=== PATIENT | female | born 1960 | race Caucasian/White ===

== ENCOUNTER 2016-12-22 15:45 | Outpatient (CLI) | payer MEDICARE, MEDICAID | END 2016-12-22 15:46 | disposition critical access hospital (66) | LOC: EMS 15:45 | PROVIDERS: ATTEND Surgery | DX: M25.561 Pain in right knee (principal); W01.198A Fall on same level from slipping, tripping and stumbling with subsequent striking against other object, initial encounter; Y92.038 Other place in apartment as the place of occurrence of the external cause | CPT/HCPCS: A0425; A0429 ==

== ENCOUNTER 2016-12-22 16:04 | Observation (INO) | payer MEDICARE, MEDICAID ==
--- NOTE | 2016-12-22 16:58 | ED Physician Documentation ---
History of Present Illness - Stated complaint Stated Complaint: GLF - Chief complaint Chief Complaint: Ext Problem - History obtained from History obtained from: Patient, EMS - History of Present Illness Timing: Today, How many hours ago (2) Pain level max: 8 Pain level now: 3 Improved by: rest Worsened by: movement - Additonal information Additional information: Patient is a 56-year-old female who presents to the emergency department after speaking with him on the phone today and then waking up on the floor. States she has never passed out before. She did have a headache earlier today, but this is now improved. Does have a history of seizures, but normally focal seizures. No tongue biting. No incontinence. No chest pain, no dizziness or lightheadedness. No nausea or vomiting. Patient states that she had a right total knee replacement in October of this year with Dr. Knight at [facility] in [place], states increasing right knee and left knee pain since the fall as well as low back pain. Review of Systems Ten Systems: 10 systems reviewed and negative Constitutional: denies: Fever, Chills Eyes: denies: Photophobia Ears: denies: Ear pain Nose: denies: Rhinorrhea / runny nose, Congestion Throat: denies: Sore throat Cardiac: denies: Chest pain / pressure Respiratory: denies: Cough GI: denies: Abdominal Pain, Nausea, Vomiting, Diarrhea : denies: Dysuria, Frequency, Hesitancy Skin: denies: Rash Musculoskeletal: reports: Back pain (low back pain) Neurologic: denies: Focal weakness, Numbness, Confused, Altered mental status PD PAST MEDICAL HISTORY - Past Medical History Past Medical History: Yes Cardiovascular: None Respiratory: Asthma Neuro: Headache/migraine, Seizure disorder, Other Endocrine/Autoimmune: Type 2 diabetes GI: Other : None HEENT: Other Psych: None Musculoskeletal: Osteoarthritis, Chronic back pain Derm: None - Past Surgical History Past Surgical History: Yes General: Cholecystectomy, Colonoscopy Ortho: Knee replacement, Shoulder arthroplasty, Spine surgery - Present Medications Home Medications: Ambulatory Orders Medication Instructions Recorded Confirmed Fluticasone [Flonase] 1 sprays CECILIA DAILY 02/13/13 12/22/16 Gabapentin [Neurontin] 1,200 mg PO TID 02/13/13 12/22/16 Topiramate [Topiragen] 200 mg PO BID 02/13/13 12/22/16 Acetaminophen [Tylenol] 650 mg PO Q6H PRN 01/07/14 12/22/16 Albuterol Sulfate [Proair Hfa] 8.5 gm IH Q4H PRN 01/07/14 12/22/16 Cholecalciferol (Vitamin D3) 5,000 unit PO DAILY 01/07/14 12/22/16 [Vitamin D] Polyvinyl Alcohol/Povidone/Pf 1 each OP BID 01/07/14 12/22/16 [Refresh Classic Eye Drops] Cyclobenzaprine [Flexeril] 10 mg PO TID PRN #20 tablet 07/11/14 12/22/16 Ibuprofen [Motrin] 800 mg PO Q8H PRN #30 tablet 07/11/14 12/22/16 - Allergies Allergies/Adverse Reactions: Allergies Allergy/AdvReac Type Severity Reaction Status Date / Time aspirin AdvReac Intermediate Itching Verified 10/15/15 13:43 Penicillins AdvReac Intermediate Itching Verified 10/15/15 13:43 Sulfa (Sulfonamide AdvReac Intermediate Itching Verified 10/15/15 13:43 Antibiotics) prednisone AdvReac Dizziness Verified 10/15/15 13:43 - Social History Does the pt smoke?: No Smoking Status: Never smoker Does the pt drink ETOH?: No Does the pt have substance abuse?: No - Immunizations Immunizations are current?: No - POLST Patient has POLST: No PD ED PE NORMAL - Vitals Vital signs reviewed: Yes - General General: Alert and oriented X 3, No acute distress, Well developed/nourished - HEENT HEENT: Atraumatic, PERRL, Ears normal, Moist mucous membranes, Pharynx benign - Neck Neck: Supple, no meningeal sign, No bony TTP - Cardiac Cardiac: RRR, Strong equal pulses - Respiratory Respiratory: No respiratory distress, Clear bilaterally - Abdomen Abdomen: Soft, Non tender, Non distended - Back Back: Other (mild low lumbar TTP, no step off or deformity) - Derm Derm: Warm and dry - Extremities Extremities: No deformity, Other (R knee - swollen, warm. minimal redness. FROM with some pain. NVI. L knee mild pain with ROM, otherwise normal.) - Neuro Neuro: Alert and oriented X 3 - Psych Psych: Normal mood, Normal affect Results - Vitals Vitals: Vital Signs - 24 hr 12/22/16 12/22/16 15:57 18:32 Temperature 36.2 C L Heart Rate 64 62 Respiratory 18 17 Rate Blood Pressure 147/97 H 128/80 O2 Saturation 99 99 Oxygen O2 Source Room air - EKG (time done) 1746 Rate: Rate (enter#) (64) Rhythm: NSR [place]: Normal Intervals: Normal [place] QRS: Normal Ischemia: Non specific changes - Labs Labs: Laboratory Tests 12/22/16 12/22/16 12/22/16 16:58 16:58 16:58 WBC 10.5 RBC 4.25 Hgb 12.5 Hct 38.0 MCV 89.2 MCH 29.5 MCHC 33.0 RDW 14.0 Plt Count 290 MPV 7.3 L Neut # 7.4 H Lymph # 2.3 [place] # 0.6 Eos # 0.2 Baso # 0.1 Absolute Nucleated RBC 0.01 Nucleated RBC % 0.0 ESR 28 Sodium 138 Potassium 3.4 L Chloride 105 Carbon Dioxide 22 Anion Gap 11.0 BUN 17 Creatinine 1.1 H Estimated GFR (MDRD) 52 L Glucose 119 H Glycated Hemoglobin Estim Average Glucose Calcium 9.2 Total Bilirubin 0.2 AST 17 ALT 15 Alkaline Phosphatase 84 Troponin I C-Reactive Protein 2.0 H Total Protein 7.4 Albumin 3.8 Globulin 3.6 Albumin/Globulin Ratio 1.1 Lipase 22 12/22/16 12/22/16 16:58 18:52 WBC RBC Hgb Hct MCV MCH MCHC RDW Plt Count MPV Neut # Lymph # [place] # Eos # Baso # Absolute Nucleated RBC Nucleated RBC % ESR Sodium Potassium Chloride Carbon Dioxide Anion Gap BUN Creatinine Estimated GFR (MDRD) Glucose Glycated Hemoglobin 5.9 Estim Average Glucose 123 H Calcium Total Bilirubin AST ALT Alkaline Phosphatase Troponin I < 0.04 C-Reactive Protein Total Protein Albumin Globulin Albumin/Globulin Ratio Lipase - Rads (name of study) R knee xray Radiology: Prelim report reviewed, EMP read contemporaneously, See rad report (s /p TKR. no acute findings. ) L knee xray Radiology: Prelim report reviewed, EMP read contemporaneously, See rad report ( Negative left knee ) L spine xray Radiology: Prelim report reviewed, EMP read contemporaneously, See rad report ( Mild/moderate degenerative disk disease of the lower lumbar spine. No fracture or subluxation) head CT Radiology: Prelim report reviewed, EMP read contemporaneously, See rad report ( No acute intracranial abnormality. Stable left ventriculomegaly) cxr Radiology: Prelim report reviewed, EMP read contemporaneously, See rad report ( No acute disease) PD MEDICAL DECISION MAKING - ED course Complexity details: reviewed results, re-evaluated patient, considered differential, d/w patient, d/w human resources consultant ED course: Patient is a 56-year-old female who presents to the emergency department with a syncopal event today at home. No prodrome. She also has a seizure history, but mainly focal seizures, states rarely has grand mal seizures and did not feel like she had one today. No acute findings on EKG or radiographic testing. Her right knee is warm and swollen she did have an infection in this leg after a knee replacement in October, I discussed the case with Dr. Cabrera, orthopedics floorperson and he will evaluate the patient in the morning. Also discussed with hospitalist, Dr. London who accepts. This document was made in part using voice recognition software. While efforts are made to proofread this document, sound alike and grammatical errors may occur. Departure - Departure Disposition: ED Place in Observation Clinical Impression: Syncope Qualifiers: Syncope type: unspecified Qualified Code(s): R55 - Syncope and collapse Knee pain, right Qualifiers: Chronicity: acute Qualified Code(s): M25.561 - Pain in right knee Condition: Good Discharge Date/Time: 12/22/16 21:05
[2016-12-22 17:05] LABS: BASOPHILS # (AUTO) 0.1 10^3/uL (0.0-0.1); BASOPHILS % (AUTO) 0.5 %; EOSINOPHILS # (AUTO) 0.2 10^3/uL (0.0-0.7); HGB - HEMOGLOBIN 12.5 g/dL (12.0-16.0); LYMPHOCYTES # (AUTO) 2.3 10^3/uL (1.5-3.5); LYMPHOCYTES % (AUTO) 21.8 %; MEAN CORPUSCULAR HEMOGLOBIN 29.5 pg (27.0-31.0); MEAN CORPUSCULAR VOLUME 89.2 fL (81.0-99.0); MEAN PLATELET VOLUME 7.3 fL (7.9-10.8); MONOCYTES # (AUTO) 0.6 10^3/uL (0.0-1.0); MONOCYTES % (AUTO) 5.4 %; NEUTROPHILS # (AUTO) 7.4 10^3/uL (1.5-6.6); NEUTROPHILS % (AUTO) 70.3 %; RED BLOOD COUNT 4.25 10^6/uL (4.20-5.40); UNCORRECTED WHITE BLOOD COUNT 10.5 x10^3/uL; WHITE BLOOD COUNT 10.5 x10^3/uL (4.8-10.8)
[2016-12-22 17:28] LABS: ALBUMIN/GLOBULIN RATIO 1.1 (1.0-2.2); BILIRUBIN,TOTAL 0.2 mg/dL (0.2-1.0); CALCIUM 9.2 mg/dL (8.5-10.3); CREATININE 1.1 mg/dL (0.4-1.0); POTASSIUM 3.4 mmol/L (3.5-5.0); TOTAL PROTEIN 7.4 g/dL (6.7-8.2)
--- NOTE | 2016-12-22 17:46 | CT Preliminary Report ---
Exam: CT HEAD W/O IMPRESSION: 1. No acute intracranial abnormality. 2. Stable left ventriculomegaly. [facility] SITE ID: [id number]
--- NOTE | 2016-12-22 17:49 | CT Report ---
EXAM: CT HEAD EXAM DATE: 12/22/2016 05:24 PM. CLINICAL HISTORY: Headache, syncope. COMPARISON: 12/18/2009 CT head. TECHNIQUE: Multiaxial CT images were obtained from the foramen magnum to the vertex. Reformats: Coron al. IV contrast: None. In accordance with CT protocol optimization, one or more of the following dose reduction techniques w ere utilized for this exam: automated exposure control, adjustment of mA and/or KV based on patient s ize, or use of iterative reconstructive technique. FINDINGS: Parenchyma: No intraparenchymal hemorrhage. No evidence of mass, midline shift, or CT findings of inf arction. Ruiz-white differentiation is distinct. Extraaxial Spaces: Normal for age. No subdural or epidural collections identified. Ventricles: There is dilatation of the left lateral ventricle noting marked enlargement of the occipi antonio horn, stable compared to the previous exam. The right, third and fourth ventricles remain normal. Sinuses and Orbits: Imaged paranasal sinuses, orbits, and mastoids show no significant abnormality. Bones: No evidence of fracture or calvarial defect. Other: None. IMPRESSION: 1. No acute intracranial abnormality. 2. Stable left ventriculomegaly. [facility] Referring Provider Line: [phone] SITE ID: [id number]
--- NOTE | 2016-12-22 18:14 | XRAY Preliminary Report ---
Exam: XR KNEE 2 VIEW RT IMPRESSION: Total knee arthroplasty. No fracture. [facility] SITE ID: [id number]
--- NOTE | 2016-12-22 18:17 | XRAY Report ---
EXAM: RIGHT KNEE RADIOGRAPHY EXAM DATE: 12/22/2016 05:49 PM. CLINICAL HISTORY: Fall, R knee pain. COMPARISON: None. TECHNIQUE: 2 views. FINDINGS: Bones: Normal. No fractures or bone lesions. Joints: Alignment appears satisfactory. Limited assessment for joint effusion. Soft Tissues: Normal. No soft tissue swelling. IMPRESSION: Total knee arthroplasty. No fracture. [facility] Referring Provider Line: [phone] SITE ID: [id number]
--- NOTE | 2016-12-22 18:17 | XRAY Preliminary Report ---
Exam: XR KNEE 4 VIEW LT IMPRESSION: Negative left knee [facility] SITE ID: [id number]
--- NOTE | 2016-12-22 18:20 | XRAY Report ---
EXAM: LEFT KNEE RADIOGRAPHY EXAM DATE: 12/22/2016 05:49 PM. CLINICAL HISTORY: Fall, L knee pain. COMPARISON: 11/22/2008. TECHNIQUE: 4 views. FINDINGS: Bones: Normal. No fractures or bone lesions. Joints: Normal. No effusion. No subluxations. Soft Tissues: Normal. No soft tissue swelling. IMPRESSION: Negative left knee [facility] Referring Provider Line: [phone] SITE ID: [id number]
--- NOTE | 2016-12-22 18:21 | XRAY Preliminary Report ---
Exam: XR LUMBAR SPINE 2 VIEW IMPRESSION: Mild/moderate degenerative disk disease of the lower lumbar spine. No fracture or subluxa tion. [facility] SITE ID: [id number]
--- NOTE | 2016-12-22 18:23 | XRAY Report ---
EXAM: LUMBOSACRAL SPINE RADIOGRAPHY EXAM DATE: 12/22/2016 05:49 PM. CLINICAL HISTORY: Low back pain. COMPARISONS: None. TECHNIQUE: 3 views. FINDINGS: Alignment: No significant subluxation. Bones: Five [id number] lumbar vertebral bodies are present. No fracture visualized. Disks: There is moderate disk height loss at L4-L5 and L5-S1. Facets: Facet joints appear in satisfactory alignment. There is facet sclerosis and hypertrophy at L4 -L5 and L5-S1. Sacroiliac Joints: Unremarkable. Soft Tissues: Normal. The visualized bowel gas pattern is normal. IMPRESSION: Mild/moderate degenerative disk disease of the lower lumbar spine. No fracture or subluxa tion. [facility] Referring Provider Line: [phone] SITE ID: [id number]
[2016-12-22] MEDS ORDERED: TOPIRAMATE 100 MG TABLET PO STA (18:48)
[2016-12-22] MEDS ORDERED: HYDROcod/ACETAM 5/325 MG TABLET PO STA (18:49)
[2016-12-22] MEDS: GABAPENTIN 400 MG CAPSULE PO STA (18:59)
[2016-12-22] MEDS ORDERED: POTASSIUM CHLORIDE 20 MEQ TABLET PO STA (19:59)
[2016-12-22] MEDS ORDERED: ONDANSETRON 4 MG/2 ML VIAL IVP PRN (20:00)
[2016-12-22] MEDS ORDERED: SODIUM CHLORIDE FLUSH 0.9% 10 ML SYRINGE IVP PRN (20:00)
[2016-12-22] MEDS ORDERED: ALBUTEROL SULFATE IH PRN (20:02)
[2016-12-22] MEDS ORDERED: CYCLOBENZAPRINE 10 MG TABLET PO PRN (20:02)
[2016-12-22] MEDS ORDERED: ACETAMINOPHEN 325 MG TABLET PO PRN (20:02)
--- NOTE | 2016-12-22 20:10 | XRAY Preliminary Report ---
Exam: XR CHEST 1 VIEW IMPRESSION: Normal single view chest. [facility] SITE ID: [id number]
--- NOTE | 2016-12-22 20:11 | XRAY Report ---
EXAM: CHEST RADIOGRAPHY EXAM DATE: 12/22/2016 07:48 PM. CLINICAL HISTORY: Syncope. COMPARISON: 02/13/2013. TECHNIQUE: 1 view. FINDINGS: Lungs/Pleura: No focal opacities evident. No pleural effusion. No pneumothorax. Mediastinum: Within exam limitations, the cardiomediastinal contour is normal. Other: None. IMPRESSION: Normal single view chest. [facility] Referring Provider Line: [phone] SITE ID: [id number]
[2016-12-22] MEDS ORDERED: ERGOCALCIFEROL 50,000 UNIT CAPSULE PO SCH (20:15)
[2016-12-22] MEDS ORDERED: ALBUTEROL 6.7 GM INHALER INH PRN (21:06)
[2016-12-22] MEDS: SODIUM CHLORIDE FLUSH 0.9% 10 ML SYRINGE IVP SCH ×2 (21:59→23:37)
[2016-12-22] MEDS: GABAPENTIN 400 MG CAPSULE PO SCH ×2 (21:59)
[2016-12-22] MEDS ORDERED: CHOLECALCIFEROL 5,000 UNIT CAPSULE PO SCH (22:04)
[2016-12-22 22:22] LABS: HEMOGLOBIN A1C 0.54 g/dL
[2016-12-22] MEDS: HEPARIN 5,000 UNIT/ML VIAL SUBQ SCH (22:35)
[2016-12-22] MEDS ORDERED: levETIRAcetam INJ 500 MG in SODIUM CHLORIDE 0.9% 100ML 100 ML IV SCH (23:00)
--- NOTE | 2016-12-23 01:52 | Ultrasound Preliminary Report ---
Exam: US CAROTID DOPPLER COMPLETE IMPRESSION: 1. Bilateral carotid plaquing, right greater than left. No significant stenosis identified. 2. Antegrade flow in both vertebral arteries. Validated velocity measurements with angiographic measurements and velocity criteria are extrapolated from diameter data as defined by the Society of Radiologists in Ultrasound Consensus Conference Radi ology 2003; 229;340-346. [facility] SITE ID: [id number]
--- NOTE | 2016-12-23 02:03 | HISTORY & PHYSICAL EXAMINATION ---
DATE OF ADMISSION: 12/22/2016 CHIEF COMPLAINT: Syncope. HISTORY OF PRESENT ILLNESS: The patient is a 56-year-old white female with past medical history of type 2 diabetes diet controlled, with history of developmental delay and seizure disorder, taking Topamax and with peripheral neuropathy on multiple medications. Notably, the patient recently underwent right knee replacement in October 2016. Other than that, there was no change in her chronic medical problems. The patient reported that usually she has focal seizures. She described that her left arm shakes and sometimes the shakes go into her left leg. The shaking lasts for 2-4 minutes and self resolves. The patient does see a neurologist and reported no recent medication change. The patient was a good historian and mentioned a few issues regarding her knee replacement. In particular, she noticed that her right knee was swollen and got painful, therefore she wanted to have outpatient followup but have not yet got a chance. In addition, she was using Lovenox injections following the knee surgery and she developed complications with wounds on both of her thighs for that she had been receiving outpatient wound care. Regarding the circumstances leading to presentation to the ER, the patient was on the phone with [employer] on the afternoon of 12/22/2016 at which time she remembers going forward and falling. Other than that she cannot recall further detail, the ambulance was called by the [employer] attendant who was on the phone with the patient. On further interview, the patient denied chest pain, shortness of breath, or fever. She mentioned that she was lightheaded earlier during the day, did not complain of nausea, vomiting, diarrhea, abdominal pain, denied similar episodes in the past. She believes that she blacked out and lost time. When I asked her about her seizures she told me that she has seizure activity sometimes a couple of times a week, other times couple of times a month , she had grand mal seizures in the past, but only a few times. She did not feel her syncope was related to seizure. However, she also told me that in the ER she had focal seizures twice which means that her left arm and leg were shaking. Notably, the ER physician did not report any seizure activity or any unusual issue during the ER stay. PRIMARY CARE PHYSICIAN: Dr. Ryland Carlton. PAST MEDICAL HISTORY: 1. Type 2 diabetes, most recently not even using a diet, reports significant weight loss after which she no longer required medications. For a while she controlled diabetes with a diet and most recently her blood glucose was controlled even without keeping diabetic diet. 2. History of seizure with structural brain abnormality. 3. Possible developmental delay, ventriculomegaly described on CT scan. The patient reporting that she had "fluid in her brain" /might have hydrocephalus. 4. Peripheral neuropathy. 5. Chronic low back pain, taking occasional Vicodin 6. Osteoarthritis status post total right knee replacement. OUTPATIENT MEDICATIONS: 1. Vitamin D. 2. Topamax eyedrops. 3. Ibuprofen. 4. Gabapentin. 5. Flonase. 6. Flexeril. 7. ProAir inhaler. 8. Tylenol. ALLERGIES: ASPIRIN, PENICILLIN, SULFA, PREDNISONE. SOCIAL HISTORY: The patient uses a walker and occasionally a cane to ambulate following her knee surgery. She had been undergoing physical therapy and reports that she is back to her normal baseline physical activity. She has a caregiver for 7 hours a day. She is a nonsmoker, nondrinker, uses no drugs. FAMILY HISTORY: Positive for coronary artery disease, diabetes, and cancer in the mother. Diabetes and dementia in the father. REVIEW OF SYSTEMS: Please see pertinent positive listed above at history of present illness; I completed 12-point review and the patient denied all other additional complaints. PHYSICAL EXAMINATION: VITAL SIGNS: Blood pressure 120/80, heart rate in the 60s, respiration rate 18, oxygen saturation 100% on room air, temperature 36.3 Celsius. GENERAL: The patient is a well-developed female who was not in distress. She was slow with her responses but answered all my questions appropriately. NEUROLOGIC: The patient had intact mentation and cognition. Appropriate affect. She was neurologically nonfocal. PSYCH: Cooperative, pleasant to talk to. SKIN: On the right thigh, there was a small wound covered with dressing and on the left thigh there was a healing wound without signs of inflammation. MUSCULOSKELETAL: Right knee had a well-healing surgical scar; however, it appeared to be swollen with effusion. There was no erythema and no warmth, no other site of joint swelling or muscle tenderness. HEART: S1, S2, regular rate and rhythm. RESPIRATORY: Lungs clear to auscultation bilaterally without wheezes, or crackles. LYMPH: No lymphedema. ABDOMEN: Obese, benign. Bowel sounds present, nontender. MOUTH: Oral cavity, no ulcers, no tongue biting. Diagnostic workup: Reviewed per ER record, notably the patient had multiple x- rays including knee x-rays and x-ray of the spine. At this point, preliminary reports are available. No abnormality was noted. In particular on the right knee signs of arthroplasty were noted but no fracture. Radiologist mentioned limited assessment for joint effusion. CT of the brain showed no acute abnormality. Chest x-ray was unremarkable. X- ray of the spine showed no abnormality. Laboratory workup was grossly unremarkable except for mildly low potassium at 3.4 and slightly increased creatinine 1.1. CRP was 2. Troponin was negative. EKG was unremarkable, showing sinus rhythm with a rate of 64, nonspecific abnormalities. ASSESSMENT AND PLAN: The patient is a 56-year-old female with history of seizure disorder, usually taking Topamax also with history of developmental delay and neuropathy taking multiple psychoactive medications including Flexeril and recently taking some Vicodin for osteoarthritis and knee pain following surgery. She presented with a brief syncopal episode. So far the ER workup was unrevealing. ACTIVE ISSUE/DIAGNOSES: 1. Syncopal episode. a. Could be related to seizure. With history of seizure this would be most likely. b. The patient never had cardiac workup, will be monitored on telemetry to rule out cardiac arrhythmia. We will have an echocardiogram and carotid ultrasound according to syncope workup. c. CT head of the brain was negative. d. The vital signs were normal, however orthostatic change/dehydration causing is possible. e. Psychoactive medications could contribute to altered mental status and short syncope. 2. Type 2 diabetes, not on medication, not on diet. Blood glucose was 150 on admission. 3. Right thigh wounds, will require ongoing wound care. 4. Right knee appears with effusion on physical exam. For this problem the ER physician, Dr. Oliver spoke with the covering orthopedic surgeon, Dr. Cabrera, who accepted this patient for consultation and will see her in the morning. 5. Mild electrolyte abnormality/hypokalemia, potassium was already replaced. 6. The patient appeared slightly dehydrated. Creatinine was increased and GFR was decreased. Syncope could also be a result of orthostatic change in the setting of dehydration. PLAN AND ORDERS: 1. The patient is getting admitted under observation. 2. Telemetry monitoring, syncope workup including ultrasound of the carotids and echocardiogram. I added TSH to the workup and in addition, I added prolactin if it is significantly elevated, then seizure will be more likely. 3. Continue with seizure precautions and continue Topamax. I sent Topamax level. 3. The patient has an outpatient neurologist after syncope workup and short hospital stay, she should likely be sent back to outpatient neurology followup to adjust her antiseizure medications. 4. Regarding chronic medical problems, will continue outpatient medications. 5. Regarding diabetes the patient requested to be on a regular diet. We will monitor blood glucose on sliding scale. 6. Will assess orthostatic vital signs. 6. Deep venous thrombosis prophylaxis with Venodyne boots and decreased dose of subcutaneous heparin. 7. Wound care for small thigh wounds. 8. Orthopedic evaluation for knee effusion. For this, the patient might need to have a knee tap. I added blood cultures and MRSA screen to the workup considering recent knee surgery and possible infectious issue, although the patient was afebrile and white blood cell count was not elevated, therefore infectious problem is less likely. 9. FULL CODE. Time spent with the care of this patient was 1 hour. ADDENDUM: Shortly after admission the patient had a short episode of focal seizure with left arm shakes. She became lethargic but remained responsive without loss of consciousness. On telemetry was noted with ictal bradycardia/ HR down to 40s. Given the observed focal seizure and ictal bradycardia syncope could be explained by the combination of seizure and consequent rashad- arrhythmia. Keppra was started. Topamax continued. For further recommendation neurology could be contacted during the daytime. JOB #: [id number] EXT JOB #:[id number] [facility]
--- NOTE | 2016-12-23 02:04 | Ultrasound Report ---
EXAM: CAROTID DOPPLER ULTRASOUND EXAM DATE: 12/23/2016 01:38 AM. CLINICAL HISTORY: Syncope. COMPARISON: None. TECHNIQUE: Real-time sonographic vascular imaging was performed by the cancer center director through the [employer] arterial system with a linear transducer utilizing color-flow, Doppler flow and spectral analysis. Multiple operations representative static images were saved for review. FINDINGS: There is plaquing in the carotid bulbs and proximal internal carotid arteries bilaterally, right grea ter than left. No significant stenosis is seen. Antegrade flow is seen in both vertebral arteries. Right: RCCA Prox: PSV 88.7 cm/sec. RCCA Dist: PSV 71.4 cm/sec, EDV 17.3 cm/sec. RECA: PSV 87.6 cm/sec. R Bulb: PSV 48.1 cm/sec, EDV 18.9 cm/sec, ICA/CCA ratio 0.7. OSCAR Prox: PSV 85.5 cm/sec, EDV 8.7 cm/sec, ICA/CCA ratio 1.2. OSCAR Mid: PSV 99.0 cm/sec, EDV 27 cm/sec, ICA/CCA ratio 1.4. OSCAR Dist: PSV 83.3 cm/sec, EDV 25.4 cm/sec, ICA/CCA ratio 1.2. RVA: PSV 37.3 cm/sec. RVA flow direction: Antegrade. Left: LCCA Prox: PSV 102 cm/sec. LCCA Dist: PSV 66.5 cm/sec, EDV 13 cm/sec. LECA: PSV 54.6 cm/sec. L Bulb: PSV 33 cm/sec, EDV 6.5 cm/sec, ICA/CCA ratio 0.5. LICA Prox: PSV 58.4 cm/sec, EDV 15.7 cm/sec, ICA/CCA ratio 0.9. LICA Mid: PSV 89.2 cm/sec, EDV 30.3 cm/sec, ICA/CCA ratio 1.3. LICA Dist: PSV 73.1 cm/sec, EDV 26.5 cm/sec, ICA/CCA ratio 1.1. LVA: PSV 51.4 cm/sec. LVA flow direction: Antegrade. Other: Bilateral cervical lymph nodes measuring up to about 1.4 cm on the long axis. IMPRESSION: 1. Bilateral carotid plaquing, right greater than left. No significant stenosis identified. 2. Antegrade flow in both vertebral arteries. Validated velocity measurements with angiographic measurements and velocity criteria are extrapolated from diameter data as defined by the Society of Radiologists in Ultrasound Consensus Conference Radi ology 2003; 229;340-346. [facility] Referring Provider Line: [phone] SITE ID: [id number]
[2016-12-23] MEDS: IBUPROFEN 800 MG TABLET PO PRN ×2 (03:12→12:25)
[2016-12-23] MEDS: GABAPENTIN 400 MG CAPSULE PO SCH ×2 (05:47→14:25)
[2016-12-23] MEDS ORDERED: ALBUTEROL NEB 2.5 MG/3 ML INH PRN (07:12)
[2016-12-23] MEDS: INSULIN ASPART 300 UNIT/3 ML PEN SUBQ SCH ×2 (07:43→11:47)
[2016-12-23] MEDS ORDERED: POLYETHYLENE GLYCOL 3350 17 GM PACKET PO SCH (09:00)
[2016-12-23] MEDS ORDERED: TOPIRAMATE 100 MG TABLET PO SCH ×2 (09:00)
[2016-12-23] MEDS ORDERED: FLUTICASONE NASAL SPRAY NAS SCH (09:00)
[2016-12-23] MEDS ORDERED: CARBOXYMETHYLCELLULOSE OPHTH DROPS EACHEYE SCH (09:00)
[2016-12-23] MEDS: HEPARIN 5,000 UNIT/ML VIAL SUBQ SCH (09:23)
[2016-12-23] MEDS ORDERED: levETIRAcetam INJ 500 MG in SODIUM CHLORIDE 0.9% 100ML 100 ML IV SCH (11:00)
--- NOTE | 2016-12-23 11:03 | CONSULTATION NOTE ---
DATE OF CONSULTATION: 12/23/2016 00:00:00 REQUESTING PROVIDER: Dr. Jose Oliver. REASON FOR CONSULTATION: Right knee swelling. HISTORY OF PRESENT ILLNESS: The patient is a 56-year-old diabetic female who has undergone a right to antonio knee arthroplasty performed by Dr. Erin Knight in [place] in October. The patient's course w as uneventful except for a complication of wound breakdown at sites of Lovenox injection on her upper thigh, the most prominent one being on her proximal right thigh and still an open wound at this time . The patient has had a syncopal event yesterday and was admitted to the hospital on observation. She was noted in the emergency room to have a swollen right knee and there was concern about whether thi s might be an incipient infection of her right knee and so I was asked to evaluate and make a determi nation on whether aspiration was warranted. The patient's prior medical history, vital signs and labo ratory tests were all documented. Of note is that she does not have any seromarkers of acute infectio n and is not febrile. PHYSICAL EXAMINATION MUSCULOSKELETAL/SKIN: The patient's examination shows her lying in bed, not in distress, having an O p-Site dressed wound on her proximal right thigh anteromedial remote from the total knee healing surg ical site, which appears to be healing fine with no evidence of wound breakdown and no surrounding wa rmth or erythema at this time. The patient is most comfortable with her knee in 30 degrees of flexion . Her knee stability is good to varus, valgus, and Rafaela exam, and she has intact extension of her knee and can do a very good straight leg raising test. She does not have distal edema and neurovascul ar exam is normal. X-ray review fails to show a periprosthetic fracture. The components appear in stable position. IMPRESSION: The patient has a history of fall with a minor injury to her right knee that seems to be resolving and does not appear to be due to infection of her total knee arthroplasty and therefore asp iration is not warranted. The patient will be placed in a small knee immobilizer and is recommended t o inform Dr. Knight of her syncopal episode and her overnight stay in the hospital and suggest that sh e have more advanced followup instead of waiting until January to see Dr. Knight. JOB #: [id number] EXT JOB #:[id number]
--- NOTE | 2016-12-23 13:12 | DISCHARGE SUMMARY ---
"Discharge Summary Admit Date: 12/22/16 Discharge Date: 12/23/16 Discharging Provider: PAZ Stinson Primary Care Provider: Ryland Carlton Code Status: Attempt Resuscitation Condition at Discharge: Good Discharge Disposition: 01 Home, Self Care - DIAGNOSES Admission Diagnoses: Syncope Seizure Bradycardia Hypokalemia Knee effusion Discharge Diagnoses with Status of Each Condition: Syncope- Suspected due to low fluid volume or pre-seizure activity. Plan: Cardiac work-up was normal and consisted of carotid dopplers, echocardiogram, orthostatic blood pressures and telemetry monitoring, which was sinus rhythm in the 60's. Seizure- A mini event was witnessed by admitting MD, so Keppra PO was added to current medication list. Plan: Follow up with neurology regarding new medications and events leading up to this admission. Bradycardia- Patient was monitored overnight for evidence of worsening bradycardia, but remained in the 60's throughout her stay. This may be a consequence of her mild LV hypertrophy that was noted on echocardiogram. Plan: No further recommendations to medications. Hypokalemia- Patient denies N/V/D leading up to the admission, likely from poor PO intake. Plan: Replace and follow up with PCP for further monitoring. Knee effusion- Patient remembers falling on her post-surgical right knee. Ortho surgery consulted and signed off as there is no intervention or aspiration indicated. Plan: Monitor. Wear a brace that was recommended by ortho to keep swelling down and for comfort. - HPI History of Present Illness: Patient is a 56-year-old female who presents to the emergency department after speaking with him on the phone today and then waking up on the floor. States she has never passed out before. She did have a headache earlier today, but this is now improved. Does have a history of seizures, but normally focal seizures. No tongue biting. No incontinence. No chest pain, no dizziness or lightheadedness. No nausea or vomiting. Patient states that she had a right total knee replacement in October of this year with Dr. Knight at [facility] in [place], states increasing right knee and left knee pain since the fall as well as low back pain. - CONSULTS | PROCEDURES Consultations: Ortho surgery - HOSPITAL COURSE Hospital Course: Patient was started on Keppra and watched overnight on telemetry. The usual cardiac work-up was completed and normal. Ortho surgery consulted for a possible right knee aspiration, which was deemed unnecessary. A brace was given for home use. Patient is to follow up with neuro as planned for further recommendations for Keppra medications and whether she could continue it. - ALLERGIES Allergies/Adverse Reactions: Allergies Allergy/AdvReac Type Severity Reaction Status Date / Time aspirin AdvReac Intermediate Itching Verified 10/15/15 13:43 Penicillins AdvReac Intermediate Itching Verified 10/15/15 13:43 Sulfa (Sulfonamide AdvReac Intermediate Itching Verified 10/15/15 13:43 Antibiotics) prednisone AdvReac Dizziness Verified 10/15/15 13:43 nonsting skin prep Allergy Hives Uncoded 12/23/16 14:11 - MEDICATIONS Home Medications: Ambulatory Orders Medication Instructions Recorded Confirmed Fluticasone [Flonase] 2 sprays CECILIA DAILY 02/13/13 12/23/16 Gabapentin [Neurontin] 1,200 mg PO BID 02/13/13 12/23/16 Topiramate [Topiragen] 200 mg PO BID 02/13/13 12/23/16 Albuterol Sulfate [Proair Hfa 2 puffs INH Q4H PRN 01/07/14 12/23/16 Inhaler] Cholecalciferol (Vitamin D3) 5,000 unit PO DAILY 01/07/14 12/22/16 [Vitamin D3] Albuterol 2.5 mg INH RTQ4H PRN neb 12/23/16 Cyclobenzaprine [Flexeril] 10 mg PO TID PRN tablet 12/23/16 Gabapentin 800 mg PO DAILY@1200 12/23/16 12/23/16 Hydrocodone/Acetaminophen 0.5 tab PO Q4H PRN 12/23/16 12/23/16 [Hydrocodon-Acetaminophn 10-325] Ibuprofen [Motrin] 800 mg PO Q8H PRN tablet 12/23/16 Insulin Aspart [NovoLOG] 1 - 5 unit SUBQ 12/23/16 0800,1200,1700,2100 pen Polyethylene Glycol 3350 [Miralax] 17 gm PO DAILY packet 12/23/16 levETIRAcetam [Keppra] 250 mg PO BID #60 tablet 12/23/16 tiZANidine [Zanaflex] 2 mg PO TID PRN 12/23/16 12/23/16 Home Medications Other | Comments: Fluticasone [Flonase] 2 sprays CECILIA DAILY 02/13/13 Gabapentin [Neurontin] 1,200 mg PO BID 02/13/13 Topiramate [Topiragen] 200 mg PO BID 02/13/13 Albuterol Sulfate [Proair Hfa Inhaler] 2 puffs INH Q4H PRN 01/07/14 Cholecalciferol (Vitamin D3) [Vitamin D3] 5,000 unit PO DAILY 01/07/14 Gabapentin 800 mg PO DAILY@1200 12/23/16 Hydrocodone/Acetaminophen [Hydrocodon-Acetaminophn 10-325] 0.5 tab PO Q4H PRN tiZANidine [Zanaflex] 2 mg PO TID PRN 12/23/16 - PHYSICAL EXAM AT DISCHARGE General Appearance: positive: No acute distress, Alert Eyes Bilateral: positive: Normal inspection, PERRL ENT: positive: ENT inspection nml, Pharynx nml, No signs of dehydration Neck: positive: Nml inspection, Thyroid nml, No JVD, Trachea midline Respiratory: positive: Chest non-tender, No respiratory distress, Breath sounds nml Cardiovascular: positive: Regular rate & rhythm, No gallop, Systolic murmur Peripheral Pulses: positive: 2+ Abdomen: positive: Non-tender, No organomegaly, Nml bowel sounds, No distention Rectal: positive: Non-tender Back: positive: Nml inspection Skin: positive: Color nml, No rash, Warm, Dry Extremities: positive: Non-tender, Full ROM, Pedal edema, Joint swelling Neurologic/Psychiatric: positive: Oriented x3, Motor nml, Sensation nml, Sensory loss, Slurred/abnml speech, Depressed mood/affect Reflexes: Bicep (R): 3+, Bicep (L): 3+ - LABS Result Diagrams: 12/22/16 16:58 12/22/16 16:58 - DIAGNOSTIC IMAGING Diagnostic Imaging Results: Final report reviewed Diagnostic Imaging Results Comments: Carotid US 12/23/16:IMPRESSION: 1. Bilateral carotid plaquing, right greater than left. No significant stenosis identified. 2. Antegrade flow in both vertebral arteries. Lumbar spine x-ray 12/22/16:IMPRESSION: Mild/moderate degenerative disk disease of the lower lumbar spine. No fracture or subluxation. There is facet sclerosis and hypertrophy at L4-L5 and L5-S1. There is moderate disk height loss at L4-L5 and L5-S1. Head CT w/o contrast 12/22/16: IMPRESSION: 1. No acute intracranial abnormality. 2. Stable left ventriculomegaly. Right Knee x-ray 12/22/16: IMPRESSION: Total knee arthroplasty. No fracture. Chest x-ray 12/22/16: Lungs/Pleura: No focal opacities evident. No pleural effusion. No pneumothorax. Mediastinum: Within exam limitations, the cardiomediastinal contour is normal. Echocardiogram: Mild LV hypertrophy, EF 60-65%, mild aortic regurgitation. - FOLLOW UP Follow Up: See neurology as scheduled, Gigi Vergara MD. Take all medications, including Keppra. - TIME SPENT Time Spent in Discharge (Minutes): 30"
[2016-12-23] MEDS: SODIUM CHLORIDE FLUSH 0.9% 10 ML SYRINGE IVP SCH (14:25)
--- NOTE | 2016-12-23 15:44 | Discharge Plan ---
Discharge Plan Disposition: 01 Home, Self Care Condition: Good Prescriptions: levETIRAcetam [Keppra] 250 mg PO BID #60 tablet Diet: Regular Activity Restrictions: Wt Bearing as Tolerated Shower Restrictions: No Driving Restrictions: No Weight Bearing: Full Weight Instruction Topics: Levetiracetam tablets Additional Instructions or Follow Up instructions: See neurology as scheduled, Gigi Vergara MD. Take all medications, including Keppra. No Smoking: If you smoke, Please STOP! Call for help. Follow-up with: Ryland Carlton DO [Primary Care Provider] -
[2016-12-23] MEDS ORDERED: levETIRAcetam 250 MG TABLET PO SCH (16:00)
[2016-12-23 16:06] VITALS: BP 129/73
[2016-12-23] MEDS ORDERED: HYDROcod/ACETAM 10 MG/325 MG TABLET PO PRN (16:35)
[2016-12-23] MEDS ORDERED: TIZANIDINE 2 MG PO PRN (16:36)
[2016-12-24] MEDS ORDERED: GABAPENTIN 400 MG CAPSULE PO SCH (12:00)
== END 2016-12-23 16:35 | disposition home or self-care (01) ==
LOC: EDUNIT# → ED 16:04 → OBS 20:00
PROVIDERS: ADMIT Internal Medicine; ATTEND Nurse Practitioner
DX: R55 Syncope and collapse (principal); G40.109 Localization-related (focal) (partial) symptomatic epilepsy and epileptic syndromes with simple partial seizures, not intractable, without status epilepticus; R00.1 Bradycardia, unspecified; E87.6 Hypokalemia; M25.461 Effusion, right knee; S89.91XA Unspecified injury of right lower leg, initial encounter; W18.30XA Fall on same level, unspecified, initial encounter; M51.36 Other intervertebral disc degeneration, lumbar region; G89.29 Other chronic pain; Z96.651 Presence of right artificial knee joint; E11.42 Type 2 diabetes mellitus with diabetic polyneuropathy; Z79.899 Other long term (current) drug therapy; J45.909 Unspecified asthma, uncomplicated; G43.909 Migraine, unspecified, not intractable, without status migrainosus; M25.562 Pain in left knee; I51.7 Cardiomegaly; L76.82 Other postprocedural complications of skin and subcutaneous tissue; Y84.8 Other medical procedures as the cause of abnormal reaction of the patient, or of later complication, without mention of misadventure at the time of the procedure
CPT/HCPCS: 36415; 70450; 71010; 72100; 73560; 73564; 80053; 83036; 83690; 83735; 84146; 84443; 84484; 85025; 85651; 86140; 87040; 93005; 93306; 93880; 96365; 96366; 96372; 99284; 99285; A9270; G0378; 87640

== ENCOUNTER 2017-05-12 11:29 | Outpatient (CLI) | payer MEDICARE, MEDICAID | END 2017-05-12 11:30 | disposition critical access hospital (66) | LOC: EMS 11:29 | PROVIDERS: ATTEND Surgery | DX: R56.9 Unspecified convulsions (principal) | CPT/HCPCS: A0425; A0429 ==

== ENCOUNTER 2017-05-12 11:51 | Emergency (ER) | payer MEDICARE, MEDICAID ==
--- NOTE | 2017-05-12 12:19 | ED Physician Documentation ---
PD HPI SEIZURE - Stated complaint Stated Complaint: SZ - Chief complaint Chief Complaint: Neuro - History obtained from History obtained from: Patient, Family (daughter) - History of Present Illness Timing - onset: Today Witnessed: Witnessed Number of seizures: Multiple, Lasted - seconds Description of seizure activity: Focal (appeared as facial twitching and some arm movement, with just lasting few seconds then under a minute recovery time.) Associated symptoms: No: Nausea / vomiting History of seizures: Known seizure disorder Contributing factors: No: Off meds, Out of meds, Changed meds, Low blood sugar, Fever Similar symptoms before: Diagnosis (has seizure disorder since head injury years ago. Daughter and patient say that she has seizures about every 2-4 weeks. Has been doing well on current seizure meds and no recent changes nor missed doses.) Recently seen: Not recently seen Review of Systems Constitutional: denies: Fever, Chills Nose: denies: Rhinorrhea / runny nose, Congestion Throat: denies: Sore throat Respiratory: denies: Cough GI: denies: Abdominal Pain, Nausea, Vomiting, Diarrhea : denies: Dysuria, Frequency Skin: denies: Rash, Lesions Neurologic: denies: Focal weakness, Numbness, Altered mental status, Headache PD PAST MEDICAL HISTORY - Past Medical History Cardiovascular: None Respiratory: Asthma Neuro: Headache/migraine, Seizure disorder, Other Endocrine/Autoimmune: Type 2 diabetes GI: Other : None HEENT: Other Psych: None Musculoskeletal: Osteoarthritis, Chronic back pain Derm: None - Past Surgical History Past Surgical History: Yes General: Cholecystectomy, Colonoscopy Ortho: Knee replacement, Shoulder arthroplasty, Spine surgery HEENT: Cataracts - Present Medications Home Medications: Ambulatory Orders Medication Instructions Recorded Confirmed Fluticasone [Flonase] 2 sprays CECILIA DAILY 02/13/13 12/23/16 Gabapentin [Neurontin] 1,200 mg PO BID 02/13/13 12/23/16 Topiramate [Topiragen] 200 mg PO BID 02/13/13 12/23/16 Albuterol Sulfate [Proair Hfa 2 puffs INH Q4H PRN 01/07/14 12/23/16 Inhaler] Cholecalciferol (Vitamin D3) 5,000 unit PO DAILY 01/07/14 12/22/16 [Vitamin D3] Albuterol 2.5 mg INH RTQ4H PRN neb 12/23/16 Cyclobenzaprine [Flexeril] 10 mg PO TID PRN tablet 12/23/16 Gabapentin 800 mg PO DAILY@1200 12/23/16 12/23/16 Hydrocodone/Acetaminophen 0.5 tab PO Q4H PRN 12/23/16 12/23/16 [Hydrocodone-Acetamin 10-325 mg] Ibuprofen [Motrin] 800 mg PO Q8H PRN tablet 12/23/16 Insulin Aspart [NovoLOG] 1 - 5 unit SUBQ 12/23/16 0800,1200,1700,2100 pen Polyethylene Glycol 3350 [Miralax] 17 gm PO DAILY packet 12/23/16 levETIRAcetam [Keppra] 250 mg PO BID #60 tablet 12/23/16 tiZANidine [Zanaflex] 2 mg PO TID PRN 12/23/16 12/23/16 Cephalexin [Keflex] 500 mg PO TID #15 capsule 05/12/17 Lorazepam [Ativan] 1 mg PO BID #6 tablet 05/12/17 - Allergies Allergies/Adverse Reactions: Allergies Allergy/AdvReac Type Severity Reaction Status Date / Time aspirin AdvReac Intermediate Itching Verified 10/15/15 13:43 Penicillins AdvReac Intermediate Itching Verified 10/15/15 13:43 Sulfa (Sulfonamide AdvReac Intermediate Itching Verified 10/15/15 13:43 Antibiotics) prednisone AdvReac Dizziness Verified 10/15/15 13:43 nonsting skin prep Allergy Hives Uncoded 12/23/16 14:11 - Social History Does the pt smoke?: No Smoking Status: Never smoker Does the pt drink ETOH?: No Does the pt have substance abuse?: No - Family History Family history: reports: Non contributory - Immunizations Immunizations are current?: No - POLST Patient has POLST: No PD ED PE NORMAL - Vitals Vital signs reviewed: Yes - General General: Alert and oriented X 3, No acute distress, Well developed/nourished - HEENT HEENT: Ears normal, Moist mucous membranes, Pharynx benign, Other (no oral lesions) - Neck Neck: Supple, no meningeal sign, No adenopathy - Cardiac Cardiac: RRR, No murmur - Respiratory Respiratory: Clear bilaterally - Abdomen Abdomen: Soft, Non tender - Back Back: No CVA TTP - Derm Derm: Normal color, Warm and dry, No rash - Extremities Extremities: No tenderness to palpate, Normal ROM s pain - Neuro Neuro: Alert and oriented X 3, No motor deficit, No sensory deficit, Normal speech Eye Opening: Spontaneous Motor: Obeys Commands Verbal: Oriented GCS Score: 15 - Psych Psych: Normal mood, Normal affect Results - Vitals Vitals: Oxygen O2 Source Room air - Labs Labs: Microbiology 05/12/17 12:45 Urine Culture - Final Urine,Clean Catch No growth Laboratory Tests 05/12/17 05/12/17 05/12/17 12:44 12:44 12:44 WBC 8.2 RBC 4.51 Hgb 13.6 Hct 40.5 MCV 89.7 MCH 30.1 MCHC 33.6 RDW 14.9 Plt Count 265 MPV 6.9 L Neut # 5.0 Lymph # 2.4 [place] # 0.6 Eos # 0.2 Baso # 0.1 Absolute Nucleated RBC 0.00 Nucleated RBC % 0.0 Sodium 139 Potassium 4.1 Chloride 110 Carbon Dioxide 24 Anion Gap 5.0 L BUN 20 Creatinine 0.9 Estimated GFR (MDRD) 65 L Glucose 94 Lactic Acid 0.6 Calcium 8.7 Magnesium 2.0 Total Bilirubin 0.3 AST 13 ALT 15 Alkaline Phosphatase 72 Total Creatine Kinase 67 Total Protein 7.0 Albumin 3.9 Globulin 3.1 Albumin/Globulin Ratio 1.3 Lipase 15 L Urine Color Urine Clarity Urine pH Ur Specific [place] Urine Protein Urine Glucose (UA) Urine Ketones Urine Occult Blood Urine Nitrite Urine Bilirubin Urine Urobilinogen Ur Leukocyte Esterase Urine RBC Urine WBC Ur Epithelial Cells Ur Squamous Epith Cells Urine Bacteria Ur Microscopic Review Urine Culture Comments Urine Opiates Screen Ur Oxycodone Screen Urine Methadone Screen Ur Propoxyphene Screen Ur Barbiturates Screen Ur Tricyclics Screen Ur Phencyclidine Scrn Ur Amphetamine Screen U Methamphetamines Scrn U Benzodiazepines Scrn Urine Cocaine Screen U Cannabinoids Screen Ethyl Alcohol < 5.0 05/12/17 05/12/17 12:45 12:45 WBC RBC Hgb Hct MCV MCH MCHC RDW Plt Count MPV Neut # Lymph # [place] # Eos # Baso # Absolute Nucleated RBC Nucleated RBC % Sodium Potassium Chloride Carbon Dioxide Anion Gap BUN Creatinine Estimated GFR (MDRD) Glucose Lactic Acid Calcium Magnesium Total Bilirubin AST ALT Alkaline Phosphatase Total Creatine Kinase Total Protein Albumin Globulin Albumin/Globulin Ratio Lipase Urine Color DARK YELLOW Urine Clarity HAZY Urine pH 6.0 Ur Specific [place] 1.020 Urine Protein TRACE Urine Glucose (UA) NEGATIVE Urine Ketones NEGATIVE Urine Occult Blood SMALL H Urine Nitrite NEGATIVE Urine Bilirubin NEGATIVE Urine Urobilinogen 0.2 (NORMAL) Ur Leukocyte Esterase SMALL H Urine RBC 0-5 Urine WBC 6-10 H Ur Epithelial Cells FEW Transitional Ur Squamous Epith Cells FEW Squamous Urine Bacteria Rare Ur Microscopic Review INDICATED Urine Culture Comments INDICATED Urine Opiates Screen NEGATIVE Ur Oxycodone Screen NEGATIVE Urine Methadone Screen NEGATIVE Ur Propoxyphene Screen NEGATIVE Ur Barbiturates Screen NEGATIVE Ur Tricyclics Screen NEGATIVE Ur Phencyclidine Scrn NEGATIVE Ur Amphetamine Screen NEGATIVE U Methamphetamines Scrn NEGATIVE U Benzodiazepines Scrn NEGATIVE Urine Cocaine Screen NEGATIVE U Cannabinoids Screen NEGATIVE Ethyl Alcohol PD MEDICAL DECISION MAKING - ED course Complexity details: reviewed results (known seizure disorder with more often ones today. No obvious illness, injury nor obvious trigger for it. Will check labs and UA. No obvious need for imaging. ), considered differential (sounds c/ w brief seizures and she had an episode here in ED that was possible brief seizure with 1-2 minute recover time. It was some facial twitching and did not respond to tactile nor verbal stimulus. ), d/w patient Departure - Departure Disposition: 01 Home, Self Care Clinical Impression: Seizure disorder, Seizures UTI (urinary tract infection) Qualifiers: Urinary tract infection type: acute cystitis Hematuria presence: without hematuria Qualified Code(s): N30.00 - Acute cystitis without hematuria Condition: Stable Record reviewed to determine appropriate education?: Yes Instructions: ED UTI Cystitis Female Prescriptions: Cephalexin [Keflex] 500 mg PO TID #15 capsule Lorazepam [Ativan] 1 mg PO BID #6 tablet Comments: Continue usual medications. What is triggering the increased seizure activity. Add Lorazepam as another antiseizure medication twice daily for the next 3 days while we are treating the bladder infection with Keflex 3 times a day for 5 days. See if that will control them better while were clear in the infection. Repeat check or return if worsening problems. Follow-up with your primary care. Discharge Date/Time: 05/12/17 15:31
[2017-05-12] MEDS ORDERED: SODIUM CHLORIDE 0.9% 1,000 ML IV ONE ×2 (12:23→13:53)
[2017-05-12] MEDS ORDERED: LORazepam 2 MG/ML VIAL IVP STA (12:23)
[2017-05-12] MEDS ORDERED: GABAPENTIN 100 MG CAPSULE PO STA (12:24)
[2017-05-12 12:51] LABS: BASOPHILS # (AUTO) 0.1 10^3/uL (0.0-0.1); BASOPHILS % (AUTO) 0.8 %; EOSINOPHILS # (AUTO) 0.2 10^3/uL (0.0-0.7); EOSINOPHILS % (AUTO) 2.2 %; HGB - HEMOGLOBIN 13.6 g/dL (12.0-16.0); LYMPHOCYTES # (AUTO) 2.4 10^3/uL (1.5-3.5); LYMPHOCYTES % (AUTO) 28.6 %; MEAN CORPUSCULAR HEMOGLOBIN 30.1 pg (27.0-31.0); MEAN CORPUSCULAR HGB CONC 33.6 g/dL (32.0-36.0); MEAN CORPUSCULAR VOLUME 89.7 fL (81.0-99.0); MEAN PLATELET VOLUME 6.9 fL (7.9-10.8); MONOCYTES # (AUTO) 0.6 10^3/uL (0.0-1.0); MONOCYTES % (AUTO) 7.3 %; NEUTROPHILS % (AUTO) 61.1 %; PLT - PLATELET COUNT 265 10^3/uL (130-450); RED BLOOD COUNT 4.51 10^6/uL (4.20-5.40); RED CELL DISTRIBUTION WIDTH 14.9 % (12.0-15.0); WHITE BLOOD COUNT 8.2 x10^3/uL (4.8-10.8)
[2017-05-12 13:04] LABS: ALBUMIN 3.9 g/dL (3.2-5.5); ALBUMIN/GLOBULIN RATIO 1.3 (1.0-2.2); ALKALINE PHOSPHATASE 72 IU/L (42-121); ALT ALANINE AMINOTRANSFERASE 15 IU/L (10-60); AST ASPARTATE AMINOTRANSFERASE 13 IU/L (10-42); BILIRUBIN,TOTAL 0.3 mg/dL (0.2-1.0); BUN - BLOOD UREA NITROGEN 20 mg/dL (6-20); CALCIUM 8.7 mg/dL (8.5-10.3); CARBON DIOXIDE - CO2 24 mmol/L (21-32); CHLORIDE 110 mmol/L (101-111); CK- CREATINE KINASE 67 IU/L (22-269); CREATININE 0.9 mg/dL (0.4-1.0); GFR - MDRD 65 (>89); GLUCOSE 94 mg/dL (70-100); LIPASE 15 U/L (22-51); SODIUM 139 mmol/L (135-145)
[2017-05-12] MEDS ORDERED: KETOROLAC 60 MG/2 ML VIAL IVP STA (13:53)
[2017-05-12 14:07] LABS: BILIRUBIN,URINE NEGATIVE (NEGATIVE); CLARITY,URINE HAZY (CLEAR); GLUCOSE, URINE (UA) NEGATIVE (NEGATIVE); KETONES,URINE (UA) NEGATIVE (NEGATIVE); LEUKOCYTE ESTERASE, URINE SMALL (NEGATIVE); NITRITE,URINE NEGATIVE (NEGATIVE); OCCULT BLOOD,URINE SMALL (NEGATIVE); PROTEIN,URINE TRACE mg/dL (NEGATIVE); UROBILINOGEN,URINE 0.2 (NORMAL) E.U./dL (NORMAL)
[2017-05-12 14:18] LABS: EPITHELIAL CELLS,UR FEW Transitional /HPF (<= Few); RBC,URINE 0-5 /HPF (0-5); SQUAMOUS EPITHELIAL CELL,UR FEW Squamous (<= Few)
[2017-05-12 14:19] LABS: BACTERIA,URINE Rare /HPF (None Seen)
[2017-05-12 14:23] VITALS: BP 143/88
[2017-05-12] MEDS ORDERED: cephALEXin 250 MG CAPSULE PO STA (14:49)
[2017-05-12 14:51] LABS: AMPHETAMINE SCREEN,URINE NEGATIVE (NEGATIVE); BENZODIAZEPINES SCREEN, URINE NEGATIVE (NEGATIVE); COCAINE SCREEN URINE NEGATIVE (NEGATIVE); METHADONE SCREEN, URINE NEGATIVE (NEGATIVE); METHAMPHETAMINES SCREEN, URINE NEGATIVE (NEGATIVE); MUDS CUTOFF CONCENTRATIONS CUTOFF CONC BELOW:; OPIATE SCREEN, URINE NEGATIVE (NEGATIVE); OXYCODONE SCREEN, URINE NEGATIVE (NEGATIVE); PROPOXYPHENE SCREEN, URINE NEGATIVE (NEGATIVE); TRICYCLIC ANTIDEPRESSANT,URINE NEGATIVE (NEGATIVE)
== END 2017-05-12 15:31 | disposition home or self-care (01) ==
LOC: EDUNIT# → ED 11:51
DX: G40.909 Epilepsy, unspecified, not intractable, without status epilepticus (principal); Z79.899 Other long term (current) drug therapy; E11.9 Type 2 diabetes mellitus without complications; Z79.4 Long term (current) use of insulin; J45.909 Unspecified asthma, uncomplicated; M19.90 Unspecified osteoarthritis, unspecified site; N30.00 Acute cystitis without hematuria
CPT/HCPCS: 36415; 80053; 80306; 81001; 82550; 83605; 83690; 83735; 85025; 87086; 96361; 96374; 96375; 99284; A9270; G0480; J2060; 80320; 81003

== ENCOUNTER 2017-05-13 10:03 | Outpatient (CLI) | payer MEDICARE, MEDICAID | END 2017-05-13 10:04 | disposition critical access hospital (66) | LOC: EMS 10:03 | PROVIDERS: ATTEND Surgery | DX: R56.9 Unspecified convulsions (principal) | CPT/HCPCS: A0425; A0429 ==

== ENCOUNTER 2017-05-13 10:22 | Emergency (ER) | payer MEDICARE, MEDICAID ==
[2017-05-13] MEDS ORDERED: GABAPENTIN 100 MG CAPSULE PO STA (12:22)
--- NOTE | 2017-05-13 12:22 | CT Preliminary Report ---
Exam: CT HEAD W/O IMPRESSION: 1. No acute intracranial abnormality or significant change. 2. Similar chronic marked enlargement of the left lateral ventricle with overlying cerebral volume lo ss. [facility] SITE ID: [id number]
--- NOTE | 2017-05-13 12:22 | CT Report ---
EXAM: CT HEAD EXAM DATE: 05/13/2017 11:52 AM. CLINICAL HISTORY: Recurrent seizure, hitting head. New right sided numbness. COMPARISON: Head CT 12/22/2016. TECHNIQUE: Multiaxial CT images were obtained from the foramen magnum to the vertex. Reformats: Coron al. IV contrast: None. In accordance with CT protocol optimization, one or more of the following dose reduction techniques w ere utilized for this exam: automated exposure control, adjustment of mA and/or KV based on patient s ize, or use of iterative reconstructive technique. FINDINGS: Parenchyma: No intraparenchymal hemorrhage. No focal mass effect, or CT findings of acute infarction. Stable chronic mild rightward displacement of the septum pellucidum. Similar thinning of left pariet al/occipital cortical mantle about the dilated left lateral ventricle. Ruiz-white differentiation rem ains distinct. Extraaxial Spaces: Normal for age. No subdural or epidural collections identified. Ventricles: Similar marked enlargement of left lateral ventricle especially body and occipital horn. Sinuses and Orbits: Imaged paranasal sinuses, orbits, and mastoids show no significant abnormality. Bones: No evidence of fracture or calvarial defect. Hyperostosis frontalis interna. IMPRESSION: 1. No acute intracranial abnormality or significant change. 2. Similar chronic marked enlargement of the left lateral ventricle with overlying cerebral volume lo ss. [facility] Referring Provider Line: [phone] SITE ID: [id number]
[2017-05-13 12:24] VITALS: BP 142/79
[2017-05-13] MEDS ORDERED: HYDROcod/ACETAM 5/325 MG TABLET PO STA (12:39)
[2017-05-13 12:41] LABS: BASOPHILS # (AUTO) 0.1 10^3/uL (0.0-0.1); BASOPHILS % (AUTO) 0.8 %; EOSINOPHILS # (AUTO) 0.2 10^3/uL (0.0-0.7); EOSINOPHILS % (AUTO) 3.3 %; HGB - HEMOGLOBIN 13.4 g/dL (12.0-16.0); LYMPHOCYTES # (AUTO) 2.3 10^3/uL (1.5-3.5); LYMPHOCYTES % (AUTO) 33.8 %; MEAN CORPUSCULAR HEMOGLOBIN 30.4 pg (27.0-31.0); MEAN CORPUSCULAR HGB CONC 33.2 g/dL (32.0-36.0); MEAN CORPUSCULAR VOLUME 91.5 fL (81.0-99.0); MEAN PLATELET VOLUME 7.5 fL (7.9-10.8); MONOCYTES # (AUTO) 0.5 10^3/uL (0.0-1.0); MONOCYTES % (AUTO) 6.6 %; NEUTROPHILS # (AUTO) 3.8 10^3/uL (1.5-6.6); NEUTROPHILS % (AUTO) 55.5 %; PLT - PLATELET COUNT 226 10^3/uL (130-450); RED CELL DISTRIBUTION WIDTH 14.5 % (12.0-15.0); WHITE BLOOD COUNT 6.9 x10^3/uL (4.8-10.8)
[2017-05-13 12:53] LABS: ALBUMIN 3.6 g/dL (3.2-5.5); ALBUMIN/GLOBULIN RATIO 1.2 (1.0-2.2); BILIRUBIN,TOTAL 0.2 mg/dL (0.2-1.0); CALCIUM 8.7 mg/dL (8.5-10.3); CREATININE 0.8 mg/dL (0.4-1.0); TOTAL PROTEIN 6.5 g/dL (6.7-8.2)
--- NOTE | 2017-05-13 13:11 | ED Physician Documentation ---
PD HPI SEIZURE - Stated complaint Stated Complaint: SZ - Chief complaint Chief Complaint: Neuro - History obtained from History obtained from: Patient, EMS - History of Present Illness Witnessed: Unwitnessed Number of seizures: Multiple (Reports having 3 seizures today.) Injury during seizure: Fell (Fell out of bed.) History of seizures: Known seizure disorder Recently seen: Emergency Dept (yesterday) - Additional information Additional information: The patient is a 56-year-old female with history of hydrocephalus and seizure disorder who presents after recurrent seizures this morning. She states "I'm having so many." She fell out of bed today during one of her seizures, and complains of a frontal headache at this time. She is treated with gabapentin and topiramate 500 mg twice daily for her seizures, and has had no recent change in her antiseizure medication. She was seen in the emergency department here yesterday after seizure, and was prescribed lorazepam to use on an as- needed basis. She was also diagnosed with urinary tract infection yesterday for which she was started on cephalexin. In addition to headache, the patient complains of "foggy" vision in her right eye. This has been an ongoing issue, but she states it is hazier than usual. She denies nausea, vomiting, shortness of breath, or dysuria. Review of Systems Constitutional: denies: Fever Eyes: reports: Other (Hazy vision in right eye.) Ears: denies: Tinnitus/ringing Nose: denies: Congestion Throat: denies: Sore throat Cardiac: denies: Chest pain / pressure Respiratory: denies: Dyspnea, Cough GI: denies: Abdominal Pain, Nausea, Vomiting : denies: Dysuria Skin: denies: Rash Musculoskeletal: reports: Back pain (chronically). denies: Extremity pain Neurologic: reports: Numbness (Reports decreased sensation in her right face and right upper and lower extremities), Seizure, Headache (frontal) PD PAST MEDICAL HISTORY - Past Medical History Cardiovascular: None Respiratory: Asthma Neuro: Headache/migraine, Seizure disorder, Other Endocrine/Autoimmune: Type 2 diabetes GI: Other : None HEENT: Other Psych: None Musculoskeletal: Osteoarthritis, Chronic back pain Derm: None - Past Surgical History Past Surgical History: Yes General: Cholecystectomy, Colonoscopy Ortho: Knee replacement, Shoulder arthroplasty, Spine surgery HEENT: Cataracts - Present Medications Home Medications: Ambulatory Orders Medication Instructions Recorded Confirmed Fluticasone [Flonase] 2 sprays CECILIA DAILY 02/13/13 12/23/16 Gabapentin [Neurontin] 1,200 mg PO BID 02/13/13 12/23/16 Topiramate [Topiragen] 200 mg PO BID 02/13/13 12/23/16 Albuterol Sulfate [Proair Hfa 2 puffs INH Q4H PRN 01/07/14 12/23/16 Inhaler] Cholecalciferol (Vitamin D3) 5,000 unit PO DAILY 01/07/14 12/22/16 [Vitamin D3] Albuterol 2.5 mg INH RTQ4H PRN neb 12/23/16 Cyclobenzaprine [Flexeril] 10 mg PO TID PRN tablet 12/23/16 Gabapentin 800 mg PO DAILY@1200 12/23/16 12/23/16 Hydrocodone/Acetaminophen 0.5 tab PO Q4H PRN 12/23/16 12/23/16 [Hydrocodone-Acetamin 10-325 mg] Ibuprofen [Motrin] 800 mg PO Q8H PRN tablet 12/23/16 Insulin Aspart [NovoLOG] 1 - 5 unit SUBQ 12/23/16 0800,1200,1700,2100 pen Polyethylene Glycol 3350 [Miralax] 17 gm PO DAILY packet 12/23/16 levETIRAcetam [Keppra] 250 mg PO BID #60 tablet 12/23/16 tiZANidine [Zanaflex] 2 mg PO TID PRN 12/23/16 12/23/16 Cephalexin [Keflex] 500 mg PO TID #15 capsule 05/12/17 Lorazepam [Ativan] 1 mg PO BID #6 tablet 05/12/17 - Allergies Allergies/Adverse Reactions: Allergies Allergy/AdvReac Type Severity Reaction Status Date / Time aspirin AdvReac Intermediate Itching Verified 10/15/15 13:43 Penicillins AdvReac Intermediate Itching Verified 10/15/15 13:43 Sulfa (Sulfonamide AdvReac Intermediate Itching Verified 10/15/15 13:43 Antibiotics) prednisone AdvReac Dizziness Verified 10/15/15 13:43 nonsting skin prep Allergy Hives Uncoded 12/23/16 14:11 - Social History Does the pt smoke?: No Smoking Status: Never smoker Does the pt drink ETOH?: No Does the pt have substance abuse?: No - Immunizations Immunizations are current?: No - POLST Patient has POLST: No PD ED PE NORMAL - Vitals Vital signs reviewed: Yes (Mild systolic hypertension initially.) - General General: Alert and oriented X 3, Well developed/nourished - HEENT HEENT: Atraumatic, PERRL, EOMI, Ears normal, Pharynx benign - Neck Neck: Supple, no meningeal sign, No adenopathy, No JVD - Cardiac Cardiac: RRR, No murmur - Respiratory Respiratory: No respiratory distress, Clear bilaterally - Abdomen Abdomen: Soft, Non tender - Back Back: No CVA TTP, No spinal TTP - Derm Derm: No rash - Extremities Extremities: No edema, No calf tenderness / cord - Neuro Neuro: Alert and oriented X 3, No motor deficit, Normal speech, Other ( Decreased light touch sensation on the right side of the face and the right upper and lower extremities. There is no focal motor deficit detected.) Eye Opening: Spontaneous Motor: Obeys Commands Verbal: Oriented GCS Score: 15 Results - Vitals Vitals: Oxygen O2 Source Room air - Labs Labs: Laboratory Tests 05/13/17 05/13/17 12:37 12:37 WBC 6.9 RBC 4.40 Hgb 13.4 Hct 40.2 MCV 91.5 MCH 30.4 MCHC 33.2 RDW 14.5 Plt Count 226 MPV 7.5 L Neut # 3.8 Lymph # 2.3 Dade # 0.5 Eos # 0.2 Baso # 0.1 Absolute Nucleated RBC 0.01 Nucleated RBC % 0.1 Sodium 141 Potassium 4.0 Chloride 113 H Carbon Dioxide 21 Anion Gap 7.0 BUN 17 Creatinine 0.8 Estimated GFR (MDRD) 75 L Glucose 102 H Calcium 8.7 Total Bilirubin 0.2 AST 13 ALT 14 Alkaline Phosphatase 67 Total Protein 6.5 L Albumin 3.6 Globulin 2.9 Albumin/Globulin Ratio 1.2 Lipase 10 L - Rads (name of study) Head CT w/o Radiology: Prelim report reviewed, EMP read contemporaneously, See rad report (1 ) No acute intracranial abnormality or significant change. 2) Similar chronic marked enlargement of the left lateral ventricle with overlying cerebral volume loss.) PD MEDICAL DECISION MAKING - ED course Complexity details: reviewed old records, reviewed results, re-evaluated patient , considered differential, d/w patient ED course: The patient's presentation is significant for recurrent seizure in a patient with known seizure disorder. Because of her history of falling out of bed and presenting with headache, a head CT was performed. It reveals no acute change from previous CT scans, revealing enlargement of the left lateral ventricle. Treatment in the emergency department included administration of gabapentin 800 mg orally and Vicodin 1 tablet orally. This improved the patient's headache. She had no recurrent seizures while in the emergency department. I discussed with her the results of the CT scan, continued treatment with her previously prescribed medication, outpatient follow-up, as well as potentially worrisome signs or symptoms that should prompt reevaluation in the emergency department. Departure - Departure Disposition: 01 Home, Self Care Clinical Impression: Seizure disorder Headache Qualifiers: Headache chronicity pattern: episodic headache Intractability: not intractable Condition: Stable Instructions: ED Seizure Recurrent Follow-Up: Ryland Carlton DO [Primary Care Provider] - Comments: Continue your antiseizure medication as currently prescribed. You can use lorazepam as prescribed yesterday if needed for recurrent seizures. Follow up with your primary physician or with your neurologist within 1-2 weeks. Call to schedule appointment. Return to the emergency department if you develop increasing headache, persistent vomiting, increasing frequency of seizures, or otherwise worsening symptoms. Discharge Date/Time: 05/13/17 14:15
== END 2017-05-13 14:15 | disposition home or self-care (01) ==
LOC: EDUNIT# → ED 10:22
DX: G40.909 Epilepsy, unspecified, not intractable, without status epilepticus (principal); R51 Headache; G91.9 Hydrocephalus, unspecified; Z96.659 Presence of unspecified artificial knee joint
CPT/HCPCS: 36415; 70450; 80053; 83690; 85025; 99284; A9270

== ENCOUNTER 2017-11-21 11:37 | Outpatient (CLI) | payer MEDICARE, MEDICAID ==
--- NOTE | 2017-11-21 15:36 | XRAY Report ---
Reason: STRAIN OF MUSCLE TENDON OF THE ROTATOR CUFF Procedure Date: 11/21/2017 Accession Number: [id number] / [id number] Procedure: XR - Shoulder 3 View LT CPT Code: FULL RESULT: EXAM: LEFT SHOULDER RADIOGRAPHY EXAM DATE: 11/21/2017 11:47 AM. CLINICAL HISTORY: Strain of muscle tendon of the rotator cuff. COMPARISON: SHOULDER 3 VIEW RT 12/15/2012 10:55 AM. TECHNIQUE: 3 views. FINDINGS: Bones: No fracture or bone lesion. Joints: The glenohumeral joint is normal. There is soft tissue calcification projecting near the acromion process, possibly posttraumatic finding and smoothly corticated, thus not acute. Soft tissues: The visualized hemithorax is unremarkable. No soft tissue swelling. IMPRESSION: No acute fracture or dislocation. Posttraumatic chronic findings in the region of the acromioclavicular joint. RADIA
== END 2017-11-21 11:38 | disposition home or self-care (01) ==
LOC: DI 11:37
PROVIDERS: ATTEND Family Medicine
DX: S46.012A Strain of muscle(s) and tendon(s) of the rotator cuff of left shoulder, initial encounter (principal)

== ENCOUNTER 2018-01-09 10:30 | Outpatient (CLI) | payer MEDICARE, MEDICAID ==
--- NOTE | 2018-01-09 11:14 | XRAY Report ---
Reason: TENDER 5TH MET W/STUBBING INJURY Procedure Date: 01/09/2018 Accession Number: [id number] / [id number] Procedure: XR - Foot 3 View LT CPT Code: FULL RESULT: EXAM: LEFT FOOT RADIOGRAPHY EXAM DATE: 01/09/2018 10:44 AM. CLINICAL HISTORY: TENDER 5TH MET W/STUBBING INJURY. COMPARISON: 10/23/2010. TECHNIQUE: 3 views. FINDINGS: Bones: Oblique nondisplaced fractures present involving the proximal third of the left fifth proximal phalanx. Small plantar calcaneal spur. Degenerative spurring. Joints: Degenerative changes of the left first MTP joint. No dislocation. Soft Tissues: Soft tissue swelling. No radiopaque foreign bodies. IMPRESSION: 1. Left fifth proximal phalanx fracture. RADIA
== END 2018-01-09 10:31 | disposition home or self-care (01) ==
LOC: DI 10:30
PROVIDERS: ATTEND Family Medicine
DX: S92.512A Displaced fracture of proximal phalanx of left lesser toe(s), initial encounter for closed fracture (principal)

== ENCOUNTER 2018-04-19 10:28 | Outpatient (CLI) | payer MEDICARE, MEDICAID ==
--- NOTE | 2018-04-19 12:27 | XRAY Report ---
Reason: PAIN LEFT LEG AND FOOT Procedure Date: 04/19/2018 Accession Number: [id number] / [id number] Procedure: XR - Foot 3 View LT CPT Code: FULL RESULT: EXAM: LEFT FOOT RADIOGRAPHY EXAM DATE: 04/19/2018 11:00 AM. CLINICAL HISTORY: Pain left leg and foot. COMPARISON: FOOT 3 VIEW LT 01/09/2018 10:35 AM. TECHNIQUE: 3 views. FINDINGS: Bones: The bones are qualitatively osteopenic; this limits evaluation for underlying fractures or masses. No fracture or bone lesion is identified Joints: Normal. No subluxations. Soft Tissues: Normal. No soft tissue swelling. IMPRESSION: Low bone density. RADIA
--- NOTE | 2018-04-19 12:27 | XRAY Report ---
Reason: PAIN LEFT LEG AND FOOT Procedure Date: 04/19/2018 Accession Number: [id number] / [id number] Procedure: XR - Tib/Fib LT CPT Code: FULL RESULT: EXAM: LEFT TIBIA/FIBULA RADIOGRAPHY EXAM DATE: 04/19/2018 11:00 AM. CLINICAL HISTORY: PAIN LEFT LEG AND FOOT. COMPARISON: None. TECHNIQUE: 2 views. FINDINGS: Bones: Normal. No fracture or bone lesion. Joints: The visualized knee and ankle joints are normal. No effusions. Soft Tissues: Normal. No soft tissue swelling. IMPRESSION: Normal tibia/fibula radiography. RADIA
== END 2018-04-19 10:29 | disposition home or self-care (01) ==
LOC: DI 10:28
PROVIDERS: ATTEND Specialist
DX: M85.872 Other specified disorders of bone density and structure, left ankle and foot (principal); M79.605 Pain in left leg

== ENCOUNTER 2018-05-30 09:46 | Outpatient (CLI) | payer MEDICARE, MEDICAID ==
--- NOTE | 2018-05-30 13:16 | DEXA Report ---
Reason: OTHER SPECIFIED MENOPAUSAL AND PERIMENOPAUSAL DISO Procedure Date: 05/30/2018 Accession Number: [id number] / [id number] Procedure: DEX - Dexa Spine and/or Hip CPT Code: FULL RESULT: EXAM: Dexa Spine and/or Hip DATE: 05/30/2018 10:30 AM CLINICAL HISTORY: OTHER SPECIFIED MENOPAUSAL AND PERIMENOPAUSAL DISORDER TECHNIQUE: Dual energy x-ray absorptiometry (DXA) was performed on a [employer] System. Regions measured are the AP Spine, femoral neck, and if needed forearm. COMPARISON: None. In accordance with the International Society for Clinical Densitometry (ISCD) guidelines, data from previous exams may be reanalyzed using current recommendations and techniques. This is done to allow a more accurate basis for comparison with the current study. FINDINGS: The data for the lumbar spine is as follows: BMD (g/cm/cm) T-SCORE Z-SCORE REGION L1 1.071 -0.5 -0.8 L2 1.116 -0.7 -1.0 L3 1.201 0.0 -0.3 L4 1.209 0.1 -0.3 TOTAL 1.156 -0.2 -0.5 NOTE: All evaluable vertebrae are used for classification The data for the hip is as follows: BMD (g/cm/cm) T-SCORE Z-SCORE REGION Neck 0.803 -1.7 -1.4 TOTAL 0.837 -1.4 -1.5 NOTE: The femoral neck or total proximal femur, whichever is lowest, is used for classification. IMPRESSION: THE WHO CLASSIFICATION BASED ON THE INTERNATIONAL REFERENCE STANDARD IS OSTEOPENIA. THE FRACTURE RISK IS INCREASED. RECOMMENDATION: Patients with diagnosis of osteoporosis or osteopenia should have regular bone mineral density assessment. For those eligible for Medicare, routine testing is allowed once every 2 years. Testing frequency can be increased for patients who have rapidly progressing disease or for those who are receiving medical therapy to restore bone mass. COMMENT: World Health Organization (WHO) definitions for osteoporosis and osteopenia: NORMAL BMD: T-score at -1.0 or higher, fracture risk is low OSTEOPENIA BMD: T-score between -1.0 and -2.5, fracture risk is increased. OSTEOPOROSIS BMD: T-score at -2.5 or lower, fracture risk is high. National Osteoporosis Foundation recommends: 1. Obtain adequate dietary calcium (at least 1200 mg per day) and vitamin D (400-800 international units per day). 2. Participate, as appropriate, in regular weightbearing and muscle-strengthening exercise. 3. Avoid tobacco use and reduce alcohol and caffeine intake. 4. For more detailed information see the website at www.NOF.org.
== END 2018-05-30 09:47 | disposition home or self-care (01) ==
LOC: DI 09:46
PROVIDERS: ATTEND Internal Medicine
DX: Z13.820 Encounter for screening for osteoporosis (principal); M85.88 Other specified disorders of bone density and structure, other site; N95.8 Other specified menopausal and perimenopausal disorders
CPT/HCPCS: 77080

== ENCOUNTER 2019-08-19 19:31 | Outpatient (CLI) | payer MEDICARE, MEDICAID | END 2019-08-19 19:32 | disposition EMS.NT | LOC: EMS 19:31 | PROVIDERS: ATTEND Surgery | DX: R56.9 Unspecified convulsions (principal) ==

== ENCOUNTER 2019-11-16 09:21 | Outpatient (CLI) | payer MEDICARE, MEDICAID ==
--- NOTE | 2019-11-19 10:27 | Mammography Report ---
BILATERAL DIGITAL SCREENING MAMMOGRAM 3D/2D: 11/16/2019 CLINICAL: Routine screening. Comparison is made to exams dated: 04/14/2017 mammogram - [facility], 02/03/2012 mammogram, 011 mammogram, and 09/10/2009 mammogram - [facility]. The tissue of both breasts is predominantly fatty. No significant masses, calcifications, or other findings are seen in either breast. There has been no significant interval change. IMPRESSION: NEGATIVE There is no mammographic evidence of malignancy. A 1 year screening mammogram is recommended. This exam was interpreted at Station ID: [id number]. NOTE: For mammograms, a report in lay terms will be sent to the patient. Approximately 15% of breast malignancies will not be visualized mammographically. In the management of a palpable breast mass, a negative mammogram must not discourage biopsy of a clinically suspicious lesion. Electronically Signed By: Maxine jay/[email or web address]:11/16/2019 14:18:59 ACR BI-RADS Category 1: Negative 3341F PARENCHYMAL PATTERN: (F) - The breast(s) demonstrate(s) diffuse fatty replacement. BI-RADS CATEGORY: (1) - 1 RECOMMENDATION: (ANNUAL) - Recommend routine annual screening mammography. [id number] 1 year screening LATERALITY: (B)
== END 2019-11-16 09:22 | disposition home or self-care (01) ==
LOC: DI.N 09:21
DX: Z12.31 Encounter for screening mammogram for malignant neoplasm of breast (principal)
CPT/HCPCS: 77063; 77067

== ENCOUNTER 2020-03-07 09:04 | Outpatient (CLI) | payer MEDICARE, MEDICAID ==
--- NOTE | 2020-03-07 13:36 | XRAY Report ---
PROCEDURE: Foot 3 View RT INDICATIONS: RT FOOT CONTUSION TECHNIQUE: 3 views of the foot were acquired. COMPARISON: none FINDINGS: Bones: No fractures or dislocations. No suspicious bony lesions. Soft tissues: No tibiotalar joint effusion. Achilles tendon appears normal. IMPRESSION: No visualized acute fracture or dislocation. However, occult injury cannot be excluded. Recommend nichole rt interval imaging follow-up in 7-10 days as clinically indicated for additional evaluation. Reviewed by: Jasmin Zhao MD on 03/07/2020 1:35 PM [facility] Approved by: Jasmin Zhao MD on 03/07/2020 1:35 PM [facility] Station ID: [id number]
== END 2020-03-07 09:05 | disposition home or self-care (01) ==
LOC: DI.N 09:04
PROVIDERS: ATTEND Family Medicine
DX: S90.31XA Contusion of right foot, initial encounter (principal)

== ENCOUNTER 2020-03-28 11:24 | Outpatient (CLI) | payer MEDICARE, MEDICAID ==
[2020-03-28] MEDS ORDERED: IOVERSOL 320 100 ML VIAL IVP ONE ×2 (11:38→15:19)
[2020-03-28] MEDS ORDERED: IOPAMIDOL-300 50 ML VIAL ONE (11:38)
[2020-03-28] MEDS ORDERED: IOPAMIDOL-300 50 ML VIAL PO ONE (15:19)
--- NOTE | 2020-03-28 17:21 | CT Report ---
PROCEDURE: Abdomen/Pelvis W INDICATIONS: LOWER ABD PAIN CONTRAST: IV CONTRAST: Optiray 320 ml: 100 PO CONTRAST: Isovue 300 ml50 TECHNIQUE: After the administration of oral and intravenous contrast, 5 mm thick sections acquired from the diap hragms to the symphysis. 5 mm thick coronal and sagittal reformats were acquired. For radiation dos e reduction, the following was used: automated exposure control, adjustment of mA and/or kV accordin g to patient size. COMPARISON: None. FINDINGS: Image quality: Excellent. ABDOMEN: Lung bases: Lung bases are clear. Heart size is normal. Solid organs: Liver and spleen are normal in size and enhancement. Gallbladder is surgically absent . Biliary system is non dilated. Pancreas enhances normally. No adrenal nodules. Kidneys demonstr ate normal size and enhancement, without hydronephrosis. An incidental benign angiomyolipoma of the r ight kidney measuring 1.3 cm is noted. There is a spherical lesion of the left kidney measuring 3.1 c m with a Hounsfield measurement of 66, possibly representing a hyperdense cyst or solid renal mass. Peritoneum and bowel: Bowel loops demonstrate normal wall thickness and caliber. No free fluid or a ir. Nodes and vessels: No retroperitoneal or mesenteric adenopathy by size criteria. Aorta and inferior vena cava are normal in size. Miscellaneous: No ventral hernias. PELVIS: Genitourinary: Bladder wall thickness is normal. Miscellaneous: No inguinal hernias or adenopathy. Bones: No suspicious bony lesions. No vertebral body compression fractures. IMPRESSION: 1. Question 3.1 cm hyperdense left renal cyst versus solid left renal mass. 2. 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 3. No evidence of acute abdominal process. Comment: Suggest further evaluation of the 3.1 cm left renal lesion with ultrasound to exclude a subt le solid renal mass. If ultrasound fails to document a cyst, would recommend multiphase MRI versus mu ltiphasic CT. Reviewed by: Ish Flores MD on 03/28/2020 5:19 PM PST Approved by: Ish Flores MD on 03/28/2020 5:19 PM PST Station ID: [id number]
== END 2020-03-28 11:25 | disposition home or self-care (01) ==
LOC: DI 11:24
PROVIDERS: ATTEND Family Medicine
DX: R10.32 Left lower quadrant pain (principal); D17.71 Benign lipomatous neoplasm of kidney
CPT/HCPCS: 74177; Q9967

== ENCOUNTER 2020-04-02 18:42 | Outpatient (CLI) | payer MEDICARE, MEDICAID ==
--- NOTE | 2020-04-03 09:53 | Ultrasound Report ---
PROCEDURE: Retroperitoneal Limited INDICATIONS: ANGIOMYOLIPOMA, LEFT KIDNEY TECHNIQUE: Real-time scanning was performed of the retroperitoneal organs, with image documentation. COMPARISON: CT abdomen and pelvis 03/28/2020 FINDINGS: Redemonstration of the left renal mass of interest, appearing hyperechoic with no increased through t ransmission. No flow is demonstrated within the mass on the Doppler interrogation. IMPRESSION: Left renal mass remains indeterminate but does appear to represent a solid lesion. Neoplasm is not ex cluded. A renal protocol MRI or CT is recommended for more complete evaluation. Reviewed by: Lawson De Santiago MD on 04/03/2020 9:51 AM PST Approved by: Lawson De Santiago MD on 04/03/2020 9:51 AM PST Station ID: [id number]
== END 2020-04-02 18:43 | disposition home or self-care (01) ==
LOC: DI 18:42
PROVIDERS: ATTEND Family Medicine
DX: D17.71 Benign lipomatous neoplasm of kidney (principal)

== ENCOUNTER 2020-04-18 12:10 | Emergency (ER) | payer MEDICARE, MEDICAID ==
[2020-04-18 12:53] LABS: BASOPHILS % (AUTO) 0.4 %; EOSINOPHILS # (AUTO) 0.2 10^3/uL (0.0-0.7); EOSINOPHILS % (AUTO) 2.9 %; HCT - HEMATOCRIT 42.4 % (37.0-47.0); LYMPHOCYTES % (AUTO) 25.3 %; MEAN CORPUSCULAR HEMOGLOBIN 31.9 pg (27.0-31.0); MEAN CORPUSCULAR VOLUME 96.6 fL (81.0-99.0); MEAN PLATELET VOLUME 8.9 fL (7.9-10.8); MONOCYTES # (AUTO) 0.4 10^3/uL (0.0-1.0); MONOCYTES % (AUTO) 5.6 %; NEUTROPHILS # (AUTO) 5.1 10^3/uL (1.5-6.6); NEUTROPHILS % (AUTO) 65.7 %; PLT - PLATELET COUNT 267 10^3/uL (130-450); RED BLOOD COUNT 4.39 10^6/uL (4.20-5.40); RED CELL DISTRIBUTION WIDTH 13.2 % (12.0-15.0); WHITE BLOOD COUNT 7.8 x10^3/uL (4.8-10.8)
[2020-04-18 13:04] LABS: ALBUMIN 4.1 g/dL (3.2-5.5); ALBUMIN/GLOBULIN RATIO 1.3 (1.0-2.2); BILIRUBIN,TOTAL 0.7 mg/dL (0.2-1.0); POTASSIUM 4.3 mmol/L (3.5-5.0); TOTAL PROTEIN 7.3 g/dL (6.7-8.2)
--- NOTE | 2020-04-18 13:10 | ED Physician Documentation ---
PD HPI CHEST PAIN - Stated complaint Stated Complaint: SOA - Chief complaint Chief Complaint: Abd Pain - History obtained from History obtained from: Patient - Additional information Additional information: 59-year-old woman with seizure disorder and a known left renal mass planning for biopsy next week presents with increased left flanks left/left lower chest pain. Its been much worse over the last 24 hours and worse with deep breathing. It is associated with a mild nonproductive cough. No hemoptysis. No history of DVT or PE. She has some chest pressure with all of this. No fevers. No pedal edema or calf pain. Review of Systems Ten Systems: 10 systems reviewed and negative Constitutional: denies: Fever, Chills Throat: denies: Sore throat Cardiac: reports: Chest pain / pressure. denies: Palpitations, Pedal edema, Calf pain Respiratory: denies: Hemoptysis, Wheezing PD PAST MEDICAL HISTORY - Past Medical History Cardiovascular: None Respiratory: Asthma Endocrine/Autoimmune: Type 2 diabetes GI: Other : None HEENT: Other Psych: None Musculoskeletal: Osteoarthritis, Chronic back pain Derm: None - Past Surgical History Past Surgical History: Yes General: Cholecystectomy, Colonoscopy Ortho: Knee replacement, Shoulder arthroplasty, Spine surgery HEENT: Cataracts - Present Medications Home Medications: Ambulatory Orders Medication Instructions Recorded Confirmed Fluticasone [Flonase] 2 sprays CECILIA DAILY 02/13/13 12/23/16 Gabapentin [Neurontin] 1,200 mg PO BID 02/13/13 12/23/16 Topiramate [Topiragen] 200 mg PO BID 02/13/13 12/23/16 Albuterol Sulfate [Proair Hfa 2 puffs INH Q4H PRN 01/07/14 12/23/16 Inhaler] Cholecalciferol (Vitamin D3) 5,000 unit PO DAILY 01/07/14 12/22/16 [Vitamin D3] Albuterol 2.5 mg INH RTQ4H PRN neb 12/23/16 Cyclobenzaprine [Flexeril] 10 mg PO TID PRN tablet 12/23/16 Gabapentin 800 mg PO DAILY@1200 12/23/16 12/23/16 Hydrocodone/Acetaminophen 0.5 tab PO Q4H PRN 12/23/16 12/23/16 [Hydrocodone-Acetamin 10-325 mg] Ibuprofen [Motrin] 800 mg PO Q8H PRN tablet 12/23/16 Insulin Aspart [NovoLOG] 1 - 5 unit SUBQ 12/23/16 0800,1200,1700,2100 pen levETIRAcetam [Keppra] 250 mg PO BID #60 tablet 12/23/16 polyethylene glycoL 3350 [Miralax] 17 gm PO DAILY packet 12/23/16 tiZANidine [Zanaflex] 2 mg PO TID PRN 12/23/16 12/23/16 Lorazepam [Ativan] 1 mg PO BID #6 tablet 05/12/17 cephALEXin [Keflex] 500 mg PO TID #15 capsule 05/12/17 HYDROcod/ACETAM 5/325 [[place] 5/325] 1 - 2 tab PO Q6H PRN #15 tablet 04/18/20 - Allergies Allergies/Adverse Reactions: Allergies Allergy/AdvReac Type Severity Reaction Status Date / Time aspirin AdvReac Intermediate Itching Verified 10/15/15 13:43 Penicillins AdvReac Intermediate Itching Verified 10/15/15 13:43 Sulfa (Sulfonamide AdvReac Intermediate Itching Verified 10/15/15 13:43 Antibiotics) prednisone AdvReac Dizziness Verified 10/15/15 13:43 nonsting skin prep Allergy Hives Uncoded 12/23/16 14:11 - Social History Does the pt smoke?: No Smoking Status: Never smoker Does the pt drink ETOH?: No Does the pt have substance abuse?: No - Immunizations Immunizations are current?: No - POLST Patient has POLST: No PD ED PE NORMAL - Vitals Vital signs reviewed: Yes - General General: Alert and oriented X 3, No acute distress - HEENT HEENT: PERRL, EOMI - Neck Neck: Supple, no meningeal sign, No bony TTP - Cardiac Cardiac: RRR, No murmur - Respiratory Respiratory: No respiratory distress, Clear bilaterally - Abdomen Abdomen: Soft, Non tender - Back Back: No CVA TTP, No spinal TTP - Derm Derm: Normal color, Warm and dry - Extremities Extremities: No edema, No calf tenderness / cord - Neuro Neuro: Alert and oriented X 3, Normal speech Results - Vitals Vitals: Vital Signs - 24 hr 04/18/20 04/18/20 12:23 14:26 Temperature 36.4 C L Heart Rate 73 59 L Respiratory 16 17 Rate Blood Pressure 128/78 132/65 H O2 Saturation 98 97 Oxygen O2 Source Room air - EKG (time done) 1312 Rate: Rate (enter#) (64) Rhythm: NSR [place]: Normal Intervals: Normal NM QRS: Normal Ischemia: Non specific changes (Flat T waves throughout). No: ST elevation c/w ischemia, ST depression Computer interpretation: Agree with computer - Labs Labs: Laboratory Tests 04/18/20 04/18/20 04/18/20 12:27 12:47 13:09 WBC 7.8 RBC 4.39 Hgb 14.0 Hct 42.4 MCV 96.6 MCH 31.9 H MCHC 33.0 RDW 13.2 Plt Count 267 MPV 8.9 Neut # (Auto) 5.1 Lymph # (Auto) 2.0 Irion # (Auto) 0.4 Eos # (Auto) 0.2 Baso # (Auto) 0.0 Absolute Nucleated RBC 0.00 Nucleated RBC % 0.0 Sodium 139 Potassium 4.3 Chloride 110 Carbon Dioxide 21 Anion Gap 8.0 BUN 19 Creatinine 1.0 Estimated GFR (MDRD) 57 L Glucose 136 H Calcium 9.0 Total Bilirubin 0.7 AST 17 ALT 19 Alkaline Phosphatase 69 Troponin I High Sens < 2.3 L Total Protein 7.3 Albumin 4.1 Globulin 3.2 Albumin/Globulin Ratio 1.3 Lipase 24 Urine Color Urine Clarity Urine pH Ur Specific [place] Urine Protein Urine Glucose (UA) Urine Ketones Urine Occult Blood Urine Nitrite Urine Bilirubin Urine Urobilinogen Ur Leukocyte Esterase Urine RBC Urine WBC Ur Epithelial Cells Ur Squamous Epith Cells Urine Bacteria Urine Casts Urine Mucus Ur Microscopic Review Urine Culture Comments 04/18/20 13:36 WBC RBC Hgb Hct MCV MCH MCHC RDW Plt Count MPV Neut # (Auto) Lymph # (Auto) [place]ion # (Auto) Eos # (Auto) Baso # (Auto) Absolute Nucleated RBC Nucleated RBC % Sodium Potassium Chloride Carbon Dioxide Anion Gap BUN Creatinine Estimated GFR (MDRD) Glucose Calcium Total Bilirubin AST ALT Alkaline Phosphatase Troponin I High Sens Total Protein Albumin Globulin Albumin/Globulin Ratio Lipase Urine Color YELLOW Urine Clarity CLEAR Urine pH 5.5 Ur Specific [place] >=1.030 H Urine Protein 30 H Urine Glucose (UA) NEGATIVE Urine Ketones NEGATIVE Urine Occult Blood MODERATE H Urine Nitrite NEGATIVE Urine Bilirubin NEGATIVE Urine Urobilinogen 0.2 (NORMAL) Ur Leukocyte Esterase TRACE H Urine RBC 6-10 H Urine WBC 4-5 Ur Epithelial Cells FEW Transitional Ur Squamous Epith Cells RARE Squamous Urine Bacteria Few Urine Casts 0-2 Hyaline Casts Urine Mucus Marked Strands Ur Microscopic Review INDICATED Urine Culture Comments INDICATED PD MEDICAL DECISION MAKING - ED course ED course: This is a 59-year-old woman with known left renal mass concerning for neoplasm who presents with left flank/left chest pain. Differential diagnosis included PE, bleeding into her tumor, pneumonia noting that she does have a cough, or simple muscular pain. She was thoroughly worked up with CT of the abdomen pelvis and chest PE protocol without demonstration of any of the above concerning diagnoses. Departure - Departure Disposition: Home, Self Care Clinical Impression: Flank pain, acute, Renal mass, left Dyspnea Qualifiers: Dyspnea type: shortness of breath Qualified Code(s): R06.02 - Shortness of breath; R06.00 - Dyspnea, unspecified; R06.01 - Orthopnea Condition: Good Record reviewed to determine appropriate education?: Yes Instructions: ED Dyspnea Shortness of Breath, ED Strain Abdominal Muscle Prescriptions: HYDROcod/ACETAM 5/325 [[place] 5/325] 1 - 2 tab PO Q6H PRN #15 tablet PRN Reason: Pain Comments: Follow-up with urologist as scheduled for work-up of the renal mass. Return for new or worsening symptoms.
[2020-04-18] MEDS ORDERED: IOVERSOL 320 100 ML VIAL IVP ONE ×3 (13:34→14:06)
[2020-04-18 13:44] LABS: BILIRUBIN,URINE NEGATIVE (NEGATIVE); GLUCOSE, URINE (UA) NEGATIVE (NEGATIVE); KETONES,URINE (UA) NEGATIVE (NEGATIVE); LEUKOCYTE ESTERASE, URINE TRACE (NEGATIVE); NITRITE,URINE NEGATIVE (NEGATIVE); OCCULT BLOOD,URINE MODERATE (NEGATIVE); PH,URINE 5.5 PH (5.0-7.5); PROTEIN,URINE 30 mg/dL (NEGATIVE); UROBILINOGEN,URINE 0.2 (NORMAL) E.U./dL (NORMAL)
[2020-04-18 13:45] LABS: CLARITY,URINE CLEAR (CLEAR)
[2020-04-18] MEDS ORDERED: HYDROcod/ACETAM 5/325 MG TABLET PO STA (13:56)
[2020-04-18 13:58] LABS: EPITHELIAL CELLS,UR FEW Transitional /HPF (<= Few); SQUAMOUS EPITHELIAL CELL,UR RARE Squamous (<= Few)
[2020-04-18 13:59] LABS: BACTERIA,URINE Few /HPF (None Seen); CASTS, URINE 0-2 Hyaline Casts /LPF; MUCUS,URINE Marked Strands
--- NOTE | 2020-04-18 14:27 | CT Report ---
PROCEDURE: ANGIO CHEST W/WO INDICATIONS: dyspnea, pe protocol CONTRAST: IV CONTRAST: Optiray 320 ml: 100 PO CONTRAST: *NO PO CONTRAST TECHNIQUE: After the administration of intravenous contrast, 2 mm thick sections acquired from the pulmonary api andreina to the posterior costophrenic angles. 3-dimensional maximum intensity projection (MIP) coronal a nd sagittal reformats were then acquired through the thorax. For radiation dose reduction, the follow ing was used: automated exposure control, adjustment of mA and/or kV according to patient size. COMPARISON: None. FINDINGS: Image quality: Excellent. Pulmonary arteries: Pulmonary arteries are normal in size, and demonstrate no intraluminal filling d efects to suggest central pulmonary embolism. Lungs and pleura: Scattered subsegmental scarring/atelectasis. No acute consolidation. Diffuse armida bronchial cuffing suggestive of nonspecific bronchitis and/or reactive airways disease. No pleural e ffusions or pneumothorax. Mediastinum: Heart size is normal, without pericardial effusion. No mediastinal or hilar adenopathy . Thoracic aorta is normal in caliber and enhancement. Esophagus is normal in caliber, without hiat al hernia. Bones and chest wall: No suspicious bony lesions. Ribs and thoracic spine appear intact throughout. The thyroid is normal. No axillary or supraclavicular adenopathy. Redemonstrated nonspecific left renal lesion, and status post cholecystectomy IMPRESSION: No evidence of pulmonary embolism. No aortic dissection. Scattered subsegmental scarring/atelectasis. No acute consolidation. Reviewed by: Stephan Lemos MD on 04/18/2020 2:26 PM PST Approved by: Stephan Lemos MD on 04/18/2020 2:26 PM PST Station ID: [id number]
--- NOTE | 2020-04-18 14:45 | CT Report ---
PROCEDURE: Abdomen/Pelvis W INDICATIONS: Iv only. renal mass CONTRAST: IV CONTRAST: Optiray 320 ml: 100 PO CONTRAST: *NO PO CONTRAST TECHNIQUE: After the administration of IV contrast, 5 mm thick sections acquired from the diaphragms to the symp hysis. 5 mm thick coronal and sagittal reformats were acquired. For radiation dose reduction, the f ollowing was used: automated exposure control, adjustment of mA and/or kV according to patient size. COMPARISON: Ultrasound dated 04/02/2020. Abdomen pelvis CT dated 03/28/2020. FINDINGS: Image quality: Excellent. ABDOMEN: Lung bases: Lung bases are clear. Heart size is normal. Solid organs: Liver and spleen are normal in size and enhancement. Gallbladder surgically absent. Biliary system is non dilated. Pancreas enhances normally. No adrenal nodules. A round left renal l esion is seen with attenuation measuring 61 Hounsfield units. No change in size and this measures 3.0 cm diameter. Findings are still indeterminate and cannot exclude solid renal neoplasm. 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 Peritoneum and bowel: Bowel loops demonstrate normal wall thickness and caliber. No free fluid or a ir. Moderate stool. Appendix appears normal. Nodes and vessels: No retroperitoneal or mesenteric adenopathy by size criteria. Aorta and inferior vena cava are normal in size. Miscellaneous: No ventral hernias. PELVIS: Genitourinary: Bladder wall thickness is normal. Miscellaneous: No inguinal hernias or adenopathy. Bones: No suspicious bony lesions. No vertebral body compression fractures. IMPRESSION: Redemonstrated 3 cm left renal mass, which is still nonspecific and cannot exclude renal neoplasm the refore recommend dedicated renal protocol CT or MRI. No interval change since 03/28/2020. Normal appendix Additional chronic and incidental findings as above. Reviewed by: Stephan Lemos MD on 04/18/2020 2:43 PM PST Approved by: Stephan Lemos MD on 04/18/2020 2:43 PM PST Station ID: [id number]
[2020-04-18 15:11] VITALS: BP 140/80
== END 2020-04-18 15:10 | disposition home or self-care (01) ==
LOC: ED 12:10
DX: R10.9 Unspecified abdominal pain (principal); N28.89 Other specified disorders of kidney and ureter; R07.9 Chest pain, unspecified; R05 Cough; R06.02 Shortness of breath; R06.01 Orthopnea; G40.909 Epilepsy, unspecified, not intractable, without status epilepticus; E11.9 Type 2 diabetes mellitus without complications; Z79.4 Long term (current) use of insulin
CPT/HCPCS: 36415; 71275; 74177; 80053; 81001; 83690; 84484; 85025; 87086; 93005; 99284; A9270; Q9967; 81003

== ENCOUNTER 2020-06-12 11:08 | Emergency (ER) | payer MEDICARE, MEDICAID ==
--- OUTSIDE RECORDS SUMMARY | 2020-06-12 11:12 | EXTERNAL MEDICAL SUMMARY RPT | Continuity of Care Document ---
:1960 Demographics Phone Unavailable Preferred Language Guatemalan Marital Status Unknown Judaism Affiliation Unknown Race Unknown Ethnic Group Unknown Author Organization [place] Address [address] [phone] Phone Care Team Providers Name Role Phone Lemme Unavailable Unavailable Problems date description facility [id number] Left upper quadrant pain [facility] 20200410 Other specified disorders of kidney and ureter [facility] Medications date description facility 20200404 Oxycodone Hydrochloride 5 MG Oral Table [facility] 20200404 cefpodoxime 200 MG Oral Tablet [facility] Procedures date description facility 20200404 General Physician [facility] Vital Signs date measurement value source 20200404 BMI 34.7 kg/m2 20200404 BP_diastolic 83 mm[Hg] 29038652 BP_systolic 142 mm[Hg] 20200404 heart_rate 56 /min 20200404 height_metric 175.26 cm 20200404 height_standard 69 in [id number] respiration_rate 20 /min 20200404 temperature_metric 36.89 C 92438230 temperature_standard 98.4 F [id number] weight_metric 48.35 kg 18585106 weight_standard 106.59 lb Social History date description facility [id number]
--- OUTSIDE RECORDS SUMMARY | 2020-06-12 11:52 | EXTERNAL MEDICAL SUMMARY RPT | Continuity of Care Document ---
:1960 Demographics Phone Unavailable Preferred Language Emirati Marital Status Unknown Latter-Day Affiliation Unknown Race Unknown Ethnic Group Unknown Author Organization [place] Address [address] [place] [address] Phone Care Team Providers Name Role Phone ManishRyland amos Unavailable Unavailable Problems date description facility 20200404 Left upper quadrant pain [facility] [id number] Other specified disorders of kidney and ureter [facility] Medications date description facility 20200404 Oxycodone Hydrochloride 5 MG Oral Table t [facility] 20200404 cefpodoxime 200 MG Oral Tablet [facility] Procedures date description facility 20200404 General Physician [facility] Vital Signs date measurement value source 20200404 BMI 34.7 kg/m2 20200404 BP_diastolic 83 mm[Hg] 48387145 BP_systolic 142 mm[Hg] 33695023 heart_rate 56 /min 20200404 height_metric 175.26 cm 20200404 height_standard 69 in 01401758 respiration_rate 20 /min 76451975 temperature_metric 36.89 C 82651427 temperature_standard 98.4 F 66479635 weight_metric 48.35 kg 05291649 weight_standard 106.59 lb Social History date description facility [id number]
--- NOTE | 2020-06-12 12:17 | XRAY Report ---
PROCEDURE: Wrist 4 View LT INDICATIONS: Trauma TECHNIQUE: 4 views of the wrist were acquired. COMPARISON: None FINDINGS: Bones: Comminuted, mildly displaced, intra-articular fracture of the distal radius. Mildly displaced ulnar styloid process fracture. Scaphoid view: Scaphoid is intact. Soft tissues: No suspicious soft tissue calcifications. IMPRESSION: Comminuted, intra-articular distal radius fracture. Reviewed by: Corazon Marr MD, PhD on 06/12/2020 12:15 PM PDT Approved by: Corazon Marr MD, PhD on 06/12/2020 12:15 PM PDT Station ID: [id number]
--- NOTE | 2020-06-12 12:19 | XRAY Report ---
PROCEDURE: Foot 3 View RT INDICATIONS: Trauma TECHNIQUE: 3 views of the foot were acquired. COMPARISON: 03/07/2020 FINDINGS: Bones: No fractures or dislocations. No suspicious bony lesions. Calcaneal bone spur. Soft tissues: No tibiotalar joint effusion. Achilles tendon appears normal. IMPRESSION: No fracture. No acute osseous lesion. If there are persistent symptoms or continued clinical concern for pathology, then advanced imaging (CT, MR, bone scan) should be considered for further evaluation . Reviewed by: Corazon Marr MD, PhD on 06/12/2020 12:18 PM PDT Approved by: Corazon Marr MD, PhD on 06/12/2020 12:18 PM PDT Station ID: [id number]
--- NOTE | 2020-06-12 12:22 | ED Physician Documentation ---
PD HPI Fall - Stated complaint Stated Complaint: LT WRIST PX - Chief complaint Chief Complaint: Trauma Ext - History obtained from History obtained from: Patient - History of Present Illness Mechanism of injury: Tripped, Lost balance Fall distance: Standing position Where injury occurred: Other (parking lot) Timing - onset: Today (just [employer]) Injury(ies) location: Left Uppper Extremity (wrist), Right Lower Extremity (lateral ankle). No: Head, Neck Quality of pain: Pain Associated symptoms: No: LOC, AMS Worsens with: Movement (mainly wrist; was able to stand/take steps on ankle though hurt.), Palpation Similar symptoms before: Has not had sx before Recently seen: Not recently seen Review of Systems Constitutional: denies: Fever, Chills Nose: denies: Rhinorrhea / runny nose, Congestion Throat: denies: Sore throat Cardiac: denies: Chest pain / pressure Respiratory: denies: Cough GI: denies: Abdominal Pain Neurologic: denies: Focal weakness, Numbness, Altered mental status, Headache, Head injury, LOC PD PAST MEDICAL HISTORY - Past Medical History Past Medical History: Yes Cardiovascular: None Respiratory: Asthma Endocrine/Autoimmune: Type 2 diabetes GI: Other : None HEENT: Other Psych: None Musculoskeletal: Osteoarthritis, Chronic back pain Derm: None - Past Surgical History Past Surgical History: Yes General: Cholecystectomy, Colonoscopy Ortho: Knee replacement, Shoulder arthroplasty, Spine surgery HEENT: Cataracts - Present Medications Home Medications: Ambulatory Orders Medication Instructions Recorded Confirmed Fluticasone [Flonase] 2 sprays CECILIA DAILY 02/13/13 12/23/16 Gabapentin [Neurontin] 1,200 mg PO BID 02/13/13 12/23/16 Topiramate [Topiragen] 200 mg PO BID 02/13/13 12/23/16 Albuterol Sulfate [Proair Hfa 2 puffs INH Q4H PRN 01/07/14 12/23/16 Inhaler] Cholecalciferol (Vitamin D3) 5,000 unit PO DAILY 01/07/14 12/22/16 [Vitamin D3] Albuterol 2.5 mg INH RTQ4H PRN neb 12/23/16 Cyclobenzaprine [Flexeril] 10 mg PO TID PRN tablet 12/23/16 Gabapentin 800 mg PO DAILY@1200 12/23/16 12/23/16 Hydrocodone/Acetaminophen 0.5 tab PO Q4H PRN 12/23/16 12/23/16 [Hydrocodone-Acetamin 10-325 mg] Ibuprofen [Motrin] 800 mg PO Q8H PRN tablet 12/23/16 Insulin Aspart [NovoLOG] 1 - 5 unit SUBQ 12/23/16 0800,1200,1700,2100 pen levETIRAcetam [Keppra] 250 mg PO BID #60 tablet 12/23/16 polyethylene glycoL 3350 [Miralax] 17 gm PO DAILY packet 12/23/16 tiZANidine [Zanaflex] 2 mg PO TID PRN 12/23/16 12/23/16 Lorazepam [Ativan] 1 mg PO BID #6 tablet 05/12/17 cephALEXin [Keflex] 500 mg PO TID #15 capsule 05/12/17 HYDROcod/ACETAM 5/325 [[place] 5/325] 1 - 2 tab PO Q6H PRN #15 tablet 04/18/20 HYDROcod/ACETAM 5/325 [[place] 5/325] 1 ea PO Q6H PRN #20 tablet 06/12/20 Naproxen Sodium 275 mg PO BID #15 tablet 06/12/20 - Allergies Allergies/Adverse Reactions: Allergies Allergy/AdvReac Type Severity Reaction Status Date / Time aspirin AdvReac Intermediate Itching Verified 06/12/20 11:23 Penicillins AdvReac Intermediate Itching Verified 06/12/20 11:23 Sulfa (Sulfonamide AdvReac Intermediate Itching Verified 06/12/20 11:23 Antibiotics) prednisone AdvReac Dizziness Verified 06/12/20 11:23 nonsting skin prep Allergy Hives Uncoded 06/12/20 11:23 - Social History Does the pt smoke?: No Smoking Status: Never smoker Does the pt drink ETOH?: No Does the pt have substance abuse?: No - Immunizations Immunizations are current?: No - POLST Patient has POLST: No PD ED PE NORMAL - Vitals Vital signs reviewed: Yes - General General: Alert and oriented X 3, Well developed/nourished, Other (appears in pain due to wrist and holding it guardedly to her chest area, supporting it with other hand. ) - HEENT HEENT: Atraumatic - Neck Neck: Supple, no meningeal sign, No bony TTP, No adenopathy - Cardiac Cardiac: RRR, No murmur - Respiratory Respiratory: Clear bilaterally, Other (no chestwall tenderness. ) - Abdomen Abdomen: Soft, Non tender - Back Back: No spinal TTP - Derm Derm: Normal color, Warm and dry - Extremities Extremities: Other (right ankle with some tenderness laterally in ATFL area. No noted laixty. Mild swelling. Left wrist with swelling and tenderness dorsal aspect. Normal color and cap refill, sensation,wiggle in fingers. ) - Neuro Neuro: Alert and oriented X 3, No motor deficit, Normal speech Results - Vitals Vitals: Vital Signs - 24 hr 06/12/20 06/12/20 11:20 14:00 Temperature 36.7 C Heart Rate 69 68 Respiratory 16 16 Rate Blood Pressure 133/76 H 143/79 H O2 Saturation 100 Oxygen O2 Source Room air - Rads (name of study) right ankle Radiology: Prelim report reviewed (no fractures), See rad report left wrist Radiology: Prelim report reviewed (colles fracture with about 10 degrees dorsal angulation, mild impaction.), See rad report Procedures - Splint (location) left wrist Splint applied by: Tech Type of splint: Fiberglass, Sugar tong Other: Patient tolerated well, No complications, Neurovascular intact, Sling provided PD MEDICAL DECISION MAKING - ED course Complexity details: considered differential (ankle seems sprain and xray okay. Wrist with colles fracture with about 10 degrees angulation and minimal shortening. ), d/w patient Departure - Departure Disposition: 01 Home, Self Care Clinical Impression: Fall from slip, trip, or stumble Qualifiers: Encounter type: initial encounter Qualified Code(s): W01.0XXA - Fall on same level from slipping, tripping and stumbling without subsequent striking against object, initial encounter Ankle sprain Qualifiers: Encounter type: initial encounter Involved ligament of ankle: anterior talofibular ligament Laterality: right Qualified Code(s): S93.491A - Sprain of other ligament of right ankle, initial encounter Colles' fracture Qualifiers: Encounter type: initial encounter Fracture type: closed Laterality: left Qualified Code(s): S52.532A - Colles' fracture of left radius, initial encounter for closed fracture Condition: Stable Record reviewed to determine appropriate education?: Yes Instructions: ED Sprain Ankle W X Ray, ED Fx Colles Wrist No Redu Requ Follow-Up: [facility] [Provider Group] Prescriptions: Naproxen Sodium 275 mg PO BID #15 tablet HYDROcod/ACETAM 5/325 [[place] 5/325] 1 ea PO Q6H PRN #20 tablet PRN Reason: Pain Comments: Keep the splint on and in place and clean and dry. Use the sling for limited motion of the left arm. Use the ankle brace when up and around over the next couple of weeks. Follow-up with your orthopedist at [facility] in about a week, call today for a follow-up appointment for a Colles' fracture of the left wrist. It is in reasonably good position at this point. There is a possibility it may need surgical repair though not certainly so. I would leave it to the judgment of the orthopedist on follow-up. Anti-inflammatories such as naproxen twice daily with food. To that add Tylenol 4 times a day or hydrocodone if needed for worse pain. Elevate and ice to the wrist periodically today and tomorrow for swelling. Discharge Date/Time: 06/12/20 14:00
[2020-06-12] MEDS ORDERED: KETOROLAC 30 MG/ML VIAL IM STA (12:55)
[2020-06-12] MEDS ORDERED: MORPHINE 10 MG/ML VIAL IM STA (12:55)
[2020-06-12 14:11] VITALS: BP 143/79
== END 2020-06-12 14:00 | disposition home or self-care (01) ==
LOC: ED 11:08
DX: S52.532A Colles' fracture of left radius, initial encounter for closed fracture (principal); S93.491A Sprain of other ligament of right ankle, initial encounter; W01.0XXA Fall on same level from slipping, tripping and stumbling without subsequent striking against object, initial encounter; Y93.01 Activity, walking, marching and hiking; Y92.481 Parking lot as the place of occurrence of the external cause; E11.9 Type 2 diabetes mellitus without complications; Z79.4 Long term (current) use of insulin
CPT/HCPCS: 29125; 99284

== ENCOUNTER 2022-04-02 09:25 | Outpatient (CLI) | payer MEDICARE, MEDICAID ==
--- NOTE | 2022-04-02 10:12 | XRAY Report ---
PROCEDURE: Chest 2 View X-Ray INDICATIONS: CHEST PAIN TECHNIQUE: 2 views of the chest were acquired. COMPARISON: Chest CT 04/18/2020. FINDINGS: Surgical changes and devices: Lower cervical anterior fusion plate noted, previously present. Lungs and pleura: No pleural effusions or pneumothorax. Lungs are clear. Mediastinum: Mediastinal contours are normal. Heart size is normal. Bones and chest wall: No suspicious bony abnormalities. Soft tissues appear unremarkable. IMPRESSION: Normal for age, source of current chest pain symptoms is not seen. Reviewed by: George Garcia MD on 04/02/2022 10:10 AM [facility] Approved by: George Garcia MD on 04/02/2022 10:10 AM [facility] Station ID: [id number]
== END 2022-04-02 09:26 | disposition home or self-care (01) ==
LOC: DI 09:25
PROVIDERS: ATTEND Physician Assistant
DX: R07.89 Other chest pain (principal)

== ENCOUNTER 2022-05-02 15:12 | Emergency (ER) | payer MEDICARE, MEDICAID ==
--- OUTSIDE RECORDS SUMMARY | 2022-05-02 16:00 | EXTERNAL MEDICAL SUMMARY RPT | Continuity of Care Document ---
:1960 Author Organization [facility] Address [address] [place] [address] Phone Care Team Providers Name Role Phone Ryland Carlton Unavailable Unavailable Allergies and Intolerances date description facility type (no date) [facility] (unknown) (no date) Sulfa (Sulfonamide Antibiotics) [facility] (unknown) (no date) adhesive tape [facility] (unknown) (no date) aspirin [facility] (unknown) (no date) nitrofurantoin [facility] (unknown) Encounters No information. Functional Status No information. Immunizations No information. Medications No information. Problems date description facility 2022-03-29 11:[address] [facility] 2022-03-29 11:[address] [facility] 2022-04-14 00:00 Bleeding internal hemorrhoids [facility] Procedures date description facility 2022-03-29 00:00 XR forearm left, 2 views [facility] 2022-04-14 00:00 CT abdomen pelvis [facility] con [facility] Results/Labs test date author facility value unit interpret ation Result panel 1 (unknown) (no date[facility]) Result panel 2 (unknown) (no date) (unknown[facility]) Result panel 3 (unknown) (no date) (unknown[facility]) Result panel 4 (unknown) (no date) (unknown[facility]) Result panel 5 (unknown) (no date) (unknown[facility]) Result panel 6 (unknown) (no date) (unknown[facility]) Result panel 7 (unknown) (no date) (unknown[facility]) Result panel 8 (unknown) (no date) (unknown[facility]) Result panel 9 (unknown) (no date) (unknown[facility]) Result panel 10 (unknown) (no date) (unknown[facility]) Result panel 11 (unknown) (no date) (unknown[facility]) Result panel 12 (unknown) (no date) (unknown[facility]) Result panel 13 (unknown) (no date) (unknown[facility]) Result panel 14 (unknown) (no date) (unknown[facility]) Result panel 15 (unknown) (no date) (unknown[facility]) Result panel 16 (unknown) (no date) (unknown[facility]) Result panel 17 (unknown) (no date) (unknown[facility]) Result panel 18 (unknown) (no date) (unknown[facility]) Result panel 19 (unknown) (no date) (unknown[facility]) Result panel 20 (unknown) (no date) (unknown[facility]) Result panel 21 (unknown) (no date) (unknown[facility]) Result panel 22 (unknown) (no date) (unknown[facility]) Result panel 23 (unknown) (no date) (unknown[facility]) Result panel 24 (unknown) (no date) (unknown[facility]) Result panel 25 (unknown) (no date) (unknown[facility]) Result panel 26 (unknown) (no date) (unknown[facility]) Result panel 27 (unknown) (no date) (unknown[facility]) Result panel 28 (unknown) (no date) (unknown[facility]) Result panel 29 (unknown) (no date) (unknown[facility]) Result panel 30 (unknown) (no date) (unknown[facility]) Result panel 31 (unknown) (no date) (unknown[facility]) Result panel 32 (unknown) (no date) (unknown[facility]) Result panel 33 (unknown) (no date) (unknown[facility]) Result panel 34 (unknown) (no date) (unknown[facility]) Result panel 35 (unknown) (no date) (unknown[facility]) Result panel 36 (unknown) (no date) (unknown[facility]) Result panel 37 (unknown) (no date) (unknown[facility]) Result panel 38 (unknown) (no date) (unknown[facility]) Result panel 39 (unknown) (no date) (unknown[facility]) Result panel 40 (unknown) (no date) (unknown[facility]) Result panel 41 (unknown) (no date) (unknown[facility]) Result panel 42 (unknown) (no date) (unknown[facility]) Result panel 43 (unknown) (no date) (unknown[facility]) Result panel 44 (unknown) (no date) (unknown[facility]) Result panel 45 (unknown) (no date) (unknown[facility]) Result panel 46 (unknown) (no date) (unknown[facility]) Result panel 47 (unknown) (no date) (unknown[facility]) Result panel 48 (unknown) (no date) (unknown[facility]) Result panel 49 (unknown) (no date) (unknown[facility]) Result panel 50 (unknown) (no date) (unknown[facility]) Result panel 51 (unknown) (no date) (unknown[facility]) Result panel 52 (unknown) (no date) (unknown[facility]) Result panel 53 (unknown) (no date) (unknown[facility]) Result panel 54 (unknown) (no date) (unknown[facility]) Result panel 55 (unknown) (no date) (unknown[facility]) Result panel 56 (unknown) (no date) (unknown[facility]) Result panel 57 (unknown) (no date) (unknown[facility]) Result panel 58 (unknown) (no date) (unknown[facility]) Result panel 59 (unknown) (no date) (unknown[facility]) Result panel 60 (unknown) (no date) (unknown[facility]) Result panel 61 (unknown) (no date) (unknown[facility]) Result panel 62 (unknown) (no date) (unknown[facility]) Result panel 63 (unknown) (no date) (unknown[facility]) Result panel 64 (unknown) (no date) (unknown[facility]) Result panel 65 (unknown) (no date) (unknown) [facility]) Result panel 66 (unknown) (no date) (unknown) [facility]) Result panel 67 (unknown) (no date) (unknown) [facility]) Result panel 68 (unknown) (no date) (unknown[facility]) Result panel 69 (unknown) (no date) (unknown[facility]) Result panel 70 (unknown) (no date) (unknown) [facility]) Result panel 71 (unknown) (no date) (unknown) [facility]) Result panel 72 (unknown) (no date) (unknown) [facility]) Result panel 73 (unknown) (no date) (unknown) [facility]) Result panel 74 (unknown) (no date) (unknown) [facility]) Result panel 75 (unknown) (no date) (unknown[facility]) Result panel 76 (unknown) (no date) (unknown) [facility]) Result panel 77 (unknown) (no date) (unknown[facility]) Result panel 78 (unknown) (no date) (unknown) [facility]) Result panel 79 (unknown) (no date) (unknown) [facility]) Result panel 80 (unknown) (no date) (unknown) [facility]) Result panel 81 (unknown) (no date) (unknown[facility]) Result panel 82 (unknown) (no (unknown) (unknown) (no value) (units (unk nown) date) unknown) (unknown) (no (unknown) (unknown) 03/29/22 (units (unkno wn) date) unknown) (unknown) (no (unknown) (unknown) [address] [place] [address] (units (unknown) date) unknown) (unknown) (no (unknown) (unknown) Accession (units (unkn own) date) Number: unknown) [id number] (unknown) (no (unknown) (unknown) Age/Sex: 61 / F (units (unknown) date) Date of Service: unknown) (unknown) (no (unknown) (unknown) [place], [place] (units ( unknown) date) [id number] unknown) (unknown) (no (unknown) (unknown) Approved by: (units (u nknown) date) melanie Stroud M.D. on 03/29/2022 at 20:10 (unknown) (no (unknown) (unknown) Bones: No (units (unkn own) date) fractures or unknown) dislocations. No suspicious bony lesions. Distal (unknown) (no (unknown) (unknown) COMPARISON: (units (un known) date) None. unknown) (unknown) (no (unknown) (unknown) : 1960 (units (unknown) date) Acct:[id number] unknown) (unknown) (no (unknown) (unknown) Dictated by: (units (u nknown) date) joanna StroudSong Garces on 03/29/2022 at 20:09 (unknown) (no (unknown) (unknown) FINDINGS: (units (unkn own) date) unknown) (unknown) (no (unknown) (unknown) IMPRESSION: (units (un known) date) Distal radial unknown) fixation. (unknown) (no (unknown) (unknown) INDICATIONS: (units (u nknown) date) PAIN unknown) (unknown) (no (unknown) (unknown) [facility] (units (unknown) date) unknown) (unknown) (no (unknown) (unknown) Loc: RAD (units (unkno wn) date) unknown) (unknown) (no (unknown) (unknown) [id number] (units (unk nown) date) unknown) (unknown) (no (unknown) (unknown) Ordering (units (unkno wn) date) Provider: unknown) Deisy Peng (unknown) (no (unknown) (unknown) PROCEDURE: XR (units ( unknown) date) FOREARM LT 2V unknown) (unknown) (no (unknown) (unknown) Patient: (units (unkno wn) date) Logan Desir unknown) MR#: (unknown) (no (unknown) (unknown) Procedure: XR (units ( unknown) date) forearm LT 2V unknown) (unknown) (no (unknown) (unknown) Signed (units (unkno wn) date) unknown) (unknown) (no (unknown) (unknown) Soft tissues: No (units (unknown) date) suspicious soft unknown) tissue calcifications or masses. (unknown) (no (unknown) (unknown) TECHNIQUE: 2 (units (u nknown) date) views of the unknown) forearm were acquired. (unknown) (no (unknown) (unknown) XRay Report (units (un known) date) unknown) (unknown) (no (unknown) (unknown) fixation. (units (unkn own) date) Hardware is unknown) intact without evidence of hardware fracture or (unknown) (no (unknown) (unknown) lucency to (units (unk nown) date) suggest unknown) loosening. (unknown) (no (unknown) (unknown) periprosthetic (units (unknown) date) unknown) (unknown) (no (unknown) (unknown) radial (units (unkno wn) date) unknown) Result panel 83 (unknown) (no (unknown) (unknown) (no value) (units (unk nown) date) unknown) (unknown) (no (unknown) (unknown) %-0.3 % eye drops (units (unknown) date) in a dropperette unknown) (unknown) (no (unknown) (unknown) (DOK) (units (unkno wn) date) unknown) (unknown) (no (unknown) (unknown) (Neurontin) (units (un known) date) unknown) (unknown) (no (unknown) (unknown) (Systane (PF)) (units (unknown) date) unknown) (unknown) (no (unknown) (unknown) [id number] (units (unkn own) date) unknown) (unknown) (no (unknown) (unknown) 04/14/22 12:06 (units (unknown) date) unknown) (unknown) (no (unknown) (unknown) 04/14/22 (units (unkno wn) date) unknown) (unknown) (no (unknown) (unknown) 10/04/19 (units (unkno wn) date) unknown) (unknown) (no (unknown) (unknown) 1 - 2 tab PO Q3HP (units (unknown) date) PRN (Reason: Pain unknown) (Scale Score 1-3)) (unknown) (no (unknown) (unknown) 1 applic topical (units (unknown) date) BID PRN (Reason: unknown) knee pain, ankle pain) Qty: 100 0RF (unknown) (no (unknown) (unknown) 1 tab PO BID PRN (units (unknown) date) (Reason: pain) unknown) Qty: 14 0RF (unknown) (no (unknown) (unknown) 1 tab PO Q4-6H (units (unknown) date) PRN (Reason: pain) unknown) Qty: 14 0RF (unknown) (no (unknown) (unknown) 1 tab PO QDAY (units ( unknown) date) Qty: 0 unknown) (unknown) (no (unknown) (unknown) 10 mg PO QDAYP (units (unknown) date) PRN (Reason: unknown) Allergy Symptoms) Qty: 0 (unknown) (no (unknown) (unknown) 11:41 (units (unkno wn) date) unknown) (unknown) (no (unknown) (unknown) 12 point review (units (unknown) date) of systems is unknown) negative except for those stated above (unknown) (no (unknown) (unknown) 2 drp OPHTH QDAY (units (unknown) date) Qty: 0 unknown) (unknown) (no (unknown) (unknown) 2 puff INH PRN (units (unknown) date) PRN (Reason: unknown) Dyspnea) Qty: 0 (unknown) (no (unknown) (unknown) 2 spray (units (unkno wn) date) INTRANASAL DAILY unknown) PRN (Reason: Allergic Symptoms) (unknown) (no (unknown) (unknown) 2 tabs in am, 3 (units (unknown) date) tams at noon, 2 unknown) tabs evening (unknown) (no (unknown) (unknown) 20 mg PO DAILY (units (unknown) date) Qty: 30 0RF unknown) (unknown) (no (unknown) (unknown) 200 mg PO BID (units ( unknown) date) unknown) (unknown) (no (unknown) (unknown) 3,200 mg PO QDAY (units (unknown) date) Qty: 0 unknown) (unknown) (no (unknown) (unknown) 400 mg PO PRN PRN (units (unknown) date) (Reason: Pain unknown) (Scale Score 1-3)) Qty: 0 (unknown) (no (unknown) (unknown) 5 mg PO Q8H PRN (units (unknown) date) (Reason: pain) unknown) Qty: 7 0RF (unknown) (no (unknown) (unknown) 5,000 unit PO (units ( unknown) date) QDAY Qty: 0 unknown) (unknown) (no (unknown) (unknown) 500 mg PO PRN PRN (units (unknown) date) (Reason: unknown) Constipation) Qty: 0 (unknown) (no (unknown) (unknown) 600 mg PO BID (units ( unknown) date) Qty: 0 unknown) (unknown) (no (unknown) (unknown) ALLERGY (units (unkno wn) date) unknown) (unknown) (no (unknown) (unknown) [id number] (units (unknown) date) DASE Allergy unknown) Unknown PT NOT Uncoded 04/14/22 11:41 (unknown) (no (unknown) (unknown) ANTIBIOTICS)] (units ( unknown) date) unknown) (unknown) (no (unknown) (unknown) AWARE OF (units (unkno wn) date) unknown) (unknown) (no (unknown) (unknown) Age/Sex: 61 / F (units (unknown) date) unknown) (unknown) (no (unknown) (unknown) Allergies (units (unkn own) date) unknown) (unknown) (no (unknown) (unknown) Allergy/AdvReac (units (unknown) date) Type Severity unknown) Reaction Status Date / Time (unknown) (no (unknown) (unknown) Antibiotics) PER (units (unknown) date) PT unknown) (unknown) (no (unknown) (unknown) Asthma (units (unkno wn) date) unknown) (unknown) (no (unknown) (unknown) BACK: Nontender (units (unknown) date) without deformity unknown) or crepitance. No flank tenderness. (unknown) (no (unknown) (unknown) Bedside Urine (units ( unknown) date) Bilirubin - unknown) Negative (unknown) (no (unknown) (unknown) Bedside Urine (units ( unknown) date) Glucose Negative unknown) (unknown) (no (unknown) (unknown) Bedside Urine (units ( unknown) date) Ketone - Negative unknown) (unknown) (no (unknown) (unknown) Bedside Urine (units ( unknown) date) Leukocytes - unknown) Negative (unknown) (no (unknown) (unknown) Bedside Urine (units ( unknown) date) Nitrite - Negative unknown) (unknown) (no (unknown) (unknown) Bedside Urine (units ( unknown) date) Occult Blood unknown) (unknown) (no (unknown) (unknown) Bedside Urine (units ( unknown) date) Protein ++ 100 unknown) (unknown) (no (unknown) (unknown) Bedside Urine (units ( unknown) date) Urobilinogen - unknown) Negative (unknown) (no (unknown) (unknown) Bedside Urine pH (units (unknown) date) 6.0 unknown) (unknown) (no (unknown) (unknown) Blood Pressure (units (unknown) date) 128/87 04/14/22 unknown) 11:41 (unknown) (no (unknown) (unknown) Blood Pressure (units (unknown) date) 128 unknown) (unknown) (no (unknown) (unknown) CARDIOVASCULAR: (units (unknown) date) Denies chest pain, unknown) palpitations, orthopnea, edema, (unknown) (no (unknown) (unknown) CARDIOVASCULAR: (units (unknown) date) Regular rate and unknown) rhythm without murmurs, gallops, or rubs. (unknown) (no (unknown) (unknown) Chief complaint: (units (unknown) date) GI Bleed unknown) (unknown) (no (unknown) (unknown) Colon cancer (units (u nknown) date) unknown) (unknown) (no (unknown) (unknown) Complete Blood (units (unknown) date) Count AUTO DIFF unknown) Stat (unknown) (no (unknown) (unknown) Comprehensive (units ( unknown) date) Metabolic Panel unknown) Stat (unknown) (no (unknown) (unknown) Course (units (unkno wn) date) unknown) (unknown) (no (unknown) (unknown) : 1960 (units (unknown) date) Acct:[id number] unknown) (unknown) (no (unknown) (unknown) DOES NOT (units (unkno wn) date) unknown) (unknown) (no (unknown) (unknown) Date of Service: (units (unknown) date) 04/14/22 unknown) (unknown) (no (unknown) (unknown) Departure (units (unkn own) date) unknown) (unknown) (no (unknown) (unknown) Diabetes mellitus (units (unknown) date) unknown) (unknown) (no (unknown) (unknown) Diabetes (units (unkno wn) date) unknown) (unknown) (no (unknown) (unknown) Discharge Plan (units (unknown) date) unknown) (unknown) (no (unknown) (unknown) Discontinued (units (u nknown) date) Medications unknown) (unknown) (no (unknown) (unknown) ED Orders (units (unkn own) date) unknown) (unknown) (no (unknown) (unknown) EKG-12 Lead Stat (units (unknown) date) unknown) (unknown) (no (unknown) (unknown) ENT: Nose without (units (unknown) date) bleeding, purulent unknown) drainage. Throat without erythema, (unknown) (no (unknown) (unknown) ER Physician: (units ( unknown) date) Joel Francois P.A-C unknown) (unknown) (no (unknown) (unknown) EXTREMITIES: No (units (unknown) date) edema or joint unknown) tenderness. (unknown) (no (unknown) (unknown) EYES: Pupils (units (u nknown) date) equal round and unknown) reactive. Extraocular motions intact. No scleral (unknown) (no (unknown) (unknown) Emergency Report (units (unknown) date) unknown) (unknown) (no (unknown) (unknown) Esterase (units (unkno wn) date) unknown) (unknown) (no (unknown) (unknown) Exam Narrative: (units (unknown) date) unknown) (unknown) (no (unknown) (unknown) Exam (units (unkno wn) date) unknown) (unknown) (no (unknown) (unknown) Family History (units (unknown) date) (Reviewed 08/14/21 unknown) @ 15:29 by PAZ Bolton) (unknown) (no (unknown) (unknown) Father Diabetes (units (unknown) date) mellitus unknown) (unknown) (no (unknown) (unknown) Edison Jones (units (unk nown) date) MD Prabhu unknown) [Primary Care Provider] (unknown) (no (unknown) (unknown) GASTROINTESTINAL: (units (unknown) date) Reports bright red unknown) blood in stool, Denies nausea, vomiting, (unknown) (no (unknown) (unknown) GASTROINTESTINAL: (units (unknown) date) Suprapubic unknown) abdominal tenderness to palpation (unknown) (no (unknown) (unknown) GENERAL: Denies (units (unknown) date) chills, fatigue, unknown) malaise, fever, sweats. (unknown) (no (unknown) (unknown) GENERAL: (units (unkno wn) date) Well-developed unknown) patient, in mild distress. (unknown) (no (unknown) (unknown) : Denies (units (unk nown) date) dysuria, unknown) frequency, incontinence, hematuria, urinary retention. (unknown) (no (unknown) (unknown) Gallstones (units (unk nown) date) unknown) (unknown) (no (unknown) (unknown) General (units (unkno wn) date) unknown) (unknown) (no (unknown) (unknown) HEAD: Atraumatic. (units (unknown) date) Normocephalic. unknown) (unknown) (no (unknown) (unknown) HEENT: Denies (units ( unknown) date) sinus pain, ear unknown) pain, sore throat, difficulty swallowing, (unknown) (no (unknown) (unknown) HPI - GI Bleed (units (unknown) date) unknown) (unknown) (no (unknown) (unknown) HPI Narrative: (units (unknown) date) unknown) (unknown) (no (unknown) (unknown) Heart disease (units ( unknown) date) unknown) (unknown) (no (unknown) (unknown) History of (units (unk nown) date) Present Illness unknown) (unknown) (no (unknown) (unknown) History of back (units (unknown) date) surgery unknown) (unknown) (no (unknown) (unknown) History of total (units (unknown) date) knee arthroplasty unknown) (unknown) (no (unknown) (unknown) Home Medications (units (unknown) date) unknown) (unknown) (no (unknown) (unknown) Hx of (units (unkno wn) date) cholecystectomy unknown) (unknown) (no (unknown) (unknown) Hx of knee (units (unk nown) date) surgery unknown) (unknown) (no (unknown) (unknown) Hx of neck (units (unk nown) date) surgery unknown) (unknown) (no (unknown) (unknown) Hx of shoulder (units (unknown) date) surgery unknown) (unknown) (no (unknown) (unknown) Initial Vital (units ( unknown) date) Signs unknown) (unknown) (no (unknown) (unknown) Initial Vital (units ( unknown) date) Signs: unknown) (unknown) (no (unknown) (unknown) [facility] (units (unknown) date) [address] unknown) [place] [address] (unknown) (no (unknown) (unknown) Kidney malignancy (units (unknown) date) unknown) (unknown) (no (unknown) (unknown) Lab Data (units (unkno wn) date) unknown) (unknown) (no (unknown) (unknown) Labs: (units (unkno wn) date) unknown) (unknown) (no (unknown) (unknown) MDM - GI Bleed (units (unknown) date) unknown) (unknown) (no (unknown) (unknown) MUSCULOSKELETAL: (units (unknown) date) denies weakness, unknown) joint pain, or bony pain (unknown) (no (unknown) (unknown) Medical History (units (unknown) date) (Updated 08/29/21 unknown) @ 00:01 by ) (unknown) (no (unknown) (unknown) Medication (units (unk nown) date) Instructions unknown) Recorded Confirmed (unknown) (no (unknown) (unknown) Medication (units (unk nown) date) Instructions unknown) Recorded (unknown) (no (unknown) (unknown) Mode of arrival: (units (unknown) date) Ambulatory unknown) (unknown) (no (unknown) (unknown) Mother (units (unkno wn) date) Hypertension unknown) (unknown) (no (unknown) (unknown) NECK: Trachea (units ( unknown) date) midline. Non unknown) tender (unknown) (no (unknown) (unknown) NEURO: AOx3. (units (u nknown) date) unknown) (unknown) (no (unknown) (unknown) NEUROLOGIC: (units (un known) date) Denies weakness, unknown) headache, numbness, change in speech, confusion, (unknown) (no (unknown) (unknown) Narrative (units (unkn own) date) unknown) (unknown) (no (unknown) (unknown) Narrative: (units (unk nown) date) unknown) (unknown) (no (unknown) (unknown) No Action (units (unkn own) date) unknown) (unknown) (no (unknown) (unknown) Obesity (units (unkno wn) date) unknown) (unknown) (no (unknown) (unknown) Ondansetron HCl (units (unknown) date) (Ondansetron 4 Mg unknown) Odt) 4 mg SL NOW PRN (unknown) (no (unknown) (unknown) Ondansetron HCl (units (unknown) date) (Ondansetron 4 unknown) Mg/2 Ml Inj) 4 mg IV NOW PRN (unknown) (no (unknown) (unknown) Ordered: (units (unkno wn) date) unknown) (unknown) (no (unknown) (unknown) Orders (units (unkno wn) date) unknown) (unknown) (no (unknown) (unknown) Oxygen Delivery (units (unknown) date) Method Room Air unknown) 04/14/22 11:41 (unknown) (no (unknown) (unknown) Oxygen Delivery (units (unknown) date) Method Room Air unknown) (unknown) (no (unknown) (unknown) PER PT (units (unkno wn) date) unknown) (unknown) (no (unknown) (unknown) PRN Reason: (units (un known) date) Nausea And unknown) Vomiting (unknown) (no (unknown) (unknown) PSYCHIATRIC: No (units (unknown) date) concerning unknown) psychosocial issues. (unknown) (no (unknown) (unknown) Pantoprazole (units (u nknown) date) Sodium unknown) (Pantoprazole 40 Mg Vial) 80 mg IV NOW ONE (unknown) (no (unknown) (unknown) Partial (units (unkno wn) date) Thromboplastin unknown) Time Stat (unknown) (no (unknown) (unknown) Patient History (units (unknown) date) unknown) (unknown) (no (unknown) (unknown) Patient's (units (unkn own) date) daughter describes unknown) the blood as bright red in color. No significant (unknown) (no (unknown) (unknown) Patient: (units (unkno wn) date) Logan Deisr L unknown) MR#: M (unknown) (no (unknown) (unknown) Penicillins (units (un known) date) [PENICILLINS] unknown) Allergy Unknown ITCHING-PT Verified 04/14/22 11:41 (unknown) (no (unknown) (unknown) Prescriptions: (units (unknown) date) unknown) (unknown) (no (unknown) (unknown) Previous Rx's (units ( unknown) date) unknown) (unknown) (no (unknown) (unknown) Prothrombin Time (units (unknown) date) INR Stat unknown) (unknown) (no (unknown) (unknown) Pulse Oximetry 99 (units (unknown) date) 04/14/22 11:41 unknown) (unknown) (no (unknown) (unknown) Pulse Oximetry 99 (units (unknown) date) unknown) (unknown) (no (unknown) (unknown) Pulse Rate 80 (units ( unknown) date) 04/14/22 11:41 unknown) (unknown) (no (unknown) (unknown) Pulse Rate 80 (units ( unknown) date) unknown) (unknown) (no (unknown) (unknown) Qty: 1 0RF (units (unk nown) date) unknown) (unknown) (no (unknown) (unknown) REACTION (units (unkno wn) date) unknown) (unknown) (no (unknown) (unknown) RED' (units (unkno wn) date) unknown) (unknown) (no (unknown) (unknown) REMEMBER (units (unkno wn) date) unknown) (unknown) (no (unknown) (unknown) RESPIRATORY: Clear (units (unknown) date) to auscultation. unknown) Breath sounds equal bilaterally. No wheezes, (unknown) (no (unknown) (unknown) RESPIRATORY: (units (u nknown) date) Denies dyspnea, unknown) cough, wheezing, hemoptysis, sputum. (unknown) (no (unknown) (unknown) Referrals: (units (unk nown) date) unknown) (unknown) (no (unknown) (unknown) Related Data (units (u nknown) date) unknown) (unknown) (no (unknown) (unknown) Relief) (units (unkno wn) date) unknown) (unknown) (no (unknown) (unknown) Respiratory Rate (units (unknown) date) 16 04/14/22 11:41 unknown) (unknown) (no (unknown) (unknown) Respiratory Rate (units (unknown) date) 16 unknown) (unknown) (no (unknown) (unknown) Review of Systems (units (unknown) date) unknown) (unknown) (no (unknown) (unknown) Rx Instructions: (units (unknown) date) unknown) (unknown) (no (unknown) (unknown) SEVERITY (units (unkno wn) date) unknown) (unknown) (no (unknown) (unknown) SKIN: Denies (units (u nknown) date) rash, skin unknown) lesions, or other (unknown) (no (unknown) (unknown) SKIN: No rash or (units (unknown) date) erythema of unknown) visible areas (unknown) (no (unknown) (unknown) Score 1-3) ##0 (units (unknown) date) unknown) (unknown) (no (unknown) (unknown) Score 1-3) (units (unk nown) date) unknown) (unknown) (no (unknown) (unknown) Seizure-like (units (u nknown) date) activity unknown) (unknown) (no (unknown) (unknown) Signed By: (units (unk nown) date) unknown) (unknown) (no (unknown) (unknown) Smoking Status: (units (unknown) date) Never smoker unknown) (unknown) (no (unknown) (unknown) Social History (units (unknown) date) (Reviewed 08/14/21 unknown) @ 15:29 by PAZ Bolton) (unknown) (no (unknown) (unknown) Source: patient (units (unknown) date) unknown) (unknown) (no (unknown) (unknown) Grant,Suspension (units (unknown) date) unknown) (unknown) (no (unknown) (unknown) Stated complaint: (units (unknown) date) bleeding in stool unknown) (unknown) (no (unknown) (unknown) Stop: 04/14/22 (units (unknown) date) 12:07 unknown) (unknown) (no (unknown) (unknown) Stroke (units (unkno wn) date) unknown) (unknown) (no (unknown) (unknown) Substance Use (units ( unknown) date) Type: does not use unknown) (unknown) (no (unknown) (unknown) Sulfa (units (unkno wn) date) (Sulfonamide unknown) Allergy Unknown UNKNOWN Verified 04/14/22 11:41 (unknown) (no (unknown) (unknown) Surgical History (units (unknown) date) (Reviewed 08/14/21 unknown) @ 15:29 by PAZ Bolton) (unknown) (no (unknown) (unknown) Symptoms ##0 (units (u nknown) date) unknown) (unknown) (no (unknown) (unknown) Systane (PF) 1 (units (unknown) date) EACH dropperette unknown) (unknown) (no (unknown) (unknown) THIS (units (unkno wn) date) unknown) (unknown) (no (unknown) (unknown) Temperature 97.4 (units (unknown) date) F L 04/14/22 11:41 unknown) (unknown) (no (unknown) (unknown) Temperature 97.4 (units (unknown) date) F L unknown) (unknown) (no (unknown) (unknown) This is a (units (unkn own) date) 61-year-old female unknown) presents to the emergency department due to (unknown) (no (unknown) (unknown) Time Seen by (units (u nknown) date) Provider: 04/14/22 unknown) 12:07 (unknown) (no (unknown) (unknown) Type and Screen (units (unknown) date) Stat unknown) (unknown) (no (unknown) (unknown) Urine Dip (units (unkn own) date) unknown) (unknown) (no (unknown) (unknown) Urine Specific (units (unknown) date) [place] 1.030 unknown) (unknown) (no (unknown) (unknown) Vital Signs - 8 (units (unknown) date) hr unknown) (unknown) (no (unknown) (unknown) Vital Signs (units (un known) date) unknown) (unknown) (no (unknown) (unknown) Vital signs: (units (u nknown) date) unknown) (unknown) (no (unknown) (unknown) Walker: Front (units ( unknown) date) Wheel ##1 10/30/16 unknown) (unknown) (no (unknown) (unknown) Walker: Front (units ( unknown) date) Wheel unknown) (unknown) (no (unknown) (unknown) [CRANBERRY] 1 tab (units (unknown) date) PO QDAY ##0 unknown) 09/27/16 10/04/19 (unknown) (no (unknown) (unknown) [CRANBERRY] (units (un known) date) unknown) (unknown) (no (unknown) (unknown) [NITROFURANTOIN] (units (unknown) date) REACTION unknown) (unknown) (no (unknown) (unknown) [RED RICE YEAST] (units (unknown) date) 600 mg PO BID ##0 unknown) 03/12/10 10/04/19 (unknown) (no (unknown) (unknown) [RED RICE YEAST] (units (unknown) date) unknown) (unknown) (no (unknown) (unknown) [SULFA (units (unkno wn) date) (SULFONAMIDE unknown) (unknown) (no (unknown) (unknown) abdominal pain, (units (unknown) date) diarrhea, unknown) constipation. (unknown) (no (unknown) (unknown) acetaminophen 300 (units (unknown) date) mg-codeine 30 mg 1 unknown) tab PO Q4-6H PRN pain #14 tabs 09/21/17 (unknown) (no (unknown) (unknown) acetaminophen-cod (units (unknown) date) eine unknown) [Tylenol-Codeine #3] 300-30 mg tablet (unknown) (no (unknown) (unknown) adhesive tape (units ( unknown) date) [ADHESIVE TAPE] unknown) Allergy Severe 'I GOT Verified 04/14/22 11:41 (unknown) (no (unknown) (unknown) aerosol inhaler (units (unknown) date) (Proventil HFA) unknown) (unknown) (no (unknown) (unknown) albuterol sulfate (units (unknown) date) 90 mcg/actuation 2 unknown) puff INH PRN PRN Dyspnea ##0 03/12/10 (unknown) (no (unknown) (unknown) albuterol sulfate (units (unknown) date) [Proventil HFA] 90 unknown) MCG/PUFF HFA aerosol inhaler (unknown) (no (unknown) (unknown) alcohol intake (units (unknown) date) frequency: 0-2 unknown) drinks per day (unknown) (no (unknown) (unknown) alcohol intake: (units (unknown) date) never unknown) (unknown) (no (unknown) (unknown) aspirin [ASPIRIN] (units (unknown) date) Allergy Unknown unknown) UNKNOWN Verified 04/14/22 11:41 (unknown) (no (unknown) (unknown) blister (units (unkno wn) date) unknown) (unknown) (no (unknown) (unknown) cholecalciferol (units (unknown) date) (vitamin D3) 250 unknown) 5,000 unit PO QDAY ##0 03/12/10 10/04/19 (unknown) (no (unknown) (unknown) cholecalciferol (units (unknown) date) (vitamin D3) 250 unknown) mcg (10,000 unit) Tablet (unknown) (no (unknown) (unknown) diclofenac sodium (units (unknown) date) 3 % gel unknown) (unknown) (no (unknown) (unknown) diclofenac sodium (units (unknown) date) 3 % topical gel 1 unknown) applic topical BID PRN knee 08/14/21 (unknown) (no (unknown) (unknown) dizziness. (units (unk nown) date) unknown) (unknown) (no (unknown) (unknown) docusate sodium (units (unknown) date) 250 mg capsule 500 unknown) mg PO PRN PRN Constipation ##0 03/12/10 (unknown) (no (unknown) (unknown) docusate sodium (units (unknown) date) [DOK] 250 MG unknown) capsule (unknown) (no (unknown) (unknown) dysuria, urinary (units (unknown) date) frequency, or unknown) urgency. (unknown) (no (unknown) (unknown) fluticasone (units (un known) date) propionate 50 2 unknown) spray intranasal DAILY PRN 09/17/19 10/04/19 (unknown) (no (unknown) (unknown) fluticasone (units (un known) date) propionate unknown) [Flonase Allergy Relief] 50 mcg/actuation (unknown) (no (unknown) (unknown) gabapentin 400 mg (units (unknown) date) capsule 3,200 mg unknown) PO QDAY ##0 09/27/16 10/04/19 (unknown) (no (unknown) (unknown) gabapentin (units (unk nown) date) [Neurontin] 400 MG unknown) capsule (unknown) (no (unknown) (unknown) her abdomen or (units (unknown) date) rectum but she unknown) states that she ?always does not feel pain down (unknown) (no (unknown) (unknown) history of NSAID (units (unknown) date) use. Also reports unknown) a foul-smelling urine but denies any (unknown) (no (unknown) (unknown) household (units (unkn own) date) members: caregiver unknown) and none (unknown) (no (unknown) (unknown) hydrocodone 5 (units ( unknown) date) mg-acetaminophen unknown) 325 1 tab PO BID PRN pain #14 tabs 08/14/21 (unknown) (no (unknown) (unknown) hydrocodone-aceta (units (unknown) date) minophen 5-325 mg unknown) tablet (unknown) (no (unknown) (unknown) ibuprofen 200 MG (units (unknown) date) capsule unknown) (unknown) (no (unknown) (unknown) ibuprofen 200 mg (units (unknown) date) capsule 400 mg PO unknown) PRN PRN Pain (Scale 09/27/16 10/04/19 (unknown) (no (unknown) (unknown) icterus. No (units (un known) date) injection or unknown) drainage. (unknown) (no (unknown) (unknown) loratadine 10 MG (units (unknown) date) tablet unknown) (unknown) (no (unknown) (unknown) loratadine 10 mg (units (unknown) date) tablet 10 mg PO unknown) QDAYP PRN Allergy 09/27/16 10/04/19 (unknown) (no (unknown) (unknown) marital status: (units (unknown) date) unknown unknown) (unknown) (no (unknown) (unknown) mcg (10,000 unit) (units (unknown) date) tablet unknown) (unknown) (no (unknown) (unknown) mcg/actuation (units ( unknown) date) nasal Allergic unknown) Symptoms (unknown) (no (unknown) (unknown) mg tablet (units (unkn own) date) unknown) (unknown) (no (unknown) (unknown) nitrofurantoin (units (unknown) date) Allergy Unknown unknown) UNKNOWN Verified 04/14/22 11:41 (unknown) (no (unknown) (unknown) omeprazole 20 mg (units (unknown) date) capsule,delayed 20 unknown) mg PO DAILY #30 caps 10/04/19 (unknown) (no (unknown) (unknown) omeprazole 20 mg (units (unknown) date) capsule,delayed unknown) release(DR/EC) (unknown) (no (unknown) (unknown) or from her (units (un known) date) urine. Patient unknown) states that she is not experienced any pain around (unknown) (no (unknown) (unknown) oxycodone 5 MG (units (unknown) date) tablet unknown) (unknown) (no (unknown) (unknown) oxycodone 5 mg (units (unknown) date) tablet 1 - 2 tab unknown) PO Q3HP PRN Pain (Scale 09/17/19 10/04/19 (unknown) (no (unknown) (unknown) oxycodone 5 mg (units (unknown) date) tablet 5 mg PO Q8H unknown) PRN pain #7 tabs 02/19/21 (unknown) (no (unknown) (unknown) oxycodone 5 mg (units (unknown) date) tablet unknown) (unknown) (no (unknown) (unknown) pain, acute (units (un known) date) shortness of unknown) breath, or any other concerning signs or symptoms. (unknown) (no (unknown) (unknown) pain, ankle pain (units (unknown) date) #100 grams unknown) (unknown) (no (unknown) (unknown) peg 400-propylene (units (unknown) date) glycol (PF) 0.4 2 unknown) drp OPHTH QDAY ##0 09/27/16 10/04/19 (unknown) (no (unknown) (unknown) rales, or (units (unkn own) date) rhonchi. unknown) (unknown) (no (unknown) (unknown) release (units (unkno wn) date) unknown) (unknown) (no (unknown) (unknown) reported blood in (units (unknown) date) her stool onset unknown) this morning while taking a shower. She (unknown) (no (unknown) (unknown) seizures, (units (unkn own) date) incoordination. unknown) (unknown) (no (unknown) (unknown) spray,suspension (units (unknown) date) (Flonase Allergy unknown) (unknown) (no (unknown) (unknown) states that she (units (unknown) date) is unsure if the unknown) blood was in her stool coming from her rectum (unknown) (no (unknown) (unknown) substance use (units ( unknown) date) type: does not use unknown) (unknown) (no (unknown) (unknown) tablet (units (unkno wn) date) (Tylenol-Codeine unknown) #3) (unknown) (no (unknown) (unknown) there?. Patient (units (unknown) date) denies any unknown) significant abdominal pain, nausea, vomiting, chest (unknown) (no (unknown) (unknown) tonsillar (units (unkn own) date) hypertrophy or unknown) exudate. Airway patent. (unknown) (no (unknown) (unknown) topiramate 50 mg (units (unknown) date) tablet (Topamax) unknown) 200 mg PO BID 09/17/19 10/04/19 (unknown) (no (unknown) (unknown) topiramate (units (unk nown) date) [Topamax] 50 MG unknown) tablet Result panel 84 (unknown) (no date) (unknown) (unknown) 0.7 % (unkn own) (unknown) (no date) (unknown) (unknown) 1.6 % (unkn own) (unknown) (no date) (unknown) (unknown) 100 /ul (unkn own) (unknown) (no date) (unknown) (unknown) 100 /ul (unkn own) (unknown) (no date) (unknown) (unknown) 13.7 % (unkn own) (unknown) (no date) (unknown) (unknown) 13.7 g/dl (unkn own) (unknown) (no date) (unknown) (unknown) 1900 /ul (unkn own) (unknown) (no date) (unknown) (unknown) 22.7 % (unkn own) (unknown) (no date) (unknown) (unknown) 278 x10 3/ul (unkn own) (unknown) (no date) (unknown) (unknown) 31.8 pg (unkn own) (unknown) (no date) (unknown) (unknown) 33.9 % (unkn own) (unknown) (no date) (unknown) (unknown) 4.30 x10 6/ul (unkn own) (unknown) (no date) (unknown) (unknown) 40.4 % (unkn own) (unknown) (no date) (unknown) (unknown) 500 /ul (unkn own) (unknown) (no date) (unknown) (unknown) 5800 /ul (unkn own) (unknown) (no date) (unknown) (unknown) 6.3 % (unkn own) (unknown) (no date) (unknown) (unknown) 68.7 % (unkn own) (unknown) (no date) (unknown) (unknown) 8.4 x10 3/ul (unkn own) (unknown) (no date) (unknown) (unknown) 93.9 fl (unkn own) Result panel 85 (unknown) (no date) (unknown) (unknown) 1.1 (units unknown) (unknown) (unknown) (no date) (unknown) (unknown) 12.1 seconds (unkn own) (unknown) (no date) (unknown) (unknown) 33 seconds (unkn own) (unknown) (no date) (unknown) (unknown) 33 seconds (unkn own) Result panel 86 (unknown) (no date) (unknown) (unknown) > 60 ml/min (unkn own) (unknown) (no date) (unknown) (unknown) > 60 ml/min (unkn own) (unknown) (no date) (unknown) (unknown) 0.4 mg/dl (unkn own) (unknown) (no date) (unknown) (unknown) 1.02 mg/dl (unkn own) (unknown) (no date) (unknown) (unknown) 1.2 (units unknown) (unknown) (unknown) (no date) (unknown) (unknown) 109 mmol/l (unkn own) (unknown) (no date) (unknown) (unknown) 12.7 (units unknown) (unknown) (unknown) (no date) (unknown) (unknown) 120 mg/dl (unkn own) (unknown) (no date) (unknown) (unknown) 120 mg/dl (unkn own) (unknown) (no date) (unknown) (unknown) 13 mg/dl (unkn own) (unknown) (no date) (unknown) (unknown) 142 mmol/l (unkn own) (unknown) (no date) (unknown) (unknown) 20 iu/l (unkn own) (unknown) (no date) (unknown) (unknown) 21 mmol/l (unkn own) (unknown) (no date) (unknown) (unknown) 24 iu/l (unkn own) (unknown) (no date) (unknown) (unknown) 3.4 g/dl (unkn own) (unknown) (no date) (unknown) (unknown) 3.9 mmol/l (unkn own) (unknown) (no date) (unknown) (unknown) 4.1 g/dl (unkn own) (unknown) (no date) (unknown) (unknown) 7.5 g/dl (unkn own) (unknown) (no date) (unknown) (unknown) 8.7 mg/dl (unkn own) (unknown) (no date) (unknown) (unknown) 95 u/l (unkn own) Result panel 87 (unknown) (no (unknown) (unknown) (no value) (units (unk nown) date) unknown) (unknown) (no (unknown) (unknown) 04/14/22 (units (unkno wn) date) unknown) (unknown) (no (unknown) (unknown) [address] [place] [address] (units (unknown) date) unknown) (unknown) (no (unknown) (unknown) ABDOMEN: (units (unkno wn) date) unknown) (unknown) (no (unknown) (unknown) Abdominal Nodes: (units (unknown) date) No retroperitoneal unknown) or mesenteric adenopathy by size criteria. (unknown) (no (unknown) (unknown) Accession Number: (units (unknown) date) [id number] unknown) (unknown) (no (unknown) (unknown) Adrenal Glands: (units (unknown) date) Unremarkable. unknown) (unknown) (no (unknown) (unknown) After the (units (unkn own) date) administration of unknown) oral and IV contrast, axial sections were acquired (unknown) (no (unknown) (unknown) Age/Sex: 61 / F (units (unknown) date) Date of Service: unknown) (unknown) (no (unknown) (unknown) [place], [place] (units ( unknown) date) [id number] unknown) (unknown) (no (unknown) (unknown) Approved by: (units (u nknown) date) Jasmin Zhao M.D. unknown) on 04/14/2022 at 14:35 (unknown) (no (unknown) (unknown) Biliary ducts: (units (unknown) date) Unremarkable. unknown) (unknown) (no (unknown) (unknown) Bladder: (units (unkno wn) date) Unremarkable. unknown) (unknown) (no (unknown) (unknown) Bones: (units (unkno wn) date) Unremarkable. unknown) (unknown) (no (unknown) (unknown) COMPARISON: (units (un known) date) [facility], unknown) CT, CT ABDOMEN WO/W JOÃO, 09/11/2021, 13:13. [place] (unknown) (no (unknown) (unknown) CT Scan Report (units (unknown) date) unknown) (unknown) (no (unknown) (unknown) : 1960 (units (unknown) date) Acct:[id number] unknown) (unknown) (no (unknown) (unknown) Dictated by: (units (u nknown) date) Jasmin Zhao M.D. unknown) on 04/14/2022 at 14:22 (unknown) (no (unknown) (unknown) FINDINGS: (units (unkn own) date) unknown) (unknown) (no (unknown) (unknown) Gallbladder: (units (u nknown) date) Removed. unknown) (unknown) (no (unknown) (unknown) Heart: No (units (unkn own) date) significant unknown) findings. (unknown) (no (unknown) (unknown) Hepatomegaly with (units (unknown) date) steatosis. unknown) (unknown) (no (unknown) (unknown) Hospital, CT, CT (units (unknown) date) ABDOMEN PELVIS W unknown) CON, 04/04/2020, 11:35. (unknown) (no (unknown) (unknown) IMPRESSION: (units (un known) date) unknown) (unknown) (no (unknown) (unknown) INDICATIONS: (units (u nknown) date) Hematochezia and unknown) suprapubic TTP (unknown) (no (unknown) (unknown) Image quality: (units (unknown) date) Excellent. unknown) (unknown) (no (unknown) (unknown) [facility] (units (unknown) date) unknown) (unknown) (no (unknown) (unknown) Kidneys and (units (un known) date) Ureters: unknown) Postsurgical changes are present within the left kidney (unknown) (no (unknown) (unknown) Liver: Liver is (units (unknown) date) enlarged measuring unknown) 20.4 cm with steatosis.. (unknown) (no (unknown) (unknown) Loc: ED (units (unkno wn) date) unknown) (unknown) (no (unknown) (unknown) Lung bases: (units (un known) date) Unremarkable. unknown) (unknown) (no (unknown) (unknown) [id number] (units (unk nown) date) unknown) (unknown) (no (unknown) (unknown) Miscellaneous: No (units (unknown) date) inguinal hernias unknown) are seen. (unknown) (no (unknown) (unknown) No acute (units (unkno wn) date) intra-abdominal or unknown) pelvic process. (unknown) (no (unknown) (unknown) Ordering (units (unkno wn) date) Provider: unknown) Joel Francois P.A-C (unknown) (no (unknown) (unknown) PELVIS: (units (unkno wn) date) unknown) (unknown) (no (unknown) (unknown) PROCEDURE: CT (units ( unknown) date) ABDOMEN PELVIS W unknown) CON (unknown) (no (unknown) (unknown) Pancreas: (units (unkn own) date) Unremarkable. 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 No unknown) evidence of recurrent disease. (unknown) (no (unknown) (unknown) Patient: (units (unkno wn) date) Logan Desir L unknown) MR#: (unknown) (no (unknown) (unknown) Pelvic Nodes: No (units (unknown) date) enlarged lymph unknown) nodes. (unknown) (no (unknown) (unknown) Pelvic Organs: (units (unknown) date) Unremarkable. unknown) (unknown) (no (unknown) (unknown) Peritoneum: No (units (unknown) date) abnormal unknown) intraperitoneal fluid. No free air. 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 (unknown) (no (unknown) (unknown) Signed (units (unkno wn) date) unknown) (unknown) (no (unknown) (unknown) Spleen: (units (unkno wn) date) Unremarkable. unknown) (unknown) (no (unknown) (unknown) Stomach and (units (un known) date) Bowel: Stomach, unknown) small bowel loops, and colon are unremarkable. (unknown) (no (unknown) (unknown) TECHNIQUE: (units (unk nown) date) unknown) (unknown) (no (unknown) (unknown) Ventral Wall: No (units (unknown) date) hernia. unknown) (unknown) (no (unknown) (unknown) Vessels: Aorta (units (unknown) date) and inferior vena unknown) cava are normal in size. (unknown) (no (unknown) (unknown) adjustment (units (unk nown) date) unknown) (unknown) (no (unknown) (unknown) bilaterally (units (un known) date) ranging from 1-3 unknown) mm. No interval change. (unknown) (no (unknown) (unknown) from the (units (unkno wn) date) unknown) (unknown) (no (unknown) (unknown) lung bases to the (units (unknown) date) pubic symphysis. unknown) Coronal and sagittal reformats were (unknown) (no (unknown) (unknown) noted (units (unkno wn) date) unknown) (unknown) (no (unknown) (unknown) of mA and/or kV (units (unknown) date) according to unknown) patient size. (unknown) (no (unknown) (unknown) performed. For (units (unknown) date) unknown) (unknown) (no (unknown) (unknown) radiation dose (units (unknown) date) reduction, the unknown) following was used: automated exposure control, (unknown) (no (unknown) (unknown) removal of (units (unk nown) date) previous anterior unknown) mass. 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 Nonobstructing stones are (unknown) (no (unknown) (unknown) with (units (unkno wn) date) unknown) Result panel 88 (unknown) (no date) (unknown) (unknown) 1 (units (unkn own) unknown) (unknown) (no date) (unknown) (unknown) 1-5/HPF (units (unkn own) unknown) (unknown) (no date) (unknown) (unknown) 1-5/LPF (units (unkn own) unknown) (unknown) (no date) (unknown) (unknown) 10-30/HPF (units (unk nown) unknown) (unknown) (no date) (unknown) (unknown) 10-30/HPF (units (unk nown) unknown) (unknown) (no date) (unknown) (unknown) 5-10 /HPF (units (unk nown) unknown) (unknown) (no date) (unknown) (unknown) Cult Not (units (unkn own) Indicated unknown) (unknown) (no date) (unknown) (unknown) Few (2-10) (units (un known) unknown) Result panel 89 (unknown) (no date) (unknown) (unknown) A Positive (units (un known) unknown) (unknown) (no date) (unknown) (unknown) A Positive (units (un known) unknown) (unknown) (no date) (unknown) (unknown) NEGATIVE (units (unkn own) unknown) Result panel 90 (unknown) (no (unknown) (unknown) (no value) (units (unk nown) date) unknown) (unknown) (no (unknown) (unknown) %-0.3 % eye drops (units (unknown) date) in a dropperette unknown) (unknown) (no (unknown) (unknown) (DOK) (units (unkno wn) date) unknown) (unknown) (no (unknown) (unknown) (Neurontin) (units (un known) date) unknown) (unknown) (no (unknown) (unknown) (Systane (PF)) (units (unknown) date) unknown) (unknown) (no (unknown) (unknown) * Clinical (units (unk nown) date) Decision unknown) Rules/Scores evaluated: None (unknown) (no (unknown) (unknown) * Independent (units ( unknown) date) discussions with: unknown) None (unknown) (no (unknown) (unknown) * My imgaing (units (u nknown) date) interpretation: CT unknown) results as above. No acute processes found. (unknown) (no (unknown) (unknown) * My lab (units (unkno wn) date) interpretation: unknown) CBC unremarkable. No evidence of anemia. CMP (unknown) (no (unknown) (unknown) * Prior records (units (unknown) date) reviewed: Patient unknown) has not been here for similar complaints in (unknown) (no (unknown) (unknown) * differential (units (unknown) date) diagnosis includes unknown) but not limited to diverticulosis, internal (unknown) (no (unknown) (unknown) [id number] (units (unkn own) date) unknown) (unknown) (no (unknown) (unknown) 04/14/22 04/14/22 (units (unknown) date) 04/14/22 unknown) Range/Units (unknown) (no (unknown) (unknown) 04/14/22 04/14/22 (units (unknown) date) Range/Units unknown) (unknown) (no (unknown) (unknown) 04/14/22 12:10 (units (unknown) date) unknown) (unknown) (no (unknown) (unknown) 04/14/22 12:25 (units (unknown) date) unknown) (unknown) (no (unknown) (unknown) 04/14/22 13:04 (units (unknown) date) unknown) (unknown) (no (unknown) (unknown) 04/14/22 13:10 (units (unknown) date) unknown) (unknown) (no (unknown) (unknown) 04/14/22 (units (unkno wn) date) unknown) (unknown) (no (unknown) (unknown) 10/04/19 (units (unkno wn) date) unknown) (unknown) (no (unknown) (unknown) 1 - 2 tab PO Q3HP (units (unknown) date) PRN (Reason: Pain unknown) (Scale Score 1-3)) (unknown) (no (unknown) (unknown) 1 applic topical (units (unknown) date) BID PRN (Reason: unknown) knee pain, ankle pain) Qty: 100 0RF (unknown) (no (unknown) (unknown) 1 tab PO BID PRN (units (unknown) date) (Reason: pain) unknown) Qty: 14 0RF (unknown) (no (unknown) (unknown) 1 tab PO Q4-6H (units (unknown) date) PRN (Reason: pain) unknown) Qty: 14 0RF (unknown) (no (unknown) (unknown) 1 tab PO QDAY (units ( unknown) date) Qty: 0 unknown) (unknown) (no (unknown) (unknown) 10 mg PO QDAYP (units (unknown) date) PRN (Reason: unknown) Allergy Symptoms) Qty: 0 (unknown) (no (unknown) (unknown) 11:41 04/14/22 (units (unknown) date) unknown) (unknown) (no (unknown) (unknown) 12 point review (units (unknown) date) of systems is unknown) negative except for those stated above (unknown) (no (unknown) (unknown) [facility] ([facility] ([facility]) date) unknown) (unknown) (no (unknown) (unknown) 12:01 04/14/22 (units (unknown) date) unknown) (unknown) (no (unknown) (unknown) 12:10 12:25 12:25 (units (unknown) date) unknown) (unknown) (no (unknown) (unknown) 12:25 12:25 (units (un known) date) unknown) (unknown) (no (unknown) (unknown) 12:30 (units (unkno wn) date) unknown) (unknown) (no (unknown) (unknown) 12:31 04/14/22 (units (unknown) date) unknown) (unknown) (no (unknown) (unknown) 13:00 04/14/22 (units (unknown) date) unknown) (unknown) (no (unknown) (unknown) 13:00 (units (unkno wn) date) unknown) (unknown) (no (unknown) (unknown) 13:30 (units (unkno wn) date) unknown) (unknown) (no (unknown) (unknown) 2 drp OPHTH QDAY (units (unknown) date) Qty: 0 unknown) (unknown) (no (unknown) (unknown) 2 puff INH PRN (units (unknown) date) PRN (Reason: unknown) Dyspnea) Qty: 0 (unknown) (no (unknown) (unknown) 2 spray (units (unkno wn) date) INTRANASAL DAILY unknown) PRN (Reason: Allergic Symptoms) (unknown) (no (unknown) (unknown) 2 tabs in am, 3 (units (unknown) date) tams at noon, 2 unknown) tabs evening (unknown) (no (unknown) (unknown) 20 mg PO DAILY (units (unknown) date) Qty: 30 0RF unknown) (unknown) (no (unknown) (unknown) 200 mg PO BID (units ( unknown) date) unknown) (unknown) (no (unknown) (unknown) 3,200 mg PO QDAY (units (unknown) date) Qty: 0 unknown) (unknown) (no (unknown) (unknown) 400 mg PO PRN PRN (units (unknown) date) (Reason: Pain unknown) (Scale Score 1-3)) Qty: 0 (unknown) (no (unknown) (unknown) 5 mg PO Q8H PRN (units (unknown) date) (Reason: pain) unknown) Qty: 7 0RF (unknown) (no (unknown) (unknown) 5,000 unit PO (units ( unknown) date) QDAY Qty: 0 unknown) (unknown) (no (unknown) (unknown) 500 mg PO PRN PRN (units (unknown) date) (Reason: unknown) Constipation) Qty: 0 (unknown) (no (unknown) (unknown) 600 mg PO BID (units ( unknown) date) Qty: 0 unknown) (unknown) (no (unknown) (unknown) ? (units (unkno wn) date) unknown) (unknown) (no (unknown) (unknown) ABDOMEN: (units (unkno wn) date) unknown) (unknown) (no (unknown) (unknown) ALLERGY (units (unkno wn) date) unknown) (unknown) (no (unknown) (unknown) [id number] (units (unknown) date) DASE Allergy unknown) Unknown PT NOT Uncoded 04/14/22 11:41 (unknown) (no (unknown) (unknown) ALT (<35) IU/L (units (unknown) date) unknown) (unknown) (no (unknown) (unknown) ALT 24 (<35) IU/L (units (unknown) date) unknown) (unknown) (no (unknown) (unknown) ANTIBIOTICS)] (units ( unknown) date) unknown) (unknown) (no (unknown) (unknown) APTT (26-36) (units (u nknown) date) SECONDS unknown) (unknown) (no (unknown) (unknown) APTT 33 (26-36) (units (unknown) date) SECONDS unknown) (unknown) (no (unknown) (unknown) AST (14-36) IU/L (units (unknown) date) unknown) (unknown) (no (unknown) (unknown) AST 20 (14-36) (units (unknown) date) IU/L unknown) (unknown) (no (unknown) (unknown) AWARE OF (units (unkno wn) date) unknown) (unknown) (no (unknown) (unknown) Abdominal Nodes:? (units (unknown) date) No retroperitoneal unknown) or mesenteric adenopathy by size criteria.? (unknown) (no (unknown) (unknown) Accession Number: (units (unknown) date) [id number] ?? unknown) (unknown) (no (unknown) (unknown) Acct:[id number] (units (unknown) date) unknown) (unknown) (no (unknown) (unknown) Activity (units (unkno wn) date) Restrictions/Addit unknown) ional Instructions: (unknown) (no (unknown) (unknown) Adrenal Glands:? (units (unknown) date) Unremarkable.? ? unknown) (unknown) (no (unknown) (unknown) After the (units (unkn own) date) administration of unknown) oral and IV contrast, axial sections were acquired (unknown) (no (unknown) (unknown) Age/Sex: 61 / F (units (unknown) date) unknown) (unknown) (no (unknown) (unknown) Albumin (3.5-5.0) (units (unknown) date) g/dL unknown) (unknown) (no (unknown) (unknown) Albumin 4.1 (units (un known) date) (3.5-5.0) g/dL unknown) (unknown) (no (unknown) (unknown) Albumin/Globulin (units (unknown) date) Ratio (1.0-2.8) unknown) (unknown) (no (unknown) (unknown) Albumin/Globulin (units (unknown) date) Ratio 1.2 unknown) (1.0-2.8) (unknown) (no (unknown) (unknown) Alkaline (units (unkno wn) date) Phosphatase unknown) (38-126) U/L (unknown) (no (unknown) (unknown) Alkaline (units (unkno wn) date) Phosphatase 95 unknown) (38-126) U/L (unknown) (no (unknown) (unknown) Allergies (units (unkn own) date) unknown) (unknown) (no (unknown) (unknown) Allergy/AdvReac (units (unknown) date) Type Severity unknown) Reaction Status Date / Time (unknown) (no (unknown) (unknown) [place], [place] (units ( unknown) date) [id number] unknown) (unknown) (no (unknown) (unknown) Antibiotics) PER (units (unknown) date) PT unknown) (unknown) (no (unknown) (unknown) Antibody Screen (units (unknown) date) Negative unknown) (unknown) (no (unknown) (unknown) Antibody Screen (units (unknown) date) unknown) (unknown) (no (unknown) (unknown) Approved by: (units (u nknown) date) Jasmin Zhao M.D. unknown) on 04/14/2022 at 14:35 ? (unknown) (no (unknown) (unknown) Asthma (units (unkno wn) date) unknown) (unknown) (no (unknown) (unknown) BACK: Nontender (units (unknown) date) without deformity unknown) or crepitance. No flank tenderness. (unknown) (no (unknown) (unknown) BUN (7-17) mg/dL (units (unknown) date) unknown) (unknown) (no (unknown) (unknown) BUN 13 (7-17) (units ( unknown) date) mg/dL unknown) (unknown) (no (unknown) (unknown) BUN/Creatinine (units (unknown) date) Ratio (6-22) unknown) (unknown) (no (unknown) (unknown) BUN/Creatinine (units (unknown) date) Ratio 12.7 (6-22) unknown) (unknown) (no (unknown) (unknown) Baso # (Auto) (units ( unknown) date) (0-100) /uL unknown) (unknown) (no (unknown) (unknown) Baso # (Auto) 100 (units (unknown) date) (0-100) /uL unknown) (unknown) (no (unknown) (unknown) Baso % (Auto) (units ( unknown) date) (0-2) % unknown) (unknown) (no (unknown) (unknown) Baso % (Auto) 0.7 (units (unknown) date) (0-2) % unknown) (unknown) (no (unknown) (unknown) Bedside Urine (units ( unknown) date) Bilirubin - unknown) Negative (unknown) (no (unknown) (unknown) Bedside Urine (units ( unknown) date) Glucose Negative unknown) (unknown) (no (unknown) (unknown) Bedside Urine (units ( unknown) date) Ketone - Negative unknown) (unknown) (no (unknown) (unknown) Bedside Urine (units ( unknown) date) Leukocytes - unknown) Negative (unknown) (no (unknown) (unknown) Bedside Urine (units ( unknown) date) Nitrite - Negative unknown) (unknown) (no (unknown) (unknown) Bedside Urine (units ( unknown) date) Occult Blood unknown) (unknown) (no (unknown) (unknown) Bedside Urine (units ( unknown) date) Protein ++ 100 unknown) (unknown) (no (unknown) (unknown) Bedside Urine (units ( unknown) date) Urobilinogen - unknown) Negative (unknown) (no (unknown) (unknown) Bedside Urine pH (units (unknown) date) 6.0 unknown) (unknown) (no (unknown) (unknown) Biliary ducts:? (units (unknown) date) Unremarkable.? ? unknown) (unknown) (no (unknown) (unknown) Bladder:? (units (unkn own) date) Unremarkable.? ? unknown) (unknown) (no (unknown) (unknown) Bleeding internal (units (unknown) date) hemorrhoids unknown) (unknown) (no (unknown) (unknown) Blood Pressure (units (unknown) date) 128/87 04/14/22 unknown) 11:41 (unknown) (no (unknown) (unknown) Blood Pressure (units (unknown) date) 128/87 unknown) (unknown) (no (unknown) (unknown) Blood Pressure (units (unknown) date) 175/107 H 157/84 H unknown) (unknown) (no (unknown) (unknown) Blood Pressure (units (unknown) date) unknown) (unknown) (no (unknown) (unknown) Blood Type A (units (u nknown) date) Positive unknown) (unknown) (no (unknown) (unknown) Blood Type (units (unk nown) date) unknown) (unknown) (no (unknown) (unknown) Bones:? (units (unkno wn) date) Unremarkable.? ? unknown) (unknown) (no (unknown) (unknown) CARDIOVASCULAR: (units (unknown) date) Denies chest pain, unknown) palpitations, orthopnea, edema, (unknown) (no (unknown) (unknown) CARDIOVASCULAR: (units (unknown) date) Regular rate and unknown) rhythm without murmurs, gallops, or rubs. (unknown) (no (unknown) (unknown) COMPARISON:? (units (un known) date) [facility], unknown) CT, CT ABDOMEN WO/W CON, 09/11/2021, 13:13.? [place] (unknown) (no (unknown) (unknown) CT Scan Report (units (unknown) date) unknown) (unknown) (no (unknown) (unknown) CT abdomen pelvis (units (unknown) date) w con Stat unknown) (unknown) (no (unknown) (unknown) CT scan - (units (unkn own) date) abdomen/pelvis: unknown) (unknown) (no (unknown) (unknown) Calcium (units (unkno wn) date) (8.4-10.2) mg/dL unknown) (unknown) (no (unknown) (unknown) Calcium 8.7 (units (un known) date) (8.4-10.2) mg/dL unknown) (unknown) (no (unknown) (unknown) Carbon Dioxide (units (unknown) date) (22-32) mmol/L unknown) (unknown) (no (unknown) (unknown) Carbon Dioxide 21 (units (unknown) date) L (22-32) mmol/L unknown) (unknown) (no (unknown) (unknown) Chief complaint: (units (unknown) date) GI Bleed unknown) (unknown) (no (unknown) (unknown) Chloride (98-107) (units (unknown) date) mmol/L unknown) (unknown) (no (unknown) (unknown) Chloride 109 H (units (unknown) date) (98-107) mmol/L unknown) (unknown) (no (unknown) (unknown) Clinical (units (unkno wn) date) Impression: unknown) (unknown) (no (unknown) (unknown) Colon cancer (units (u nknown) date) unknown) (unknown) (no (unknown) (unknown) Complete Blood (units (unknown) date) Count AUTO DIFF unknown) Stat (unknown) (no (unknown) (unknown) Comprehensive (units ( unknown) date) Metabolic Panel unknown) Stat (unknown) (no (unknown) (unknown) Course (units (unkno wn) date) unknown) (unknown) (no (unknown) (unknown) Creatinine (units (unk nown) date) (0.52-1.04) mg/dL unknown) (unknown) (no (unknown) (unknown) Creatinine 1.02 (units (unknown) date) (0.52-1.04) mg/dL unknown) (unknown) (no (unknown) (unknown) : 1960 (units (unknown) date) Acct:[id number] unknown) (unknown) (no (unknown) (unknown) : 1960 (units (unknown) date) unknown) (unknown) (no (unknown) (unknown) DOES NOT (units (unkno wn) date) unknown) (unknown) (no (unknown) (unknown) Date of Service: (units (unknown) date) 04/14/22 unknown) (unknown) (no (unknown) (unknown) Departure (units (unkn own) date) unknown) (unknown) (no (unknown) (unknown) Diabetes mellitus (units (unknown) date) unknown) (unknown) (no (unknown) (unknown) Diabetes (units (unkno wn) date) unknown) (unknown) (no (unknown) (unknown) Dictated by: (units (u nknown) date) Jasmin Zhao M.D. unknown) on 04/14/2022 at 14:22 ? ? (unknown) (no (unknown) (unknown) Discharge Plan (units (unknown) date) unknown) (unknown) (no (unknown) (unknown) Discontinued (units (u nknown) date) Medications unknown) (unknown) (no (unknown) (unknown) Disposition: (units (u nknown) date) Discharged to home unknown) (unknown) (no (unknown) (unknown) Documented By: (units (unknown) date) RLS unknown) (unknown) (no (unknown) (unknown) ED Course: This (units (unknown) date) is a 61-year-old unknown) female presents to the emergency department (unknown) (no (unknown) (unknown) ED Orders (units (unkn own) date) unknown) (unknown) (no (unknown) (unknown) EKG-12 Lead Stat (units (unknown) date) unknown) (unknown) (no (unknown) (unknown) ENT: Nose without (units (unknown) date) bleeding, purulent unknown) drainage. Throat without erythema, (unknown) (no (unknown) (unknown) ER Physician: (units ( unknown) date) Joel Francois P.A-C unknown) (unknown) (no (unknown) (unknown) EXTREMITIES: No (units (unknown) date) edema or joint unknown) tenderness. (unknown) (no (unknown) (unknown) EYES: Pupils (units (u nknown) date) equal round and unknown) reactive. Extraocular motions intact. No scleral (unknown) (no (unknown) (unknown) Emergency Report (units (unknown) date) unknown) (unknown) (no (unknown) (unknown) Eos # (Auto) (units (u nknown) date) (0-450) /uL unknown) (unknown) (no (unknown) (unknown) Eos # (Auto) 100 (units (unknown) date) (0-450) /uL unknown) (unknown) (no (unknown) (unknown) Eos % (Auto) (units (u nknown) date) (2-4) % unknown) (unknown) (no (unknown) (unknown) Eos % (Auto) 1.6 (units (unknown) date) L (2-4) % unknown) (unknown) (no (unknown) (unknown) Esterase (units (unkno wn) date) unknown) (unknown) (no (unknown) (unknown) Estimated GFR > (units (unknown) date) 60 (>60) mL/min unknown) (unknown) (no (unknown) (unknown) Estimated GFR (units ( unknown) date) (>60) mL/min unknown) (unknown) (no (unknown) (unknown) Exam Narrative: (units (unknown) date) unknown) (unknown) (no (unknown) (unknown) Exam (units (unkno wn) date) unknown) (unknown) (no (unknown) (unknown) FINDINGS:? (units (unk nown) date) unknown) (unknown) (no (unknown) (unknown) Family History (units (unknown) date) (Reviewed 08/14/21 unknown) @ 15:29 by PAZ Bolton) (unknown) (no (unknown) (unknown) Father Diabetes (units (unknown) date) mellitus unknown) (unknown) (no (unknown) (unknown) Edison Jones (units (unk nown) date) MD Prabhu unknown) [Primary Care Provider] (unknown) (no (unknown) (unknown) GASTROINTESTINAL: (units (unknown) date) Reports bright red unknown) blood in stool, Denies nausea, vomiting, (unknown) (no (unknown) (unknown) GASTROINTESTINAL: (units (unknown) date) Suprapubic unknown) abdominal tenderness to palpation. Bright red (unknown) (no (unknown) (unknown) GENERAL: Denies (units (unknown) date) chills, fatigue, unknown) malaise, fever, sweats. (unknown) (no (unknown) (unknown) GENERAL: (units (unkno wn) date) Well-developed unknown) patient, in mild distress. (unknown) (no (unknown) (unknown) : Denies (units (unk nown) date) dysuria, unknown) frequency, incontinence, hematuria, urinary retention. (unknown) (no (unknown) (unknown) Gallbladder:? (units ( unknown) date) Removed. unknown) (unknown) (no (unknown) (unknown) Gallstones (units (unk nown) date) unknown) (unknown) (no (unknown) (unknown) General (units (unkno wn) date) unknown) (unknown) (no (unknown) (unknown) Globulin (units (unkno wn) date) (1.7-4.1) g/dL unknown) (unknown) (no (unknown) (unknown) Globulin 3.4 (units (u nknown) date) (1.7-4.1) g/dL unknown) (unknown) (no (unknown) (unknown) Glucose (70-100) (units (unknown) date) mg/dL unknown) (unknown) (no (unknown) (unknown) Glucose 120 H (units ( unknown) date) (70-100) mg/dL unknown) (unknown) (no (unknown) (unknown) HEAD: Atraumatic. (units (unknown) date) Normocephalic. unknown) (unknown) (no (unknown) (unknown) HEENT: Denies (units ( unknown) date) sinus pain, ear unknown) pain, sore throat, difficulty swallowing, (unknown) (no (unknown) (unknown) HPI - GI Bleed (units (unknown) date) unknown) (unknown) (no (unknown) (unknown) HPI Narrative: (units (unknown) date) unknown) (unknown) (no (unknown) (unknown) Hct (36-46) % (units ( unknown) date) unknown) (unknown) (no (unknown) (unknown) Hct 40.4 (36-46) (units (unknown) date) % unknown) (unknown) (no (unknown) (unknown) Heart disease (units ( unknown) date) unknown) (unknown) (no (unknown) (unknown) Heart:? No (units (unk nown) date) significant unknown) findings. (unknown) (no (unknown) (unknown) Hepatomegaly with (units (unknown) date) steatosis. unknown) (unknown) (no (unknown) (unknown) Hgb (12.0-16.0) (units (unknown) date) g/dL unknown) (unknown) (no (unknown) (unknown) Hgb 13.7 (units (unkno wn) date) (12.0-16.0) g/dL unknown) (unknown) (no (unknown) (unknown) History of (units (unk nown) date) Present Illness unknown) (unknown) (no (unknown) (unknown) History of back (units (unknown) date) surgery unknown) (unknown) (no (unknown) (unknown) History of total (units (unknown) date) knee arthroplasty unknown) (unknown) (no (unknown) (unknown) Home Medications (units (unknown) date) unknown) (unknown) (no (unknown) (unknown) Hospital, CT, CT (units (unknown) date) ABDOMEN PELVIS W unknown) CON, 04/04/2020, 11:35. (unknown) (no (unknown) (unknown) Hx of (units (unkno wn) date) cholecystectomy unknown) (unknown) (no (unknown) (unknown) Hx of knee (units (unk nown) date) surgery unknown) (unknown) (no (unknown) (unknown) Hx of neck (units (unk nown) date) surgery unknown) (unknown) (no (unknown) (unknown) Hx of shoulder (units (unknown) date) surgery unknown) (unknown) (no (unknown) (unknown) Hyaline Casts (units ( unknown) date) (None) unknown) (unknown) (no (unknown) (unknown) Hyaline Casts (units ( unknown) date) 1-5/lpf (None) unknown) (unknown) (no (unknown) (unknown) I hope you feel (units (unknown) date) better soon. unknown) (unknown) (no (unknown) (unknown) IMPRESSION:? (units (u nknown) date) unknown) (unknown) (no (unknown) (unknown) INDICATIONS:? (units ( unknown) date) Hematochezia and unknown) suprapubic TTP (unknown) (no (unknown) (unknown) INR (0.9-1.3) (units ( unknown) date) unknown) (unknown) (no (unknown) (unknown) INR 1.1 (0.9-1.3) (units (unknown) date) unknown) (unknown) (no (unknown) (unknown) Image quality:? (units (unknown) date) Excellent.? unknown) (unknown) (no (unknown) (unknown) Imaging Data (units (u nknown) date) unknown) (unknown) (no (unknown) (unknown) Initial Vital (units ( unknown) date) Signs unknown) (unknown) (no (unknown) (unknown) Initial Vital (units ( unknown) date) Signs: unknown) (unknown) (no (unknown) (unknown) Instructions: DI (units (unknown) date) for Hemorrhoids unknown) (unknown) (no (unknown) (unknown) [facility] (units (unknown) date) [address] unknown) [place] [address] (unknown) (no (unknown) (unknown) [facility] (units (unknown) date) unknown) (unknown) (no (unknown) (unknown) Kidney malignancy (units (unknown) date) unknown) (unknown) (no (unknown) (unknown) Kidneys and (units (un known) date) Ureters:? unknown) Postsurgical changes are present within the left kidney (unknown) (no (unknown) (unknown) Lab Data (units (unkno wn) date) unknown) (unknown) (no (unknown) (unknown) Lab Results (units (un known) date) unknown) (unknown) (no (unknown) (unknown) Labs: (units (unkno wn) date) unknown) (unknown) (no (unknown) (unknown) Last Admin: (units (un known) date) 04/14/22 12:51 unknown) Dose: Not Given (unknown) (no (unknown) (unknown) Liver:? Liver is (units (unknown) date) enlarged measuring unknown) 20.4 cm with steatosis..? ? (unknown) (no (unknown) (unknown) Loc: ED (units (unkno wn) date) unknown) (unknown) (no (unknown) (unknown) Lung bases:? (units (u nknown) date) Unremarkable.? ? unknown) (unknown) (no (unknown) (unknown) Lymph # (Auto) (units (unknown) date) (3422-3101) /uL unknown) (unknown) (no (unknown) (unknown) Lymph # (Auto) (units (unknown) date) 1900 (5529-8340) unknown) /uL (unknown) (no (unknown) (unknown) Lymph % (Auto) (units (unknown) date) (25-40) % unknown) (unknown) (no (unknown) (unknown) Lymph % (Auto) (units (unknown) date) 22.7 L (25-40) % unknown) (unknown) (no (unknown) (unknown) MCH (26-34) PG (units (unknown) date) unknown) (unknown) (no (unknown) (unknown) MCH 31.8 (26-34) (units (unknown) date) PG unknown) (unknown) (no (unknown) (unknown) MCHC (30-36) % (units (unknown) date) unknown) (unknown) (no (unknown) (unknown) MCHC 33.9 (30-36) (units (unknown) date) % unknown) (unknown) (no (unknown) (unknown) MCV (80-100) fL (units (unknown) date) unknown) (unknown) (no (unknown) (unknown) MCV 93.9 (80-100) (units (unknown) date) fL unknown) (unknown) (no (unknown) (unknown) MDM - GI Bleed (units (unknown) date) unknown) (unknown) (no (unknown) (unknown) MDM Narrative (units ( unknown) date) unknown) (unknown) (no (unknown) (unknown) MDM (units (unkno wn) date) unknown) (unknown) (no (unknown) (unknown) MR#: [id number] (units (unknown) date) unknown) (unknown) (no (unknown) (unknown) MUSCULOSKELETAL: (units (unknown) date) denies weakness, unknown) joint pain, or bony pain (unknown) (no (unknown) (unknown) Medical History (units (unknown) date) (Updated 04/14/22 unknown) @ 15:12 by Joel Francois PA-C) (unknown) (no (unknown) (unknown) Medical decision (units (unknown) date) making narrative: unknown) (unknown) (no (unknown) (unknown) Medication (units (unk nown) date) Instructions unknown) Recorded Confirmed (unknown) (no (unknown) (unknown) Medication (units (unk nown) date) Instructions unknown) Recorded (unknown) (no (unknown) (unknown) Miscellaneous: No (units (unknown) date) inguinal hernias unknown) are seen. ? ? (unknown) (no (unknown) (unknown) Mode of arrival: (units (unknown) date) Ambulatory unknown) (unknown) (no (unknown) (unknown) [place] # (Auto) (units ( unknown) date) (0-900) /uL unknown) (unknown) (no (unknown) (unknown) [place] # (Auto) 500 (units (unknown) date) (0-900) /uL unknown) (unknown) (no (unknown) (unknown) [place] % (Auto) (units ( unknown) date) (3-14) % unknown) (unknown) (no (unknown) (unknown) [place] % (Auto) 6.3 (units (unknown) date) (3-14) % unknown) (unknown) (no (unknown) (unknown) Mother (units (unkno wn) date) Hypertension unknown) (unknown) (no (unknown) (unknown) NECK: Trachea (units ( unknown) date) midline. Non unknown) tender (unknown) (no (unknown) (unknown) NEURO: AOx3. (units (u nknown) date) unknown) (unknown) (no (unknown) (unknown) NEUROLOGIC: (units (un known) date) Denies weakness, unknown) headache, numbness, change in speech, confusion, (unknown) (no (unknown) (unknown) Narrative (units (unkn own) date) unknown) (unknown) (no (unknown) (unknown) Narrative: (units (unk nown) date) unknown) (unknown) (no (unknown) (unknown) Neut # (Auto) (units ( unknown) date) (2658-3731) /uL unknown) (unknown) (no (unknown) (unknown) Neut # (Auto) (units ( unknown) date) 5800 (7071-9240) unknown) /uL (unknown) (no (unknown) (unknown) Neut % (Auto) (units ( unknown) date) (50-75) % unknown) (unknown) (no (unknown) (unknown) Neut % (Auto) (units ( unknown) date) 68.7 (50-75) % unknown) (unknown) (no (unknown) (unknown) No Action (units (unkn own) date) unknown) (unknown) (no (unknown) (unknown) No acute (units (unkno wn) date) intra-abdominal or unknown) pelvic process. (unknown) (no (unknown) (unknown) No evidence of (units (unknown) date) diverticulosis. unknown) Recommend she follow up with primary care (unknown) (no (unknown) (unknown) Obesity (units (unkno wn) date) unknown) (unknown) (no (unknown) (unknown) Ondansetron HCl (units (unknown) date) (Ondansetron 4 Mg unknown) Odt) 4 mg SL NOW PRN (unknown) (no (unknown) (unknown) Ondansetron HCl (units (unknown) date) (Ondansetron 4 unknown) Mg/2 Ml Inj) 4 mg IV NOW PRN (unknown) (no (unknown) (unknown) Ordered: (units (unkno wn) date) unknown) (unknown) (no (unknown) (unknown) Ordering (units (unkno wn) date) Provider: unknown) Joel Francois P.A-C (unknown) (no (unknown) (unknown) Orders (units (unkno wn) date) unknown) (unknown) (no (unknown) (unknown) Oxygen Delivery (units (unknown) date) Method Room Air unknown) 04/14/22 11:41 (unknown) (no (unknown) (unknown) Oxygen Delivery (units (unknown) date) Method Room Air unknown) (unknown) (no (unknown) (unknown) Oxygen Delivery (units (unknown) date) Method unknown) (unknown) (no (unknown) (unknown) PELVIS: (units (unkno wn) date) unknown) (unknown) (no (unknown) (unknown) PER PT (units (unkno wn) date) unknown) (unknown) (no (unknown) (unknown) PRN Reason: (units (un known) date) Nausea And unknown) Vomiting (unknown) (no (unknown) (unknown) PROCEDURE:? CT (units (unknown) date) ABDOMEN PELVIS W unknown) CON (unknown) (no (unknown) (unknown) PSYCHIATRIC: No (units (unknown) date) concerning unknown) psychosocial issues. (unknown) (no (unknown) (unknown) PT (10.1-12.7) (units (unknown) date) SECONDS unknown) (unknown) (no (unknown) (unknown) PT 12.1 (units (unkno wn) date) (10.1-12.7) unknown) SECONDS (unknown) (no (unknown) (unknown) Pancreas:? (units (unk nown) date) Unremarkable.? ? 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 No unknown) evidence of recurrent disease. (unknown) (no (unknown) (unknown) Patient (units (unkno wn) date) Disposition: Home unknown) (unknown) (no (unknown) (unknown) Patient History (units (unknown) date) unknown) (unknown) (no (unknown) (unknown) Patient's (units (unkn own) date) daughter describes unknown) the blood as bright red in color. No significant (unknown) (no (unknown) (unknown) Patient: (units (unkno wn) date) LiyaanaLogan unknown) MR#: M (unknown) (no (unknown) (unknown) Patient: (units (unkno wn) date) LiyaanaLogan unknown) (unknown) (no (unknown) (unknown) Pelvic Nodes: No (units (unknown) date) enlarged lymph unknown) nodes.? (unknown) (no (unknown) (unknown) Pelvic Organs:? (units (unknown) date) Unremarkable.? ? unknown) (unknown) (no (unknown) (unknown) Penicillins (units (un known) date) [PENICILLINS] unknown) Allergy Unknown ITCHING-PT Verified 04/14/22 11:41 (unknown) (no (unknown) (unknown) Peritoneum:? No (units (unknown) date) abnormal unknown) intraperitoneal fluid.? No free air.? (unknown) (no (unknown) (unknown) Plt Count (units (unkn own) date) (150-400) X103/uL unknown) (unknown) (no (unknown) (unknown) Plt Count 278 (units ( unknown) date) (150-400) X103/uL unknown) (unknown) (no (unknown) (unknown) Point of Care (units ( unknown) date) Testing unknown) (unknown) (no (unknown) (unknown) Potassium (units (unkn own) date) (3.4-5.1) mmol/L unknown) (unknown) (no (unknown) (unknown) Potassium 3.9 (units ( unknown) date) (3.4-5.1) mmol/L unknown) (unknown) (no (unknown) (unknown) Prescriptions: (units (unknown) date) unknown) (unknown) (no (unknown) (unknown) Previous Rx's (units ( unknown) date) unknown) (unknown) (no (unknown) (unknown) Procedure: CT (units ( unknown) date) abdomen pelvis w unknown) con (unknown) (no (unknown) (unknown) Prothrombin Time (units (unknown) date) INR Stat unknown) (unknown) (no (unknown) (unknown) Pulse Oximetry 97 (units (unknown) date) 96 unknown) (unknown) (no (unknown) (unknown) Pulse Oximetry 99 (units (unknown) date) 04/14/22 11:41 unknown) (unknown) (no (unknown) (unknown) Pulse Oximetry 99 (units (unknown) date) 99 99 unknown) (unknown) (no (unknown) (unknown) Pulse Oximetry 99 (units (unknown) date) unknown) (unknown) (no (unknown) (unknown) Pulse Rate 65 65 (units (unknown) date) unknown) (unknown) (no (unknown) (unknown) Pulse Rate 70 (units ( unknown) date) unknown) (unknown) (no (unknown) (unknown) Pulse Rate 80 (units ( unknown) date) 04/14/22 11:41 unknown) (unknown) (no (unknown) (unknown) Pulse Rate 80 72 (units (unknown) date) 68 unknown) (unknown) (no (unknown) (unknown) Qty: 1 0RF (units (unk nown) date) unknown) (unknown) (no (unknown) (unknown) RBC (4.0-5.2) (units ( unknown) date) X106/uL unknown) (unknown) (no (unknown) (unknown) RBC 4.30 (units (unkno wn) date) (4.0-5.2) X106/uL unknown) (unknown) (no (unknown) (unknown) RDW (11.6-14.8) % (units (unknown) date) unknown) (unknown) (no (unknown) (unknown) RDW 13.7 (units (unkno wn) date) (11.6-14.8) % unknown) (unknown) (no (unknown) (unknown) REACTION (units (unkno wn) date) unknown) (unknown) (no (unknown) (unknown) RED' (units (unkno wn) date) unknown) (unknown) (no (unknown) (unknown) REMEMBER (units (unkno wn) date) unknown) (unknown) (no (unknown) (unknown) RESPIRATORY: Clear (units (unknown) date) to auscultation. unknown) Breath sounds equal bilaterally. No wheezes, (unknown) (no (unknown) (unknown) RESPIRATORY: (units (u nknown) date) Denies dyspnea, unknown) cough, wheezing, hemoptysis, sputum. (unknown) (no (unknown) (unknown) Radiologist's (units ( unknown) date) Impression: unknown) (unknown) (no (unknown) (unknown) Referrals: (units (unk nown) date) unknown) (unknown) (no (unknown) (unknown) Related Data (units (u nknown) date) unknown) (unknown) (no (unknown) (unknown) Relief) (units (unkno wn) date) unknown) (unknown) (no (unknown) (unknown) Respiratory Rate (units (unknown) date) 16 04/14/22 11:41 unknown) (unknown) (no (unknown) (unknown) Respiratory Rate (units (unknown) date) 16 26 H unknown) (unknown) (no (unknown) (unknown) Respiratory Rate (units (unknown) date) 19 20 unknown) (unknown) (no (unknown) (unknown) Respiratory Rate (units (unknown) date) 24 unknown) (unknown) (no (unknown) (unknown) Review of Systems (units (unknown) date) unknown) (unknown) (no (unknown) (unknown) Rx Instructions: (units (unknown) date) unknown) (unknown) (no (unknown) (unknown) SEVERITY (units (unkno wn) date) unknown) (unknown) (no (unknown) (unknown) SKIN: Denies (units (u nknown) date) rash, skin unknown) lesions, or other (unknown) (no (unknown) (unknown) SKIN: No rash or (units (unknown) date) erythema of unknown) visible areas (unknown) (no (unknown) (unknown) 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 (unknown) (no (unknown) (unknown) Score 1-3) ##0 (units (unknown) date) unknown) (unknown) (no (unknown) (unknown) Score 1-3) (units (unk nown) date) unknown) (unknown) (no (unknown) (unknown) Seizure-like (units (u nknown) date) activity unknown) (unknown) (no (unknown) (unknown) Shared Decision (units (unknown) date) Making: Discussed unknown) plan patient is comfortable with plan (unknown) (no (unknown) (unknown) Signed By: (units (unk nown) date) unknown) (unknown) (no (unknown) (unknown) Signed (units (unkno wn) date) unknown) (unknown) (no (unknown) (unknown) Smoking Status: (units (unknown) date) Never smoker unknown) (unknown) (no (unknown) (unknown) Social (units (unkno wn) date) Considerations: unknown) None (unknown) (no (unknown) (unknown) Social History (units (unknown) date) (Reviewed 08/14/21 unknown) @ 15:29 by PAZ Bolton) (unknown) (no (unknown) (unknown) Sodium (137-145) (units (unknown) date) mmol/L unknown) (unknown) (no (unknown) (unknown) Sodium 142 (units (unk nown) date) (137-145) mmol/L unknown) (unknown) (no (unknown) (unknown) Source: patient (units (unknown) date) unknown) (unknown) (no (unknown) (unknown) Spleen:? (units (unkno wn) date) Unremarkable.? ? unknown) (unknown) (no (unknown) (unknown) Grant,Suspension (units (unknown) date) unknown) (unknown) (no (unknown) (unknown) Stand Alone (units (un known) date) Forms: Patient unknown) Portal/API (unknown) (no (unknown) (unknown) Stated complaint: (units (unknown) date) bleeding in stool unknown) (unknown) (no (unknown) (unknown) Stomach and (units (un known) date) Bowel:? Stomach, unknown) small bowel loops, and colon are unremarkable.? (unknown) (no (unknown) (unknown) Stool Occult (units (u nknown) date) Blood Positive unknown) (unknown) (no (unknown) (unknown) Stop: 04/14/22 (units (unknown) date) 12:07 unknown) (unknown) (no (unknown) (unknown) Stroke (units (unkno wn) date) unknown) (unknown) (no (unknown) (unknown) Substance Use (units ( unknown) date) Type: does not use unknown) (unknown) (no (unknown) (unknown) Sulfa (units (unkno wn) date) (Sulfonamide unknown) Allergy Unknown UNKNOWN Verified 04/14/22 11:41 (unknown) (no (unknown) (unknown) Surgical History (units (unknown) date) (Reviewed 08/14/21 unknown) @ 15:29 by PAZ Bolton) (unknown) (no (unknown) (unknown) Symptoms ##0 (units (u nknown) date) unknown) (unknown) (no (unknown) (unknown) Systane (PF) 1 (units (unknown) date) EACH dropperette unknown) (unknown) (no (unknown) (unknown) TECHNIQUE:? (units (un known) date) unknown) (unknown) (no (unknown) (unknown) THIS (units (unkno wn) date) unknown) (unknown) (no (unknown) (unknown) Temperature 97.4 (units (unknown) date) F L 04/14/22 11:41 unknown) (unknown) (no (unknown) (unknown) Temperature 97.4 (units (unknown) date) F L unknown) (unknown) (no (unknown) (unknown) Temperature (units (un known) date) unknown) (unknown) (no (unknown) (unknown) Thank you for (units ( unknown) date) coming to the unknown) [facility] Emergency Department today. As (unknown) (no (unknown) (unknown) This is a (units (unkn own) date) 61-year-old female unknown) presents to the emergency department due to (unknown) (no (unknown) (unknown) Time Seen by (units (u nknown) date) Provider: 04/14/22 unknown) 12:07 (unknown) (no (unknown) (unknown) Total Bilirubin (units (unknown) date) (0.2-1.3) mg/dL unknown) (unknown) (no (unknown) (unknown) Total Bilirubin (units (unknown) date) 0.4 (0.2-1.3) unknown) mg/dL (unknown) (no (unknown) (unknown) Total Protein (units ( unknown) date) (6.3-8.2) g/dL unknown) (unknown) (no (unknown) (unknown) Total Protein 7.5 (units (unknown) date) (6.3-8.2) g/dL unknown) (unknown) (no (unknown) (unknown) Type and Screen (units (unknown) date) Stat unknown) (unknown) (no (unknown) (unknown) Ur Culture (units (unk nown) date) Indicated? Cult unknown) not indicated (unknown) (no (unknown) (unknown) Ur Culture (units (unk nown) date) Indicated? unknown) (unknown) (no (unknown) (unknown) Ur Squamous Epith (units (unknown) date) Cells (0-5/HPF) unknown) (unknown) (no (unknown) (unknown) Ur Squamous Epith (units (unknown) date) Cells 5-10 /hpf H unknown) (0-5/HPF) (unknown) (no (unknown) (unknown) Ur Transition (units ( unknown) date) Epith Cell unknown) (0-5/HPF) (unknown) (no (unknown) (unknown) Ur Transition (units ( unknown) date) Epith Cell 1-5/hpf unknown) (0-5/HPF) (unknown) (no (unknown) (unknown) Urine Bacteria (units (unknown) date) (None) unknown) (unknown) (no (unknown) (unknown) Urine Bacteria (units (unknown) date) Few (2-10) H unknown) (None) (unknown) (no (unknown) (unknown) Urine Dip (units (unkn own) date) unknown) (unknown) (no (unknown) (unknown) Urine Microscopic (units (unknown) date) Stat unknown) (unknown) (no (unknown) (unknown) Urine Mucus (units (un known) date) (Negative) unknown) (unknown) (no (unknown) (unknown) Urine Mucus 1+ H (units (unknown) date) (Negative) unknown) (unknown) (no (unknown) (unknown) Urine RBC (units (unkn own) date) (0-5/HPF) unknown) (unknown) (no (unknown) (unknown) Urine RBC (units (unkn own) date) 10-30/hpf H unknown) (0-5/HPF) (unknown) (no (unknown) (unknown) Urine Specific (units (unknown) date) [place] 1.030 unknown) (unknown) (no (unknown) (unknown) Urine WBC (units (unkn own) date) (0-5/HPF) unknown) (unknown) (no (unknown) (unknown) Urine WBC 1-5/hpf (units (unknown) date) (0-5/HPF) unknown) (unknown) (no (unknown) (unknown) Ventral Wall: ? (units (unknown) date) No hernia.? unknown) (unknown) (no (unknown) (unknown) Vessels:? Aorta (units (unknown) date) and inferior vena unknown) cava are normal in size.? (unknown) (no (unknown) (unknown) Vital Signs - 8 (units (unknown) date) hr unknown) (unknown) (no (unknown) (unknown) Vital Signs (units (un known) date) unknown) (unknown) (no (unknown) (unknown) Vital signs: (units (u nknown) date) unknown) (unknown) (no (unknown) (unknown) WBC (4.5-11.0) (units (unknown) date) X103/uL unknown) (unknown) (no (unknown) (unknown) WBC 8.4 (units (unkno wn) date) (4.5-11.0) X103/uL unknown) (unknown) (no (unknown) (unknown) Walker: Front (units ( unknown) date) Wheel ##1 10/30/16 unknown) (unknown) (no (unknown) (unknown) Walker: Front (units ( unknown) date) Wheel unknown) (unknown) (no (unknown) (unknown) [CRANBERRY] 1 tab (units (unknown) date) PO QDAY ##0 unknown) 09/27/16 10/04/19 (unknown) (no (unknown) (unknown) [CRANBERRY] (units (un known) date) unknown) (unknown) (no (unknown) (unknown) [Embedded Image (units (unknown) date) Not Available] unknown) (unknown) (no (unknown) (unknown) [NITROFURANTOIN] (units (unknown) date) REACTION unknown) (unknown) (no (unknown) (unknown) [RED RICE YEAST] (units (unknown) date) 600 mg PO BID ##0 unknown) 03/12/10 10/04/19 (unknown) (no (unknown) (unknown) [RED RICE YEAST] (units (unknown) date) unknown) (unknown) (no (unknown) (unknown) [SULFA (units (unkno wn) date) (SULFONAMIDE unknown) (unknown) (no (unknown) (unknown) abdominal pain, (units (unknown) date) diarrhea, unknown) constipation. (unknown) (no (unknown) (unknown) acetaminophen 300 (units (unknown) date) mg-codeine 30 mg 1 unknown) tab PO Q4-6H PRN pain #14 tabs 09/21/17 (unknown) (no (unknown) (unknown) acetaminophen-cod (units (unknown) date) eine unknown) [Tylenol-Codeine #3] 300-30 mg tablet (unknown) (no (unknown) (unknown) adhesive tape (units ( unknown) date) [ADHESIVE TAPE] unknown) Allergy Severe 'I GOT Verified 04/14/22 11:41 (unknown) (no (unknown) (unknown) adjustment (units (unk nown) date) unknown) (unknown) (no (unknown) (unknown) aerosol inhaler (units (unknown) date) (Proventil HFA) unknown) (unknown) (no (unknown) (unknown) albuterol sulfate (units (unknown) date) 90 mcg/actuation 2 unknown) puff INH PRN PRN Dyspnea ##0 03/12/10 (unknown) (no (unknown) (unknown) albuterol sulfate (units (unknown) date) [Proventil HFA] 90 unknown) MCG/PUFF HFA aerosol inhaler (unknown) (no (unknown) (unknown) alcohol intake (units (unknown) date) frequency: 0-2 unknown) drinks per day (unknown) (no (unknown) (unknown) alcohol intake: (units (unknown) date) never unknown) (unknown) (no (unknown) (unknown) and no evidence (units (unknown) date) of any kind unknown) anemia. Patient will be treated for internal (unknown) (no (unknown) (unknown) aspirin [ASPIRIN] (units (unknown) date) Allergy Unknown unknown) UNKNOWN Verified 04/14/22 11:41 (unknown) (no (unknown) (unknown) bilaterally (units (un known) date) ranging from 1-3 unknown) mm.? No interval change. (unknown) (no (unknown) (unknown) blister (units (unkno wn) date) unknown) (unknown) (no (unknown) (unknown) blood surrounding (units (unknown) date) the rectum, unknown) positive stool guaiac test (unknown) (no (unknown) (unknown) cholecalciferol (units (unknown) date) (vitamin D3) 250 unknown) 5,000 unit PO QDAY ##0 03/12/10 10/04/19 (unknown) (no (unknown) (unknown) cholecalciferol (units (unknown) date) (vitamin D3) 250 unknown) mcg (10,000 unit) Tablet (unknown) (no (unknown) (unknown) consider (units (unkno wn) date) purchasing an unknown) ugak-mne-ggiistr fiber supplement as this may help with (unknown) (no (unknown) (unknown) diclofenac sodium (units (unknown) date) 3 % gel unknown) (unknown) (no (unknown) (unknown) diclofenac sodium (units (unknown) date) 3 % topical gel 1 unknown) applic topical BID PRN knee 08/14/21 (unknown) (no (unknown) (unknown) discussed your CT (units (unknown) date) abdomen and pelvis unknown) showed no concerning findings. I suspect (unknown) (no (unknown) (unknown) dizziness. (units (unk nown) date) unknown) (unknown) (no (unknown) (unknown) docusate sodium (units (unknown) date) 250 mg capsule 500 unknown) mg PO PRN PRN Constipation ##0 03/12/10 (unknown) (no (unknown) (unknown) docusate sodium (units (unknown) date) [DOK] 250 MG unknown) capsule (unknown) (no (unknown) (unknown) due to suspected (units (unknown) date) lower GI bleed due unknown) to suspected internal hemorrhoids. On exam (unknown) (no (unknown) (unknown) dysuria, urinary (units (unknown) date) frequency, or unknown) urgency. (unknown) (no (unknown) (unknown) findings that (units ( unknown) date) would explain the unknown) cause of the rectal bleeding. CBC unremarkable (unknown) (no (unknown) (unknown) fluticasone (units (un known) date) propionate 50 2 unknown) spray intranasal DAILY PRN 09/17/19 10/04/19 (unknown) (no (unknown) (unknown) fluticasone (units (un known) date) propionate unknown) [Flonase Allergy Relief] 50 mcg/actuation (unknown) (no (unknown) (unknown) for further (units (un known) date) evaluation and unknown) possible colonoscopy. (unknown) (no (unknown) (unknown) from the (units (unkno wn) date) unknown) (unknown) (no (unknown) (unknown) gabapentin 400 mg (units (unknown) date) capsule 3,200 mg unknown) PO QDAY ##0 09/27/16 10/04/19 (unknown) (no (unknown) (unknown) gabapentin (units (unk nown) date) [Neurontin] 400 MG unknown) capsule (unknown) (no (unknown) (unknown) guaiac test. CT (units (unknown) date) abdomen and pelvis unknown) ordered with contrast which showed no acute (unknown) (no (unknown) (unknown) hemorrhoids as (units (unknown) date) well as unknown) recommendations to follow up with the primary care (unknown) (no (unknown) (unknown) hemorrhoids, (units (u nknown) date) upper GI bleed, unknown) lower GI bleed, external hemorrhoids (unknown) (no (unknown) (unknown) her abdomen or (units (unknown) date) rectum but she unknown) states that she ?always does not feel pain down (unknown) (no (unknown) (unknown) history of NSAID (units (unknown) date) use. Also reports unknown) a foul-smelling urine but denies any (unknown) (no (unknown) (unknown) household (units (unkn own) date) members: caregiver unknown) and none (unknown) (no (unknown) (unknown) hydrocodone 5 (units ( unknown) date) mg-acetaminophen unknown) 325 1 tab PO BID PRN pain #14 tabs 08/14/21 (unknown) (no (unknown) (unknown) hydrocodone-aceta (units (unknown) date) minophen 5-325 mg unknown) tablet (unknown) (no (unknown) (unknown) ibuprofen 200 MG (units (unknown) date) capsule unknown) (unknown) (no (unknown) (unknown) ibuprofen 200 mg (units (unknown) date) capsule 400 mg PO unknown) PRN PRN Pain (Scale 09/27/16 10/04/19 (unknown) (no (unknown) (unknown) icterus. No (units (un known) date) injection or unknown) drainage. (unknown) (no (unknown) (unknown) loratadine 10 MG (units (unknown) date) tablet unknown) (unknown) (no (unknown) (unknown) loratadine 10 mg (units (unknown) date) tablet 10 mg PO unknown) QDAYP PRN Allergy 09/27/16 10/04/19 (unknown) (no (unknown) (unknown) lung bases to the (units (unknown) date) pubic symphysis.? unknown) Coronal and sagittal reformats were (unknown) (no (unknown) (unknown) marital status: (units (unknown) date) unknown unknown) (unknown) (no (unknown) (unknown) mcg (10,000 unit) (units (unknown) date) tablet unknown) (unknown) (no (unknown) (unknown) mcg/actuation (units ( unknown) date) nasal Allergic unknown) Symptoms (unknown) (no (unknown) (unknown) mg tablet (units (unkn own) date) unknown) (unknown) (no (unknown) (unknown) nitrofurantoin (units (unknown) date) Allergy Unknown unknown) UNKNOWN Verified 04/14/22 11:41 (unknown) (no (unknown) (unknown) noted (units (unkno wn) date) unknown) (unknown) (no (unknown) (unknown) of mA and/or kV (units (unknown) date) according to unknown) patient size. (unknown) (no (unknown) (unknown) omeprazole 20 mg (units (unknown) date) capsule,delayed 20 unknown) mg PO DAILY #30 caps 10/04/19 (unknown) (no (unknown) (unknown) omeprazole 20 mg (units (unknown) date) capsule,delayed unknown) release(DR/EC) (unknown) (no (unknown) (unknown) or from her (units (un known) date) urine. Patient unknown) states that she is not experienced any pain around (unknown) (no (unknown) (unknown) oxycodone 5 MG (units (unknown) date) tablet unknown) (unknown) (no (unknown) (unknown) oxycodone 5 mg (units (unknown) date) tablet 1 - 2 tab unknown) PO Q3HP PRN Pain (Scale 09/17/19 10/04/19 (unknown) (no (unknown) (unknown) oxycodone 5 mg (units (unknown) date) tablet 5 mg PO Q8H unknown) PRN pain #7 tabs 04/04/20 (unknown) (no (unknown) (unknown) oxycodone 5 mg (units (unknown) date) tablet unknown) (unknown) (no (unknown) (unknown) pain, acute (units (un known) date) shortness of unknown) breath, or any other concerning signs or symptoms. (unknown) (no (unknown) (unknown) pain, ankle pain (units (unknown) date) #100 grams unknown) (unknown) (no (unknown) (unknown) patient had (units (un known) date) bright red blood unknown) surrounding the rectum as well as a positive stool (unknown) (no (unknown) (unknown) peg 400-propylene (units (unknown) date) glycol (PF) 0.4 2 unknown) kadeem ESTEVESOLGA ALEXANDRAAY ##0 09/27/16 10/04/19 (unknown) (no (unknown) (unknown) performed.? For (units (unknown) date) unknown) (unknown) (no (unknown) (unknown) provider for (units (u nknown) date) further unknown) evaluation. (unknown) (no (unknown) (unknown) provider for (units (u nknown) date) possible unknown) colonoscopy. (unknown) (no (unknown) (unknown) radiation dose (units (unknown) date) reduction, the unknown) following was used:? automated exposure control, (unknown) (no (unknown) (unknown) rales, or (units (unkn own) date) rhonchi. unknown) (unknown) (no (unknown) (unknown) release (units (unkno wn) date) unknown) (unknown) (no (unknown) (unknown) removal of (units (unk nown) date) previous anterior unknown) mass.? Previous fat containing lesions bilaterally (unknown) (no (unknown) (unknown) reported blood in (units (unknown) date) her stool onset unknown) this morning while taking a shower. She (unknown) (no (unknown) (unknown) seizures, (units (unkn own) date) incoordination. 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 Nonobstructing stones are (unknown) (no (unknown) (unknown) tablet (units (unkno wn) date) (Tylenol-Codeine unknown) #3) (unknown) (no (unknown) (unknown) the cause of your (units (unknown) date) rectal bleeding is unknown) due to internal hemorrhoids. Please (unknown) (no (unknown) (unknown) the hemorrhoids. (units (unknown) date) I also recommended unknown) follow up with your primary care provider (unknown) (no (unknown) (unknown) the past (units (unkno wn) date) unknown) (unknown) (no (unknown) (unknown) there?. Patient (units (unknown) date) denies any unknown) significant abdominal pain, nausea, vomiting, chest (unknown) (no (unknown) (unknown) tonsillar (units (unkn own) date) hypertrophy or unknown) exudate. Airway patent. (unknown) (no (unknown) (unknown) topiramate 50 mg (units (unknown) date) tablet (Topamax) unknown) 200 mg PO BID 09/17/19 10/04/19 (unknown) (no (unknown) (unknown) topiramate (units (unk nown) date) [Topamax] 50 MG unknown) tablet (unknown) (no (unknown) (unknown) unremarkable. (units ( unknown) date) BUN/Creatinine unknown) ration WNL, noncerning for upper GI bleed. (unknown) (no (unknown) (unknown) with (units (unkno wn) date) unknown) Result panel 91 (unknown) (no (unknown) (unknown) (no value) (units (unk nown) date) unknown) (unknown) (no (unknown) (unknown) %-0.3 % eye drops (units (unknown) date) in a dropperette unknown) (unknown) (no (unknown) (unknown) (DOK) (units (unkno wn) date) unknown) (unknown) (no (unknown) (unknown) (Neurontin) (units (un known) date) unknown) (unknown) (no (unknown) (unknown) (Systane (PF)) (units (unknown) date) unknown) (unknown) (no (unknown) (unknown) * Clinical (units (unk nown) date) Decision unknown) Rules/Scores evaluated: None (unknown) (no (unknown) (unknown) * Independent (units ( unknown) date) discussions with: unknown) None (unknown) (no (unknown) (unknown) * My imgaing (units (u nknown) date) interpretation: CT unknown) results as above. No acute processes found. (unknown) (no (unknown) (unknown) * My lab (units (unkno wn) date) interpretation: unknown) CBC unremarkable. No evidence of anemia. CMP (unknown) (no (unknown) (unknown) * Prior records (units (unknown) date) reviewed: Patient unknown) has not been here for similar complaints in (unknown) (no (unknown) (unknown) * differential (units (unknown) date) diagnosis includes unknown) but not limited to diverticulosis, internal (unknown) (no (unknown) (unknown) [id number] (units (unkn own) date) unknown) (unknown) (no (unknown) (unknown) 04/14/22 04/14/22 (units (unknown) date) 04/14/22 unknown) Range/Units (unknown) (no (unknown) (unknown) 04/14/22 04/14/22 (units (unknown) date) Range/Units unknown) (unknown) (no (unknown) (unknown) 04/14/22 12:10 (units (unknown) date) unknown) (unknown) (no (unknown) (unknown) 04/14/22 12:25 (units (unknown) date) unknown) (unknown) (no (unknown) (unknown) 04/14/22 13:04 (units (unknown) date) unknown) (unknown) (no (unknown) (unknown) 04/14/22 13:10 (units (unknown) date) unknown) (unknown) (no (unknown) (unknown) 04/14/22 (units (unkno wn) date) unknown) (unknown) (no (unknown) (unknown) 10/04/19 (units (unkno wn) date) unknown) (unknown) (no (unknown) (unknown) 1 - 2 tab PO Q3HP (units (unknown) date) PRN (Reason: Pain unknown) (Scale Score 1-3)) (unknown) (no (unknown) (unknown) 1 applic topical (units (unknown) date) BID PRN (Reason: unknown) knee pain, ankle pain) Qty: 100 0RF (unknown) (no (unknown) (unknown) 1 tab PO BID PRN (units (unknown) date) (Reason: pain) unknown) Qty: 14 0RF (unknown) (no (unknown) (unknown) 1 tab PO Q4-6H (units (unknown) date) PRN (Reason: pain) unknown) Qty: 14 0RF (unknown) (no (unknown) (unknown) 1 tab PO QDAY (units ( unknown) date) Qty: 0 unknown) (unknown) (no (unknown) (unknown) 10 mg PO QDAYP (units (unknown) date) PRN (Reason: unknown) Allergy Symptoms) Qty: 0 (unknown) (no (unknown) (unknown) 11:41 04/14/22 (units (unknown) date) unknown) (unknown) (no (unknown) (unknown) 12 point review (units (unknown) date) of systems is unknown) negative except for those stated above (unknown) (no (unknown) (unknown) [address] [place] [address] (units (unknown) date) unknown) (unknown) (no (unknown) (unknown) 12:01 04/14/22 (units (unknown) date) unknown) (unknown) (no (unknown) (unknown) 12:10 12:25 12:25 (units (unknown) date) unknown) (unknown) (no (unknown) (unknown) 12:25 12:25 (units (un known) date) unknown) (unknown) (no (unknown) (unknown) 12:30 (units (unkno wn) date) unknown) (unknown) (no (unknown) (unknown) 12:31 04/14/22 (units (unknown) date) unknown) (unknown) (no (unknown) (unknown) 1304: EKG is (units (u nknown) date) normal sinus unknown) rhythm rate 63 and free of any signs of ischemia or (unknown) (no (unknown) (unknown) 13:00 04/14/22 (units (unknown) date) unknown) (unknown) (no (unknown) (unknown) 13:00 (units (unkno wn) date) unknown) (unknown) (no (unknown) (unknown) 13:30 (units (unkno wn) date) unknown) (unknown) (no (unknown) (unknown) 2 drp OPHTH QDAY (units (unknown) date) Qty: 0 unknown) (unknown) (no (unknown) (unknown) 2 puff INH PRN (units (unknown) date) PRN (Reason: unknown) Dyspnea) Qty: 0 (unknown) (no (unknown) (unknown) 2 spray (units (unkno wn) date) INTRANASAL DAILY unknown) PRN (Reason: Allergic Symptoms) (unknown) (no (unknown) (unknown) 2 tabs in am, 3 (units (unknown) date) tams at noon, 2 unknown) tabs evening (unknown) (no (unknown) (unknown) 20 mg PO DAILY (units (unknown) date) Qty: 30 0RF unknown) (unknown) (no (unknown) (unknown) 200 mg PO BID (units ( unknown) date) unknown) (unknown) (no (unknown) (unknown) 3,200 mg PO QDAY (units (unknown) date) Qty: 0 unknown) (unknown) (no (unknown) (unknown) 400 mg PO PRN PRN (units (unknown) date) (Reason: Pain unknown) (Scale Score 1-3)) Qty: 0 (unknown) (no (unknown) (unknown) 5 mg PO Q8H PRN (units (unknown) date) (Reason: pain) unknown) Qty: 7 0RF (unknown) (no (unknown) (unknown) 5,000 unit PO (units ( unknown) date) QDAY Qty: 0 unknown) (unknown) (no (unknown) (unknown) 500 mg PO PRN PRN (units (unknown) date) (Reason: unknown) Constipation) Qty: 0 (unknown) (no (unknown) (unknown) 600 mg PO BID (units ( unknown) date) Qty: 0 unknown) (unknown) (no (unknown) (unknown) ? (units (unkno wn) date) unknown) (unknown) (no (unknown) (unknown) ABDOMEN: (units (unkno wn) date) unknown) (unknown) (no (unknown) (unknown) ALLERGY (units (unkno wn) date) unknown) (unknown) (no (unknown) (unknown) [id number] (units (unknown) date) DASE Allergy unknown) Unknown PT NOT Uncoded 04/14/22 11:41 (unknown) (no (unknown) (unknown) ALT (<35) IU/L (units (unknown) date) unknown) (unknown) (no (unknown) (unknown) ALT 24 (<35) IU/L (units (unknown) date) unknown) (unknown) (no (unknown) (unknown) ANTIBIOTICS)] (units ( unknown) date) unknown) (unknown) (no (unknown) (unknown) APTT (26-36) (units (u nknown) date) SECONDS unknown) (unknown) (no (unknown) (unknown) APTT 33 (26-36) (units (unknown) date) SECONDS unknown) (unknown) (no (unknown) (unknown) AST (14-36) IU/L (units (unknown) date) unknown) (unknown) (no (unknown) (unknown) AST 20 (14-36) (units (unknown) date) IU/L unknown) (unknown) (no (unknown) (unknown) AWARE OF (units (unkno wn) date) unknown) (unknown) (no (unknown) (unknown) Abdominal Nodes:? (units (unknown) date) No retroperitoneal unknown) or mesenteric adenopathy by size criteria.? (unknown) (no (unknown) (unknown) Accession Number: (units (unknown) date) [id number] ?? unknown) (unknown) (no (unknown) (unknown) Acct:[id number] (units (unknown) date) unknown) (unknown) (no (unknown) (unknown) Activity (units (unkno wn) date) Restrictions/Addit unknown) ional Instructions: (unknown) (no (unknown) (unknown) Adrenal Glands:? (units (unknown) date) Unremarkable.? ? unknown) (unknown) (no (unknown) (unknown) After the (units (unkn own) date) administration of unknown) oral and IV contrast, axial sections were acquired (unknown) (no (unknown) (unknown) Age/Sex: 61 / F (units (unknown) date) unknown) (unknown) (no (unknown) (unknown) Albumin (3.5-5.0) (units (unknown) date) g/dL unknown) (unknown) (no (unknown) (unknown) Albumin 4.1 (units (un known) date) (3.5-5.0) g/dL unknown) (unknown) (no (unknown) (unknown) Albumin/Globulin (units (unknown) date) Ratio (1.0-2.8) unknown) (unknown) (no (unknown) (unknown) Albumin/Globulin (units (unknown) date) Ratio 1.2 unknown) (1.0-2.8) (unknown) (no (unknown) (unknown) Alkaline (units (unkno wn) date) Phosphatase unknown) (38-126) U/L (unknown) (no (unknown) (unknown) Alkaline (units (unkno wn) date) Phosphatase 95 unknown) (38-126) U/L (unknown) (no (unknown) (unknown) Allergies (units (unkn own) date) unknown) (unknown) (no (unknown) (unknown) Allergy/AdvReac (units (unknown) date) Type Severity unknown) Reaction Status Date / Time (unknown) (no (unknown) (unknown) [place], [place] (units ( unknown) date) [id number] unknown) (unknown) (no (unknown) (unknown) Antibiotics) PER (units (unknown) date) PT unknown) (unknown) (no (unknown) (unknown) Antibody Screen (units (unknown) date) Negative unknown) (unknown) (no (unknown) (unknown) Antibody Screen (units (unknown) date) unknown) (unknown) (no (unknown) (unknown) Approved by: (units (u nknown) date) Jasmin Zhao M.D. unknown) on 04/14/2022 at 14:35 ? (unknown) (no (unknown) (unknown) Asthma (units (unkno wn) date) unknown) (unknown) (no (unknown) (unknown) BACK: Nontender (units (unknown) date) without deformity unknown) or crepitance. No flank tenderness. (unknown) (no (unknown) (unknown) BUN (7-17) mg/dL (units (unknown) date) unknown) (unknown) (no (unknown) (unknown) BUN 13 (7-17) (units ( unknown) date) mg/dL unknown) (unknown) (no (unknown) (unknown) BUN/Creatinine (units (unknown) date) Ratio (6-22) unknown) (unknown) (no (unknown) (unknown) BUN/Creatinine (units (unknown) date) Ratio 12.7 (6-22) unknown) (unknown) (no (unknown) (unknown) Baso # (Auto) (units ( unknown) date) (0-100) /uL unknown) (unknown) (no (unknown) (unknown) Baso # (Auto) 100 (units (unknown) date) (0-100) /uL unknown) (unknown) (no (unknown) (unknown) Baso % (Auto) (units ( unknown) date) (0-2) % unknown) (unknown) (no (unknown) (unknown) Baso % (Auto) 0.7 (units (unknown) date) (0-2) % unknown) (unknown) (no (unknown) (unknown) Bedside Urine (units ( unknown) date) Bilirubin - unknown) Negative (unknown) (no (unknown) (unknown) Bedside Urine (units ( unknown) date) Glucose Negative unknown) (unknown) (no (unknown) (unknown) Bedside Urine (units ( unknown) date) Ketone - Negative unknown) (unknown) (no (unknown) (unknown) Bedside Urine (units ( unknown) date) Leukocytes - unknown) Negative (unknown) (no (unknown) (unknown) Bedside Urine (units ( unknown) date) Nitrite - Negative unknown) (unknown) (no (unknown) (unknown) Bedside Urine (units ( unknown) date) Occult Blood unknown) (unknown) (no (unknown) (unknown) Bedside Urine (units ( unknown) date) Protein ++ 100 unknown) (unknown) (no (unknown) (unknown) Bedside Urine (units ( unknown) date) Urobilinogen - unknown) Negative (unknown) (no (unknown) (unknown) Bedside Urine pH (units (unknown) date) 6.0 unknown) (unknown) (no (unknown) (unknown) Biliary ducts:? (units (unknown) date) Unremarkable.? ? unknown) (unknown) (no (unknown) (unknown) Bladder:? (units (unkn own) date) Unremarkable.? ? unknown) (unknown) (no (unknown) (unknown) Bleeding internal (units (unknown) date) hemorrhoids unknown) (unknown) (no (unknown) (unknown) Blood Pressure (units (unknown) date) 128/87 04/14/22 unknown) 11:41 (unknown) (no (unknown) (unknown) Blood Pressure (units (unknown) date) 128/87 unknown) (unknown) (no (unknown) (unknown) Blood Pressure (units (unknown) date) 175/107 H 157/84 H unknown) (unknown) (no (unknown) (unknown) Blood Pressure (units (unknown) date) unknown) (unknown) (no (unknown) (unknown) Blood Type A (units (u nknown) date) Positive unknown) (unknown) (no (unknown) (unknown) Blood Type (units (unk nown) date) unknown) (unknown) (no (unknown) (unknown) Bones:? (units (unkno wn) date) Unremarkable.? ? unknown) (unknown) (no (unknown) (unknown) CARDIOVASCULAR: (units (unknown) date) Denies chest pain, unknown) palpitations, orthopnea, edema, (unknown) (no (unknown) (unknown) CARDIOVASCULAR: (units (unknown) date) Regular rate and unknown) rhythm without murmurs, gallops, or rubs. (unknown) (no (unknown) (unknown) COMPARISON:? (units (un known) date) [facility], unknown) CT, CT ABDOMEN WO/W CON, 09/11/2021, 13:13.? [place] (unknown) (no (unknown) (unknown) CT Scan Report (units (unknown) date) unknown) (unknown) (no (unknown) (unknown) CT abdomen pelvis (units (unknown) date) w con Stat unknown) (unknown) (no (unknown) (unknown) CT scan - (units (unkn own) date) abdomen/pelvis: unknown) (unknown) (no (unknown) (unknown) Calcium (units (unkno wn) date) (8.4-10.2) mg/dL unknown) (unknown) (no (unknown) (unknown) Calcium 8.7 (units (un known) date) (8.4-10.2) mg/dL unknown) (unknown) (no (unknown) (unknown) Carbon Dioxide (units (unknown) date) (22-32) mmol/L unknown) (unknown) (no (unknown) (unknown) Carbon Dioxide 21 (units (unknown) date) L (22-32) mmol/L unknown) (unknown) (no (unknown) (unknown) Chief complaint: (units (unknown) date) GI Bleed unknown) (unknown) (no (unknown) (unknown) Chloride (98-107) (units (unknown) date) mmol/L unknown) (unknown) (no (unknown) (unknown) Chloride 109 H (units (unknown) date) (98-107) mmol/L unknown) (unknown) (no (unknown) (unknown) Clinical (units (unkno wn) date) Impression: unknown) (unknown) (no (unknown) (unknown) Colon cancer (units (u nknown) date) unknown) (unknown) (no (unknown) (unknown) Complete Blood (units (unknown) date) Count AUTO DIFF unknown) Stat (unknown) (no (unknown) (unknown) Comprehensive (units ( unknown) date) Metabolic Panel unknown) Stat (unknown) (no (unknown) (unknown) Course (units (unkno wn) date) unknown) (unknown) (no (unknown) (unknown) Creatinine (units (unk nown) date) (0.52-1.04) mg/dL unknown) (unknown) (no (unknown) (unknown) Creatinine 1.02 (units (unknown) date) (0.52-1.04) mg/dL unknown) (unknown) (no (unknown) (unknown) : 1960 (units (unknown) date) Acct:[id number] unknown) (unknown) (no (unknown) (unknown) : 1960 (units (unknown) date) unknown) (unknown) (no (unknown) (unknown) DOES NOT (units (unkno wn) date) unknown) (unknown) (no (unknown) (unknown) Date of Service: (units (unknown) date) 04/14/22 unknown) (unknown) (no (unknown) (unknown) Departure (units (unkn own) date) unknown) (unknown) (no (unknown) (unknown) Diabetes mellitus (units (unknown) date) unknown) (unknown) (no (unknown) (unknown) Diabetes (units (unkno wn) date) unknown) (unknown) (no (unknown) (unknown) Dictated by: (units (u nknown) date) Jasmin Zhao M.D. unknown) on 04/14/2022 at 14:22 ? ? (unknown) (no (unknown) (unknown) Discharge Plan (units (unknown) date) unknown) (unknown) (no (unknown) (unknown) Discontinued (units (u nknown) date) Medications unknown) (unknown) (no (unknown) (unknown) Disposition: (units (u nknown) date) Discharged to home unknown) (unknown) (no (unknown) (unknown) Documented By: (units (unknown) date) RLS unknown) (unknown) (no (unknown) (unknown) ECG Data (units (unkno wn) date) unknown) (unknown) (no (unknown) (unknown) ED Course: This (units (unknown) date) is a 61-year-old unknown) female presents to the emergency department (unknown) (no (unknown) (unknown) ED Orders (units (unkn own) date) unknown) (unknown) (no (unknown) (unknown) EKG-12 Lead Stat (units (unknown) date) unknown) (unknown) (no (unknown) (unknown) ENT: Nose without (units (unknown) date) bleeding, purulent unknown) drainage. Throat without erythema, (unknown) (no (unknown) (unknown) ER Physician: (units ( unknown) date) Joel Francois P.A-C unknown) (unknown) (no (unknown) (unknown) EXTREMITIES: No (units (unknown) date) edema or joint unknown) tenderness. (unknown) (no (unknown) (unknown) EYES: Pupils (units (u nknown) date) equal round and unknown) reactive. Extraocular motions intact. No scleral (unknown) (no (unknown) (unknown) Emergency Report (units (unknown) date) unknown) (unknown) (no (unknown) (unknown) Eos # (Auto) (units (u nknown) date) (0-450) /uL unknown) (unknown) (no (unknown) (unknown) Eos # (Auto) 100 (units (unknown) date) (0-450) /uL unknown) (unknown) (no (unknown) (unknown) Eos % (Auto) (units (u nknown) date) (2-4) % unknown) (unknown) (no (unknown) (unknown) Eos % (Auto) 1.6 (units (unknown) date) L (2-4) % unknown) (unknown) (no (unknown) (unknown) Esterase (units (unkno wn) date) unknown) (unknown) (no (unknown) (unknown) Estimated GFR > (units (unknown) date) 60 (>60) mL/min unknown) (unknown) (no (unknown) (unknown) Estimated GFR (units ( unknown) date) (>60) mL/min unknown) (unknown) (no (unknown) (unknown) Exam Narrative: (units (unknown) date) unknown) (unknown) (no (unknown) (unknown) Exam (units (unkno wn) date) unknown) (unknown) (no (unknown) (unknown) FINDINGS:? (units (unk nown) date) unknown) (unknown) (no (unknown) (unknown) Family History (units (unknown) date) (Reviewed 08/14/21 unknown) @ 15:29 by PAZ Boltno) (unknown) (no (unknown) (unknown) Father Diabetes (units (unknown) date) mellitus unknown) (unknown) (no (unknown) (unknown) Edison Jones (units (unk n) date) MD Prabhu unknown) [Primary Care Provider] (unknown) (no (unknown) (unknown) GASTROINTESTINAL: (units (unknown) date) Reports bright red unknown) blood in stool, Denies nausea, vomiting, (unknown) (no (unknown) (unknown) GASTROINTESTINAL: (units (unknown) date) Suprapubic unknown) abdominal tenderness to palpation. Bright red (unknown) (no (unknown) (unknown) GENERAL: Denies (units (unknown) date) chills, fatigue, unknown) malaise, fever, sweats. (unknown) (no (unknown) (unknown) GENERAL: (units (unkno wn) date) Well-developed unknown) patient, in mild distress. (unknown) (no (unknown) (unknown) : Denies (units (unk nown) date) dysuria, unknown) frequency, incontinence, hematuria, urinary retention. (unknown) (no (unknown) (unknown) Gallbladder:? (units ( unknown) date) Removed. unknown) (unknown) (no (unknown) (unknown) Gallstones (units (unk nown) date) unknown) (unknown) (no (unknown) (unknown) General (units (unkno wn) date) unknown) (unknown) (no (unknown) (unknown) Globulin (units (unkno wn) date) (1.7-4.1) g/dL unknown) (unknown) (no (unknown) (unknown) Globulin 3.4 (units (u nknown) date) (1.7-4.1) g/dL unknown) (unknown) (no (unknown) (unknown) Glucose (70-100) (units (unknown) date) mg/dL unknown) (unknown) (no (unknown) (unknown) Glucose 120 H (units ( unknown) date) (70-100) mg/dL unknown) (unknown) (no (unknown) (unknown) HEAD: Atraumatic. (units (unknown) date) Normocephalic. unknown) (unknown) (no (unknown) (unknown) HEENT: Denies (units ( unknown) date) sinus pain, ear unknown) pain, sore throat, difficulty swallowing, (unknown) (no (unknown) (unknown) HPI - GI Bleed (units (unknown) date) unknown) (unknown) (no (unknown) (unknown) HPI Narrative: (units (unknown) date) unknown) (unknown) (no (unknown) (unknown) Hct (36-46) % (units ( unknown) date) unknown) (unknown) (no (unknown) (unknown) Hct 40.4 (36-46) (units (unknown) date) % unknown) (unknown) (no (unknown) (unknown) Heart disease (units ( unknown) date) unknown) (unknown) (no (unknown) (unknown) Heart:? No (units (unk n) date) significant unknown) findings. (unknown) (no (unknown) (unknown) Hepatomegaly with (units (unknown) date) steatosis. unknown) (unknown) (no (unknown) (unknown) Hgb (12.0-16.0) (units (unknown) date) g/dL unknown) (unknown) (no (unknown) (unknown) Hgb 13.7 (units (unkno wn) date) (12.0-16.0) g/dL unknown) (unknown) (no (unknown) (unknown) History of (units (unk nown) date) Present Illness unknown) (unknown) (no (unknown) (unknown) History of back (units (unknown) date) surgery unknown) (unknown) (no (unknown) (unknown) History of total (units (unknown) date) knee arthroplasty unknown) (unknown) (no (unknown) (unknown) Home Medications (units (unknown) date) unknown) (unknown) (no (unknown) (unknown) Hospital, CT, CT (units (unknown) date) ABDOMEN PELVIS W unknown) CON, 04/04/2020, 11:35. (unknown) (no (unknown) (unknown) Hx of (units (unkno wn) date) cholecystectomy unknown) (unknown) (no (unknown) (unknown) Hx of knee (units (unk nown) date) surgery unknown) (unknown) (no (unknown) (unknown) Hx of neck (units (unk nown) date) surgery unknown) (unknown) (no (unknown) (unknown) Hx of shoulder (units (unknown) date) surgery unknown) (unknown) (no (unknown) (unknown) Hyaline Casts (units ( unknown) date) (None) unknown) (unknown) (no (unknown) (unknown) Hyaline Casts (units ( unknown) date) 1-5/lpf (None) unknown) (unknown) (no (unknown) (unknown) I hope you feel (units (unknown) date) better soon. unknown) (unknown) (no (unknown) (unknown) IMPRESSION:? (units (u nknown) date) unknown) (unknown) (no (unknown) (unknown) INDICATIONS:? (units ( unknown) date) Hematochezia and unknown) suprapubic TTP (unknown) (no (unknown) (unknown) INR (0.9-1.3) (units ( unknown) date) unknown) (unknown) (no (unknown) (unknown) INR 1.1 (0.9-1.3) (units (unknown) date) unknown) (unknown) (no (unknown) (unknown) Image quality:? (units (unknown) date) Excellent.? unknown) (unknown) (no (unknown) (unknown) Imaging Data (units (u nknown) date) unknown) (unknown) (no (unknown) (unknown) Initial Vital (units ( unknown) date) Signs unknown) (unknown) (no (unknown) (unknown) Initial Vital (units ( unknown) date) Signs: unknown) (unknown) (no (unknown) (unknown) Instructions: DI (units (unknown) date) for Hemorrhoids unknown) (unknown) (no (unknown) (unknown) Interpretation: (units (unknown) date) unknown) (unknown) (no (unknown) (unknown) [facility] (units (unknown) date) [address] unknown) [place] [address] (unknown) (no (unknown) (unknown) [facility] (units (unknown) date) unknown) (unknown) (no (unknown) (unknown) Kidney malignancy (units (unknown) date) unknown) (unknown) (no (unknown) (unknown) Kidneys and (units (un known) date) Ureters:? unknown) Postsurgical changes are present within the left kidney (unknown) (no (unknown) (unknown) Lab Data (units (unkno wn) date) unknown) (unknown) (no (unknown) (unknown) Lab Results (units (un known) date) unknown) (unknown) (no (unknown) (unknown) Labs: (units (unkno wn) date) unknown) (unknown) (no (unknown) (unknown) Last Admin: (units (un known) date) 04/14/22 12:51 unknown) Dose: Not Given (unknown) (no (unknown) (unknown) Liver:? Liver is (units (unknown) date) enlarged measuring unknown) 20.4 cm with steatosis..? ? (unknown) (no (unknown) (unknown) Loc: ED (units (unkno wn) date) unknown) (unknown) (no (unknown) (unknown) Lung bases:? (units (u nknown) date) Unremarkable.? ? unknown) (unknown) (no (unknown) (unknown) Lymph # (Auto) (units (unknown) date) ([id number]) /uL unknown) (unknown) (no (unknown) (unknown) Lymph # (Auto) (units (unknown) date) 1900 ([id number]) unknown) /uL (unknown) (no (unknown) (unknown) Lymph % (Auto) (units (unknown) date) (25-40) % unknown) (unknown) (no (unknown) (unknown) Lymph % (Auto) (units (unknown) date) 22.7 L (25-40) % unknown) (unknown) (no (unknown) (unknown) MCH (26-34) PG (units (unknown) date) unknown) (unknown) (no (unknown) (unknown) MCH 31.8 (26-34) (units (unknown) date) PG unknown) (unknown) (no (unknown) (unknown) MCHC (30-36) % (units (unknown) date) unknown) (unknown) (no (unknown) (unknown) MCHC 33.9 (30-36) (units (unknown) date) % unknown) (unknown) (no (unknown) (unknown) MCV (80-100) fL (units (unknown) date) unknown) (unknown) (no (unknown) (unknown) MCV 93.9 (80-100) (units (unknown) date) fL unknown) (unknown) (no (unknown) (unknown) MDM - GI Bleed (units (unknown) date) unknown) (unknown) (no (unknown) (unknown) MDM Narrative (units ( unknown) date) unknown) (unknown) (no (unknown) (unknown) MDM (units (unkno wn) date) unknown) (unknown) (no (unknown) (unknown) MR#: [id number] (units (unknown) date) unknown) (unknown) (no (unknown) (unknown) MUSCULOSKELETAL: (units (unknown) date) denies weakness, unknown) joint pain, or bony pain (unknown) (no (unknown) (unknown) Medical History (units (unknown) date) (Updated 04/14/22 unknown) @ 15:12 by Joel Francois PA-C) (unknown) (no (unknown) (unknown) Medical decision (units (unknown) date) making narrative: unknown) (unknown) (no (unknown) (unknown) Medication (units (unk nown) date) Instructions unknown) Recorded Confirmed (unknown) (no (unknown) (unknown) Medication (units (unk nown) date) Instructions unknown) Recorded (unknown) (no (unknown) (unknown) Miscellaneous: No (units (unknown) date) inguinal hernias unknown) are seen. ? ? (unknown) (no (unknown) (unknown) Mode of arrival: (units (unknown) date) Ambulatory unknown) (unknown) (no (unknown) (unknown) [place] # (Auto) (units ( unknown) date) (0-900) /uL unknown) (unknown) (no (unknown) (unknown) [place] # (Auto) 500 (units (unknown) date) (0-900) /uL unknown) (unknown) (no (unknown) (unknown) [place] % (Auto) (units ( unknown) date) (3-14) % unknown) (unknown) (no (unknown) (unknown) [place] % (Auto) 6.3 (units (unknown) date) (3-14) % unknown) (unknown) (no (unknown) (unknown) Mother (units (unkno wn) date) Hypertension unknown) (unknown) (no (unknown) (unknown) NECK: Trachea (units ( unknown) date) midline. Non unknown) tender (unknown) (no (unknown) (unknown) NEURO: AOx3. (units (u nknown) date) unknown) (unknown) (no (unknown) (unknown) NEUROLOGIC: (units (un known) date) Denies weakness, unknown) headache, numbness, change in speech, confusion, (unknown) (no (unknown) (unknown) Narrative (units (unkn own) date) unknown) (unknown) (no (unknown) (unknown) Narrative: (units (unk nown) date) unknown) (unknown) (no (unknown) (unknown) Neut # (Auto) (units ( unknown) date) (4341-4217) /uL unknown) (unknown) (no (unknown) (unknown) Neut # (Auto) (units ( unknown) date) 5800 (3028-8332) unknown) /uL (unknown) (no (unknown) (unknown) Neut % (Auto) (units ( unknown) date) (50-75) % unknown) (unknown) (no (unknown) (unknown) Neut % (Auto) (units ( unknown) date) 68.7 (50-75) % unknown) (unknown) (no (unknown) (unknown) No Action (units (unkn own) date) unknown) (unknown) (no (unknown) (unknown) No acute (units (unkno wn) date) intra-abdominal or unknown) pelvic process. (unknown) (no (unknown) (unknown) No evidence of (units (unknown) date) diverticulosis. unknown) Recommend she follow up with primary care (unknown) (no (unknown) (unknown) Obesity (units (unkno wn) date) unknown) (unknown) (no (unknown) (unknown) Ondansetron HCl (units (unknown) date) (Ondansetron 4 Mg unknown) Odt) 4 mg SL NOW PRN (unknown) (no (unknown) (unknown) Ondansetron HCl (units (unknown) date) (Ondansetron 4 unknown) Mg/2 Ml Inj) 4 mg IV NOW PRN (unknown) (no (unknown) (unknown) Ordered: (units (unkno wn) date) unknown) (unknown) (no (unknown) (unknown) Ordering (units (unkno wn) date) Provider: unknown) Joel Francois P.A-C (unknown) (no (unknown) (unknown) Orders (units (unkno wn) date) unknown) (unknown) (no (unknown) (unknown) Oxygen Delivery (units (unknown) date) Method Room Air unknown) 04/14/22 11:41 (unknown) (no (unknown) (unknown) Oxygen Delivery (units (unknown) date) Method Room Air unknown) (unknown) (no (unknown) (unknown) Oxygen Delivery (units (unknown) date) Method unknown) (unknown) (no (unknown) (unknown) PELVIS: (units (unkno wn) date) unknown) (unknown) (no (unknown) (unknown) PER PT (units (unkno wn) date) unknown) (unknown) (no (unknown) (unknown) PRN Reason: (units (un known) date) Nausea And unknown) Vomiting (unknown) (no (unknown) (unknown) PROCEDURE:? CT (units (unknown) date) ABDOMEN PELVIS W unknown) CON (unknown) (no (unknown) (unknown) PSYCHIATRIC: No (units (unknown) date) concerning unknown) psychosocial issues. (unknown) (no (unknown) (unknown) PT (10.1-12.7) (units (unknown) date) SECONDS unknown) (unknown) (no (unknown) (unknown) PT 12.1 (units (unkno wn) date) (10.1-12.7) unknown) SECONDS (unknown) (no (unknown) (unknown) Pancreas:? (units (unk nown) date) Unremarkable.? ? 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 No unknown) evidence of recurrent disease. (unknown) (no (unknown) (unknown) Patient (units (unkno wn) date) Disposition: Home unknown) (unknown) (no (unknown) (unknown) Patient History (units (unknown) date) unknown) (unknown) (no (unknown) (unknown) Patient's (units (unkn own) date) daughter describes unknown) the blood as bright red in color. No significant (unknown) (no (unknown) (unknown) Patient: (units (unkno wn) date) YoungDionnaalyshagil Humberto unknown) MR#: M (unknown) (no (unknown) (unknown) Patient: (units (unkno wn) date) Logan Desir unknown) (unknown) (no (unknown) (unknown) Pelvic Nodes: No (units (unknown) date) enlarged lymph unknown) nodes.? (unknown) (no (unknown) (unknown) Pelvic Organs:? (units (unknown) date) Unremarkable.? ? unknown) (unknown) (no (unknown) (unknown) Penicillins (units (un known) date) [PENICILLINS] unknown) Allergy Unknown ITCHING-PT Verified 04/14/22 11:41 (unknown) (no (unknown) (unknown) Peritoneum:? No (units (unknown) date) abnormal unknown) intraperitoneal fluid.? No free air.? (unknown) (no (unknown) (unknown) Plt Count (units (unkn own) date) (150-400) X103/uL unknown) (unknown) (no (unknown) (unknown) Plt Count 278 (units ( unknown) date) (150-400) X103/uL unknown) (unknown) (no (unknown) (unknown) Point of Care (units ( unknown) date) Testing unknown) (unknown) (no (unknown) (unknown) Potassium (units (unkn own) date) (3.4-5.1) mmol/L unknown) (unknown) (no (unknown) (unknown) Potassium 3.9 (units ( unknown) date) (3.4-5.1) mmol/L unknown) (unknown) (no (unknown) (unknown) Prescriptions: (units (unknown) date) unknown) (unknown) (no (unknown) (unknown) Previous Rx's (units ( unknown) date) unknown) (unknown) (no (unknown) (unknown) Procedure: CT (units ( unknown) date) abdomen pelvis w unknown) con (unknown) (no (unknown) (unknown) Prothrombin Time (units (unknown) date) INR Stat unknown) (unknown) (no (unknown) (unknown) Pulse Oximetry 97 (units (unknown) date) 96 unknown) (unknown) (no (unknown) (unknown) Pulse Oximetry 99 (units (unknown) date) 04/14/22 11:41 unknown) (unknown) (no (unknown) (unknown) Pulse Oximetry 99 (units (unknown) date) 99 99 unknown) (unknown) (no (unknown) (unknown) Pulse Oximetry 99 (units (unknown) date) unknown) (unknown) (no (unknown) (unknown) Pulse Rate 65 65 (units (unknown) date) unknown) (unknown) (no (unknown) (unknown) Pulse Rate 70 (units ( unknown) date) unknown) (unknown) (no (unknown) (unknown) Pulse Rate 80 (units ( unknown) date) 04/14/22 11:41 unknown) (unknown) (no (unknown) (unknown) Pulse Rate 80 72 (units (unknown) date) 68 unknown) (unknown) (no (unknown) (unknown) Qty: 1 0RF (units (unk nown) date) unknown) (unknown) (no (unknown) (unknown) RBC (4.0-5.2) (units ( unknown) date) X106/uL unknown) (unknown) (no (unknown) (unknown) RBC 4.30 (units (unkno wn) date) (4.0-5.2) X106/uL unknown) (unknown) (no (unknown) (unknown) RDW (11.6-14.8) % (units (unknown) date) unknown) (unknown) (no (unknown) (unknown) RDW 13.7 (units (unkno wn) date) (11.6-14.8) % unknown) (unknown) (no (unknown) (unknown) REACTION (units (unkno wn) date) unknown) (unknown) (no (unknown) (unknown) RED' (units (unkno wn) date) unknown) (unknown) (no (unknown) (unknown) REMEMBER (units (unkno wn) date) unknown) (unknown) (no (unknown) (unknown) RESPIRATORY: Clear (units (unknown) date) to auscultation. unknown) Breath sounds equal bilaterally. No wheezes, (unknown) (no (unknown) (unknown) RESPIRATORY: (units (u nknown) date) Denies dyspnea, unknown) cough, wheezing, hemoptysis, sputum. (unknown) (no (unknown) (unknown) Radiologist's (units ( unknown) date) Impression: unknown) (unknown) (no (unknown) (unknown) Referrals: (units (unk nown) date) unknown) (unknown) (no (unknown) (unknown) Related Data (units (u nknown) date) unknown) (unknown) (no (unknown) (unknown) Relief) (units (unkno wn) date) unknown) (unknown) (no (unknown) (unknown) Respiratory Rate (units (unknown) date) 16 04/14/22 11:41 unknown) (unknown) (no (unknown) (unknown) Respiratory Rate (units (unknown) date) 16 26 H unknown) (unknown) (no (unknown) (unknown) Respiratory Rate (units (unknown) date) 19 20 unknown) (unknown) (no (unknown) (unknown) Respiratory Rate (units (unknown) date) 24 unknown) (unknown) (no (unknown) (unknown) Review of Systems (units (unknown) date) unknown) (unknown) (no (unknown) (unknown) Rx Instructions: (units (unknown) date) unknown) (unknown) (no (unknown) (unknown) SEVERITY (units (unkno wn) date) unknown) (unknown) (no (unknown) (unknown) SKIN: Denies (units (u nknown) date) rash, skin unknown) lesions, or other (unknown) (no (unknown) (unknown) SKIN: No rash or (units (unknown) date) erythema of unknown) visible areas (unknown) (no (unknown) (unknown) 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 (unknown) (no (unknown) (unknown) Score 1-3) ##0 (units (unknown) date) unknown) (unknown) (no (unknown) (unknown) Score 1-3) (units (unk nown) date) unknown) (unknown) (no (unknown) (unknown) Seizure-like (units (u nknown) date) activity unknown) (unknown) (no (unknown) (unknown) Shared Decision (units (unknown) date) Making: Discussed unknown) plan patient is comfortable with plan (unknown) (no (unknown) (unknown) Signed By: (units (unk nown) date) unknown) (unknown) (no (unknown) (unknown) Signed (units (unkno wn) date) unknown) (unknown) (no (unknown) (unknown) Smoking Status: (units (unknown) date) Never smoker unknown) (unknown) (no (unknown) (unknown) Social (units (unkno wn) date) Considerations: unknown) None (unknown) (no (unknown) (unknown) Social History (units (unknown) date) (Reviewed 08/14/21 unknown) @ 15:29 by Karissa Garcia [facility]) (unknown) (no (unknown) (unknown) Sodium (137-145) (units (unknown) date) mmol/L unknown) (unknown) (no (unknown) (unknown) Sodium 142 (units (unk nown) date) (137-145) mmol/L unknown) (unknown) (no (unknown) (unknown) Source: patient (units (unknown) date) unknown) (unknown) (no (unknown) (unknown) Spleen:? (units (unkno wn) date) Unremarkable.? ? unknown) (unknown) (no (unknown) (unknown) Grant,Suspension (units (unknown) date) unknown) (unknown) (no (unknown) (unknown) Stand Alone (units (un known) date) Forms: Patient unknown) Portal/API (unknown) (no (unknown) (unknown) Stated complaint: (units (unknown) date) bleeding in stool unknown) (unknown) (no (unknown) (unknown) Stomach and (units (un known) date) Bowel:? Stomach, unknown) small bowel loops, and colon are unremarkable.? (unknown) (no (unknown) (unknown) Stool Occult (units (u nknown) date) Blood Positive unknown) (unknown) (no (unknown) (unknown) Stop: 04/14/22 (units (unknown) date) 12:07 unknown) (unknown) (no (unknown) (unknown) Stroke (units (unkno wn) date) unknown) (unknown) (no (unknown) (unknown) Substance Use (units ( unknown) date) Type: does not use unknown) (unknown) (no (unknown) (unknown) Sulfa (units (unkno wn) date) (Sulfonamide unknown) Allergy Unknown UNKNOWN Verified 04/14/22 11:41 (unknown) (no (unknown) (unknown) Surgical History (units (unknown) date) (Reviewed 08/14/21 unknown) @ 15:29 by Karissa Garcia [facility]) (unknown) (no (unknown) (unknown) Symptoms ##0 (units (u nknown) date) unknown) (unknown) (no (unknown) (unknown) Systane (PF) 1 (units (unknown) date) EACH dropperette unknown) (unknown) (no (unknown) (unknown) TECHNIQUE:? (units (un known) date) unknown) (unknown) (no (unknown) (unknown) THIS (units (unkno wn) date) unknown) (unknown) (no (unknown) (unknown) Temperature 97.4 (units (unknown) date) F L 04/14/22 11:41 unknown) (unknown) (no (unknown) (unknown) Temperature 97.4 (units (unknown) date) F L unknown) (unknown) (no (unknown) (unknown) Temperature (units (un known) date) unknown) (unknown) (no (unknown) (unknown) Thank you for (units ( unknown) date) coming to the [facility] Emergency Department today. As (unknown) (no (unknown) (unknown) This is a (units (unkn own) date) 61-year-old female unknown) presents to the emergency department due to (unknown) (no (unknown) (unknown) Time Seen by (units (u nknown) date) Provider: 04/14/22 unknown) 12:07 (unknown) (no (unknown) (unknown) Total Bilirubin (units (unknown) date) (0.2-1.3) mg/dL unknown) (unknown) (no (unknown) (unknown) Total Bilirubin (units (unknown) date) 0.4 (0.2-1.3) unknown) mg/dL (unknown) (no (unknown) (unknown) Total Protein (units ( unknown) date) (6.3-8.2) g/dL unknown) (unknown) (no (unknown) (unknown) Total Protein 7.5 (units (unknown) date) (6.3-8.2) g/dL unknown) (unknown) (no (unknown) (unknown) Type and Screen (units (unknown) date) Stat unknown) (unknown) (no (unknown) (unknown) Ur Culture (units (unk nown) date) Indicated? Cult unknown) not indicated (unknown) (no (unknown) (unknown) Ur Culture (units (unk nown) date) Indicated? unknown) (unknown) (no (unknown) (unknown) Ur Squamous Epith (units (unknown) date) Cells (0-5/HPF) unknown) (unknown) (no (unknown) (unknown) Ur Squamous Epith (units (unknown) date) Cells 5-10 /hpf H unknown) (0-5/HPF) (unknown) (no (unknown) (unknown) Ur Transition (units ( unknown) date) Epith Cell unknown) (0-5/HPF) (unknown) (no (unknown) (unknown) Ur Transition (units ( unknown) date) Epith Cell 1-5/hpf unknown) (0-5/HPF) (unknown) (no (unknown) (unknown) Urine Bacteria (units (unknown) date) (None) unknown) (unknown) (no (unknown) (unknown) Urine Bacteria (units (unknown) date) Few (2-10) H unknown) (None) (unknown) (no (unknown) (unknown) Urine Dip (units (unkn own) date) unknown) (unknown) (no (unknown) (unknown) Urine Microscopic (units (unknown) date) Stat unknown) (unknown) (no (unknown) (unknown) Urine Mucus (units (un known) date) (Negative) unknown) (unknown) (no (unknown) (unknown) Urine Mucus 1+ H (units (unknown) date) (Negative) unknown) (unknown) (no (unknown) (unknown) Urine RBC (units (unkn own) date) (0-5/HPF) unknown) (unknown) (no (unknown) (unknown) Urine RBC (units (unkn own) date) 10-30/hpf H unknown) (0-5/HPF) (unknown) (no (unknown) (unknown) Urine Specific (units (unknown) date) [place] 1.030 unknown) (unknown) (no (unknown) (unknown) Urine WBC (units (unkn own) date) (0-5/HPF) unknown) (unknown) (no (unknown) (unknown) Urine WBC 1-5/hpf (units (unknown) date) (0-5/HPF) unknown) (unknown) (no (unknown) (unknown) Ventral Wall: ? (units (unknown) date) No hernia.? unknown) (unknown) (no (unknown) (unknown) Vessels:? Aorta (units (unknown) date) and inferior vena unknown) cava are normal in size.? (unknown) (no (unknown) (unknown) Vital Signs - 8 (units (unknown) date) hr unknown) (unknown) (no (unknown) (unknown) Vital Signs (units (un known) date) unknown) (unknown) (no (unknown) (unknown) Vital signs: (units (u nknown) date) unknown) (unknown) (no (unknown) (unknown) WBC (4.5-11.0) (units (unknown) date) X103/uL unknown) (unknown) (no (unknown) (unknown) WBC 8.4 (units (unkno wn) date) (4.5-11.0) X103/uL unknown) (unknown) (no (unknown) (unknown) Walker: Front (units ( unknown) date) Wheel ##1 10/30/16 unknown) (unknown) (no (unknown) (unknown) Walker: Front (units ( unknown) date) Wheel unknown) (unknown) (no (unknown) (unknown) [CRANBERRY] 1 tab (units (unknown) date) PO QDAY ##0 unknown) 09/27/16 10/04/19 (unknown) (no (unknown) (unknown) [CRANBERRY] (units (un known) date) unknown) (unknown) (no (unknown) (unknown) [Embedded Image (units (unknown) date) Not Available] unknown) (unknown) (no (unknown) (unknown) [NITROFURANTOIN] (units (unknown) date) REACTION unknown) (unknown) (no (unknown) (unknown) [RED RICE YEAST] (units (unknown) date) 600 mg PO BID ##0 unknown) 03/12/10 10/04/19 (unknown) (no (unknown) (unknown) [RED RICE YEAST] (units (unknown) date) unknown) (unknown) (no (unknown) (unknown) [SULFA (units (unkno wn) date) (SULFONAMIDE unknown) (unknown) (no (unknown) (unknown) abdominal pain, (units (unknown) date) diarrhea, unknown) constipation. (unknown) (no (unknown) (unknown) acetaminophen 300 (units (unknown) date) mg-codeine 30 mg 1 unknown) tab PO Q4-6H PRN pain #14 tabs 09/21/17 (unknown) (no (unknown) (unknown) acetaminophen-cod (units (unknown) date) eine unknown) [Tylenol-Codeine #3] 300-30 mg tablet (unknown) (no (unknown) (unknown) adhesive tape (units ( unknown) date) [ADHESIVE TAPE] unknown) Allergy Severe 'I GOT Verified 04/14/22 11:41 (unknown) (no (unknown) (unknown) adjustment (units (unk nown) date) unknown) (unknown) (no (unknown) (unknown) aerosol inhaler (units (unknown) date) (Proventil HFA) unknown) (unknown) (no (unknown) (unknown) albuterol sulfate (units (unknown) date) 90 mcg/actuation 2 unknown) puff INH PRN PRN Dyspnea ##0 03/12/10 (unknown) (no (unknown) (unknown) albuterol sulfate (units (unknown) date) [Proventil HFA] 90 unknown) MCG/PUFF HFA aerosol inhaler (unknown) (no (unknown) (unknown) alcohol intake (units (unknown) date) frequency: 0-2 unknown) drinks per day (unknown) (no (unknown) (unknown) alcohol intake: (units (unknown) date) never unknown) (unknown) (no (unknown) (unknown) and no evidence (units (unknown) date) of any kind unknown) anemia. Patient will be treated for internal (unknown) (no (unknown) (unknown) aspirin [ASPIRIN] (units (unknown) date) Allergy Unknown unknown) UNKNOWN Verified 04/14/22 11:41 (unknown) (no (unknown) (unknown) bilaterally (units (un known) date) ranging from 1-3 unknown) mm.? No interval change. (unknown) (no (unknown) (unknown) blister (units (unkno wn) date) unknown) (unknown) (no (unknown) (unknown) blood surrounding (units (unknown) date) the rectum, unknown) positive stool guaiac test (unknown) (no (unknown) (unknown) cholecalciferol (units (unknown) date) (vitamin D3) 250 unknown) 5,000 unit PO QDAY ##0 03/12/10 10/04/19 (unknown) (no (unknown) (unknown) cholecalciferol (units (unknown) date) (vitamin D3) 250 unknown) mcg (10,000 unit) Tablet (unknown) (no (unknown) (unknown) consider (units (unkno wn) date) purchasing an unknown) evwy-mbo-cvqgxmp fiber supplement as this may help with (unknown) (no (unknown) (unknown) diclofenac sodium (units (unknown) date) 3 % gel unknown) (unknown) (no (unknown) (unknown) diclofenac sodium (units (unknown) date) 3 % topical gel 1 unknown) applic topical BID PRN knee 08/14/21 (unknown) (no (unknown) (unknown) discussed your CT (units (unknown) date) abdomen and pelvis unknown) showed no concerning findings. I suspect (unknown) (no (unknown) (unknown) dizziness. (units (unk nown) date) unknown) (unknown) (no (unknown) (unknown) docusate sodium (units (unknown) date) 250 mg capsule 500 unknown) mg PO PRN PRN Constipation ##0 03/12/10 (unknown) (no (unknown) (unknown) docusate sodium (units (unknown) date) [DOK] 250 MG unknown) capsule (unknown) (no (unknown) (unknown) due to suspected (units (unknown) date) lower GI bleed due unknown) to suspected internal hemorrhoids. On exam (unknown) (no (unknown) (unknown) dysuria, urinary (units (unknown) date) frequency, or unknown) urgency. (unknown) (no (unknown) (unknown) ectopy. No ST (units ( unknown) date) segmental unknown) elevation or depression. No T wave inversions (unknown) (no (unknown) (unknown) findings that (units ( unknown) date) would explain the unknown) cause of the rectal bleeding. CBC unremarkable (unknown) (no (unknown) (unknown) fluticasone (units (un known) date) propionate 50 2 unknown) spray intranasal DAILY PRN 09/17/19 10/04/19 (unknown) (no (unknown) (unknown) fluticasone (units (un known) date) propionate unknown) [Flonase Allergy Relief] 50 mcg/actuation (unknown) (no (unknown) (unknown) for further (units (un known) date) evaluation and unknown) possible colonoscopy. (unknown) (no (unknown) (unknown) from the (units (unkno wn) date) unknown) (unknown) (no (unknown) (unknown) gabapentin 400 mg (units (unknown) date) capsule 3,200 mg unknown) PO QDAY ##0 09/27/16 10/04/19 (unknown) (no (unknown) (unknown) gabapentin (units (unk nown) date) [Neurontin] 400 MG unknown) capsule (unknown) (no (unknown) (unknown) guaiac test. CT (units (unknown) date) abdomen and pelvis unknown) ordered with contrast which showed no acute (unknown) (no (unknown) (unknown) hemorrhoids as (units (unknown) date) well as unknown) recommendations to follow up with the primary care (unknown) (no (unknown) (unknown) hemorrhoids, (units (u nknown) date) upper GI bleed, unknown) lower GI bleed, external hemorrhoids (unknown) (no (unknown) (unknown) her abdomen or (units (unknown) date) rectum but she unknown) states that she ?always does not feel pain down (unknown) (no (unknown) (unknown) history of NSAID (units (unknown) date) use. Also reports unknown) a foul-smelling urine but denies any (unknown) (no (unknown) (unknown) household (units (unkn own) date) members: caregiver unknown) and none (unknown) (no (unknown) (unknown) hydrocodone 5 (units ( unknown) date) mg-acetaminophen unknown) 325 1 tab PO BID PRN pain #14 tabs 08/14/21 (unknown) (no (unknown) (unknown) hydrocodone-aceta (units (unknown) date) minophen 5-325 mg unknown) tablet (unknown) (no (unknown) (unknown) ibuprofen 200 MG (units (unknown) date) capsule unknown) (unknown) (no (unknown) (unknown) ibuprofen 200 mg (units (unknown) date) capsule 400 mg PO unknown) PRN PRN Pain (Scale 09/27/16 10/04/19 (unknown) (no (unknown) (unknown) icterus. No (units (un known) date) injection or unknown) drainage. (unknown) (no (unknown) (unknown) loratadine 10 MG (units (unknown) date) tablet unknown) (unknown) (no (unknown) (unknown) loratadine 10 mg (units (unknown) date) tablet 10 mg PO unknown) QDAYP PRN Allergy 09/27/16 10/04/19 (unknown) (no (unknown) (unknown) lung bases to the (units (unknown) date) pubic symphysis.? unknown) Coronal and sagittal reformats were (unknown) (no (unknown) (unknown) marital status: (units (unknown) date) unknown unknown) (unknown) (no (unknown) (unknown) mcg (10,000 unit) (units (unknown) date) tablet unknown) (unknown) (no (unknown) (unknown) mcg/actuation (units ( unknown) date) nasal Allergic unknown) Symptoms (unknown) (no (unknown) (unknown) mg tablet (units (unkn own) date) unknown) (unknown) (no (unknown) (unknown) nitrofurantoin (units (unknown) date) Allergy Unknown unknown) UNKNOWN Verified 04/14/22 11:41 (unknown) (no (unknown) (unknown) noted (units (unkno wn) date) unknown) (unknown) (no (unknown) (unknown) of mA and/or kV (units (unknown) date) according to unknown) patient size. (unknown) (no (unknown) (unknown) omeprazole 20 mg (units (unknown) date) capsule,delayed 20 unknown) mg PO DAILY #30 caps 10/04/19 (unknown) (no (unknown) (unknown) omeprazole 20 mg (units (unknown) date) capsule,delayed unknown) release(DR/EC) (unknown) (no (unknown) (unknown) or from her (units (un known) date) urine. Patient unknown) states that she is not experienced any pain around (unknown) (no (unknown) (unknown) oxycodone 5 MG (units (unknown) date) tablet unknown) (unknown) (no (unknown) (unknown) oxycodone 5 mg (units (unknown) date) tablet 1 - 2 tab unknown) PO Q3HP PRN Pain (Scale 09/17/19 10/04/19 (unknown) (no (unknown) (unknown) oxycodone 5 mg (units (unknown) date) tablet 5 mg PO Q8H unknown) PRN pain #7 tabs 04/04/20 (unknown) (no (unknown) (unknown) oxycodone 5 mg (units (unknown) date) tablet unknown) (unknown) (no (unknown) (unknown) pain, acute (units (un known) date) shortness of unknown) breath, or any other concerning signs or symptoms. (unknown) (no (unknown) (unknown) pain, ankle pain (units (unknown) date) #100 grams unknown) (unknown) (no (unknown) (unknown) patient had (units (un known) date) bright red blood unknown) surrounding the rectum as well as a positive stool (unknown) (no (unknown) (unknown) peg 400-propylene (units (unknown) date) glycol (PF) 0.4 2 unknown) drp OPHTH QDAY ##0 09/27/16 10/04/19 (unknown) (no (unknown) (unknown) performed.? For (units (unknown) date) unknown) (unknown) (no (unknown) (unknown) provider for (units (u nknown) date) further unknown) evaluation. (unknown) (no (unknown) (unknown) provider for (units (u nknown) date) possible unknown) colonoscopy. (unknown) (no (unknown) (unknown) radiation dose (units (unknown) date) reduction, the unknown) following was used:? automated exposure control, (unknown) (no (unknown) (unknown) rales, or (units (unkn own) date) rhonchi. unknown) (unknown) (no (unknown) (unknown) release (units (unkno wn) date) unknown) (unknown) (no (unknown) (unknown) removal of (units (unk nown) date) previous anterior unknown) mass.? Previous fat containing lesions bilaterally (unknown) (no (unknown) (unknown) reported blood in (units (unknown) date) her stool onset unknown) this morning while taking a shower. She (unknown) (no (unknown) (unknown) seizures, (units (unkn own) date) incoordination. 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 Nonobstructing stones are (unknown) (no (unknown) (unknown) tablet (units (unkno wn) date) (Tylenol-Codeine unknown) #3) (unknown) (no (unknown) (unknown) the cause of your (units (unknown) date) rectal bleeding is unknown) due to internal hemorrhoids. Please (unknown) (no (unknown) (unknown) the hemorrhoids. (units (unknown) date) I also recommended unknown) follow up with your primary care provider (unknown) (no (unknown) (unknown) the past (units (unkno wn) date) unknown) (unknown) (no (unknown) (unknown) there?. Patient (units (unknown) date) denies any unknown) significant abdominal pain, nausea, vomiting, chest (unknown) (no (unknown) (unknown) tonsillar (units (unkn own) date) hypertrophy or unknown) exudate. Airway patent. (unknown) (no (unknown) (unknown) topiramate 50 mg (units (unknown) date) tablet (Topamax) unknown) 200 mg PO BID 09/17/19 10/04/19 (unknown) (no (unknown) (unknown) topiramate (units (unk nown) date) [Topamax] 50 MG unknown) tablet (unknown) (no (unknown) (unknown) unremarkable. (units ( unknown) date) BUN/Creatinine unknown) ration WNL, noncerning for upper GI bleed. (unknown) (no (unknown) (unknown) with (units (unkno wn) date) unknown) Result panel 92 (unknown) (no (unknown) (unknown) (no value) (units (unk nown) date) unknown) (unknown) (no (unknown) (unknown) %-0.3 % eye drops (units (unknown) date) in a dropperette unknown) (unknown) (no (unknown) (unknown) <Electronically (units (unknown) date) signed by Joel unknown) P.A-C Alessandro> (unknown) (no (unknown) (unknown) (DOK) (units (unkno wn) date) unknown) (unknown) (no (unknown) (unknown) (Neurontin) (units (un known) date) unknown) (unknown) (no (unknown) (unknown) (Systane (PF)) (units (unknown) date) unknown) (unknown) (no (unknown) (unknown) * Clinical (units (unk nown) date) Decision unknown) Rules/Scores evaluated: None (unknown) (no (unknown) (unknown) * Independent (units ( unknown) date) discussions with: unknown) None (unknown) (no (unknown) (unknown) * My imgaing (units (u nknown) date) interpretation: CT unknown) results as above. No acute processes found. (unknown) (no (unknown) (unknown) * My lab (units (unkno wn) date) interpretation: unknown) CBC unremarkable. No evidence of anemia. CMP (unknown) (no (unknown) (unknown) * Prior records (units (unknown) date) reviewed: Patient unknown) has not been here for similar complaints in (unknown) (no (unknown) (unknown) * differential (units (unknown) date) diagnosis includes unknown) but not limited to diverticulosis, internal (unknown) (no (unknown) (unknown) [id number] (units (unkn own) date) unknown) (unknown) (no (unknown) (unknown) 04/14/22 04/14/22 (units (unknown) date) 04/14/22 unknown) Range/Units (unknown) (no (unknown) (unknown) 04/14/22 04/14/22 (units (unknown) date) Range/Units unknown) (unknown) (no (unknown) (unknown) 04/14/22 12:10 (units (unknown) date) unknown) (unknown) (no (unknown) (unknown) 04/14/22 12:25 (units (unknown) date) unknown) (unknown) (no (unknown) (unknown) 04/14/22 13:04 (units (unknown) date) unknown) (unknown) (no (unknown) (unknown) 04/14/22 13:10 (units (unknown) date) unknown) (unknown) (no (unknown) (unknown) 04/14/22 1955 (units ( unknown) date) unknown) (unknown) (no (unknown) (unknown) 04/14/22 (units (unkno wn) date) unknown) (unknown) (no (unknown) (unknown) 10/04/19 (units (unkno wn) date) unknown) (unknown) (no (unknown) (unknown) 1 - 2 tab PO Q3HP (units (unknown) date) PRN (Reason: Pain unknown) (Scale Score 1-3)) (unknown) (no (unknown) (unknown) 1 applic topical (units (unknown) date) BID PRN (Reason: unknown) knee pain, ankle pain) Qty: 100 0RF (unknown) (no (unknown) (unknown) 1 tab PO BID PRN (units (unknown) date) (Reason: pain) unknown) Qty: 14 0RF (unknown) (no (unknown) (unknown) 1 tab PO Q4-6H (units (unknown) date) PRN (Reason: pain) unknown) Qty: 14 0RF (unknown) (no (unknown) (unknown) 1 tab PO QDAY (units ( unknown) date) Qty: 0 unknown) (unknown) (no (unknown) (unknown) 10 mg PO QDAYP (units (unknown) date) PRN (Reason: unknown) Allergy Symptoms) Qty: 0 (unknown) (no (unknown) (unknown) 12 point review (units (unknown) date) of systems is unknown) negative except for those stated above (unknown) (no (unknown) (unknown) [address] [place] [address] (units (unknown) date) unknown) (unknown) (no (unknown) (unknown) 12:01 04/14/22 (units (unknown) date) unknown) (unknown) (no (unknown) (unknown) 12:10 12:25 12:25 (units (unknown) date) unknown) (unknown) (no (unknown) (unknown) 12:25 12:25 (units (un known) date) unknown) (unknown) (no (unknown) (unknown) 12:30 04/14/22 (units (unknown) date) unknown) (unknown) (no (unknown) (unknown) 12:31 04/14/22 (units (unknown) date) unknown) (unknown) (no (unknown) (unknown) 12:31 (units (unkno wn) date) unknown) (unknown) (no (unknown) (unknown) 1304: EKG is (units (u nknown) date) normal sinus unknown) rhythm rate 63 and free of any signs of ischemia or (unknown) (no (unknown) (unknown) 13:00 04/14/22 (units (unknown) date) unknown) (unknown) (no (unknown) (unknown) 13:00 (units (unkno wn) date) unknown) (unknown) (no (unknown) (unknown) 13:30 (units (unkno wn) date) unknown) (unknown) (no (unknown) (unknown) 2 drp OPHTH QDAY (units (unknown) date) Qty: 0 unknown) (unknown) (no (unknown) (unknown) 2 puff INH PRN (units (unknown) date) PRN (Reason: unknown) Dyspnea) Qty: 0 (unknown) (no (unknown) (unknown) 2 spray (units (unkno wn) date) INTRANASAL DAILY unknown) PRN (Reason: Allergic Symptoms) (unknown) (no (unknown) (unknown) 2 tabs in am, 3 (units (unknown) date) tams at noon, 2 unknown) tabs evening (unknown) (no (unknown) (unknown) 20 mg PO DAILY (units (unknown) date) Qty: 30 0RF unknown) (unknown) (no (unknown) (unknown) 200 mg PO BID (units ( unknown) date) unknown) (unknown) (no (unknown) (unknown) 3,200 mg PO QDAY (units (unknown) date) Qty: 0 unknown) (unknown) (no (unknown) (unknown) 400 mg PO PRN PRN (units (unknown) date) (Reason: Pain unknown) (Scale Score 1-3)) Qty: 0 (unknown) (no (unknown) (unknown) 5 mg PO Q8H PRN (units (unknown) date) (Reason: pain) unknown) Qty: 7 0RF (unknown) (no (unknown) (unknown) 5,000 unit PO (units ( unknown) date) QDAY Qty: 0 unknown) (unknown) (no (unknown) (unknown) 500 mg PO PRN PRN (units (unknown) date) (Reason: unknown) Constipation) Qty: 0 (unknown) (no (unknown) (unknown) 600 mg PO BID (units ( unknown) date) Qty: 0 unknown) (unknown) (no (unknown) (unknown) ? (units (unkno wn) date) unknown) (unknown) (no (unknown) (unknown) ABDOMEN: (units (unkno wn) date) unknown) (unknown) (no (unknown) (unknown) ALLERGY (units (unkno wn) date) unknown) (unknown) (no (unknown) (unknown) [id number] (units (unknown) date) DASE Allergy unknown) Unknown PT NOT Uncoded 04/14/22 11:41 (unknown) (no (unknown) (unknown) ALT (<35) IU/L (units (unknown) date) unknown) (unknown) (no (unknown) (unknown) ALT 24 (<35) IU/L (units (unknown) date) unknown) (unknown) (no (unknown) (unknown) ANTIBIOTICS)] (units ( unknown) date) unknown) (unknown) (no (unknown) (unknown) APTT (26-36) (units (u nknown) date) SECONDS unknown) (unknown) (no (unknown) (unknown) APTT 33 (26-36) (units (unknown) date) SECONDS unknown) (unknown) (no (unknown) (unknown) AST (14-36) IU/L (units (unknown) date) unknown) (unknown) (no (unknown) (unknown) AST 20 (14-36) (units (unknown) date) IU/L unknown) (unknown) (no (unknown) (unknown) AWARE OF (units (unkno wn) date) unknown) (unknown) (no (unknown) (unknown) Abdominal Nodes:? (units (unknown) date) No retroperitoneal unknown) or mesenteric adenopathy by size criteria.? (unknown) (no (unknown) (unknown) Accession Number: (units (unknown) date) [id number] ?? unknown) (unknown) (no (unknown) (unknown) Acct:[id number] (units (unknown) date) unknown) (unknown) (no (unknown) (unknown) Activity (units (unkno wn) date) Restrictions/Addit unknown) ional Instructions: (unknown) (no (unknown) (unknown) Adrenal Glands:? (units (unknown) date) Unremarkable.? ? unknown) (unknown) (no (unknown) (unknown) After the (units (unkn own) date) administration of unknown) oral and IV contrast, axial sections were acquired (unknown) (no (unknown) (unknown) Age/Sex: 61 / F (units (unknown) date) unknown) (unknown) (no (unknown) (unknown) Albumin (3.5-5.0) (units (unknown) date) g/dL unknown) (unknown) (no (unknown) (unknown) Albumin 4.1 (units (un known) date) (3.5-5.0) g/dL unknown) (unknown) (no (unknown) (unknown) Albumin/Globulin (units (unknown) date) Ratio (1.0-2.8) unknown) (unknown) (no (unknown) (unknown) Albumin/Globulin (units (unknown) date) Ratio 1.2 unknown) (1.0-2.8) (unknown) (no (unknown) (unknown) Alkaline (units (unkno wn) date) Phosphatase unknown) (38-126) U/L (unknown) (no (unknown) (unknown) Alkaline (units (unkno wn) date) Phosphatase 95 unknown) (38-126) U/L (unknown) (no (unknown) (unknown) Allergies (units (unkn own) date) unknown) (unknown) (no (unknown) (unknown) Allergy/AdvReac (units (unknown) date) Type Severity unknown) Reaction Status Date / Time (unknown) (no (unknown) (unknown) [place], [place] (units ( unknown) date) [id number] unknown) (unknown) (no (unknown) (unknown) Antibiotics) PER (units (unknown) date) PT unknown) (unknown) (no (unknown) (unknown) Antibody Screen (units (unknown) date) Negative unknown) (unknown) (no (unknown) (unknown) Antibody Screen (units (unknown) date) unknown) (unknown) (no (unknown) (unknown) Approved by: (units (u nknown) date) Jasmin Zhao M.D. unknown) on 04/14/2022 at 14:35 ? (unknown) (no (unknown) (unknown) Asthma (units (unkno wn) date) unknown) (unknown) (no (unknown) (unknown) BACK: Nontender (units (unknown) date) without deformity unknown) or crepitance. No flank tenderness. (unknown) (no (unknown) (unknown) BUN (7-17) mg/dL (units (unknown) date) unknown) (unknown) (no (unknown) (unknown) BUN 13 (7-17) (units ( unknown) date) mg/dL unknown) (unknown) (no (unknown) (unknown) BUN/Creatinine (units (unknown) date) Ratio (6-22) unknown) (unknown) (no (unknown) (unknown) BUN/Creatinine (units (unknown) date) Ratio 12.7 (6-22) unknown) (unknown) (no (unknown) (unknown) Baso # (Auto) (units ( unknown) date) (0-100) /uL unknown) (unknown) (no (unknown) (unknown) Baso # (Auto) 100 (units (unknown) date) (0-100) /uL unknown) (unknown) (no (unknown) (unknown) Baso % (Auto) (units ( unknown) date) (0-2) % unknown) (unknown) (no (unknown) (unknown) Baso % (Auto) 0.7 (units (unknown) date) (0-2) % unknown) (unknown) (no (unknown) (unknown) Bedside Urine (units ( unknown) date) Bilirubin - unknown) Negative (unknown) (no (unknown) (unknown) Bedside Urine (units ( unknown) date) Glucose Negative unknown) (unknown) (no (unknown) (unknown) Bedside Urine (units ( unknown) date) Ketone - Negative unknown) (unknown) (no (unknown) (unknown) Bedside Urine (units ( unknown) date) Leukocytes - unknown) Negative (unknown) (no (unknown) (unknown) Bedside Urine (units ( unknown) date) Nitrite - Negative unknown) (unknown) (no (unknown) (unknown) Bedside Urine (units ( unknown) date) Occult Blood unknown) (unknown) (no (unknown) (unknown) Bedside Urine (units ( unknown) date) Protein ++ 100 unknown) (unknown) (no (unknown) (unknown) Bedside Urine (units ( unknown) date) Urobilinogen - unknown) Negative (unknown) (no (unknown) (unknown) Bedside Urine pH (units (unknown) date) 6.0 unknown) (unknown) (no (unknown) (unknown) Biliary ducts:? (units (unknown) date) Unremarkable.? ? unknown) (unknown) (no (unknown) (unknown) Bladder:? (units (unkn own) date) Unremarkable.? ? unknown) (unknown) (no (unknown) (unknown) Bleeding internal (units (unknown) date) hemorrhoids unknown) (unknown) (no (unknown) (unknown) Blood Pressure (units (unknown) date) 128/87 04/14/22 unknown) 11:41 (unknown) (no (unknown) (unknown) Blood Pressure (units (unknown) date) 157/84 H unknown) (unknown) (no (unknown) (unknown) Blood Pressure (units (unknown) date) 175/107 H unknown) (unknown) (no (unknown) (unknown) Blood Pressure (units (unknown) date) unknown) (unknown) (no (unknown) (unknown) Blood Type A (units (u nknown) date) Positive unknown) (unknown) (no (unknown) (unknown) Blood Type (units (unk nown) date) unknown) (unknown) (no (unknown) (unknown) Bones:? (units (unkno wn) date) Unremarkable.? ? unknown) (unknown) (no (unknown) (unknown) CARDIOVASCULAR: (units (unknown) date) Denies chest pain, unknown) palpitations, orthopnea, edema, (unknown) (no (unknown) (unknown) CARDIOVASCULAR: (units (unknown) date) Regular rate and unknown) rhythm without murmurs, gallops, or rubs. (unknown) (no (unknown) (unknown) COMPARISON:? (units (un known) date) [facility], unknown) CT, CT ABDOMEN WO/W CON, 09/11/2021, 13:13.? [place] (unknown) (no (unknown) (unknown) CT Scan Report (units (unknown) date) unknown) (unknown) (no (unknown) (unknown) CT abdomen pelvis (units (unknown) date) w con Stat unknown) (unknown) (no (unknown) (unknown) CT scan - (units (unkn own) date) abdomen/pelvis: unknown) (unknown) (no (unknown) (unknown) Calcium (units (unkno wn) date) (8.4-10.2) mg/dL unknown) (unknown) (no (unknown) (unknown) Calcium 8.7 (units (un known) date) (8.4-10.2) mg/dL unknown) (unknown) (no (unknown) (unknown) Carbon Dioxide (units (unknown) date) (22-32) mmol/L unknown) (unknown) (no (unknown) (unknown) Carbon Dioxide 21 (units (unknown) date) L (22-32) mmol/L unknown) (unknown) (no (unknown) (unknown) Chief complaint: (units (unknown) date) GI Bleed unknown) (unknown) (no (unknown) (unknown) Chloride (98-107) (units (unknown) date) mmol/L unknown) (unknown) (no (unknown) (unknown) Chloride 109 H (units (unknown) date) (98-107) mmol/L unknown) (unknown) (no (unknown) (unknown) Clinical (units (unkno wn) date) Impression: unknown) (unknown) (no (unknown) (unknown) Colon cancer (units (u nknown) date) unknown) (unknown) (no (unknown) (unknown) Complete Blood (units (unknown) date) Count AUTO DIFF unknown) Stat (unknown) (no (unknown) (unknown) Comprehensive (units ( unknown) date) Metabolic Panel unknown) Stat (unknown) (no (unknown) (unknown) Course (units (unkno wn) date) unknown) (unknown) (no (unknown) (unknown) Creatinine (units (unk nown) date) (0.52-1.04) mg/dL unknown) (unknown) (no (unknown) (unknown) Creatinine 1.02 (units (unknown) date) (0.52-1.04) mg/dL unknown) (unknown) (no (unknown) (unknown) : 1960 (units (unknown) date) Acct:[id number] unknown) (unknown) (no (unknown) (unknown) : 1960 (units (unknown) date) unknown) (unknown) (no (unknown) (unknown) DOES NOT (units (unkno wn) date) unknown) (unknown) (no (unknown) (unknown) Date of Service: (units (unknown) date) 04/14/22 unknown) (unknown) (no (unknown) (unknown) Departure (units (unkn own) date) unknown) (unknown) (no (unknown) (unknown) Diabetes mellitus (units (unknown) date) unknown) (unknown) (no (unknown) (unknown) Diabetes (units (unkno wn) date) unknown) (unknown) (no (unknown) (unknown) Dictated by: (units (u nknown) date) Jasmin Zhao M.D. unknown) on 04/14/2022 at 14:22 ? ? (unknown) (no (unknown) (unknown) Discharge Plan (units (unknown) date) unknown) (unknown) (no (unknown) (unknown) Discontinued (units (u nknown) date) Medications unknown) (unknown) (no (unknown) (unknown) Disposition: (units (u nknown) date) Discharged to home unknown) (unknown) (no (unknown) (unknown) Documented By: (units (unknown) date) RLS unknown) (unknown) (no (unknown) (unknown) ECG Data (units (unkno wn) date) unknown) (unknown) (no (unknown) (unknown) ED Course: This (units (unknown) date) is a 61-year-old unknown) female presents to the emergency department (unknown) (no (unknown) (unknown) ED Orders (units (unkn own) date) unknown) (unknown) (no (unknown) (unknown) EKG-12 Lead Stat (units (unknown) date) unknown) (unknown) (no (unknown) (unknown) ENT: Nose without (units (unknown) date) bleeding, purulent unknown) drainage. Throat without erythema, (unknown) (no (unknown) (unknown) ER Physician: (units ( unknown) date) Joel Francois P.A-C unknown) (unknown) (no (unknown) (unknown) EXTREMITIES: No (units (unknown) date) edema or joint unknown) tenderness. (unknown) (no (unknown) (unknown) EYES: Pupils (units (u nknown) date) equal round and unknown) reactive. Extraocular motions intact. No scleral (unknown) (no (unknown) (unknown) Emergency Report (units (unknown) date) unknown) (unknown) (no (unknown) (unknown) Eos # (Auto) (units (u nknown) date) (0-450) /uL unknown) (unknown) (no (unknown) (unknown) Eos # (Auto) 100 (units (unknown) date) (0-450) /uL unknown) (unknown) (no (unknown) (unknown) Eos % (Auto) (units (u nknown) date) (2-4) % unknown) (unknown) (no (unknown) (unknown) Eos % (Auto) 1.6 (units (unknown) date) L (2-4) % unknown) (unknown) (no (unknown) (unknown) Esterase (units (unkno wn) date) unknown) (unknown) (no (unknown) (unknown) Estimated GFR > (units (unknown) date) 60 (>60) mL/min unknown) (unknown) (no (unknown) (unknown) Estimated GFR (units ( unknown) date) (>60) mL/min unknown) (unknown) (no (unknown) (unknown) Exam Narrative: (units (unknown) date) unknown) (unknown) (no (unknown) (unknown) Exam (units (unkno wn) date) unknown) (unknown) (no (unknown) (unknown) FINDINGS:? (units (unk nown) date) unknown) (unknown) (no (unknown) (unknown) Family History (units (unknown) date) (Reviewed 08/14/21 unknown) @ 15:29 by PAZ Bolton) (unknown) (no (unknown) (unknown) Father Diabetes (units (unknown) date) mellitus unknown) (unknown) (no (unknown) (unknown) Edison Jones (units (unk n) date) MD Prabhu unknown) [Primary Care Provider] (unknown) (no (unknown) (unknown) GASTROINTESTINAL: (units (unknown) date) Reports bright red unknown) blood in stool, Denies nausea, vomiting, (unknown) (no (unknown) (unknown) GASTROINTESTINAL: (units (unknown) date) Suprapubic unknown) abdominal tenderness to palpation. Bright red (unknown) (no (unknown) (unknown) GENERAL: Denies (units (unknown) date) chills, fatigue, unknown) malaise, fever, sweats. (unknown) (no (unknown) (unknown) GENERAL: (units (unkno wn) date) Well-developed unknown) patient, in mild distress. (unknown) (no (unknown) (unknown) : Denies (units (unk nown) date) dysuria, unknown) frequency, incontinence, hematuria, urinary retention. (unknown) (no (unknown) (unknown) Gallbladder:? (units ( unknown) date) Removed. unknown) (unknown) (no (unknown) (unknown) Gallstones (units (unk nown) date) unknown) (unknown) (no (unknown) (unknown) General (units (unkno wn) date) unknown) (unknown) (no (unknown) (unknown) Globulin (units (unkno wn) date) (1.7-4.1) g/dL unknown) (unknown) (no (unknown) (unknown) Globulin 3.4 (units (u nknown) date) (1.7-4.1) g/dL unknown) (unknown) (no (unknown) (unknown) Glucose (70-100) (units (unknown) date) mg/dL unknown) (unknown) (no (unknown) (unknown) Glucose 120 H (units ( unknown) date) (70-100) mg/dL unknown) (unknown) (no (unknown) (unknown) HEAD: Atraumatic. (units (unknown) date) Normocephalic. unknown) (unknown) (no (unknown) (unknown) HEENT: Denies (units ( unknown) date) sinus pain, ear unknown) pain, sore throat, difficulty swallowing, (unknown) (no (unknown) (unknown) HPI - GI Bleed (units (unknown) date) unknown) (unknown) (no (unknown) (unknown) HPI Narrative: (units (unknown) date) unknown) (unknown) (no (unknown) (unknown) Hct (36-46) % (units ( unknown) date) unknown) (unknown) (no (unknown) (unknown) Hct 40.4 (36-46) (units (unknown) date) % unknown) (unknown) (no (unknown) (unknown) Heart disease (units ( unknown) date) unknown) (unknown) (no (unknown) (unknown) Heart:? No (units (unk nown) date) significant unknown) findings. (unknown) (no (unknown) (unknown) Hepatomegaly with (units (unknown) date) steatosis. unknown) (unknown) (no (unknown) (unknown) Hgb (12.0-16.0) (units (unknown) date) g/dL unknown) (unknown) (no (unknown) (unknown) Hgb 13.7 (units (unkno wn) date) (12.0-16.0) g/dL unknown) (unknown) (no (unknown) (unknown) History of (units (unk nown) date) Present Illness unknown) (unknown) (no (unknown) (unknown) History of back (units (unknown) date) surgery unknown) (unknown) (no (unknown) (unknown) History of total (units (unknown) date) knee arthroplasty unknown) (unknown) (no (unknown) (unknown) Home Medications (units (unknown) date) unknown) (unknown) (no (unknown) (unknown) Hospital, CT, CT (units (unknown) date) ABDOMEN PELVIS W unknown) JOÃO, 04/04/2020, 11:35. (unknown) (no (unknown) (unknown) Hx of (units (unkno wn) date) cholecystectomy unknown) (unknown) (no (unknown) (unknown) Hx of knee (units (unk nown) date) surgery unknown) (unknown) (no (unknown) (unknown) Hx of neck (units (unk nown) date) surgery unknown) (unknown) (no (unknown) (unknown) Hx of shoulder (units (unknown) date) surgery unknown) (unknown) (no (unknown) (unknown) Hyaline Casts (units ( unknown) date) (None) unknown) (unknown) (no (unknown) (unknown) Hyaline Casts (units ( unknown) date) 1-5/lpf (None) unknown) (unknown) (no (unknown) (unknown) I hope you feel (units (unknown) date) better soon. unknown) (unknown) (no (unknown) (unknown) IMPRESSION:? (units (u nknown) date) unknown) (unknown) (no (unknown) (unknown) INDICATIONS:? (units ( unknown) date) Hematochezia and unknown) suprapubic TTP (unknown) (no (unknown) (unknown) INR (0.9-1.3) (units ( unknown) date) unknown) (unknown) (no (unknown) (unknown) INR 1.1 (0.9-1.3) (units (unknown) date) unknown) (unknown) (no (unknown) (unknown) Image quality:? (units (unknown) date) Excellent.? unknown) (unknown) (no (unknown) (unknown) Imaging Data (units (u nknown) date) unknown) (unknown) (no (unknown) (unknown) Initial Vital (units ( unknown) date) Signs unknown) (unknown) (no (unknown) (unknown) Initial Vital (units ( unknown) date) Signs: unknown) (unknown) (no (unknown) (unknown) Instructions: DI (units (unknown) date) for Hemorrhoids unknown) (unknown) (no (unknown) (unknown) Interpretation: (units (unknown) date) unknown) (unknown) (no (unknown) (unknown) [facility] (units (unknown) date) [address] unknown) [place] [address] (unknown) (no (unknown) (unknown) [facility] (units (unknown) date) unknown) (unknown) (no (unknown) (unknown) Kidney malignancy (units (unknown) date) unknown) (unknown) (no (unknown) (unknown) Kidneys and (units (un known) date) Ureters:? unknown) Postsurgical changes are present within the left kidney (unknown) (no (unknown) (unknown) Lab Data (units (unkno wn) date) unknown) (unknown) (no (unknown) (unknown) Lab Results (units (un known) date) unknown) (unknown) (no (unknown) (unknown) Labs: (units (unkno wn) date) unknown) (unknown) (no (unknown) (unknown) Last Admin: (units (un known) date) 04/14/22 12:51 unknown) Dose: Not Given (unknown) (no (unknown) (unknown) Liver:? Liver is (units (unknown) date) enlarged measuring unknown) 20.4 cm with steatosis..? ? (unknown) (no (unknown) (unknown) Loc: ED (units (unkno wn) date) unknown) (unknown) (no (unknown) (unknown) Lung bases:? (units (u nknown) date) Unremarkable.? ? unknown) (unknown) (no (unknown) (unknown) Lymph # (Auto) (units (unknown) date) ([phone]) /uL unknown) (unknown) (no (unknown) (unknown) Lymph # (Auto) (units (unknown) date) 1900 ([phone]) unknown) /uL (unknown) (no (unknown) (unknown) Lymph % (Auto) (units (unknown) date) (25-40) % unknown) (unknown) (no (unknown) (unknown) Lymph % (Auto) (units (unknown) date) 22.7 L (25-40) % unknown) (unknown) (no (unknown) (unknown) MCH (26-34) PG (units (unknown) date) unknown) (unknown) (no (unknown) (unknown) MCH 31.8 (26-34) (units (unknown) date) PG unknown) (unknown) (no (unknown) (unknown) MCHC (30-36) % (units (unknown) date) unknown) (unknown) (no (unknown) (unknown) MCHC 33.9 (30-36) (units (unknown) date) % unknown) (unknown) (no (unknown) (unknown) MCV (80-100) fL (units (unknown) date) unknown) (unknown) (no (unknown) (unknown) MCV 93.9 (80-100) (units (unknown) date) fL unknown) (unknown) (no (unknown) (unknown) MDM - GI Bleed (units (unknown) date) unknown) (unknown) (no (unknown) (unknown) MDM Narrative (units ( unknown) date) unknown) (unknown) (no (unknown) (unknown) MDM (units (unkno wn) date) unknown) (unknown) (no (unknown) (unknown) MR#: [id number] (units (unknown) date) unknown) (unknown) (no (unknown) (unknown) MUSCULOSKELETAL: (units (unknown) date) denies weakness, unknown) joint pain, or bony pain (unknown) (no (unknown) (unknown) Medical History (units (unknown) date) (Updated 04/14/22 unknown) @ 15:12 by Joel Francois PA-C) (unknown) (no (unknown) (unknown) Medical decision (units (unknown) date) making narrative: unknown) (unknown) (no (unknown) (unknown) Medication (units (unk nown) date) Instructions unknown) Recorded Confirmed (unknown) (no (unknown) (unknown) Medication (units (unk nown) date) Instructions unknown) Recorded (unknown) (no (unknown) (unknown) Miscellaneous: No (units (unknown) date) inguinal hernias unknown) are seen. ? ? (unknown) (no (unknown) (unknown) Mode of arrival: (units (unknown) date) Ambulatory unknown) (unknown) (no (unknown) (unknown) [place] # (Auto) (units ( unknown) date) (0-900) /uL unknown) (unknown) (no (unknown) (unknown) [place] # (Auto) 500 (units (unknown) date) (0-900) /uL unknown) (unknown) (no (unknown) (unknown) [place] % (Auto) (units ( unknown) date) (3-14) % unknown) (unknown) (no (unknown) (unknown) [place] % (Auto) 6.3 (units (unknown) date) (3-14) % unknown) (unknown) (no (unknown) (unknown) Mother (units (unkno wn) date) Hypertension unknown) (unknown) (no (unknown) (unknown) NECK: Trachea (units ( unknown) date) midline. Non unknown) tender (unknown) (no (unknown) (unknown) NEURO: AOx3. (units (u nknown) date) unknown) (unknown) (no (unknown) (unknown) NEUROLOGIC: (units (un known) date) Denies weakness, unknown) headache, numbness, change in speech, confusion, (unknown) (no (unknown) (unknown) Narrative (units (unkn own) date) unknown) (unknown) (no (unknown) (unknown) Narrative: (units (unk nown) date) unknown) (unknown) (no (unknown) (unknown) Neut # (Auto) (units ( unknown) date) (3520-0154) /uL unknown) (unknown) (no (unknown) (unknown) Neut # (Auto) (units ( unknown) date) 5800 (1979-3832) unknown) /uL (unknown) (no (unknown) (unknown) Neut % (Auto) (units ( unknown) date) (50-75) % unknown) (unknown) (no (unknown) (unknown) Neut % (Auto) (units ( unknown) date) 68.7 (50-75) % unknown) (unknown) (no (unknown) (unknown) No Action (units (unkn own) date) unknown) (unknown) (no (unknown) (unknown) No acute (units (unkno wn) date) intra-abdominal or unknown) pelvic process. (unknown) (no (unknown) (unknown) No evidence of (units (unknown) date) diverticulosis. unknown) Recommend she follow up with primary care (unknown) (no (unknown) (unknown) Obesity (units (unkno wn) date) unknown) (unknown) (no (unknown) (unknown) Ondansetron HCl (units (unknown) date) (Ondansetron 4 Mg unknown) Odt) 4 mg SL NOW PRN (unknown) (no (unknown) (unknown) Ondansetron HCl (units (unknown) date) (Ondansetron 4 unknown) Mg/2 Ml Inj) 4 mg IV NOW PRN (unknown) (no (unknown) (unknown) Ordered: (units (unkno wn) date) unknown) (unknown) (no (unknown) (unknown) Ordering (units (unkno wn) date) Provider: unknown) Joel Francois P.A-C (unknown) (no (unknown) (unknown) Orders (units (unkno wn) date) unknown) (unknown) (no (unknown) (unknown) Oxygen Delivery (units (unknown) date) Method Room Air unknown) 04/14/22 11:41 (unknown) (no (unknown) (unknown) Oxygen Delivery (units (unknown) date) Method Room Air unknown) (unknown) (no (unknown) (unknown) Oxygen Delivery (units (unknown) date) Method unknown) (unknown) (no (unknown) (unknown) PELVIS: (units (unkno wn) date) unknown) (unknown) (no (unknown) (unknown) PER PT (units (unkno wn) date) unknown) (unknown) (no (unknown) (unknown) PRN Reason: (units (un known) date) Nausea And unknown) Vomiting (unknown) (no (unknown) (unknown) PROCEDURE:? CT (units (unknown) date) ABDOMEN PELVIS W unknown) CON (unknown) (no (unknown) (unknown) PSYCHIATRIC: No (units (unknown) date) concerning unknown) psychosocial issues. (unknown) (no (unknown) (unknown) PT (10.1-12.7) (units (unknown) date) SECONDS unknown) (unknown) (no (unknown) (unknown) PT 12.1 (units (unkno wn) date) (10.1-12.7) unknown) SECONDS (unknown) (no (unknown) (unknown) Pancreas:? (units (unk nown) date) Unremarkable.? ? 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 No unknown) evidence of recurrent disease. (unknown) (no (unknown) (unknown) Patient (units (unkno wn) date) Disposition: Home unknown) (unknown) (no (unknown) (unknown) Patient History (units (unknown) date) unknown) (unknown) (no (unknown) (unknown) Patient's (units (unkn own) date) daughter describes unknown) the blood as bright red in color. No significant (unknown) (no (unknown) (unknown) Patient: (units (unkno wn) date) Logan Desir unknown) MR#: M (unknown) (no (unknown) (unknown) Patient: (units (unkno wn) date) Logan Desir unknown) (unknown) (no (unknown) (unknown) Pelvic Nodes: No (units (unknown) date) enlarged lymph unknown) nodes.? (unknown) (no (unknown) (unknown) Pelvic Organs:? (units (unknown) date) Unremarkable.? ? unknown) (unknown) (no (unknown) (unknown) Penicillins (units (un known) date) [PENICILLINS] unknown) Allergy Unknown ITCHING-PT Verified 04/14/22 11:41 (unknown) (no (unknown) (unknown) Peritoneum:? No (units (unknown) date) abnormal unknown) intraperitoneal fluid.? No free air.? (unknown) (no (unknown) (unknown) Plt Count (units (unkn own) date) (150-400) X103/uL unknown) (unknown) (no (unknown) (unknown) Plt Count 278 (units ( unknown) date) (150-400) X103/uL unknown) (unknown) (no (unknown) (unknown) Point of Care (units ( unknown) date) Testing unknown) (unknown) (no (unknown) (unknown) Potassium (units (unkn own) date) (3.4-5.1) mmol/L unknown) (unknown) (no (unknown) (unknown) Potassium 3.9 (units ( unknown) date) (3.4-5.1) mmol/L unknown) (unknown) (no (unknown) (unknown) Prescriptions: (units (unknown) date) unknown) (unknown) (no (unknown) (unknown) Previous Rx's (units ( unknown) date) unknown) (unknown) (no (unknown) (unknown) Procedure: CT (units ( unknown) date) abdomen pelvis w unknown) con (unknown) (no (unknown) (unknown) Prothrombin Time (units (unknown) date) INR Stat unknown) (unknown) (no (unknown) (unknown) Pulse Oximetry 96 (units (unknown) date) unknown) (unknown) (no (unknown) (unknown) Pulse Oximetry 99 (units (unknown) date) 04/14/22 11:41 unknown) (unknown) (no (unknown) (unknown) Pulse Oximetry 99 (units (unknown) date) 97 unknown) (unknown) (no (unknown) (unknown) Pulse Oximetry 99 (units (unknown) date) 99 unknown) (unknown) (no (unknown) (unknown) Pulse Rate 65 (units ( unknown) date) unknown) (unknown) (no (unknown) (unknown) Pulse Rate 70 65 (units (unknown) date) unknown) (unknown) (no (unknown) (unknown) Pulse Rate 72 68 (units (unknown) date) unknown) (unknown) (no (unknown) (unknown) Pulse Rate 80 (units ( unknown) date) 04/14/22 11:41 unknown) (unknown) (no (unknown) (unknown) Qty: 1 0RF (units (unk nown) date) unknown) (unknown) (no (unknown) (unknown) RBC (4.0-5.2) (units ( unknown) date) X106/uL unknown) (unknown) (no (unknown) (unknown) RBC 4.30 (units (unkno wn) date) (4.0-5.2) X106/uL unknown) (unknown) (no (unknown) (unknown) RDW (11.6-14.8) % (units (unknown) date) unknown) (unknown) (no (unknown) (unknown) RDW 13.7 (units (unkno wn) date) (11.6-14.8) % unknown) (unknown) (no (unknown) (unknown) REACTION (units (unkno wn) date) unknown) (unknown) (no (unknown) (unknown) RED' (units (unkno wn) date) unknown) (unknown) (no (unknown) (unknown) REMEMBER (units (unkno wn) date) unknown) (unknown) (no (unknown) (unknown) RESPIRATORY: Clear (units (unknown) date) to auscultation. unknown) Breath sounds equal bilaterally. No wheezes, (unknown) (no (unknown) (unknown) RESPIRATORY: (units (u nknown) date) Denies dyspnea, unknown) cough, wheezing, hemoptysis, sputum. (unknown) (no (unknown) (unknown) Radiologist's (units ( unknown) date) Impression: unknown) (unknown) (no (unknown) (unknown) Referrals: (units (unk nown) date) unknown) (unknown) (no (unknown) (unknown) Related Data (units (u nknown) date) unknown) (unknown) (no (unknown) (unknown) Relief) (units (unkno wn) date) unknown) (unknown) (no (unknown) (unknown) Respiratory Rate (units (unknown) date) 16 04/14/22 11:41 unknown) (unknown) (no (unknown) (unknown) Respiratory Rate (units (unknown) date) 20 unknown) (unknown) (no (unknown) (unknown) Respiratory Rate (units (unknown) date) 24 19 unknown) (unknown) (no (unknown) (unknown) Respiratory Rate (units (unknown) date) 26 H unknown) (unknown) (no (unknown) (unknown) Review of Systems (units (unknown) date) unknown) (unknown) (no (unknown) (unknown) Rx Instructions: (units (unknown) date) unknown) (unknown) (no (unknown) (unknown) SEVERITY (units (unkno wn) date) unknown) (unknown) (no (unknown) (unknown) SKIN: Denies (units (u nknown) date) rash, skin unknown) lesions, or other (unknown) (no (unknown) (unknown) SKIN: No rash or (units (unknown) date) erythema of unknown) visible areas (unknown) (no (unknown) (unknown) 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 (unknown) (no (unknown) (unknown) Score 1-3) ##0 (units (unknown) date) unknown) (unknown) (no (unknown) (unknown) Score 1-3) (units (unk nown) date) unknown) (unknown) (no (unknown) (unknown) Seizure-like (units (u nknown) date) activity unknown) (unknown) (no (unknown) (unknown) Shared Decision (units (unknown) date) Making: Discussed unknown) plan patient is comfortable with plan (unknown) (no (unknown) (unknown) Signed By: (units (unk nown) date) unknown) (unknown) (no (unknown) (unknown) Signed (units (unkno wn) date) unknown) (unknown) (no (unknown) (unknown) Smoking Status: (units (unknown) date) Never smoker unknown) (unknown) (no (unknown) (unknown) Social (units (unkno wn) date) Considerations: unknown) None (unknown) (no (unknown) (unknown) Social History (units (unknown) date) (Reviewed 08/14/21 unknown) @ 15:29 by Karissa Garcia [facility]) (unknown) (no (unknown) (unknown) Sodium (137-145) (units (unknown) date) mmol/L unknown) (unknown) (no (unknown) (unknown) Sodium 142 (units (unk nown) date) (137-145) mmol/L unknown) (unknown) (no (unknown) (unknown) Source: patient (units (unknown) date) unknown) (unknown) (no (unknown) (unknown) Spleen:? (units (unkno wn) date) Unremarkable.? ? unknown) (unknown) (no (unknown) (unknown) Grant,Suspension (units (unknown) date) unknown) (unknown) (no (unknown) (unknown) Stand Alone (units (un known) date) Forms: Patient unknown) Portal/API (unknown) (no (unknown) (unknown) Stated complaint: (units (unknown) date) bleeding in stool unknown) (unknown) (no (unknown) (unknown) Stomach and (units (un known) date) Bowel:? Stomach, unknown) small bowel loops, and colon are unremarkable.? (unknown) (no (unknown) (unknown) Stool Occult (units (u nknown) date) Blood Positive unknown) (unknown) (no (unknown) (unknown) Stop: 04/14/22 (units (unknown) date) 12:07 unknown) (unknown) (no (unknown) (unknown) Stroke (units (unkno wn) date) unknown) (unknown) (no (unknown) (unknown) Substance Use (units ( unknown) date) Type: does not use unknown) (unknown) (no (unknown) (unknown) Sulfa (units (unkno wn) date) (Sulfonamide unknown) Allergy Unknown UNKNOWN Verified 04/14/22 11:41 (unknown) (no (unknown) (unknown) Surgical History (units (unknown) date) (Reviewed 08/14/21 unknown) @ 15:29 by PAZ Bolton) (unknown) (no (unknown) (unknown) Symptoms ##0 (units (u nknown) date) unknown) (unknown) (no (unknown) (unknown) Systane (PF) 1 (units (unknown) date) EACH dropperette unknown) (unknown) (no (unknown) (unknown) TECHNIQUE:? (units (un known) date) unknown) (unknown) (no (unknown) (unknown) THIS (units (unkno wn) date) unknown) (unknown) (no (unknown) (unknown) Temperature 97.4 (units (unknown) date) F L 04/14/22 11:41 unknown) (unknown) (no (unknown) (unknown) Thank you for (units ( unknown) date) coming to the [facility] Emergency Department today. As (unknown) (no (unknown) (unknown) This is a (units (unkn own) date) 61-year-old female unknown) presents to the emergency department due to (unknown) (no (unknown) (unknown) Time Seen by (units (u nknown) date) Provider: 04/14/22 unknown) 12:07 (unknown) (no (unknown) (unknown) Total Bilirubin (units (unknown) date) (0.2-1.3) mg/dL unknown) (unknown) (no (unknown) (unknown) Total Bilirubin (units (unknown) date) 0.4 (0.2-1.3) unknown) mg/dL (unknown) (no (unknown) (unknown) Total Protein (units ( unknown) date) (6.3-8.2) g/dL unknown) (unknown) (no (unknown) (unknown) Total Protein 7.5 (units (unknown) date) (6.3-8.2) g/dL unknown) (unknown) (no (unknown) (unknown) Type and Screen (units (unknown) date) Stat unknown) (unknown) (no (unknown) (unknown) Ur Culture (units (unk nown) date) Indicated? Cult unknown) not indicated (unknown) (no (unknown) (unknown) Ur Culture (units (unk nown) date) Indicated? unknown) (unknown) (no (unknown) (unknown) Ur Squamous Epith (units (unknown) date) Cells (0-5/HPF) unknown) (unknown) (no (unknown) (unknown) Ur Squamous Epith (units (unknown) date) Cells 5-10 /hpf H unknown) (0-5/HPF) (unknown) (no (unknown) (unknown) Ur Transition (units ( unknown) date) Epith Cell unknown) (0-5/HPF) (unknown) (no (unknown) (unknown) Ur Transition (units ( unknown) date) Epith Cell 1-5/hpf unknown) (0-5/HPF) (unknown) (no (unknown) (unknown) Urine Bacteria (units (unknown) date) (None) unknown) (unknown) (no (unknown) (unknown) Urine Bacteria (units (unknown) date) Few (2-10) H unknown) (None) (unknown) (no (unknown) (unknown) Urine Dip (units (unkn own) date) unknown) (unknown) (no (unknown) (unknown) Urine Microscopic (units (unknown) date) Stat unknown) (unknown) (no (unknown) (unknown) Urine Mucus (units (un known) date) (Negative) unknown) (unknown) (no (unknown) (unknown) Urine Mucus 1+ H (units (unknown) date) (Negative) unknown) (unknown) (no (unknown) (unknown) Urine RBC (units (unkn own) date) (0-5/HPF) unknown) (unknown) (no (unknown) (unknown) Urine RBC (units (unkn own) date) 10-30/hpf H unknown) (0-5/HPF) (unknown) (no (unknown) (unknown) Urine Specific (units (unknown) date) [place] 1.030 unknown) (unknown) (no (unknown) (unknown) Urine WBC (units (unkn own) date) (0-5/HPF) unknown) (unknown) (no (unknown) (unknown) Urine WBC 1-5/hpf (units (unknown) date) (0-5/HPF) unknown) (unknown) (no (unknown) (unknown) Ventral Wall: ? (units (unknown) date) No hernia.? unknown) (unknown) (no (unknown) (unknown) Vessels:? Aorta (units (unknown) date) and inferior vena unknown) cava are normal in size.? (unknown) (no (unknown) (unknown) Vital Signs - 8 (units (unknown) date) hr unknown) (unknown) (no (unknown) (unknown) Vital Signs (units (un known) date) unknown) (unknown) (no (unknown) (unknown) Vital signs: (units (u nknown) date) unknown) (unknown) (no (unknown) (unknown) WBC (4.5-11.0) (units (unknown) date) X103/uL unknown) (unknown) (no (unknown) (unknown) WBC 8.4 (units (unkno wn) date) (4.5-11.0) X103/uL unknown) (unknown) (no (unknown) (unknown) Walker: Front (units ( unknown) date) Wheel ##1 10/30/16 unknown) (unknown) (no (unknown) (unknown) Walker: Front (units ( unknown) date) Wheel unknown) (unknown) (no (unknown) (unknown) [CRANBERRY] 1 tab (units (unknown) date) PO QDAY ##0 unknown) 09/27/16 10/04/19 (unknown) (no (unknown) (unknown) [CRANBERRY] (units (un known) date) unknown) (unknown) (no (unknown) (unknown) [Embedded Image (units (unknown) date) Not Available] unknown) (unknown) (no (unknown) (unknown) [NITROFURANTOIN] (units (unknown) date) REACTION unknown) (unknown) (no (unknown) (unknown) [RED RICE YEAST] (units (unknown) date) 600 mg PO BID ##0 unknown) 03/12/10 10/04/19 (unknown) (no (unknown) (unknown) [RED RICE YEAST] (units (unknown) date) unknown) (unknown) (no (unknown) (unknown) [SULFA (units (unkno wn) date) (SULFONAMIDE unknown) (unknown) (no (unknown) (unknown) abdominal pain, (units (unknown) date) diarrhea, unknown) constipation. (unknown) (no (unknown) (unknown) acetaminophen 300 (units (unknown) date) mg-codeine 30 mg 1 unknown) tab PO Q4-6H PRN pain #14 tabs 09/21/17 (unknown) (no (unknown) (unknown) acetaminophen-cod (units (unknown) date) eine unknown) [Tylenol-Codeine #3] 300-30 mg tablet (unknown) (no (unknown) (unknown) adhesive tape (units ( unknown) date) [ADHESIVE TAPE] unknown) Allergy Severe 'I GOT Verified 04/14/22 11:41 (unknown) (no (unknown) (unknown) adjustment (units (unk nown) date) unknown) (unknown) (no (unknown) (unknown) aerosol inhaler (units (unknown) date) (Proventil HFA) unknown) (unknown) (no (unknown) (unknown) albuterol sulfate (units (unknown) date) 90 mcg/actuation 2 unknown) puff INH PRN PRN Dyspnea ##0 03/12/10 (unknown) (no (unknown) (unknown) albuterol sulfate (units (unknown) date) [Proventil HFA] 90 unknown) MCG/PUFF HFA aerosol inhaler (unknown) (no (unknown) (unknown) alcohol intake (units (unknown) date) frequency: 0-2 unknown) drinks per day (unknown) (no (unknown) (unknown) alcohol intake: (units (unknown) date) never unknown) (unknown) (no (unknown) (unknown) and no evidence (units (unknown) date) of any kind unknown) anemia. Patient will be treated for internal (unknown) (no (unknown) (unknown) aspirin [ASPIRIN] (units (unknown) date) Allergy Unknown unknown) UNKNOWN Verified 04/14/22 11:41 (unknown) (no (unknown) (unknown) bilaterally (units (un known) date) ranging from 1-3 unknown) mm.? No interval change. (unknown) (no (unknown) (unknown) blister (units (unkno wn) date) unknown) (unknown) (no (unknown) (unknown) blood surrounding (units (unknown) date) the rectum, unknown) positive stool guaiac test (unknown) (no (unknown) (unknown) cholecalciferol (units (unknown) date) (vitamin D3) 250 unknown) 5,000 unit PO QDAY ##0 03/12/10 10/04/19 (unknown) (no (unknown) (unknown) cholecalciferol (units (unknown) date) (vitamin D3) 250 unknown) mcg (10,000 unit) Tablet (unknown) (no (unknown) (unknown) consider (units (unkno wn) date) purchasing an unknown) [id number] fiber supplement as this may help with (unknown) (no (unknown) (unknown) diclofenac sodium (units (unknown) date) 3 % gel unknown) (unknown) (no (unknown) (unknown) diclofenac sodium (units (unknown) date) 3 % topical gel 1 unknown) applic topical BID PRN knee 08/14/21 (unknown) (no (unknown) (unknown) discussed your CT (units (unknown) date) abdomen and pelvis unknown) showed no concerning findings. I suspect (unknown) (no (unknown) (unknown) dizziness. (units (unk nown) date) unknown) (unknown) (no (unknown) (unknown) docusate sodium (units (unknown) date) 250 mg capsule 500 unknown) mg PO PRN PRN Constipation ##0 03/12/10 (unknown) (no (unknown) (unknown) docusate sodium (units (unknown) date) [DOK] 250 MG unknown) capsule (unknown) (no (unknown) (unknown) due to suspected (units (unknown) date) lower GI bleed due unknown) to suspected internal hemorrhoids. On exam (unknown) (no (unknown) (unknown) dysuria, urinary (units (unknown) date) frequency, or unknown) urgency. (unknown) (no (unknown) (unknown) ectopy. No ST (units ( unknown) date) segmental unknown) elevation or depression. No T wave inversions (unknown) (no (unknown) (unknown) findings that (units ( unknown) date) would explain the unknown) cause of the rectal bleeding. CBC unremarkable (unknown) (no (unknown) (unknown) fluticasone (units (un known) date) propionate 50 2 unknown) spray intranasal DAILY PRN 09/17/19 10/04/19 (unknown) (no (unknown) (unknown) fluticasone (units (un known) date) propionate unknown) [Flonase Allergy Relief] 50 mcg/actuation (unknown) (no (unknown) (unknown) for further (units (un known) date) evaluation and unknown) possible colonoscopy. (unknown) (no (unknown) (unknown) from the (units (unkno wn) date) unknown) (unknown) (no (unknown) (unknown) gabapentin 400 mg (units (unknown) date) capsule 3,200 mg unknown) PO QDAY ##0 09/27/16 10/04/19 (unknown) (no (unknown) (unknown) gabapentin (units (unk nown) date) [Neurontin] 400 MG unknown) capsule (unknown) (no (unknown) (unknown) guaiac test. CT (units (unknown) date) abdomen and pelvis unknown) ordered with contrast which showed no acute (unknown) (no (unknown) (unknown) hemorrhoids as (units (unknown) date) well as unknown) recommendations to follow up with the primary care (unknown) (no (unknown) (unknown) hemorrhoids, (units (u nknown) date) upper GI bleed, unknown) lower GI bleed, external hemorrhoids (unknown) (no (unknown) (unknown) her abdomen or (units (unknown) date) rectum but she unknown) states that she ?always does not feel pain down (unknown) (no (unknown) (unknown) history of NSAID (units (unknown) date) use. Also reports unknown) a foul-smelling urine but denies any (unknown) (no (unknown) (unknown) household (units (unkn own) date) members: caregiver unknown) and none (unknown) (no (unknown) (unknown) hydrocodone 5 (units ( unknown) date) mg-acetaminophen unknown) 325 1 tab PO BID PRN pain #14 tabs 08/14/21 (unknown) (no (unknown) (unknown) hydrocodone-aceta (units (unknown) date) minophen 5-325 mg unknown) tablet (unknown) (no (unknown) (unknown) ibuprofen 200 MG (units (unknown) date) capsule unknown) (unknown) (no (unknown) (unknown) ibuprofen 200 mg (units (unknown) date) capsule 400 mg PO unknown) PRN PRN Pain (Scale 09/27/16 10/04/19 (unknown) (no (unknown) (unknown) icterus. No (units (un known) date) injection or unknown) drainage. (unknown) (no (unknown) (unknown) loratadine 10 MG (units (unknown) date) tablet unknown) (unknown) (no (unknown) (unknown) loratadine 10 mg (units (unknown) date) tablet 10 mg PO unknown) QDAYP PRN Allergy 09/27/16 10/04/19 (unknown) (no (unknown) (unknown) lung bases to the (units (unknown) date) pubic symphysis.? unknown) Coronal and sagittal reformats were (unknown) (no (unknown) (unknown) marital status: (units (unknown) date) unknown unknown) (unknown) (no (unknown) (unknown) mcg (10,000 unit) (units (unknown) date) tablet unknown) (unknown) (no (unknown) (unknown) mcg/actuation (units ( unknown) date) nasal Allergic unknown) Symptoms (unknown) (no (unknown) (unknown) mg tablet (units (unkn own) date) unknown) (unknown) (no (unknown) (unknown) nitrofurantoin (units (unknown) date) Allergy Unknown unknown) UNKNOWN Verified 04/14/22 11:41 (unknown) (no (unknown) (unknown) noted (units (unkno wn) date) unknown) (unknown) (no (unknown) (unknown) of mA and/or kV (units (unknown) date) according to unknown) patient size. (unknown) (no (unknown) (unknown) omeprazole 20 mg (units (unknown) date) capsule,delayed 20 unknown) mg PO DAILY #30 caps 10/04/19 (unknown) (no (unknown) (unknown) omeprazole 20 mg (units (unknown) date) capsule,delayed unknown) release(DR/EC) (unknown) (no (unknown) (unknown) or from her (units (un known) date) urine. Patient unknown) states that she is not experienced any pain around (unknown) (no (unknown) (unknown) oxycodone 5 MG (units (unknown) date) tablet unknown) (unknown) (no (unknown) (unknown) oxycodone 5 mg (units (unknown) date) tablet 1 - 2 tab unknown) PO Q3HP PRN Pain (Scale 09/17/19 10/04/19 (unknown) (no (unknown) (unknown) oxycodone 5 mg (units (unknown) date) tablet 5 mg PO Q8H unknown) PRN pain #7 tabs 04/04/20 (unknown) (no (unknown) (unknown) oxycodone 5 mg (units (unknown) date) tablet unknown) (unknown) (no (unknown) (unknown) pain, acute (units (un known) date) shortness of unknown) breath, or any other concerning signs or symptoms. (unknown) (no (unknown) (unknown) pain, ankle pain (units (unknown) date) #100 grams unknown) (unknown) (no (unknown) (unknown) patient had (units (un known) date) bright red blood unknown) surrounding the rectum as well as a positive stool (unknown) (no (unknown) (unknown) peg 400-propylene (units (unknown) date) glycol (PF) 0.4 2 unknown) kadeem HALE QDAY ##0 09/27/16 10/04/19 (unknown) (no (unknown) (unknown) performed.? For (units (unknown) date) unknown) (unknown) (no (unknown) (unknown) provider for (units (u nknown) date) further unknown) evaluation. (unknown) (no (unknown) (unknown) provider for (units (u nknown) date) possible unknown) colonoscopy. (unknown) (no (unknown) (unknown) radiation dose (units (unknown) date) reduction, the unknown) following was used:? automated exposure control, (unknown) (no (unknown) (unknown) rales, or (units (unkn own) date) rhonchi. unknown) (unknown) (no (unknown) (unknown) release (units (unkno wn) date) unknown) (unknown) (no (unknown) (unknown) removal of (units (unk nown) date) previous anterior unknown) mass.? Previous fat containing lesions bilaterally (unknown) (no (unknown) (unknown) reported blood in (units (unknown) date) her stool onset unknown) this morning while taking a shower. She (unknown) (no (unknown) (unknown) seizures, (units (unkn own) date) incoordination. 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 Nonobstructing stones are (unknown) (no (unknown) (unknown) tablet (units (unkno wn) date) (Tylenol-Codeine unknown) #3) (unknown) (no (unknown) (unknown) the cause of your (units (unknown) date) rectal bleeding is unknown) due to internal hemorrhoids. Please (unknown) (no (unknown) (unknown) the hemorrhoids. (units (unknown) date) I also recommended unknown) follow up with your primary care provider (unknown) (no (unknown) (unknown) the past (units (unkno wn) date) unknown) (unknown) (no (unknown) (unknown) there?. Patient (units (unknown) date) denies any unknown) significant abdominal pain, nausea, vomiting, chest (unknown) (no (unknown) (unknown) tonsillar (units (unkn own) date) hypertrophy or unknown) exudate. Airway patent. (unknown) (no (unknown) (unknown) topiramate 50 mg (units (unknown) date) tablet (Topamax) unknown) 200 mg PO BID 09/17/19 10/04/19 (unknown) (no (unknown) (unknown) topiramate (units (unk nown) date) [Topamax] 50 MG unknown) tablet (unknown) (no (unknown) (unknown) unremarkable. (units ( unknown) date) BUN/Creatinine unknown) ration WNL, noncerning for upper GI bleed. (unknown) (no (unknown) (unknown) with (units (unkno wn) date) unknown) Social History date description facility 2022-04-14 00:00 Never smoked tobacco (finding) [facility] Vital Signs date measurement value units 2022-04-14 00:00 BMI 34.7 kg/m2 2022-04-14 00:00 BP_diastolic 84 mmHg 2022-04-14 00:00 BP_systolic 157 mmHg 2022-04-14 00:00 heart_rate 65 /min 2022-04-14 00:00 height_metric 175.26 cm 2022-04-14 00:00 height_standard 69 in 2022-04-14 00:00 o2_saturation 96 % 2022-04-14 00:00 respiration_rate 20 /min 2022-04-14 00:00 temperature_metric 36.33 C 2022-04-14 00:00 temperature_standard 97.4 F 2022-04-14 00:00 weight_metric 106.59 kg 2022-04-14 00:00 weight_standard 234.99 lb
--- NOTE | 2022-05-02 16:07 | XRAY Report ---
PROCEDURE: Chest 1 View X-Ray INDICATIONS: SOA TECHNIQUE: One view of the chest was acquired. COMPARISON: None. FINDINGS: Surgical changes and devices: None. Lungs and pleura: Minimal interstitial prominence. No pleural effusions or pneumothorax. Lungs are clear. Mediastinum: Mediastinal contours appear normal. Heart size is normal. Bones and chest wall: No suspicious bony lesions. Overlying soft tissues appear unremarkable. Parti ally visualized cervical fixation hardware. IMPRESSION: Interstitial prominence may be exaggerated by lordotic positioning however may be a sign of bronchiol itis, pulmonary edema, interstitial lung disease or atypical infection. Reviewed by: Ryland De Santiago MD on 05/02/2022 3:06 PM RODNEY Approved by: Ryland De Santiago MD on 05/02/2022 3:06 PM RODNEY Station ID: [id number]
[2022-05-02] MEDS ORDERED: IPRATROPIUM/ALBUTEROL 3 ML NEB INH STA (17:52)
[2022-05-02] MEDS ORDERED: SODIUM CHLORIDE 0.9% 1,000 ML IV STA (17:53)
--- NOTE | 2022-05-02 17:55 | ED Physician Documentation ---
History of Present Illness - Stated complaint Stated Complaint: SOA/COUGH - Chief complaint Chief Complaint: Resp - Additonal information Additional information: 61-year-old female presents to the emergency department for evaluation of cough that began 2 weeks ago. She reports bringing up sputum. She has begun having fevers over the last 3 days. She does have a history of asthma but using Advair and albuterol at home is not helping. She is also begun to have a green mucopurulent drainage from her right eye. Patient also states she is concerned that she had a stroke. She states that 3 mornings ago she woke up about 5 AM and was unable to move the right side of her body. She states it took until about 7 AM when she was be began to move. She started having movement in her right leg and it slowly improved to include her right arm. Patient does have a history of a seizure disorder for which she takes topiramate. She states that the seizures she typically halves are focal and on the left hand and wrist. She has never had a hemiparetic seizure. Review of Systems Constitutional: reports: Fever Nose: reports: Rhinorrhea / runny nose, Congestion Cardiac: denies: Chest pain / pressure, Palpitations Respiratory: reports: Dyspnea, Cough, Wheezing. denies: Hemoptysis GI: denies: Abdominal Pain, Nausea, Vomiting : reports: Reviewed and negative Skin: reports: Lesions (Multiple oral scabs on the lower lip) Musculoskeletal: denies: Neck pain, Back pain Neurologic: reports: Focal weakness, Difficulty speaking (Laryngitis), Seizure (Does have a history of seizures). denies: Numbness, Confused, Headache, Head injury, LOC PD PAST MEDICAL HISTORY - Past Medical History Cardiovascular: None Respiratory: Asthma Endocrine/Autoimmune: Type 2 diabetes GI: Other : None HEENT: Other Psych: None Musculoskeletal: Osteoarthritis, Chronic back pain Derm: None - Past Surgical History Past Surgical History: Yes General: Cholecystectomy, Colonoscopy Ortho: Knee replacement, Shoulder arthroplasty, Spine surgery HEENT: Cataracts - Present Medications Home Medications: Ambulatory Orders Medication Instructions Recorded Confirmed Fluticasone [Flonase] 2 sprays CECILIA DAILY 02/13/13 12/23/16 Gabapentin [Neurontin] 1,200 mg PO BID 02/13/13 12/23/16 Topiramate [Topiragen] 200 mg PO BID 02/13/13 12/23/16 Albuterol Sulfate [Proair Hfa 2 puffs INH Q4H PRN 01/07/14 12/23/16 Inhaler] Cholecalciferol (Vitamin D3) 5,000 unit PO DAILY 01/07/14 12/22/16 [Vitamin D3] Albuterol 2.5 mg INH RTQ4H PRN neb 12/23/16 Cyclobenzaprine [Flexeril] 10 mg PO TID PRN tablet 12/23/16 Gabapentin 800 mg PO DAILY@1200 12/23/16 12/23/16 Hydrocodone/Acetaminophen 0.5 tab PO Q4H PRN 12/23/16 12/23/16 [Hydrocodone-Acetamin 10-325 mg] Ibuprofen [Motrin] 800 mg PO Q8H PRN tablet 12/23/16 Insulin Aspart [NovoLOG] 1 - 5 unit SUBQ 12/23/16 0800,1200,1700,2100 pen levETIRAcetam [Keppra] 250 mg PO BID #60 tablet 12/23/16 polyethylene glycoL 3350 [Miralax] 17 gm PO DAILY packet 12/23/16 tiZANidine [Zanaflex] 2 mg PO TID PRN 12/23/16 12/23/16 Lorazepam [Ativan] 1 mg PO BID #6 tablet 05/12/17 cephALEXin [Keflex] 500 mg PO TID #15 capsule 05/12/17 HYDROcod/ACETAM 5/325 [[place] 5/325] 1 - 2 tab PO Q6H PRN #15 tablet 04/18/20 HYDROcod/ACETAM 5/325 [[place] 5/325] 1 ea PO Q6H PRN #20 tablet 06/12/20 Naproxen Sodium 275 mg PO BID #15 tablet 06/12/20 Azithromycin [Zithromax] 0 mg PO DAILY #6 tablet 05/02/22 Doxycycline Hyclate 100 mg PO BID #20 cap 05/02/22 guaiFENesin [Mucinex] 600 mg PO BID #30 tablet 05/02/22 - Allergies Allergies/Adverse Reactions: Allergies Allergy/AdvReac Type Severity Reaction Status Date / Time aspirin AdvReac Intermediate Itching Verified 05/02/22 15:16 Penicillins AdvReac Intermediate Itching Verified 05/02/22 15:16 Sulfa (Sulfonamide AdvReac Intermediate Itching Verified 05/02/22 15:16 Antibiotics) prednisone AdvReac Dizziness Verified 05/02/22 15:16 nonsting skin prep Allergy Hives Uncoded 05/02/22 15:16 - Social History Does the pt smoke?: No Smoking Status: Never smoker Does the pt drink ETOH?: No Does the pt have substance abuse?: No - Immunizations Immunizations are current?: No - POLST Patient has POLST: No PD ED PE EXPANDED - General General: Alert, Disheveled, poorly kept - HEENT HEENT: PERRL, EOMI, Dry mucous membranes, Pharyngeal erythema, Oral lesions / sores (Multiple dry scabbing lesions on lower lip), Other (Laryngitis) - Eyes Eyes: Other (Copious yellow-green drainage from the right eye with conjunctival injection and erythema) - Cardiac Cardiac: Regular Rate, Radial strong equal, Pedal strong equal, Cap refill < 2 sec - Respiratory Respiratory: Other (Diffuse rhonchi in the upper lobes. No wheeze.). No: Distress, Labored - Derm Derm: Normal color, Warm and dry, Other (Perioral scabbing consistent with impetigo) - Neuro Neuro: Alert and Oriented X 3, CNII-XII intact, Normal gait, Normal finger nose, Normal speech, Other (NIHSS of 0 ) - GCS Eye Opening: Spontaneous Motor: Obeys Commands Verbal: Oriented Total: 15 Results - Vitals Vitals: Vital Signs - 24 hr 05/02/22 05/02/22 05/02/22 15:16 17:00 18:24 Temperature 37.9 C 37.1 C Heart Rate 110 H 108 H 100 Respiratory 20 18 22 Rate Blood Pressure 138/79 H 159/61 H O2 Saturation 96 95 05/02/22 19:00 Temperature 37.1 C Heart Rate 102 H Respiratory 18 Rate Blood Pressure 167/75 H O2 Saturation 95 Oxygen O2 Source Room air - EKG (time done) 1813 EKG releavant findings:: EKG personally interpreted by author of this note. Relevant findings are: Rate: Rate (enter#) (105) Rhythm: Sinus tachycardia Gray: Normal Intervals: Normal AL. No: Prolonged QT QRS: Normal Ischemia: Non specific changes Compare to prior EKG: Old EKG unavailable Computer interpretation: Agree with computer - Labs Labs: Laboratory Tests 05/02/22 05/02/22 05/02/22 17:39 17:39 18:04 WBC 15.9 H RBC 4.25 Hgb 13.1 Hct 40.8 MCV 96.0 MCH 30.8 MCHC 32.1 RDW 12.6 Plt Count 404 MPV 9.1 Neut # (Auto) 12.5 H Lymph # (Auto) 1.6 [place] # (Auto) 1.2 H Eos # (Auto) 0.1 Baso # (Auto) 0.1 Absolute Nucleated RBC 0.00 Nucleated RBC % 0.0 INR (Fingerstick) Sodium 135 Potassium 3.7 Chloride 104 Carbon Dioxide 21 Anion Gap 10.0 BUN 18 Creatinine 0.9 Estimated GFR (MDRD) 64 L Glucose 140 H Calcium 8.9 Total Bilirubin 0.6 AST 41 ALT 39 Alkaline Phosphatase 104 Total Protein 8.1 Albumin 3.4 Globulin 4.7 H Albumin/Globulin Ratio 0.7 L Lipase 24 Nasal Adenovirus (PCR) NOT DETECTED Nasal B. parapertussis DNA (PCR) NOT DETECTED Nasal Coronavir 229E PCR NOT DETECTED Nasal Coronavir HKU1 PCR NOT DETECTED Nasal Coronavir NL63 PCR NOT DETECTED Nasal Coronavir OC43 PCR DETECTED A Nasal Enterovir/Rhinovir PCR NOT DETECTED Nasal Influenza B PCR NOT DETECTED Nasal Influenza A PCR NOT DETECTED Nasal Parainfluen 1 PCR NOT DETECTED Nasal Parainfluen 2 PCR NOT DETECTED Nasal Parainfluen 3 PCR NOT DETECTED Nasal Parainfluen 4 PCR NOT DETECTED Nasal RSV (PCR) NOT DETECTED Nasal B.pertussis DNA PCR NOT DETECTED Nasal C.pneumoniae (PCR) NOT DETECTED [place] Human Metapneumo PCR NOT DETECTED Nasal M.pneumoniae (PCR) NOT DETECTED Nasal SARS-CoV-2 (PCR) NOT DETECTED 05/02/22 18:09 WBC RBC Hgb Hct MCV MCH MCHC RDW Plt Count MPV Neut # (Auto) Lymph # (Auto) [place] # (Auto) Eos # (Auto) Baso # (Auto) Absolute Nucleated RBC Nucleated RBC % INR (Fingerstick) 1.1 Sodium Potassium Chloride Carbon Dioxide Anion Gap BUN Creatinine Estimated GFR (MDRD) Glucose Calcium Total Bilirubin AST ALT Alkaline Phosphatase Total Protein Albumin Globulin Albumin/Globulin Ratio Lipase Nasal Adenovirus (PCR) Nasal B. parapertussis DNA (PCR) Nasal Coronavir 229E PCR Nasal Coronavir HKU1 PCR Nasal Coronavir NL63 PCR Nasal Coronavir OC43 PCR Nasal Enterovir/Rhinovir PCR Nasal Influenza B PCR Nasal Influenza A PCR Nasal Parainfluen 1 PCR Nasal Parainfluen 2 PCR Nasal Parainfluen 3 PCR Nasal Parainfluen 4 PCR Nasal RSV (PCR) Nasal B.pertussis DNA PCR Nasal C.pneumoniae (PCR) [place] Human Metapneumo PCR Nasal M.pneumoniae (PCR) Nasal SARS-CoV-2 (PCR) - Rads (name of study) cxr Relevant Findings:: Final report received (Interstitial prominence may be exaggerated by lordotic positioning however may be a sign of bronchiolitis, pulmonary edema, interstitial lung disease or atypical infection) CTA head Relevant Findings:: Final report received (No acute intracranial hemorrhage. No large vessel occlusion. Stable dilation of the left lateral ventricle posterior horn) CTA neck Relevant Findings:: Final report received (No critical stenosis. Enlarged and shotty cervical lymph nodes bilaterally. Right thyroid nodule measuring 2 cm. Recommend thyroid ultrasound for further evaluation.) PD Medical Decision Making - ED course Complexity details: reviewed results, re-evaluated patient, considered differential, d/w patient ED course: 61-year-old female presents to the emergency department for multiple symptoms. Her first concern was unabated cough that began 2 weeks ago. She does have a history of asthma. Has not found relief from using Advair or albuterol. She has subsequently developed sores in her mouth and around her lips. She finds that she is coughing constantly. She has a history of allergy to prednisone so request that we not give that to her today. She also reported that 3 days ago she woke up and found that she could not move her right side for about 2 hours. She does have a history of seizures but states that she has never had hemiparetic seizures and does not feel that this was related to any unknown seizure activity. Symptoms lasted for about 2 hours before she was able to start moving her leg and right arm again. Symptoms of fully abated. On exam I am greeted by a woman that looks as though she feels ill. She has a clear conjunctivitis in her right eye and is coughing constantly. Despite this her room air saturations are 96 to 99%. Cardiopulmonary auscultation showed diffuse rhonchi. A chest x-ray As interpreted by radiologist is suggestive of an early bronchitis or pneumonia. We did obtain a PCR and she tested positive for coronavirus variant though not COVID-19. Given that she has had a persistent cough now for 2 weeks that has failed to improve and chest x-ray findings suggestive of a mild early pneumonia she will be started on azithromycin and doxycycline taking into account the patient's allergies. She had also reported the inability to move her right side for 2 hours 3 days ago. On presentation she has an NIHSS of 0. However we did obtain a CT angio of the head and neck which showed no findings of large vessel occlusion or intracranial aneurysm. There is findings of a right thyroid nodule measuring 2 cm. I discussed this with the patient at bedside and recommended she follow-up with her primary care provider for an outpatient ultrasound. Her CBC as interpreted by myself today shows a mild leukocytosis of 15.9 thousand. Otherwise her electrolytes showed no acute worrisome abnormalities. Patient will be discharged home with a prescription for azithromycin and doxycycline. She was given an erythromycin ointment for her right eye conjunctivitis. She is advised to continue to use the Advil there and albuterol for her cough and I will also send a prescription for Mucinex to help with her secretions. We discussed the usual emergent return precautions. I did advise very close follow-up with her neurologist to discuss her strokelike symptoms from 3 days ago. Departure - Departure Disposition: 01 Home, Self Care Clinical Impression: Coronavirus infection, Right thyroid nodule, Stroke-like symptoms PNA (pneumonia) Qualifiers: Pneumonia type: due to unspecified organism Laterality: unspecified laterality Lung location: unspecified part of lung Qualified Code(s): J18.9 - Pneumonia, unspecified organism Conjunctivitis, right eye Qualifiers: Conjunctivitis type: acute Acute conjunctivitis type: bacterial Qualified Code(s): H10.31 - Unspecified acute conjunctivitis, right eye Condition: Stable Prescriptions: Doxycycline Hyclate 100 mg PO BID #20 cap guaiFENesin [Mucinex] 600 mg PO BID #30 tablet Azithromycin [Zithromax] 0 mg PO DAILY #6 tablet Comments: You came to the emergency department with 2 weeks of a cough. You do also reported that 3 mornings ago he woke up unable to move your right side. The chest x-ray suggest you have a mild or early pneumonia. To treat this I have sent a prescription for doxycycline to the [facility] in [place]. I have also prescribed azithromycin. I would like you to fill a prescription for Mucinex. This is a cough expectorant which should help reduce your cough. Continue to use the albuterol and Advair. The CT angiograms that we did of your head and neck today did not show findings of a stroke. I do wonder if your symptoms could have been related to your seizure disorder. Very important you follow closely with your neurologist to discuss your concerns. The CT of the neck showed a right thyroid nodule. I recommend you follow this with your primary care provider to have an outpatient ultrasound ordered to determine if you are developing a goiter. If at any point you find that your symptoms are worsening, you have uncontrolled chest pain, fevers vomiting or any strokelike symptoms please return immediately to the ER for second evaluation
[2022-05-02 17:57] LABS: BASOPHILS # (AUTO) 0.1 10^3/uL (0.0-0.1); BASOPHILS % (AUTO) 0.6 %; EOSINOPHILS # (AUTO) 0.1 10^3/uL (0.0-0.7); EOSINOPHILS % (AUTO) 0.8 %; HCT - HEMATOCRIT 40.8 % (37.0-47.0); HGB - HEMOGLOBIN 13.1 g/dL (12.0-16.0); LYMPHOCYTES # (AUTO) 1.6 10^3/uL (1.5-3.5); LYMPHOCYTES % (AUTO) 9.9 %; MEAN CORPUSCULAR HEMOGLOBIN 30.8 pg (27.0-31.0); MEAN CORPUSCULAR HGB CONC 32.1 g/dL (32.0-36.0); MEAN PLATELET VOLUME 9.1 fL (7.9-10.8); MONOCYTES # (AUTO) 1.2 10^3/uL (0.0-1.0); MONOCYTES % (AUTO) 7.3 %; NEUTROPHILS # (AUTO) 12.5 10^3/uL (1.5-6.6); NEUTROPHILS % (AUTO) 79.1 %; PLT - PLATELET COUNT 404 10^3/uL (130-450); RED BLOOD COUNT 4.25 10^6/uL (4.20-5.40); RED CELL DISTRIBUTION WIDTH 12.6 % (12.0-15.0); WHITE BLOOD COUNT 15.9 x10^3/uL (4.8-10.8)
[2022-05-02 18:06] LABS: ALBUMIN 3.4 g/dL (3.2-5.5); ALBUMIN/GLOBULIN RATIO 0.7 (1.0-2.2); BILIRUBIN,TOTAL 0.6 mg/dL (0.2-1.0); CALCIUM 8.9 mg/dL (8.5-10.3); CREATININE 0.9 mg/dL (0.4-1.0); POTASSIUM 3.7 mmol/L (3.5-5.0); TOTAL PROTEIN 8.1 g/dL (6.7-8.2)
[2022-05-02] MEDS ORDERED: iohexoL-300 100 ML VIAL ONE (18:15)
[2022-05-02 19:05] LABS: B. PARAPERTUSSIS- RESP PCR PAN NOT DETECTED; B. PERTUSSIS- RESP PCR PANEL NOT DETECTED; C. PNEUMONIAE- RESP PCR PANEL NOT DETECTED; CORONAVIRUS 229E-RESP PCR NOT DETECTED; CORONAVIRUS HKU1-RESP PCR NOT DETECTED; CORONAVIRUS NL63-RESP PCR NOT DETECTED; CORONAVIRUS OC43-RESP PCR DETECTED; HUMAN METAPNEUMOVIRUS NOT DETECTED; INFLUENZA A- RESP PCR PANEL NOT DETECTED; INFLUENZA B - RESP PCR PANEL NOT DETECTED; M. PNEUMONIAE- RESP PCR PANEL NOT DETECTED; PARAINFLUENZA VIRUS 1 NOT DETECTED; PARAINFLUENZA VIRUS 2 NOT DETECTED; PARAINFLUENZA VIRUS 3 NOT DETECTED; PARAINFLUENZA VIRUS 4 NOT DETECTED; RHINOVIRUS/ENTEROVIRUS NOT DETECTED; RSV- RESP PCR PANEL NOT DETECTED; SARS-CoV-2 -RESP PCR PANEL NOT DETECTED
[2022-05-02] MEDS ORDERED: iohexoL-300 100 ML VIAL IVP ONE (19:10)
--- NOTE | 2022-05-02 19:51 | CT Report ---
PROCEDURE: ANGIO HEAD W/WO INDICATIONS: right sided apresis 3 days ago CONTRAST: 80ml omni 300 TECHNIQUE: Precontrast 4.5 mm thick angled axial sections acquired from the foramen magnum to the vertex. Afte r the administration of intravenous contrast, 1 mm thick sections acquired through the [place] of [place] is. Postcontrast 4.5 mm thick sections then re-acquired from the foramen magnum to the vertex. 3-di mensional nzkrkts-yfpovqydh-bdtlspudyw (MIP) and/or volume rendering reformats were acquired of the c entral intracranial vasculature. For radiation dose reduction, the following was used: automated ex posure control, adjustment of mA and/or kV according to patient size. COMPARISON: Noncontrast head CT 05/13/2017. FINDINGS: Image quality: Excellent. Anterior circulation: Intracranial internal carotid arteries are normal in size and flow. The flow within the paired anterior cerebral arteries is normal and symmetric. The flow within the middle cer ebral arteries is normal and symmetric. The anterior communicating artery is seen. No aneurysms are seen. Posterior circulation: Visualized portions of the vertebral arteries demonstrate normal caliber, and join to form a normal appearing basilar artery. Flow within the posterior cerebral arteries is norm al and symmetric. No aneurysms are seen. CSF spaces: Enlarged left posterior horn, unchanged. Basal cisterns are patent. No extra-axial flui d collections. Brain: No midline shift. No intracranial bleeds or masses. No area of hypodensity in a vascular di stribution to suggest acute infarction. Skull and face: Hyperostosis frontalis. Calvarium and facial bones appear intact, without suspicious lesions. Sinuses: Air-fluid level or mucosal thickening in the right maxillary sinus. Opacification of many of the ethmoid air cells. Mucosal thickening in the frontal sinuses. Mastoids are clear. IMPRESSION: 1. No acute intracranial hemorrhage. 2. No large vessel occlusion. 3. Stable dilatation of the left lateral ventricle posterior horn. Reviewed by: James Rasmussen MD on 05/02/2022 7:50 PM PDT Approved by: James Rasmussen MD on 05/02/2022 7:50 PM PDT Station ID: [id number]
--- NOTE | 2022-05-02 19:57 | CT Report ---
PROCEDURE: ANGIO NECK W INDICATIONS: right sided paresis 3 days ago CONTRAST: 80ml omni 300 TECHNIQUE: After the administration of intravenous contrast, 1.5 mm axial sections acquired from the aortic arch to the [place] of [place]. Coronal 3-D maximum intensity projection (MIP) and/or volume rendering ref ormats were then performed. For radiation dose reduction, the following was used: automated exposur e control, adjustment of mA and/or kV according to patient size. COMPARISON: Same day CTA head. Noncontrast head CT 05/13/2017.. FINDINGS: Image quality: Excellent. Carotid system: The great vessels demonstrate a conventional anatomy as they arise from the aortic a rch. The origins of the common carotid arteries appear patent. The common carotid arteries demonstr ate normal calibers and courses. The bifurcation regions appear normal bilaterally. The internal ca rotid arteries demonstrate normal caliber and course. Posterior circulation: The origins of the vertebral arteries appear patent. Right vertebral artery i s slightly dominant. The more superior portions of the vertebral arteries demonstrate normal course and caliber. They join to form a normal appearing basilar artery. Soft tissues: Enlarged cervical lymph nodes. Right measuring 1 cm, (3/139). Left measuring 1 cm (3/15 0). Right thyroid nodule measuring 2 cm, (3/68). Sinusitis. Bones: C5-C7 ACDF. No suspicious bony lesions. Visualized cervical spine appears normally aligned. IMPRESSION: 1. No critical stenosis. 2. Enlarged and shoddy cervical lymph nodes bilaterally. 3. Right thyroid nodule measuring 2 cm. Recommend thyroid ultrasound for further evaluation. The estimate of stenosis included in the report of the imaging study was calculated using the NASCET method Reviewed by: James Rasmussen MD on 05/02/2022 7:56 PM PDT Approved by: James Rasmussen MD on 05/02/2022 7:56 PM PDT Station ID: [id number]
[2022-05-02] MEDS ORDERED: ERYTHROMYCIN OPHTH OINT 1 GM TUBE RIGHTEYE STA (20:13)
[2022-05-02] MEDS ORDERED: AZITHROMYCIN 250 MG TABLET PO STA (20:15)
[2022-05-02] MEDS ORDERED: DOXYCYCLINE 100 MG TABLET PO STA (20:16)
[2022-05-02 20:28] VITALS: BP 179/76
== END 2022-05-02 20:47 | disposition home or self-care (01) ==
LOC: ED 15:12
DX: B34.2 Coronavirus infection, unspecified (principal); J18.9 Pneumonia, unspecified organism; H10.31 Unspecified acute conjunctivitis, right eye; E04.1 Nontoxic single thyroid nodule; R29.898 Other symptoms and signs involving the musculoskeletal system; Z88.8 Allergy status to other drugs, medicaments and biological substances; Z20.822 Contact with and (suspected) exposure to COVID-19
CPT/HCPCS: 36415; 70496; 70498; 71045; 80053; 83690; 85025; 85610; 87633; 93005; 94640; 99284; A9270; J3490; Q9967

== ENCOUNTER 2022-06-23 11:54 | Outpatient (CLI) | payer MEDICARE, MEDICAID ==
--- NOTE | 2022-06-23 16:55 | Ultrasound Report ---
PROCEDURE: Head or Neck Soft Tissue INDICATIONS: THYROID NODULE TECHNIQUE: Real-time scanning was performed of the thyroid gland, with image documentation. COMPARISON: CT angiogram of the neck 05/02/2022 FINDINGS: Right: Thyroid lobe measures 4.8 x 2.3 x 2.3 cm, and is homogeneous in echotexture. Left: Thyroid lobe measures 4.5 x 1.2 x 1.4 cm, and is homogenous in echotexture. Isthmus: 5 mm thick. Nodule number: One Location: Right lobe Size: 2.7 x 1.9 x 2.2 cm. Composition: Solid (2 points). Echogenicity: Isoechoic (1 point). Shape: wider than tall. Margins: Smooth (0 points). Echogenic foci: None (0 points). Total points: 3 ACR TI-RADS category: Mildly suspicious (3 points). Nodule number: Two Location: Left lobe superior Size: 0.9 x 0.7 x 0.9 cm. Composition: Solid. Echogenicity: Hypoechoic. Shape: wider than tall. Margins: Smooth (0 points). Echogenic foci: None (0 points). Total points: 4 ACR TI-RADS category: Moderately suspicious (4-6 points). Nodule number: Three Location: Isthmus Size: 1.1 x 1.0 x 1.2 cm. Composition: Mixed cystic and solid (1 point). Echogenicity: Isoechoic (1 point). Shape: wider than tall. Margins: Smooth (0 points). Echogenic foci: None (0 points). Total points: 2 ACR TI-RADS category: Not suspicious (2 points). Nodule number: Four Location: Left isthmus Size: 0.8 x 0.5 x 0.7 cm. Composition: Solid (2 points). Echogenicity: Hypoechoic (2 points). Shape: wider than tall. Margins: Smooth (0 points). Echogenic foci: None (0 points). Total points: 4 ACR TI-RADS category: Moderately suspicious (4-6 points). IMPRESSION: 1. A 2.7 cm nodule is present at the right lobe of the thyroid gland. FNA is recommended per TI-RADS criteria. 2. Other smaller thyroid nodules are present as above, not meeting TI-RADS criteria for FNA recommend ation. ACR TI-RADS definitions and recommendations: TI-RADS 1 (benign): 0 points. FNA not needed. TI-RADS 2 (not suspicious): 2 points. FNA not needed. TI-RADS 3 (mildly suspicious): 3 points. "FNA if 2.5 cm or larger, follow up if 1.5 cm or larger (at 1, 3, and 5 years). TI-RADS 4 (moderately suspicious): 4-6 points. "FNA if 1.5 cm or larger, follow up if 1 cm or larger (at 1, 2, 3, and 5 years). TI-RADS 5 (highly suspicious): 7 points or more. "FNA if 1 cm or larger, follow up if 0.5 cm or larger (every year for 5 years). Reviewed by: Florentino Roque MD on 06/23/2022 4:53 PM PDT Approved by: Florentino Roque MD on 06/23/2022 4:53 PM PDT Station ID: [id number]
== END 2022-06-23 11:55 | disposition home or self-care (01) ==
LOC: DI 11:54
PROVIDERS: ATTEND Physician Assistant
DX: E04.2 Nontoxic multinodular goiter (principal)

== ENCOUNTER 2022-06-30 14:41 | Emergency (ER) | payer MEDICARE, MEDICAID ==
--- NOTE | 2022-06-30 15:19 | XRAY Report ---
PROCEDURE: Chest 2 View X-Ray INDICATIONS: cough TECHNIQUE: 2 views of the chest were acquired. COMPARISON: 05/02/2022. FINDINGS: Surgical changes and devices: Surgical hardware in visualized lower cervical spine is seen. Lungs and pleura: No pleural effusions or pneumothorax. Lungs are clear. Mediastinum: Mediastinal contours appear normal. Heart size is normal. Bones and chest wall: No suspicious bony lesions. Overlying soft tissues appear unremarkable. IMPRESSION: No acute cardiopulmonary process. Reviewed by: Navarro Vitale MD on 06/30/2022 2:17 PM AKDT Approved by: Navarro Vitale MD on 06/30/2022 2:17 PM AKDT Station ID: [id number]
--- OUTSIDE RECORDS SUMMARY | 2022-06-30 16:25 | EXTERNAL MEDICAL SUMMARY RPT | Continuity of Care Document ---
Author Name Unknown Address [address] [place] [id number] Phone Organization [facility] Address [address] [place] [phone] Phone Care Team Providers Care Manager Library Name Role Phone Ryland Carlton Unavailable Unavailable Allergies and Intolerances date description facility type (no date) Penicillins [facility] (unknown) (no date) Sulfa (Sulfonamide Antibiotics) [facility] (unknown) (no date) adhesive tape [facility] (unknown) (no date) aspirin [facility] (unknown) (no date) nitrofurantoin [facility] (unknown) Problems date description facility 2022-04-14 00:00 Bleeding internal hemorrhoids I [facility] Procedures date description facility 2022-04-14 00:00 CT abdomen pelvis w [facility] Results/Labs test date author facility value unit interpretation Result panel 1 (unknown) (no date) (unknown) [facility] (no value) (units unknown) (unknown) Result panel 2 (unknown) (no date) (unknown) [facility] (no value) (units unknown) (unknown) Result panel 3 (unknown) (no date) (unknown) [facility] (no value) (units unknown) (unknown) Result panel 4 (unknown) (no date) (unknown) [facility] (no value) (units unknown) (unknown) Result panel 5 (unknown) (no date) (unknown) [facility] (no value) (units unknown) (unknown) Result panel 6 (unknown) (no date) (unknown) [facility] (no value) (units unknown) (unknown) Result panel 7 (unknown) (no date) (unknown) [facility] (no value) (units unknown) (unknown) Result panel 8 (unknown) (no date) (unknown) [facility] (no value) (units unknown) (unknown) Result panel 9 (unknown) (no date) (unknown) [facility] (no value) (units unknown) (unknown) Result panel 10 (unknown) (no date) (unknown) [facility] (no value) (units unknown) (unknown) Result panel 11 (unknown) (no date) (unknown) [facility] (no value) (units unknown) (unknown) Result panel 12 (unknown) (no date) (unknown) [facility] (no value) (units unknown) (unknown) Result panel 13 (unknown) (no date) (unknown) [facility] (no value) (units unknown) (unknown) Result panel 14 (unknown) (no date) (unknown) [facility] (no value) (units unknown) (unknown) Result panel 15 (unknown) (no date) (unknown) [facility] (no value) (units unknown) (unknown) Result panel 16 (unknown) (no date) (unknown) [facility] (no value) (units unknown) (unknown) Result panel 17 (unknown) (no date) (unknown) [facility] (no value) (units unknown) (unknown) Result panel 18 (unknown) (no date) (unknown) [facility] (no value) (units unknown) (unknown) Result panel 19 (unknown) (no date) (unknown) [facility] (no value) (units unknown) (unknown) Result panel 20 (unknown) (no date) (unknown) [facility] (no value) (units unknown) (unknown) Result panel 21 (unknown) (no date) (unknown) [facility] (no value) (units unknown) (unknown) Result panel 22 (unknown) (no date) (unknown) [facility] (no value) (units unknown) (unknown) Result panel 23 (unknown) (no date) (unknown) [facility] (no value) (units unknown) (unknown) Result panel 24 (unknown) (no date) (unknown) [facility] (no value) (units unknown) (unknown) Result panel 25 (unknown) (no date) (unknown) [facility] (no value) (units unknown) (unknown) Result panel 26 (unknown) (no date) (unknown) [facility] (no value) (units unknown) (unknown) Result panel 27 (unknown) (no date) (unknown) [facility] (no value) (units unknown) (unknown) Result panel 28 (unknown) (no date) (unknown) [facility] (no value) (units unknown) (unknown) Result panel 29 (unknown) (no date) (unknown) [facility] (no value) (units unknown) (unknown) Result panel 30 (unknown) (no date) (unknown) [facility] (no value) (units unknown) (unknown) Result panel 31 (unknown) (no date) (unknown) [facility] (no value) (units unknown) (unknown) Result panel 32 (unknown) (no date) (unknown) [facility] (no value) (units unknown) (unknown) Result panel 33 (unknown) (no date) (unknown) [facility] (no value) (units unknown) (unknown) Result panel 34 (unknown) (no date) (unknown) [facility] (no value) (units unknown) (unknown) Result panel 35 (unknown) (no date) (unknown) [facility] (no value) (units unknown) (unknown) Result panel 36 (unknown) (no date) (unknown) [facility] (no value) (units unknown) (unknown) Result panel 37 (unknown) (no date) (unknown) [facility] (no value) (units unknown) (unknown) Result panel 38 (unknown) (no date) (unknown) [facility] (no value) (units unknown) (unknown) Result panel 39 (unknown) (no date) (unknown) [facility] (no value) (units unknown) (unknown) Result panel 40 (unknown) (no date) (unknown) [facility] (no value) (units unknown) (unknown) Result panel 41 (unknown) (no date) (unknown) [facility] (no value) (units unknown) (unknown) Result panel 42 (unknown) (no date) (unknown) [facility] (no value) (units unknown) (unknown) Result panel 43 (unknown) (no date) (unknown) [facility] (no value) (units unknown) (unknown) Result panel 44 (unknown) (no date) (unknown) [facility] (no value) (units unknown) (unknown) Result panel 45 (unknown) (no date) (unknown) [facility] (no value) (units unknown) (unknown) Result panel 46 (unknown) (no date) (unknown) [facility] (no value) (units unknown) (unknown) Result panel 47 (unknown) (no date) (unknown) [facility] (no value) (units unknown) (unknown) Result panel 48 (unknown) (no date) (unknown) [facility] (no value) (units unknown) (unknown) Result panel 49 (unknown) (no date) (unknown) [facility] (no value) (units unknown) (unknown) Result panel 50 (unknown) (no date) (unknown) [facility] (no value) (units unknown) (unknown) Result panel 51 (unknown) (no date) (unknown) [facility] (no value) (units unknown) (unknown) Result panel 52 (unknown) (no date) (unknown) [facility] (no value) (units unknown) (unknown) Result panel 53 (unknown) (no date) (unknown) [facility] (no value) (units unknown) (unknown) Result panel 54 (unknown) (no date) (unknown) [facility] (no value) (units unknown) (unknown) Result panel 55 (unknown) (no date) (unknown) [facility] (no value) (units unknown) (unknown) Result panel 56 (unknown) (no date) (unknown) [facility] (no value) (units unknown) (unknown) Result panel 57 (unknown) (no date) (unknown) [facility] (no value) (units unknown) (unknown) Result panel 58 (unknown) (no date) (unknown) [facility] (no value) (units unknown) (unknown) Result panel 59 (unknown) (no date) (unknown) [facility] (no value) (units unknown) (unknown) Result panel 60 (unknown) (no date) (unknown) [facility] (no value) (units unknown) (unknown) Result panel 61 (unknown) (no date) (unknown) [facility] (no value) (units unknown) (unknown) Result panel 62 (unknown) (no date) (unknown) [facility] (no value) (units unknown) (unknown) Result panel 63 (unknown) (no date) (unknown) [facility] (no value) (units unknown) (unknown) Result panel 64 (unknown) (no date) (unknown) [facility] (no value) (units unknown) (unknown) Result panel 65 (unknown) (no date) (unknown) [facility] (no value) (units unknown) (unknown) Result panel 66 (unknown) (no date) (unknown) [facility] (no value) (units unknown) (unknown) Result panel 67 (unknown) (no date) (unknown) [facility] (no value) (units unknown) (unknown) Result panel 68 (unknown) (no date) (unknown) [facility] (no value) (units unknown) (unknown) Result panel 69 (unknown) (no date) (unknown) [facility] (no value) (units unknown) (unknown) Result panel 70 (unknown) (no date) (unknown) [facility] (no value) (units unknown) (unknown) Result panel 71 (unknown) (no date) (unknown) [facility] (no value) (units unknown) (unknown) Result panel 72 (unknown) (no date) (unknown) [facility] (no value) (units unknown) (unknown) Result panel 73 (unknown) (no date) (unknown) [facility] (no value) (units unknown) (unknown) Result panel 74 (unknown) (no date) (unknown) [facility] (no value) (units unknown) (unknown) Result panel 75 (unknown) (no date) (unknown) [facility] (no value) (units unknown) (unknown) Result panel 76 (unknown) (no date) (unknown) [facility] (no value) (units unknown) (unknown) Result panel 77 (unknown) (no date) (unknown) [facility] (no value) (units unknown) (unknown) Result panel 78 (unknown) (no date) (unknown) [facility] (no value) (units unknown) (unknown) Result panel 79 (unknown) (no date) (unknown) [facility] (no value) (units unknown) (unknown) Result panel 80 (unknown) (no date) (unknown) [facility] (no value) (units unknown) (unknown) Result panel 81 (unknown) (no date) (unknown) [facility] (no value) (units unknown) (unknown) Result panel 82 (unknown) (no date) (unknown) (unknown) (no value) (units unknown) (unknown) (unknown) (no date) (unknown) (unknown) %-0.3 % eye drops in a dropperette (units unknown) (unknown) (unknown) (no date) (unknown) (unknown) (DOK) (units unknown) (unknown) (unknown) (no date) (unknown) (unknown) (Neurontin) (units unknown) (unknown) (unknown) (no date) (unknown) (unknown) (Systane (PF)) (units unknown) (unknown) (unknown) (no date) (unknown) (unknown) [id number] (units unknown) (unknown) (unknown) (no date) (unknown) (unknown) 04/14/22 12:06 (units unknown) (unknown) (unknown) (no date) (unknown) (unknown) 04/14/22 (units unknown) (unknown) (unknown) (no date) (unknown) (unknown) 10/04/19 (units unknown) (unknown) (unknown) (no date) (unknown) (unknown) 1 - 2 tab PO Q3HP PRN (Reason: Pain (Scale Score 1-3)) (units unknown) (unknown) (unknown) (no date) (unknown) (unknown) 1 applic topical BID PRN (Reason: knee pain, ankle pain) Qty: 100 0RF (units unknown) (unknown) (unknown) (no date) (unknown) (unknown) 1 tab PO BID PRN (Reason: pain) Qty: 14 0RF (units unknown) (unknown) (unknown) (no date) (unknown) (unknown) 1 tab PO Q4-6H PRN (Reason: pain) Qty: 14 0RF (units unknown) (unknown) (unknown) (no date) (unknown) (unknown) 1 tab PO QDAY Qty: 0 (units unknown) (unknown) (unknown) (no date) (unknown) (unknown) 10 mg PO QDAYP PRN (Reason: Allergy Symptoms) Qty: 0 (units unknown) (unknown) (unknown) (no date) (unknown) (unknown) 11:41 (units unknown) (unknown) (unknown) (no date) (unknown) (unknown) 12 point review of systems is negative except for those stated above (units unknown) (unknown) (unknown) (no date) (unknown) (unknown) 2 drp OPHTH QDAY Qty: 0 (units unknown) (unknown) (unknown) (no date) (unknown) (unknown) 2 puff INH PRN PRN (Reason: Dyspnea) Qty: 0 (units unknown) (unknown) (unknown) (no date) (unknown) (unknown) 2 spray INTRANASAL DAILY PRN (Reason: Allergic Symptoms) (units unknown) (unknown) (unknown) (no date) (unknown) (unknown) 2 tabs in am, 3 tams at noon, 2 tabs evening (units unknown) (unknown) (unknown) (no date) (unknown) (unknown) 20 mg PO DAILY Qty: 30 0RF (units unknown) (unknown) (unknown) (no date) (unknown) (unknown) 200 mg PO BID (units unknown) (unknown) (unknown) (no date) (unknown) (unknown) 3,200 mg PO QDAY Qty: 0 (units unknown) (unknown) (unknown) (no date) (unknown) (unknown) 400 mg PO PRN PRN (Reason: Pain (Scale Score 1-3)) Qty: 0 (units unknown) (unknown) (unknown) (no date) (unknown) (unknown) 5 mg PO Q8H PRN (Reason: pain) Qty: 7 0RF (units unknown) (unknown) (unknown) (no date) (unknown) (unknown) 5,000 unit PO QDAY Qty: 0 (units unknown) (unknown) (unknown) (no date) (unknown) (unknown) 500 mg PO PRN PRN (Reason: Constipation) Qty: 0 (units unknown) (unknown) (unknown) (no date) (unknown) (unknown) 600 mg PO BID Qty: 0 (units unknown) (unknown) (unknown) (no date) (unknown) (unknown) ALLERGY (units unknown) (unknown) (unknown) (no date) (unknown) (unknown) GDAOG-D-PHLRSSKDBIB SE Allergy Unknown PT NOT Uncoded 04/14/22 11:41 (units unknown) (unknown) (unknown) (no date) (unknown) (unknown) ANTIBIOTICS)] (units unknown) (unknown) (unknown) (no date) (unknown) (unknown) AWARE OF (units unknown) (unknown) (unknown) (no date) (unknown) (unknown) Age/Sex: 61 / F (units unknown) (unknown) (unknown) (no date) (unknown) (unknown) Allergies (units unknown) (unknown) (unknown) (no date) (unknown) (unknown) Allergy/AdvReac Type Severity Reaction Status Date / Time (units unknown) (unknown) (unknown) (no date) (unknown) (unknown) Antibiotics) PER PT (units unknown) (unknown) (unknown) (no date) (unknown) (unknown) Asthma (units unknown) (unknown) (unknown) (no date) (unknown) (unknown) BACK: Nontender without deformity or crepitance. No flank tenderness. (units unknown) (unknown) (unknown) (no date) (unknown) (unknown) Bedside Urine Bilirubin - Negative (units unknown) (unknown) (unknown) (no date) (unknown) (unknown) Bedside Urine Glucose Negative (units unknown) (unknown) (unknown) (no date) (unknown) (unknown) Bedside Urine Ketone - Negative (units unknown) (unknown) (unknown) (no date) (unknown) (unknown) Bedside Urine Leukocytes - Negative (units unknown) (unknown) (unknown) (no date) (unknown) (unknown) Bedside Urine Nitrite - Negative (units unknown) (unknown) (unknown) (no date) (unknown) (unknown) Bedside Urine Occult Blood (units unknown) (unknown) (unknown) (no date) (unknown) (unknown) Bedside Urine Protein ++ 100 (units unknown) (unknown) (unknown) (no date) (unknown) (unknown) Bedside Urine Urobilinogen - Negative (units unknown) (unknown) (unknown) (no date) (unknown) (unknown) Bedside Urine pH 6.0 (units unknown) (unknown) (unknown) (no date) (unknown) (unknown) Blood Pressure 128/87 04/14/22 11:41 (units unknown) (unknown) (unknown) (no date) (unknown) (unknown) Blood Pressure 128/87 (units unknown) (unknown) (unknown) (no date) (unknown) (unknown) CARDIOVASCULAR: Denies chest pain, palpitations, orthopnea, edema, (units unknown) (unknown) (unknown) (no date) (unknown) (unknown) CARDIOVASCULAR: Regular rate and rhythm without murmurs, gallops, or rubs. (units unknown) (unknown) (unknown) (no date) (unknown) (unknown) Chief complaint: GI Bleed (units unknown) (unknown) (unknown) (no date) (unknown) (unknown) Colon cancer (units unknown) (unknown) (unknown) (no date) (unknown) (unknown) Complete Blood Count AUTO DIFF Stat (units unknown) (unknown) (unknown) (no date) (unknown) (unknown) Comprehensive Metabolic Panel Stat (units unknown) (unknown) (unknown) (no date) (unknown) (unknown) Course (units unknown) (unknown) (unknown) (no date) (unknown) (unknown) : 1960 Acct:[id number] (units unknown) (unknown) (unknown) (no date) (unknown) (unknown) DOES NOT (units unknown) (unknown) (unknown) (no date) (unknown) (unknown) Date of Service: 04/14/22 (units unknown) (unknown) (unknown) (no date) (unknown) (unknown) Departure (units unknown) (unknown) (unknown) (no date) (unknown) (unknown) Diabetes mellitus (units unknown) (unknown) (unknown) (no date) (unknown) (unknown) Diabetes (units unknown) (unknown) (unknown) (no date) (unknown) (unknown) Discharge Plan (units unknown) (unknown) (unknown) (no date) (unknown) (unknown) Discontinued Medications (units unknown) (unknown) (unknown) (no date) (unknown) (unknown) ED Orders (units unknown) (unknown) (unknown) (no date) (unknown) (unknown) EKG-12 Lead Stat (units unknown) (unknown) (unknown) (no date) (unknown) (unknown) ENT: Nose without bleeding, purulent drainage. Throat without erythema, (units unknown) (unknown) (unknown) (no date) (unknown) (unknown) ER Physician: Joel Francois P.A-C (units unknown) (unknown) (unknown) (no date) (unknown) (unknown) EXTREMITIES: No edema or joint tenderness. (units unknown) (unknown) (unknown) (no date) (unknown) (unknown) EYES: Pupils equal round and reactive. Extraocular motions intact. No scleral (units unknown) (unknown) (unknown) (no date) (unknown) (unknown) Emergency Report (units unknown) (unknown) (unknown) (no date) (unknown) (unknown) Esterase (units unknown) (unknown) (unknown) (no date) (unknown) (unknown) Exam Narrative: (units unknown) (unknown) (unknown) (no date) (unknown) (unknown) Exam (units unknown) (unknown) (unknown) (no date) (unknown) (unknown) Family History (units unknown) (unknown) (unknown) (no date) (unknown) (unknown) Father Diabetes mellitus (units unknown) (unknown) (unknown) (no date) (unknown) (unknown) Edison Jones MD [Primary Care Provider] (units unknown) (unknown) (unknown) (no date) (unknown) (unknown) GASTROINTESTINAL: Reports bright red blood in stool, Denies nausea, vomiting, (units unknown) (unknown) (unknown) (no date) (unknown) (unknown) GASTROINTESTINAL: Suprapubic abdominal tenderness to palpation (units unknown) (unknown) (unknown) (no date) (unknown) (unknown) GENERAL: Denies chills, fatigue, malaise, fever, sweats. (units unknown) (unknown) (unknown) (no date) (unknown) (unknown) GENERAL: Well-developed patient, in mild distress. (units unknown) (unknown) (unknown) (no date) (unknown) (unknown) : Denies dysuria, frequency, incontinence, hematuria, urinary retention. (units unknown) (unknown) (unknown) (no date) (unknown) (unknown) Gallstones (units unknown) (unknown) (unknown) (no date) (unknown) (unknown) General (units unknown) (unknown) (unknown) (no date) (unknown) (unknown) HEAD: Atraumatic. Normocephalic. (units unknown) (unknown) (unknown) (no date) (unknown) (unknown) HEENT: Denies sinus pain, ear pain, sore throat, difficulty swallowing, (units unknown) (unknown) (unknown) (no date) (unknown) (unknown) HPI - GI Bleed (units unknown) (unknown) (unknown) (no date) (unknown) (unknown) HPI Narrative: (units unknown) (unknown) (unknown) (no date) (unknown) (unknown) Heart disease (units unknown) (unknown) (unknown) (no date) (unknown) (unknown) History of Present Illness (units unknown) (unknown) (unknown) (no date) (unknown) (unknown) History of back surgery (units unknown) (unknown) (unknown) (no date) (unknown) (unknown) History of total knee arthroplasty (units unknown) (unknown) (unknown) (no date) (unknown) (unknown) Home Medications (units unknown) (unknown) (unknown) (no date) (unknown) (unknown) Hx of cholecystectomy (units unknown) (unknown) (unknown) (no date) (unknown) (unknown) Hx of knee surgery (units unknown) (unknown) (unknown) (no date) (unknown) (unknown) Hx of neck surgery (units unknown) (unknown) (unknown) (no date) (unknown) (unknown) Hx of shoulder surgery (units unknown) (unknown) (unknown) (no date) (unknown) (unknown) Initial Vital Signs (units unknown) (unknown) (unknown) (no date) (unknown) (unknown) Initial Vital Signs: (units unknown) (unknown) (unknown) (no date) (unknown) (unknown) [address] [address] (units unknown) (unknown) (unknown) (no date) (unknown) (unknown) Kidney malignancy (units unknown) (unknown) (unknown) (no date) (unknown) (unknown) Lab Data (units unknown) (unknown) (unknown) (no date) (unknown) (unknown) Labs: (units unknown) (unknown) (unknown) (no date) (unknown) (unknown) MDM - GI Bleed (units unknown) (unknown) (unknown) (no date) (unknown) (unknown) MUSCULOSKELETAL: denies weakness, joint pain, or bony pain (units unknown) (unknown) (unknown) (no date) (unknown) (unknown) Medical History (Updated 08/29/21 @ 00:01 by ) (units unknown) (unknown) (unknown) (no date) (unknown) (unknown) Medication Instructions Recorded Confirmed (units unknown) (unknown) (unknown) (no date) (unknown) (unknown) Medication Instructions Recorded (units unknown) (unknown) (unknown) (no date) (unknown) (unknown) Mode of arrival: Ambulatory (units unknown) (unknown) (unknown) (no date) (unknown) (unknown) Mother Hypertension (units unknown) (unknown) (unknown) (no date) (unknown) (unknown) NECK: Trachea midline. Non tender (units unknown) (unknown) (unknown) (no date) (unknown) (unknown) NEURO: AOx3. (units unknown) (unknown) (unknown) (no date) (unknown) (unknown) NEUROLOGIC: Denies weakness, headache, numbness, change in speech, confusion, (units unknown) (unknown) (unknown) (no date) (unknown) (unknown) Narrative (units unknown) (unknown) (unknown) (no date) (unknown) (unknown) Narrative: (units unknown) (unknown) (unknown) (no date) (unknown) (unknown) No Action (units unknown) (unknown) (unknown) (no date) (unknown) (unknown) Obesity (units unknown) (unknown) (unknown) (no date) (unknown) (unknown) Ondansetron HCl (Ondansetron 4 Mg Odt) 4 mg SL NOW PRN (units unknown) (unknown) (unknown) (no date) (unknown) (unknown) Ondansetron HCl (Ondansetron 4 Mg/2 Ml Inj) 4 mg IV NOW PRN (units unknown) (unknown) (unknown) (no date) (unknown) (unknown) Ordered: (units unknown) (unknown) (unknown) (no date) (unknown) (unknown) Orders (units unknown) (unknown) (unknown) (no date) (unknown) (unknown) Oxygen Delivery Method Room Air 04/14/22 11:41 (units unknown) (unknown) (unknown) (no date) (unknown) (unknown) Oxygen Delivery Method Room Air (units unknown) (unknown) (unknown) (no date) (unknown) (unknown) PER PT (units unknown) (unknown) (unknown) (no date) (unknown) (unknown) PRN Reason: Nausea And Vomiting (units unknown) (unknown) (unknown) (no date) (unknown) (unknown) PSYCHIATRIC: No concerning psychosocial issues. (units unknown) (unknown) (unknown) (no date) (unknown) (unknown) Pantoprazole Sodium (Pantoprazole 40 Mg Vial) 80 mg IV NOW ONE (units unknown) (unknown) (unknown) (no date) (unknown) (unknown) Partial Thromboplastin Time Stat (units unknown) (unknown) (unknown) (no date) (unknown) (unknown) Patient History (units unknown) (unknown) (unknown) (no date) (unknown) (unknown) Patient's daughter describes the blood as bright red in color. No significant (units unknown) (unknown) (unknown) (no date) (unknown) (unknown) Patient: Logan Desir MR#: M (units unknown) (unknown) (unknown) (no date) (unknown) (unknown) Penicillins [PENICILLINS] Allergy Unknown ITCHING-PT Verified 04/14/22 11:41 (units unknown) (unknown) (unknown) (no date) (unknown) (unknown) Prescriptions: (units unknown) (unknown) (unknown) (no date) (unknown) (unknown) Previous Rx's (units unknown) (unknown) (unknown) (no date) (unknown) (unknown) Prothrombin Time INR Stat (units unknown) (unknown) (unknown) (no date) (unknown) (unknown) Pulse Oximetry 99 04/14/22 11:41 (units unknown) (unknown) (unknown) (no date) (unknown) (unknown) Pulse Oximetry 99 (units unknown) (unknown) (unknown) (no date) (unknown) (unknown) Pulse Rate 80 04/14/22 11:41 (units unknown) (unknown) (unknown) (no date) (unknown) (unknown) Pulse Rate 80 (units unknown) (unknown) (unknown) (no date) (unknown) (unknown) Qty: 1 0RF (units unknown) (unknown) (unknown) (no date) (unknown) (unknown) REACTION (units unknown) (unknown) (unknown) (no date) (unknown) (unknown) RED' (units unknown) (unknown) (unknown) (no date) (unknown) (unknown) REMEMBER (units unknown) (unknown) (unknown) (no date) (unknown) (unknown) RESPIRATORY: Clear to auscultation. Breath sounds equal bilaterally. No wheezes, (units unknown) (unknown) (unknown) (no date) (unknown) (unknown) RESPIRATORY: Denies dyspnea, cough, wheezing, hemoptysis, sputum. (units unknown) (unknown) (unknown) (no date) (unknown) (unknown) Referrals: (units unknown) (unknown) (unknown) (no date) (unknown) (unknown) Related Data (units unknown) (unknown) (unknown) (no date) (unknown) (unknown) Relief) (units unknown) (unknown) (unknown) (no date) (unknown) (unknown) Respiratory Rate 16 04/14/22 11:41 (units unknown) (unknown) (unknown) (no date) (unknown) (unknown) Respiratory Rate 16 (units unknown) (unknown) (unknown) (no date) (unknown) (unknown) Review of Systems (units unknown) (unknown) (unknown) (no date) (unknown) (unknown) Rx Instructions: (units unknown) (unknown) (unknown) (no date) (unknown) (unknown) SEVERITY (units unknown) (unknown) (unknown) (no date) (unknown) (unknown) SKIN: Denies rash, skin lesions, or other (units unknown) (unknown) (unknown) (no date) (unknown) (unknown) SKIN: No rash or erythema of visible areas (units unknown) (unknown) (unknown) (no date) (unknown) (unknown) Score 1-3) ##0 (units unknown) (unknown) (unknown) (no date) (unknown) (unknown) Score 1-3) (units unknown) (unknown) (unknown) (no date) (unknown) (unknown) Seizure-like activity (units unknown) (unknown) (unknown) (no date) (unknown) (unknown) Signed By: (units unknown) (unknown) (unknown) (no date) (unknown) (unknown) Smoking Status: Never smoker (units unknown) (unknown) (unknown) (no date) (unknown) (unknown) Social History (units unknown) (unknown) (unknown) (no date) (unknown) (unknown) Source: patient (units unknown) (unknown) (unknown) (no date) (unknown) (unknown) [place],Suspension (units unknown) (unknown) (unknown) (no date) (unknown) (unknown) Stated complaint: bleeding in stool (units unknown) (unknown) (unknown) (no date) (unknown) (unknown) Stop: 04/14/22 12:07 (units unknown) (unknown) (unknown) (no date) (unknown) (unknown) Stroke (units unknown) (unknown) (unknown) (no date) (unknown) (unknown) Substance Use Type: does not use (units unknown) (unknown) (unknown) (no date) (unknown) (unknown) Sulfa (Sulfonamide Allergy Unknown UNKNOWN Verified 04/14/22 11:41 (units unknown) (unknown) (unknown) (no date) (unknown) (unknown) Surgical History (units unknown) (unknown) (unknown) (no date) (unknown) (unknown) Symptoms ##0 (units unknown) (unknown) (unknown) (no date) (unknown) (unknown) Systane (PF) 1 EACH dropperette (units unknown) (unknown) (unknown) (no date) (unknown) (unknown) THIS (units unknown) (unknown) (unknown) (no date) (unknown) (unknown) Temperature 97.4 F L 04/14/22 11:41 (units unknown) (unknown) (unknown) (no date) (unknown) (unknown) Temperature 97.4 F L (units unknown) (unknown) (unknown) (no date) (unknown) (unknown) This is a 61-year-old female presents to the emergency department due to (units unknown) (unknown) (unknown) (no date) (unknown) (unknown) Time Seen by Provider: 04/14/22 12:07 (units unknown) (unknown) (unknown) (no date) (unknown) (unknown) Type and Screen Stat (units unknown) (unknown) (unknown) (no date) (unknown) (unknown) Urine Dip (units unknown) (unknown) (unknown) (no date) (unknown) (unknown) Urine Specific Jackson 1.030 (units unknown) (unknown) (unknown) (no date) (unknown) (unknown) Vital Signs - 8 hr (units unknown) (unknown) (unknown) (no date) (unknown) (unknown) Vital Signs (units unknown) (unknown) (unknown) (no date) (unknown) (unknown) Vital signs: (units unknown) (unknown) (unknown) (no date) (unknown) (unknown) Walker: Front Wheel ##1 10/30/16 (units unknown) (unknown) (unknown) (no date) (unknown) (unknown) Walker: Front Wheel (units unknown) (unknown) (unknown) (no date) (unknown) (unknown) [CRANBERRY] 1 tab PO QDAY ##0 09/27/16 10/04/19 (units unknown) (unknown) (unknown) (no date) (unknown) (unknown) [CRANBERRY] (units unknown) (unknown) (unknown) (no date) (unknown) (unknown) [NITROFURANTOIN] REACTION (units unknown) (unknown) (unknown) (no date) (unknown) (unknown) [RED RICE YEAST] 600 mg PO BID ##0 03/12/10 10/04/19 (units unknown) (unknown) (unknown) (no date) (unknown) (unknown) [RED RICE YEAST] (units unknown) (unknown) (unknown) (no date) (unknown) (unknown) [SULFA (SULFONAMIDE (units unknown) (unknown) (unknown) (no date) (unknown) (unknown) abdominal pain, diarrhea, constipation. (units unknown) (unknown) (unknown) (no date) (unknown) (unknown) acetaminophen 300 mg-codeine 30 mg 1 tab PO Q4-6H PRN pain #14 tabs 09/21/17 (units unknown) (unknown) (unknown) (no date) (unknown) (unknown) acetaminophen-codei ne [Tylenol-Codeine #3] 300-30 mg tablet (units unknown) (unknown) (unknown) (no date) (unknown) (unknown) adhesive tape [ADHESIVE TAPE] Allergy Severe 'I GOT Verified 04/14/22 11:41 (units unknown) (unknown) (unknown) (no date) (unknown) (unknown) aerosol inhaler (Proventil HFA) (units unknown) (unknown) (unknown) (no date) (unknown) (unknown) albuterol sulfate 90 mcg/actuation 2 puff INH PRN PRN Dyspnea ##0 03/12/10 (units unknown) (unknown) (unknown) (no date) (unknown) (unknown) albuterol sulfate [Proventil HFA] 90 MCG/PUFF HFA aerosol inhaler (units unknown) (unknown) (unknown) (no date) (unknown) (unknown) alcohol intake frequency: 0-2 drinks per day (units unknown) (unknown) (unknown) (no date) (unknown) (unknown) alcohol intake: never (units unknown) (unknown) (unknown) (no date) (unknown) (unknown) aspirin [ASPIRIN] Allergy Unknown UNKNOWN Verified 04/14/22 11:41 (units unknown) (unknown) (unknown) (no date) (unknown) (unknown) blister (units unknown) (unknown) (unknown) (no date) (unknown) (unknown) cholecalciferol (vitamin D3) 250 5,000 unit PO QDAY ##0 03/12/10 10/04/19 (units unknown) (unknown) (unknown) (no date) (unknown) (unknown) cholecalciferol (vitamin D3) 250 mcg (10,000 unit) Tablet (units unknown) (unknown) (unknown) (no date) (unknown) (unknown) diclofenac sodium 3 % gel (units unknown) (unknown) (unknown) (no date) (unknown) (unknown) diclofenac sodium 3 % topical gel 1 applic topical BID PRN knee 08/14/21 (units unknown) (unknown) (unknown) (no date) (unknown) (unknown) dizziness. (units unknown) (unknown) (unknown) (no date) (unknown) (unknown) docusate sodium 250 mg capsule 500 mg PO PRN PRN Constipation ##0 03/12/10 (units unknown) (unknown) (unknown) (no date) (unknown) (unknown) docusate sodium [DOK] 250 MG capsule (units unknown) (unknown) (unknown) (no date) (unknown) (unknown) dysuria, urinary frequency, or urgency. (units unknown) (unknown) (unknown) (no date) (unknown) (unknown) fluticasone propionate 50 2 spray intranasal DAILY PRN 09/17/19 10/04/19 (units unknown) (unknown) (unknown) (no date) (unknown) (unknown) fluticasone propionate [Flonase Allergy Relief] 50 mcg/actuation (units unknown) (unknown) (unknown) (no date) (unknown) (unknown) gabapentin 400 mg capsule 3,200 mg PO QDAY ##0 09/27/16 10/04/19 (units unknown) (unknown) (unknown) (no date) (unknown) (unknown) gabapentin [Neurontin] 400 MG capsule (units unknown) (unknown) (unknown) (no date) (unknown) (unknown) her abdomen or rectum but she states that she ?always does not feel pain down (units unknown) (unknown) (unknown) (no date) (unknown) (unknown) history of NSAID use. Also reports a foul-smelling urine but denies any (units unknown) (unknown) (unknown) (no date) (unknown) (unknown) household members: caregiver and none (units unknown) (unknown) (unknown) (no date) (unknown) (unknown) hydrocodone 5 mg-acetaminophen 325 1 tab PO BID PRN pain #14 tabs 08/14/21 (units unknown) (unknown) (unknown) (no date) (unknown) (unknown) hydrocodone-acetami nophen 5-325 mg tablet (units unknown) (unknown) (unknown) (no date) (unknown) (unknown) ibuprofen 200 MG capsule (units unknown) (unknown) (unknown) (no date) (unknown) (unknown) ibuprofen 200 mg capsule 400 mg PO PRN PRN Pain (Scale 09/27/16 10/04/19 (units unknown) (unknown) (unknown) (no date) (unknown) (unknown) icterus. No injection or drainage. (units unknown) (unknown) (unknown) (no date) (unknown) (unknown) loratadine 10 MG tablet (units unknown) (unknown) (unknown) (no date) (unknown) (unknown) loratadine 10 mg tablet 10 mg PO QDAYP PRN Allergy 09/27/16 10/04/19 (units unknown) (unknown) (unknown) (no date) (unknown) (unknown) marital status: unknown (units unknown) (unknown) (unknown) (no date) (unknown) (unknown) mcg (10,000 unit) tablet (units unknown) (unknown) (unknown) (no date) (unknown) (unknown) mcg/actuation nasal Allergic Symptoms (units unknown) (unknown) (unknown) (no date) (unknown) (unknown) mg tablet (units unknown) (unknown) (unknown) (no date) (unknown) (unknown) nitrofurantoin Allergy Unknown UNKNOWN Verified 04/14/22 11:41 (units unknown) (unknown) (unknown) (no date) (unknown) (unknown) omeprazole 20 mg capsule,delayed 20 mg PO DAILY #30 caps 10/04/19 (units unknown) (unknown) (unknown) (no date) (unknown) (unknown) omeprazole 20 mg capsule,delayed release(DR/EC) (units unknown) (unknown) (unknown) (no date) (unknown) (unknown) or from her urine. Patient states that she is not experienced any pain around (units unknown) (unknown) (unknown) (no date) (unknown) (unknown) oxycodone 5 MG tablet (units unknown) (unknown) (unknown) (no date) (unknown) (unknown) oxycodone 5 mg tablet 1 - 2 tab PO Q3HP PRN Pain (Scale 09/17/19 10/04/19 (units unknown) (unknown) (unknown) (no date) (unknown) (unknown) oxycodone 5 mg tablet 5 mg PO Q8H PRN pain #7 tabs 04/04/20 (units unknown) (unknown) (unknown) (no date) (unknown) (unknown) oxycodone 5 mg tablet (units unknown) (unknown) (unknown) (no date) (unknown) (unknown) pain, acute shortness of breath, or any other concerning signs or symptoms. (units unknown) (unknown) (unknown) (no date) (unknown) (unknown) pain, ankle pain #100 grams (units unknown) (unknown) (unknown) (no date) (unknown) (unknown) peg 400-propylene glycol (PF) 0.4 2 drp OPHTH QDAY ##0 09/27/16 10/04/19 (units unknown) (unknown) (unknown) (no date) (unknown) (unknown) rales, or rhonchi. (units unknown) (unknown) (unknown) (no date) (unknown) (unknown) release (units unknown) (unknown) (unknown) (no date) (unknown) (unknown) reported blood in her stool onset this morning while taking a shower. She (units unknown) (unknown) (unknown) (no date) (unknown) (unknown) seizures, incoordination. (units unknown) (unknown) (unknown) (no date) (unknown) (unknown) spray,suspension (Flonase Allergy (units unknown) (unknown) (unknown) (no date) (unknown) (unknown) states that she is unsure if the blood was in her stool coming from her rectum (units unknown) (unknown) (unknown) (no date) (unknown) (unknown) substance use type: does not use (units unknown) (unknown) (unknown) (no date) (unknown) (unknown) tablet (Tylenol-Codeine #3) (units unknown) (unknown) (unknown) (no date) (unknown) (unknown) there?. Patient denies any significant abdominal pain, nausea, vomiting, chest (units unknown) (unknown) (unknown) (no date) (unknown) (unknown) tonsillar hypertrophy or exudate. Airway patent. (units unknown) (unknown) (unknown) (no date) (unknown) (unknown) topiramate 50 mg tablet (Topamax) 200 mg PO BID 09/17/19 10/04/19 (units unknown) (unknown) (unknown) (no date) (unknown) (unknown) topiramate [Topamax] 50 MG tablet (units unknown) (unknown) Result panel 83 (unknown) (no date) (unknown) (unknown) 0.7 % (unknown) (unknown) (no date) (unknown) (unknown) 1.6 % (unknown) (unknown) (no date) (unknown) (unknown) 100 /ul (unknown) (unknown) (no date) (unknown) (unknown) 100 /ul (unknown) (unknown) (no date) (unknown) (unknown) 13.7 % (unknown) (unknown) (no date) (unknown) (unknown) 13.7 g/dl (unknown) (unknown) (no date) (unknown) (unknown) 1900 /ul (unknown) (unknown) (no date) (unknown) (unknown) 22.7 % (unknown) (unknown) (no date) (unknown) (unknown) 278 x10 3/ul (unknown) (unknown) (no date) (unknown) (unknown) 31.8 pg (unknown) (unknown) (no date) (unknown) (unknown) 33.9 % (unknown) (unknown) (no date) (unknown) (unknown) 4.30 x10 6/ul (unknown) (unknown) (no date) (unknown) (unknown) 40.4 % (unknown) (unknown) (no date) (unknown) (unknown) 500 /ul (unknown) (unknown) (no date) (unknown) (unknown) 5800 /ul (unknown) (unknown) (no date) (unknown) (unknown) 6.3 % (unknown) (unknown) (no date) (unknown) (unknown) 68.7 % (unknown) (unknown) (no date) (unknown) (unknown) 8.4 x10 3/ul (unknown) (unknown) (no date) (unknown) (unknown) 93.9 fl (unknown) Result panel 84 (unknown) (no date) (unknown) (unknown) 1.1 (units unknown) (unknown) (unknown) (no date) (unknown) (unknown) 12.1 seconds (unknown) (unknown) (no date) (unknown) (unknown) 33 seconds (unknown) (unknown) (no date) (unknown) (unknown) 33 seconds (unknown) Result panel 85 (unknown) (no date) (unknown) (unknown) > 60 ml/min (unknown) (unknown) (no date) (unknown) (unknown) > 60 ml/min (unknown) (unknown) (no date) (unknown) (unknown) 0.4 mg/dl (unknown) (unknown) (no date) (unknown) (unknown) 1.02 mg/dl (unknown) (unknown) (no date) (unknown) (unknown) 1.2 (units unknown) (unknown) (unknown) (no date) (unknown) (unknown) 109 mmol/l (unknown) (unknown) (no date) (unknown) (unknown) 12.7 (units unknown) (unknown) (unknown) (no date) (unknown) (unknown) 120 mg/dl (unknown) (unknown) (no date) (unknown) (unknown) 120 mg/dl (unknown) (unknown) (no date) (unknown) (unknown) 13 mg/dl (unknown) (unknown) (no date) (unknown) (unknown) 142 mmol/l (unknown) (unknown) (no date) (unknown) (unknown) 20 iu/l (unknown) (unknown) (no date) (unknown) (unknown) 21 mmol/l (unknown) (unknown) (no date) (unknown) (unknown) 24 iu/l (unknown) (unknown) (no date) (unknown) (unknown) 3.4 g/dl (unknown) (unknown) (no date) (unknown) (unknown) 3.9 mmol/l (unknown) (unknown) (no date) (unknown) (unknown) 4.1 g/dl (unknown) (unknown) (no date) (unknown) (unknown) 7.5 g/dl (unknown) (unknown) (no date) (unknown) (unknown) 8.7 mg/dl (unknown) (unknown) (no date) (unknown) (unknown) 95 u/l (unknown) Result panel 86 (unknown) (no date) (unknown) (unknown) (no value) (units unknown) (unknown) (unknown) (no date) (unknown) (unknown) 04/14/22 (units unknown) (unknown) (unknown) (no date) (unknown) (unknown) [address] [place] [address] (units unknown) (unknown) (unknown) (no date) (unknown) (unknown) ABDOMEN: (units unknown) (unknown) (unknown) (no date) (unknown) (unknown) Abdominal Nodes: No retroperitoneal or mesenteric adenopathy by size criteria. (units unknown) (unknown) (unknown) (no date) (unknown) (unknown) Accession Number: [id number] (units unknown) (unknown) (unknown) (no date) (unknown) (unknown) Adrenal Glands: Unremarkable. (units unknown) (unknown) (unknown) (no date) (unknown) (unknown) After the administration of oral and IV contrast, axial sections were acquired (units unknown) (unknown) (unknown) (no date) (unknown) (unknown) Age/Sex: 61 / F Date of Service: (units unknown) (unknown) (unknown) (no date) (unknown) (unknown) [place] [address] (units unknown) (unknown) (unknown) (no date) (unknown) (unknown) Approved by: Jasmin Zhao M.D. on 04/14/2022 at 14:35 (units unknown) (unknown) (unknown) (no date) (unknown) (unknown) Biliary ducts: Unremarkable. (units unknown) (unknown) (unknown) (no date) (unknown) (unknown) Bladder: Unremarkable. (units unknown) (unknown) (unknown) (no date) (unknown) (unknown) Bones: Unremarkable. (units unknown) (unknown) (unknown) (no date) (unknown) (unknown) COMPARISON: [facility], CT, CT ABDOMEN WO/W CON, 09/11/2021, 13:13. [place] (units unknown) (unknown) (unknown) (no date) (unknown) (unknown) CT Scan Report (units unknown) (unknown) (unknown) (no date) (unknown) (unknown) : 1960 Acct:[id number] (units unknown) (unknown) (unknown) (no date) (unknown) (unknown) Dictated by: Jasmin Zhao M.D. on 04/14/2022 at 14:22 (units unknown) (unknown) (unknown) (no date) (unknown) (unknown) FINDINGS: (units unknown) (unknown) (unknown) (no date) (unknown) (unknown) Gallbladder: Removed. (units unknown) (unknown) (unknown) (no date) (unknown) (unknown) Heart: No significant findings. (units unknown) (unknown) (unknown) (no date) (unknown) (unknown) Hepatomegaly with steatosis. (units unknown) (unknown) (unknown) (no date) (unknown) (unknown) [facility], CT, CT ABDOMEN PELVIS W CON, 04/04/2020, 11:35. (units unknown) (unknown) (unknown) (no date) (unknown) (unknown) IMPRESSION: (units unknown) (unknown) (unknown) (no date) (unknown) (unknown) INDICATIONS: Hematochezia and suprapubic TTP (units unknown) (unknown) (unknown) (no date) (unknown) (unknown) Image quality: Excellent. (units unknown) (unknown) (unknown) (no date) (unknown) (unknown) [facility] (units unknown) (unknown) (unknown) (no date) (unknown) (unknown) Kidneys and Ureters: Postsurgical changes are present within the left kidney (units unknown) (unknown) (unknown) (no date) (unknown) (unknown) Liver: Liver is enlarged measuring 20.4 cm with steatosis.. (units unknown) (unknown) (unknown) (no date) (unknown) (unknown) Loc: ED (units unknown) (unknown) (unknown) (no date) (unknown) (unknown) Lung bases: Unremarkable. (units unknown) (unknown) (unknown) (no date) (unknown) (unknown) [id number] (units unknown) (unknown) (unknown) (no date) (unknown) (unknown) Miscellaneous: No inguinal hernias are seen. (units unknown) (unknown) (unknown) (no date) (unknown) (unknown) No acute intra-abdominal or pelvic process. (units unknown) (unknown) (unknown) (no date) (unknown) (unknown) Ordering Provider: Joel Francois P.A-C (units unknown) (unknown) (unknown) (no date) (unknown) (unknown) PELVIS: (units unknown) (unknown) (unknown) (no date) (unknown) (unknown) PROCEDURE: CT ABDOMEN PELVIS W CON (units unknown) (unknown) (unknown) (no date) (unknown) (unknown) Pancreas: Unremarkable. (units unknown) (unknown) (unknown) (no date) (unknown) (unknown) Partial left nephrectomy. No evidence of recurrent disease. (units unknown) (unknown) (unknown) (no date) (unknown) (unknown) Patient: Logan Desir MR#: (units unknown) (unknown) (unknown) (no date) (unknown) (unknown) Pelvic Nodes: No enlarged lymph nodes. (units unknown) (unknown) (unknown) (no date) (unknown) (unknown) Pelvic Organs: Unremarkable. (units unknown) (unknown) (unknown) (no date) (unknown) (unknown) Peritoneum: No abnormal intraperitoneal fluid. No free air. 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 (units unknown) (unknown) (unknown) (no date) (unknown) (unknown) Signed (units unknown) (unknown) (unknown) (no date) (unknown) (unknown) Spleen: Unremarkable. (units unknown) (unknown) (unknown) (no date) (unknown) (unknown) Stomach and Bowel: Stomach, small bowel loops, and colon are unremarkable. (units unknown) (unknown) (unknown) (no date) (unknown) (unknown) TECHNIQUE: (units unknown) (unknown) (unknown) (no date) (unknown) (unknown) Ventral Wall: No hernia. (units unknown) (unknown) (unknown) (no date) (unknown) (unknown) Vessels: Aorta and inferior vena cava are normal in size. (units unknown) (unknown) (unknown) (no date) (unknown) (unknown) adjustment (units unknown) (unknown) (unknown) (no date) (unknown) (unknown) bilaterally ranging from 1-3 mm. No interval change. (units unknown) (unknown) (unknown) (no date) (unknown) (unknown) from the (units unknown) (unknown) (unknown) (no date) (unknown) (unknown) lung bases to the pubic symphysis. Coronal and sagittal reformats were (units unknown) (unknown) (unknown) (no date) (unknown) (unknown) noted (units unknown) (unknown) (unknown) (no date) (unknown) (unknown) of mA and/or kV according to patient size. (units unknown) (unknown) (unknown) (no date) (unknown) (unknown) performed. For (units unknown) (unknown) (unknown) (no date) (unknown) (unknown) radiation dose reduction, the following was used: automated exposure control, (units unknown) (unknown) (unknown) (no date) (unknown) (unknown) removal of previous anterior mass. 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 Nonobstructing stones are (units unknown) (unknown) (unknown) (no date) (unknown) (unknown) with (units unknown) (unknown) Result panel 87 (unknown) (no date) (unknown) (unknown) 1 (units unknown) (unknown) (unknown) (no date) (unknown) (unknown) 1-5/HPF (units unknown) (unknown) (unknown) (no date) (unknown) (unknown) 1-5/LPF (units unknown) (unknown) (unknown) (no date) (unknown) (unknown) 10-30/HPF (units unknown) (unknown) (unknown) (no date) (unknown) (unknown) 10-30/HPF (units unknown) (unknown) (unknown) (no date) (unknown) (unknown) 5-10 /HPF (units unknown) (unknown) (unknown) (no date) (unknown) (unknown) Cult Not Indicated (units unknown) (unknown) (unknown) (no date) (unknown) (unknown) Few (2-10) (units unknown) (unknown) Result panel 88 (unknown) (no date) (unknown) (unknown) A Positive (units unknown) (unknown) (unknown) (no date) (unknown) (unknown) A Positive (units unknown) (unknown) (unknown) (no date) (unknown) (unknown) NEGATIVE (units unknown) (unknown) Result panel 89 (unknown) (no date) (unknown) (unknown) (no value) (units unknown) (unknown) (unknown) (no date) (unknown) (unknown) %-0.3 % eye drops in a dropperette (units unknown) (unknown) (unknown) (no date) (unknown) (unknown) (DOK) (units unknown) (unknown) (unknown) (no date) (unknown) (unknown) (Neurontin) (units unknown) (unknown) (unknown) (no date) (unknown) (unknown) (Systane (PF)) (units unknown) (unknown) (unknown) (no date) (unknown) (unknown) * Clinical Decision Rules/Scores evaluated: None (units unknown) (unknown) (unknown) (no date) (unknown) (unknown) * Independent discussions with: None (units unknown) (unknown) (unknown) (no date) (unknown) (unknown) * My imgaing interpretation: CT results as above. No acute processes found. (units unknown) (unknown) (unknown) (no date) (unknown) (unknown) * My lab interpretation: CBC unremarkable. No evidence of anemia. CMP (units unknown) (unknown) (unknown) (no date) (unknown) (unknown) * Prior records reviewed: Patient has not been here for similar complaints in (units unknown) (unknown) (unknown) (no date) (unknown) (unknown) * differential diagnosis includes but not limited to diverticulosis, internal (units unknown) (unknown) (unknown) (no date) (unknown) (unknown) [id number] (units unknown) (unknown) (unknown) (no date) (unknown) (unknown) 04/14/22 04/14/22 04/14/22 Range/Units (units unknown) (unknown) (unknown) (no date) (unknown) (unknown) 04/14/22 04/14/22 Range/Units (units unknown) (unknown) (unknown) (no date) (unknown) (unknown) 04/14/22 12:10 (units unknown) (unknown) (unknown) (no date) (unknown) (unknown) 04/14/22 12:25 (units unknown) (unknown) (unknown) (no date) (unknown) (unknown) 04/14/22 13:04 (units unknown) (unknown) (unknown) (no date) (unknown) (unknown) 04/14/22 13:10 (units unknown) (unknown) (unknown) (no date) (unknown) (unknown) 04/14/22 (units unknown) (unknown) (unknown) (no date) (unknown) (unknown) 10/04/19 (units unknown) (unknown) (unknown) (no date) (unknown) (unknown) 1 - 2 tab PO Q3HP PRN (Reason: Pain (Scale Score 1-3)) (units unknown) (unknown) (unknown) (no date) (unknown) (unknown) 1 applic topical BID PRN (Reason: knee pain, ankle pain) Qty: 100 0RF (units unknown) (unknown) (unknown) (no date) (unknown) (unknown) 1 tab PO BID PRN (Reason: pain) Qty: 14 0RF (units unknown) (unknown) (unknown) (no date) (unknown) (unknown) 1 tab PO Q4-6H PRN (Reason: pain) Qty: 14 0RF (units unknown) (unknown) (unknown) (no date) (unknown) (unknown) 1 tab PO QDAY Qty: 0 (units unknown) (unknown) (unknown) (no date) (unknown) (unknown) 10 mg PO QDAYP PRN (Reason: Allergy Symptoms) Qty: 0 (units unknown) (unknown) (unknown) (no date) (unknown) (unknown) 11:41 04/14/22 (units unknown) (unknown) (unknown) (no date) (unknown) (unknown) 12 point review of systems is negative except for those stated above (units unknown) (unknown) (unknown) (no date) (unknown) (unknown) [facility] (units unknown) (unknown) (unknown) (no date) (unknown) (unknown) 12:01 04/14/22 (units unknown) (unknown) (unknown) (no date) (unknown) (unknown) 12:10 12:25 12:25 (units unknown) (unknown) (unknown) (no date) (unknown) (unknown) 12:25 12:25 (units unknown) (unknown) (unknown) (no date) (unknown) (unknown) 12:30 (units unknown) (unknown) (unknown) (no date) (unknown) (unknown) 12:31 04/14/22 (units unknown) (unknown) (unknown) (no date) (unknown) (unknown) 13:00 04/14/22 (units unknown) (unknown) (unknown) (no date) (unknown) (unknown) 13:00 (units unknown) (unknown) (unknown) (no date) (unknown) (unknown) 13:30 (units unknown) (unknown) (unknown) (no date) (unknown) (unknown) 2 drp OPHTH QDAY Qty: 0 (units unknown) (unknown) (unknown) (no date) (unknown) (unknown) 2 puff INH PRN PRN (Reason: Dyspnea) Qty: 0 (units unknown) (unknown) (unknown) (no date) (unknown) (unknown) 2 spray INTRANASAL DAILY PRN (Reason: Allergic Symptoms) (units unknown) (unknown) (unknown) (no date) (unknown) (unknown) 2 tabs in am, 3 tams at noon, 2 tabs evening (units unknown) (unknown) (unknown) (no date) (unknown) (unknown) 20 mg PO DAILY Qty: 30 0RF (units unknown) (unknown) (unknown) (no date) (unknown) (unknown) 200 mg PO BID (units unknown) (unknown) (unknown) (no date) (unknown) (unknown) 3,200 mg PO QDAY Qty: 0 (units unknown) (unknown) (unknown) (no date) (unknown) (unknown) 400 mg PO PRN PRN (Reason: Pain (Scale Score 1-3)) Qty: 0 (units unknown) (unknown) (unknown) (no date) (unknown) (unknown) 5 mg PO Q8H PRN (Reason: pain) Qty: 7 0RF (units unknown) (unknown) (unknown) (no date) (unknown) (unknown) 5,000 unit PO QDAY Qty: 0 (units unknown) (unknown) (unknown) (no date) (unknown) (unknown) 500 mg PO PRN PRN (Reason: Constipation) Qty: 0 (units unknown) (unknown) (unknown) (no date) (unknown) (unknown) 600 mg PO BID Qty: 0 (units unknown) (unknown) (unknown) (no date) (unknown) (unknown) ? (units unknown) (unknown) (unknown) (no date) (unknown) (unknown) ABDOMEN: (units unknown) (unknown) (unknown) (no date) (unknown) (unknown) ALLERGY (units unknown) (unknown) (unknown) (no date) (unknown) (unknown) [id number] SE Allergy Unknown PT NOT Uncoded 04/14/22 11:41 (units unknown) (unknown) (unknown) (no date) (unknown) (unknown) ALT (<35) IU/L (units unknown) (unknown) (unknown) (no date) (unknown) (unknown) ALT 24 (<35) IU/L (units unknown) (unknown) (unknown) (no date) (unknown) (unknown) ANTIBIOTICS)] (units unknown) (unknown) (unknown) (no date) (unknown) (unknown) APTT (26-36) SECONDS (units unknown) (unknown) (unknown) (no date) (unknown) (unknown) APTT 33 (26-36) SECONDS (units unknown) (unknown) (unknown) (no date) (unknown) (unknown) AST (14-36) IU/L (units unknown) (unknown) (unknown) (no date) (unknown) (unknown) AST 20 (14-36) IU/L (units unknown) (unknown) (unknown) (no date) (unknown) (unknown) AWARE OF (units unknown) (unknown) (unknown) (no date) (unknown) (unknown) Abdominal Nodes:? No retroperitoneal or mesenteric adenopathy by size criteria.? (units unknown) (unknown) (unknown) (no date) (unknown) (unknown) Accession Number: [id number] ?? (units unknown) (unknown) (unknown) (no date) (unknown) (unknown) Acct:[id number] (units unknown) (unknown) (unknown) (no date) (unknown) (unknown) Activity Restrictions/Additi onal Instructions: (units unknown) (unknown) (unknown) (no date) (unknown) (unknown) Adrenal Glands:? Unremarkable.? ? (units unknown) (unknown) (unknown) (no date) (unknown) (unknown) After the administration of oral and IV contrast, axial sections were acquired (units unknown) (unknown) (unknown) (no date) (unknown) (unknown) Age/Sex: 61 / F (units unknown) (unknown) (unknown) (no date) (unknown) (unknown) Albumin (3.5-5.0) g/dL (units unknown) (unknown) (unknown) (no date) (unknown) (unknown) Albumin 4.1 (3.5-5.0) g/dL (units unknown) (unknown) (unknown) (no date) (unknown) (unknown) Albumin/Globulin Ratio (1.0-2.8) (units unknown) (unknown) (unknown) (no date) (unknown) (unknown) Albumin/Globulin Ratio 1.2 (1.0-2.8) (units unknown) (unknown) (unknown) (no date) (unknown) (unknown) Alkaline Phosphatase (38-126) U/L (units unknown) (unknown) (unknown) (no date) (unknown) (unknown) Alkaline Phosphatase 95 (38-126) U/L (units unknown) (unknown) (unknown) (no date) (unknown) (unknown) Allergies (units unknown) (unknown) (unknown) (no date) (unknown) (unknown) Allergy/AdvReac Type Severity Reaction Status Date / Time (units unknown) (unknown) (unknown) (no date) (unknown) (unknown) LIZZETH Sullivan [id number] (units unknown) (unknown) (unknown) (no date) (unknown) (unknown) Antibiotics) PER PT (units unknown) (unknown) (unknown) (no date) (unknown) (unknown) Antibody Screen Negative (units unknown) (unknown) (unknown) (no date) (unknown) (unknown) Antibody Screen (units unknown) (unknown) (unknown) (no date) (unknown) (unknown) Approved by: Jasmin Zhao M.D. on 04/14/2022 at 14:35 ? (units unknown) (unknown) (unknown) (no date) (unknown) (unknown) Asthma (units unknown) (unknown) (unknown) (no date) (unknown) (unknown) BACK: Nontender without deformity or crepitance. No flank tenderness. (units unknown) (unknown) (unknown) (no date) (unknown) (unknown) BUN (7-17) mg/dL (units unknown) (unknown) (unknown) (no date) (unknown) (unknown) BUN 13 (7-17) mg/dL (units unknown) (unknown) (unknown) (no date) (unknown) (unknown) BUN/Creatinine Ratio (6-22) (units unknown) (unknown) (unknown) (no date) (unknown) (unknown) BUN/Creatinine Ratio 12.7 (6-22) (units unknown) (unknown) (unknown) (no date) (unknown) (unknown) Baso # (Auto) (0-100) /uL (units unknown) (unknown) (unknown) (no date) (unknown) (unknown) Baso # (Auto) 100 (0-100) /uL (units unknown) (unknown) (unknown) (no date) (unknown) (unknown) Baso % (Auto) (0-2) % (units unknown) (unknown) (unknown) (no date) (unknown) (unknown) Baso % (Auto) 0.7 (0-2) % (units unknown) (unknown) (unknown) (no date) (unknown) (unknown) Bedside Urine Bilirubin - Negative (units unknown) (unknown) (unknown) (no date) (unknown) (unknown) Bedside Urine Glucose Negative (units unknown) (unknown) (unknown) (no date) (unknown) (unknown) Bedside Urine Ketone - Negative (units unknown) (unknown) (unknown) (no date) (unknown) (unknown) Bedside Urine Leukocytes - Negative (units unknown) (unknown) (unknown) (no date) (unknown) (unknown) Bedside Urine Nitrite - Negative (units unknown) (unknown) (unknown) (no date) (unknown) (unknown) Bedside Urine Occult Blood (units unknown) (unknown) (unknown) (no date) (unknown) (unknown) Bedside Urine Protein ++ 100 (units unknown) (unknown) (unknown) (no date) (unknown) (unknown) Bedside Urine Urobilinogen - Negative (units unknown) (unknown) (unknown) (no date) (unknown) (unknown) Bedside Urine pH 6.0 (units unknown) (unknown) (unknown) (no date) (unknown) (unknown) Biliary ducts:? Unremarkable.? ? (units unknown) (unknown) (unknown) (no date) (unknown) (unknown) Bladder:? Unremarkable.? ? (units unknown) (unknown) (unknown) (no date) (unknown) (unknown) Bleeding internal hemorrhoids (units unknown) (unknown) (unknown) (no date) (unknown) (unknown) Blood Pressure 128/87 04/14/22 11:41 (units unknown) (unknown) (unknown) (no date) (unknown) (unknown) Blood Pressure 128/87 (units unknown) (unknown) (unknown) (no date) (unknown) (unknown) Blood Pressure 175/107 H 157/84 H (units unknown) (unknown) (unknown) (no date) (unknown) (unknown) Blood Pressure (units unknown) (unknown) (unknown) (no date) (unknown) (unknown) Blood Type A Positive (units unknown) (unknown) (unknown) (no date) (unknown) (unknown) Blood Type (units unknown) (unknown) (unknown) (no date) (unknown) (unknown) Bones:? Unremarkable.? ? (units unknown) (unknown) (unknown) (no date) (unknown) (unknown) CARDIOVASCULAR: Denies chest pain, palpitations, orthopnea, edema, (units unknown) (unknown) (unknown) (no date) (unknown) (unknown) CARDIOVASCULAR: Regular rate and rhythm without murmurs, gallops, or rubs. (units unknown) (unknown) (unknown) (no date) (unknown) (unknown) COMPARISON:? [facility], CT, CT ABDOMEN WO/W CON, 09/11/2021, 13:13.? [place] (units unknown) (unknown) (unknown) (no date) (unknown) (unknown) CT Scan Report (units unknown) (unknown) (unknown) (no date) (unknown) (unknown) CT abdomen pelvis w con Stat (units unknown) (unknown) (unknown) (no date) (unknown) (unknown) CT scan - abdomen/pelvis: (units unknown) (unknown) (unknown) (no date) (unknown) (unknown) Calcium (8.4-10.2) mg/dL (units unknown) (unknown) (unknown) (no date) (unknown) (unknown) Calcium 8.7 (8.4-10.2) mg/dL (units unknown) (unknown) (unknown) (no date) (unknown) (unknown) Carbon Dioxide (22-32) mmol/L (units unknown) (unknown) (unknown) (no date) (unknown) (unknown) Carbon Dioxide 21 L (22-32) mmol/L (units unknown) (unknown) (unknown) (no date) (unknown) (unknown) Chief complaint: GI Bleed (units unknown) (unknown) (unknown) (no date) (unknown) (unknown) Chloride (98-107) mmol/L (units unknown) (unknown) (unknown) (no date) (unknown) (unknown) Chloride 109 H (98-107) mmol/L (units unknown) (unknown) (unknown) (no date) (unknown) (unknown) Clinical Impression: (units unknown) (unknown) (unknown) (no date) (unknown) (unknown) Colon cancer (units unknown) (unknown) (unknown) (no date) (unknown) (unknown) Complete Blood Count AUTO DIFF Stat (units unknown) (unknown) (unknown) (no date) (unknown) (unknown) Comprehensive Metabolic Panel Stat (units unknown) (unknown) (unknown) (no date) (unknown) (unknown) Course (units unknown) (unknown) (unknown) (no date) (unknown) (unknown) Creatinine (0.52-1.04) mg/dL (units unknown) (unknown) (unknown) (no date) (unknown) (unknown) Creatinine 1.02 (0.52-1.04) mg/dL (units unknown) (unknown) (unknown) (no date) (unknown) (unknown) : 1960 Acct:[id number] (units unknown) (unknown) (unknown) (no date) (unknown) (unknown) : 1960 (units unknown) (unknown) (unknown) (no date) (unknown) (unknown) DOES NOT (units unknown) (unknown) (unknown) (no date) (unknown) (unknown) Date of Service: 04/14/22 (units unknown) (unknown) (unknown) (no date) (unknown) (unknown) Departure (units unknown) (unknown) (unknown) (no date) (unknown) (unknown) Diabetes mellitus (units unknown) (unknown) (unknown) (no date) (unknown) (unknown) Diabetes (units unknown) (unknown) (unknown) (no date) (unknown) (unknown) Dictated by: Jasmin Zhao M.D. on 04/14/2022 at 14:22 ? ? (units unknown) (unknown) (unknown) (no date) (unknown) (unknown) Discharge Plan (units unknown) (unknown) (unknown) (no date) (unknown) (unknown) Discontinued Medications (units unknown) (unknown) (unknown) (no date) (unknown) (unknown) Disposition: Discharged to home (units unknown) (unknown) (unknown) (no date) (unknown) (unknown) Documented By: RLS (units unknown) (unknown) (unknown) (no date) (unknown) (unknown) ED Course: This is a 61-year-old female presents to the emergency department (units unknown) (unknown) (unknown) (no date) (unknown) (unknown) ED Orders (units unknown) (unknown) (unknown) (no date) (unknown) (unknown) EKG-12 Lead Stat (units unknown) (unknown) (unknown) (no date) (unknown) (unknown) ENT: Nose without bleeding, purulent drainage. Throat without erythema, (units unknown) (unknown) (unknown) (no date) (unknown) (unknown) ER Physician: Joel Francois P.A-C (units unknown) (unknown) (unknown) (no date) (unknown) (unknown) EXTREMITIES: No edema or joint tenderness. (units unknown) (unknown) (unknown) (no date) (unknown) (unknown) EYES: Pupils equal round and reactive. Extraocular motions intact. No scleral (units unknown) (unknown) (unknown) (no date) (unknown) (unknown) Emergency Report (units unknown) (unknown) (unknown) (no date) (unknown) (unknown) Eos # (Auto) (0-450) /uL (units unknown) (unknown) (unknown) (no date) (unknown) (unknown) Eos # (Auto) 100 (0-450) /uL (units unknown) (unknown) (unknown) (no date) (unknown) (unknown) Eos % (Auto) (2-4) % (units unknown) (unknown) (unknown) (no date) (unknown) (unknown) Eos % (Auto) 1.6 L (2-4) % (units unknown) (unknown) (unknown) (no date) (unknown) (unknown) Esterase (units unknown) (unknown) (unknown) (no date) (unknown) (unknown) Estimated GFR > 60 (>60) mL/min (units unknown) (unknown) (unknown) (no date) (unknown) (unknown) Estimated GFR (>60) mL/min (units unknown) (unknown) (unknown) (no date) (unknown) (unknown) Exam Narrative: (units unknown) (unknown) (unknown) (no date) (unknown) (unknown) Exam (units unknown) (unknown) (unknown) (no date) (unknown) (unknown) FINDINGS:? (units unknown) (unknown) (unknown) (no date) (unknown) (unknown) Family History (units unknown) (unknown) (unknown) (no date) (unknown) (unknown) Father Diabetes mellitus (units unknown) (unknown) (unknown) (no date) (unknown) (unknown) Edison Jones MD [Primary Care Provider] (units unknown) (unknown) (unknown) (no date) (unknown) (unknown) GASTROINTESTINAL: Reports bright red blood in stool, Denies nausea, vomiting, (units unknown) (unknown) (unknown) (no date) (unknown) (unknown) GASTROINTESTINAL: Suprapubic abdominal tenderness to palpation. Bright red (units unknown) (unknown) (unknown) (no date) (unknown) (unknown) GENERAL: Denies chills, fatigue, malaise, fever, sweats. (units unknown) (unknown) (unknown) (no date) (unknown) (unknown) GENERAL: Well-developed patient, in mild distress. (units unknown) (unknown) (unknown) (no date) (unknown) (unknown) : Denies dysuria, frequency, incontinence, hematuria, urinary retention. (units unknown) (unknown) (unknown) (no date) (unknown) (unknown) Gallbladder:? Removed. (units unknown) (unknown) (unknown) (no date) (unknown) (unknown) Gallstones (units unknown) (unknown) (unknown) (no date) (unknown) (unknown) General (units unknown) (unknown) (unknown) (no date) (unknown) (unknown) Globulin (1.7-4.1) g/dL (units unknown) (unknown) (unknown) (no date) (unknown) (unknown) Globulin 3.4 (1.7-4.1) g/dL (units unknown) (unknown) (unknown) (no date) (unknown) (unknown) Glucose (70-100) mg/dL (units unknown) (unknown) (unknown) (no date) (unknown) (unknown) Glucose 120 H (70-100) mg/dL (units unknown) (unknown) (unknown) (no date) (unknown) (unknown) HEAD: Atraumatic. Normocephalic. (units unknown) (unknown) (unknown) (no date) (unknown) (unknown) HEENT: Denies sinus pain, ear pain, sore throat, difficulty swallowing, (units unknown) (unknown) (unknown) (no date) (unknown) (unknown) HPI - GI Bleed (units unknown) (unknown) (unknown) (no date) (unknown) (unknown) HPI Narrative: (units unknown) (unknown) (unknown) (no date) (unknown) (unknown) Hct (36-46) % (units unknown) (unknown) (unknown) (no date) (unknown) (unknown) Hct 40.4 (36-46) % (units unknown) (unknown) (unknown) (no date) (unknown) (unknown) Heart disease (units unknown) (unknown) (unknown) (no date) (unknown) (unknown) Heart:? No significant findings. (units unknown) (unknown) (unknown) (no date) (unknown) (unknown) Hepatomegaly with steatosis. (units unknown) (unknown) (unknown) (no date) (unknown) (unknown) Hgb (12.0-16.0) g/dL (units unknown) (unknown) (unknown) (no date) (unknown) (unknown) Hgb 13.7 (12.0-16.0) g/dL (units unknown) (unknown) (unknown) (no date) (unknown) (unknown) History of Present Illness (units unknown) (unknown) (unknown) (no date) (unknown) (unknown) History of back surgery (units unknown) (unknown) (unknown) (no date) (unknown) (unknown) History of total knee arthroplasty (units unknown) (unknown) (unknown) (no date) (unknown) (unknown) Home Medications (units unknown) (unknown) (unknown) (no date) (unknown) (unknown) Hospital, CT, CT ABDOMEN PELVIS W CON, 04/04/2020, 11:35. (units unknown) (unknown) (unknown) (no date) (unknown) (unknown) Hx of cholecystectomy (units unknown) (unknown) (unknown) (no date) (unknown) (unknown) Hx of knee surgery (units unknown) (unknown) (unknown) (no date) (unknown) (unknown) Hx of neck surgery (units unknown) (unknown) (unknown) (no date) (unknown) (unknown) Hx of shoulder surgery (units unknown) (unknown) (unknown) (no date) (unknown) (unknown) Hyaline Casts (None) (units unknown) (unknown) (unknown) (no date) (unknown) (unknown) Hyaline Casts 1-5/lpf (None) (units unknown) (unknown) (unknown) (no date) (unknown) (unknown) I hope you feel better soon. (units unknown) (unknown) (unknown) (no date) (unknown) (unknown) IMPRESSION:? (units unknown) (unknown) (unknown) (no date) (unknown) (unknown) INDICATIONS:? Hematochezia and suprapubic TTP (units unknown) (unknown) (unknown) (no date) (unknown) (unknown) INR (0.9-1.3) (units unknown) (unknown) (unknown) (no date) (unknown) (unknown) INR 1.1 (0.9-1.3) (units unknown) (unknown) (unknown) (no date) (unknown) (unknown) Image quality:? Excellent.? (units unknown) (unknown) (unknown) (no date) (unknown) (unknown) Imaging Data (units unknown) (unknown) (unknown) (no date) (unknown) (unknown) Initial Vital Signs (units unknown) (unknown) (unknown) (no date) (unknown) (unknown) Initial Vital Signs: (units unknown) (unknown) (unknown) (no date) (unknown) (unknown) Instructions: DI for Hemorrhoids (units unknown) (unknown) (unknown) (no date) (unknown) (unknown) [address] [address] (units unknown) (unknown) (unknown) (no date) (unknown) (unknown) [facility] (units unknown) (unknown) (unknown) (no date) (unknown) (unknown) Kidney malignancy (units unknown) (unknown) (unknown) (no date) (unknown) (unknown) Kidneys and Ureters:? Postsurgical changes are present within the left kidney (units unknown) (unknown) (unknown) (no date) (unknown) (unknown) Lab Data (units unknown) (unknown) (unknown) (no date) (unknown) (unknown) Lab Results (units unknown) (unknown) (unknown) (no date) (unknown) (unknown) Labs: (units unknown) (unknown) (unknown) (no date) (unknown) (unknown) Last Admin: 04/14/22 12:51 Dose: Not Given (units unknown) (unknown) (unknown) (no date) (unknown) (unknown) Liver:? Liver is enlarged measuring 20.4 cm with steatosis..? ? (units unknown) (unknown) (unknown) (no date) (unknown) (unknown) Loc: ED (units unknown) (unknown) (unknown) (no date) (unknown) (unknown) Lung bases:? Unremarkable.? ? (units unknown) (unknown) (unknown) (no date) (unknown) (unknown) Lymph # (Auto) (8991-1312) /uL (units unknown) (unknown) (unknown) (no date) (unknown) (unknown) Lymph # (Auto) 1900 (9109-9780) /uL (units unknown) (unknown) (unknown) (no date) (unknown) (unknown) Lymph % (Auto) (25-40) % (units unknown) (unknown) (unknown) (no date) (unknown) (unknown) Lymph % (Auto) 22.7 L (25-40) % (units unknown) (unknown) (unknown) (no date) (unknown) (unknown) MCH (26-34) PG (units unknown) (unknown) (unknown) (no date) (unknown) (unknown) MCH 31.8 (26-34) PG (units unknown) (unknown) (unknown) (no date) (unknown) (unknown) MCHC (30-36) % (units unknown) (unknown) (unknown) (no date) (unknown) (unknown) MCHC 33.9 (30-36) % (units unknown) (unknown) (unknown) (no date) (unknown) (unknown) MCV (80-100) fL (units unknown) (unknown) (unknown) (no date) (unknown) (unknown) MCV 93.9 (80-100) fL (units unknown) (unknown) (unknown) (no date) (unknown) (unknown) MDM - GI Bleed (units unknown) (unknown) (unknown) (no date) (unknown) (unknown) MDM Narrative (units unknown) (unknown) (unknown) (no date) (unknown) (unknown) MDM (units unknown) (unknown) (unknown) (no date) (unknown) (unknown) MR#: [id number] (units unknown) (unknown) (unknown) (no date) (unknown) (unknown) MUSCULOSKELETAL: denies weakness, joint pain, or bony pain (units unknown) (unknown) (unknown) (no date) (unknown) (unknown) Medical History (Updated 04/14/22 @ 15:12 by Joel Francois PA-C) (units unknown) (unknown) (unknown) (no date) (unknown) (unknown) Medical decision making narrative: (units unknown) (unknown) (unknown) (no date) (unknown) (unknown) Medication Instructions Recorded Confirmed (units unknown) (unknown) (unknown) (no date) (unknown) (unknown) Medication Instructions Recorded (units unknown) (unknown) (unknown) (no date) (unknown) (unknown) Miscellaneous: No inguinal hernias are seen. ? ? (units unknown) (unknown) (unknown) (no date) (unknown) (unknown) Mode of arrival: Ambulatory (units unknown) (unknown) (unknown) (no date) (unknown) (unknown) [place] # (Auto) (0-900) /uL (units unknown) (unknown) (unknown) (no date) (unknown) (unknown) [place] # (Auto) 500 (0-900) /uL (units unknown) (unknown) (unknown) (no date) (unknown) (unknown) [place] % (Auto) (3-14) % (units unknown) (unknown) (unknown) (no date) (unknown) (unknown) [place] % (Auto) 6.3 (3-14) % (units unknown) (unknown) (unknown) (no date) (unknown) (unknown) Mother Hypertension (units unknown) (unknown) (unknown) (no date) (unknown) (unknown) NECK: Trachea midline. Non tender (units unknown) (unknown) (unknown) (no date) (unknown) (unknown) NEURO: AOx3. (units unknown) (unknown) (unknown) (no date) (unknown) (unknown) NEUROLOGIC: Denies weakness, headache, numbness, change in speech, confusion, (units unknown) (unknown) (unknown) (no date) (unknown) (unknown) Narrative (units unknown) (unknown) (unknown) (no date) (unknown) (unknown) Narrative: (units unknown) (unknown) (unknown) (no date) (unknown) (unknown) Neut # (Auto) (9558-3617) /uL (units unknown) (unknown) (unknown) (no date) (unknown) (unknown) Neut # (Auto) 5800 (3980-6108) /uL (units unknown) (unknown) (unknown) (no date) (unknown) (unknown) Neut % (Auto) (50-75) % (units unknown) (unknown) (unknown) (no date) (unknown) (unknown) Neut % (Auto) 68.7 (50-75) % (units unknown) (unknown) (unknown) (no date) (unknown) (unknown) No Action (units unknown) (unknown) (unknown) (no date) (unknown) (unknown) No acute intra-abdominal or pelvic process. (units unknown) (unknown) (unknown) (no date) (unknown) (unknown) No evidence of diverticulosis. Recommend she follow up with primary care (units unknown) (unknown) (unknown) (no date) (unknown) (unknown) Obesity (units unknown) (unknown) (unknown) (no date) (unknown) (unknown) Ondansetron HCl (Ondansetron 4 Mg Odt) 4 mg SL NOW PRN (units unknown) (unknown) (unknown) (no date) (unknown) (unknown) Ondansetron HCl (Ondansetron 4 Mg/2 Ml Inj) 4 mg IV NOW PRN (units unknown) (unknown) (unknown) (no date) (unknown) (unknown) Ordered: (units unknown) (unknown) (unknown) (no date) (unknown) (unknown) Ordering Provider: Joel Francois P.A-C (units unknown) (unknown) (unknown) (no date) (unknown) (unknown) Orders (units unknown) (unknown) (unknown) (no date) (unknown) (unknown) Oxygen Delivery Method Room Air 04/14/22 11:41 (units unknown) (unknown) (unknown) (no date) (unknown) (unknown) Oxygen Delivery Method Room Air (units unknown) (unknown) (unknown) (no date) (unknown) (unknown) Oxygen Delivery Method (units unknown) (unknown) (unknown) (no date) (unknown) (unknown) PELVIS: (units unknown) (unknown) (unknown) (no date) (unknown) (unknown) PER PT (units unknown) (unknown) (unknown) (no date) (unknown) (unknown) PRN Reason: Nausea And Vomiting (units unknown) (unknown) (unknown) (no date) (unknown) (unknown) PROCEDURE:? CT ABDOMEN PELVIS W CON (units unknown) (unknown) (unknown) (no date) (unknown) (unknown) PSYCHIATRIC: No concerning psychosocial issues. (units unknown) (unknown) (unknown) (no date) (unknown) (unknown) PT (10.1-12.7) SECONDS (units unknown) (unknown) (unknown) (no date) (unknown) (unknown) PT 12.1 (10.1-12.7) SECONDS (units unknown) (unknown) (unknown) (no date) (unknown) (unknown) Pancreas:? Unremarkable.? ? (units unknown) (unknown) (unknown) (no date) (unknown) (unknown) Pantoprazole Sodium (Pantoprazole 40 Mg Vial) 80 mg IV NOW ONE (units unknown) (unknown) (unknown) (no date) (unknown) (unknown) Partial Thromboplastin Time Stat (units unknown) (unknown) (unknown) (no date) (unknown) (unknown) Partial left nephrectomy.? No evidence of recurrent disease. (units unknown) (unknown) (unknown) (no date) (unknown) (unknown) Patient Disposition: Home (units unknown) (unknown) (unknown) (no date) (unknown) (unknown) Patient History (units unknown) (unknown) (unknown) (no date) (unknown) (unknown) Patient's daughter describes the blood as bright red in color. No significant (units unknown) (unknown) (unknown) (no date) (unknown) (unknown) Patient: Logan Desir MR#: M (units unknown) (unknown) (unknown) (no date) (unknown) (unknown) Patient: Logan Desir (units unknown) (unknown) (unknown) (no date) (unknown) (unknown) Pelvic Nodes: No enlarged lymph nodes.? (units unknown) (unknown) (unknown) (no date) (unknown) (unknown) Pelvic Organs:? Unremarkable.? ? (units unknown) (unknown) (unknown) (no date) (unknown) (unknown) Penicillins [PENICILLINS] Allergy Unknown ITCHING-PT Verified 04/14/22 11:41 (units unknown) (unknown) (unknown) (no date) (unknown) (unknown) Peritoneum:? No abnormal intraperitoneal fluid.? No free air.? (units unknown) (unknown) (unknown) (no date) (unknown) (unknown) Plt Count (150-400) X103/uL (units unknown) (unknown) (unknown) (no date) (unknown) (unknown) Plt Count 278 (150-400) X103/uL (units unknown) (unknown) (unknown) (no date) (unknown) (unknown) Point of Care Testing (units unknown) (unknown) (unknown) (no date) (unknown) (unknown) Potassium (3.4-5.1) mmol/L (units unknown) (unknown) (unknown) (no date) (unknown) (unknown) Potassium 3.9 (3.4-5.1) mmol/L (units unknown) (unknown) (unknown) (no date) (unknown) (unknown) Prescriptions: (units unknown) (unknown) (unknown) (no date) (unknown) (unknown) Previous Rx's (units unknown) (unknown) (unknown) (no date) (unknown) (unknown) Procedure: CT abdomen pelvis w con (units unknown) (unknown) (unknown) (no date) (unknown) (unknown) Prothrombin Time INR Stat (units unknown) (unknown) (unknown) (no date) (unknown) (unknown) Pulse Oximetry 97 96 (units unknown) (unknown) (unknown) (no date) (unknown) (unknown) Pulse Oximetry 99 04/14/22 11:41 (units unknown) (unknown) (unknown) (no date) (unknown) (unknown) Pulse Oximetry 99 99 99 (units unknown) (unknown) (unknown) (no date) (unknown) (unknown) Pulse Oximetry 99 (units unknown) (unknown) (unknown) (no date) (unknown) (unknown) Pulse Rate 65 65 (units unknown) (unknown) (unknown) (no date) (unknown) (unknown) Pulse Rate 70 (units unknown) (unknown) (unknown) (no date) (unknown) (unknown) Pulse Rate 80 04/14/22 11:41 (units unknown) (unknown) (unknown) (no date) (unknown) (unknown) Pulse Rate 80 72 68 (units unknown) (unknown) (unknown) (no date) (unknown) (unknown) Qty: 1 0RF (units unknown) (unknown) (unknown) (no date) (unknown) (unknown) RBC (4.0-5.2) X106/uL (units unknown) (unknown) (unknown) (no date) (unknown) (unknown) RBC 4.30 (4.0-5.2) X106/uL (units unknown) (unknown) (unknown) (no date) (unknown) (unknown) RDW (11.6-14.8) % (units unknown) (unknown) (unknown) (no date) (unknown) (unknown) RDW 13.7 (11.6-14.8) % (units unknown) (unknown) (unknown) (no date) (unknown) (unknown) REACTION (units unknown) (unknown) (unknown) (no date) (unknown) (unknown) RED' (units unknown) (unknown) (unknown) (no date) (unknown) (unknown) REMEMBER (units unknown) (unknown) (unknown) (no date) (unknown) (unknown) RESPIRATORY: Clear to auscultation. Breath sounds equal bilaterally. No wheezes, (units unknown) (unknown) (unknown) (no date) (unknown) (unknown) RESPIRATORY: Denies dyspnea, cough, wheezing, hemoptysis, sputum. (units unknown) (unknown) (unknown) (no date) (unknown) (unknown) Radiologist's Impression: (units unknown) (unknown) (unknown) (no date) (unknown) (unknown) Referrals: (units unknown) (unknown) (unknown) (no date) (unknown) (unknown) Related Data (units unknown) (unknown) (unknown) (no date) (unknown) (unknown) Relief) (units unknown) (unknown) (unknown) (no date) (unknown) (unknown) Respiratory Rate 16 04/14/22 11:41 (units unknown) (unknown) (unknown) (no date) (unknown) (unknown) Respiratory Rate 16 26 H (units unknown) (unknown) (unknown) (no date) (unknown) (unknown) Respiratory Rate 19 20 (units unknown) (unknown) (unknown) (no date) (unknown) (unknown) Respiratory Rate 24 (units unknown) (unknown) (unknown) (no date) (unknown) (unknown) Review of Systems (units unknown) (unknown) (unknown) (no date) (unknown) (unknown) Rx Instructions: (units unknown) (unknown) (unknown) (no date) (unknown) (unknown) SEVERITY (units unknown) (unknown) (unknown) (no date) (unknown) (unknown) SKIN: Denies rash, skin lesions, or other (units unknown) (unknown) (unknown) (no date) (unknown) (unknown) SKIN: No rash or erythema of visible areas (units unknown) (unknown) (unknown) (no date) (unknown) (unknown) 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 (units unknown) (unknown) (unknown) (no date) (unknown) (unknown) Score 1-3) ##0 (units unknown) (unknown) (unknown) (no date) (unknown) (unknown) Score 1-3) (units unknown) (unknown) (unknown) (no date) (unknown) (unknown) Seizure-like activity (units unknown) (unknown) (unknown) (no date) (unknown) (unknown) Shared Decision Making: Discussed plan patient is comfortable with plan (units unknown) (unknown) (unknown) (no date) (unknown) (unknown) Signed By: (units unknown) (unknown) (unknown) (no date) (unknown) (unknown) Signed (units unknown) (unknown) (unknown) (no date) (unknown) (unknown) Smoking Status: Never smoker (units unknown) (unknown) (unknown) (no date) (unknown) (unknown) Social Considerations: None (units unknown) (unknown) (unknown) (no date) (unknown) (unknown) Social History (units unknown) (unknown) (unknown) (no date) (unknown) (unknown) Sodium (137-145) mmol/L (units unknown) (unknown) (unknown) (no date) (unknown) (unknown) Sodium 142 (137-145) mmol/L (units unknown) (unknown) (unknown) (no date) (unknown) (unknown) Source: patient (units unknown) (unknown) (unknown) (no date) (unknown) (unknown) Spleen:? Unremarkable.? ? (units unknown) (unknown) (unknown) (no date) (unknown) (unknown) [place],Suspension (units unknown) (unknown) (unknown) (no date) (unknown) (unknown) Stand Alone Forms: Patient Portal/API (units unknown) (unknown) (unknown) (no date) (unknown) (unknown) Stated complaint: bleeding in stool (units unknown) (unknown) (unknown) (no date) (unknown) (unknown) Stomach and Bowel:? Stomach, small bowel loops, and colon are unremarkable.? (units unknown) (unknown) (unknown) (no date) (unknown) (unknown) Stool Occult Blood Positive (units unknown) (unknown) (unknown) (no date) (unknown) (unknown) Stop: 04/14/22 12:07 (units unknown) (unknown) (unknown) (no date) (unknown) (unknown) Stroke (units unknown) (unknown) (unknown) (no date) (unknown) (unknown) Substance Use Type: does not use (units unknown) (unknown) (unknown) (no date) (unknown) (unknown) Sulfa (Sulfonamide Allergy Unknown UNKNOWN Verified 04/14/22 11:41 (units unknown) (unknown) (unknown) (no date) (unknown) (unknown) Surgical History (units unknown) (unknown) (unknown) (no date) (unknown) (unknown) Symptoms ##0 (units unknown) (unknown) (unknown) (no date) (unknown) (unknown) Systane (PF) 1 EACH dropperette (units unknown) (unknown) (unknown) (no date) (unknown) (unknown) TECHNIQUE:? (units unknown) (unknown) (unknown) (no date) (unknown) (unknown) THIS (units unknown) (unknown) (unknown) (no date) (unknown) (unknown) Temperature 97.4 F L 04/14/22 11:41 (units unknown) (unknown) (unknown) (no date) (unknown) (unknown) Temperature 97.4 F L (units unknown) (unknown) (unknown) (no date) (unknown) (unknown) Temperature (units unknown) (unknown) (unknown) (no date) (unknown) (unknown) Thank you for coming to the [facility] Emergency Department today. As (units unknown) (unknown) (unknown) (no date) (unknown) (unknown) This is a 61-year-old female presents to the emergency department due to (units unknown) (unknown) (unknown) (no date) (unknown) (unknown) Time Seen by Provider: 04/14/22 12:07 (units unknown) (unknown) (unknown) (no date) (unknown) (unknown) Total Bilirubin (0.2-1.3) mg/dL (units unknown) (unknown) (unknown) (no date) (unknown) (unknown) Total Bilirubin 0.4 (0.2-1.3) mg/dL (units unknown) (unknown) (unknown) (no date) (unknown) (unknown) Total Protein (6.3-8.2) g/dL (units unknown) (unknown) (unknown) (no date) (unknown) (unknown) Total Protein 7.5 (6.3-8.2) g/dL (units unknown) (unknown) (unknown) (no date) (unknown) (unknown) Type and Screen Stat (units unknown) (unknown) (unknown) (no date) (unknown) (unknown) Ur Culture Indicated? Cult not indicated (units unknown) (unknown) (unknown) (no date) (unknown) (unknown) Ur Culture Indicated? (units unknown) (unknown) (unknown) (no date) (unknown) (unknown) Ur Squamous Epith Cells (0-5/HPF) (units unknown) (unknown) (unknown) (no date) (unknown) (unknown) Ur Squamous Epith Cells 5-10 /hpf H (0-5/HPF) (units unknown) (unknown) (unknown) (no date) (unknown) (unknown) Ur Transition Epith Cell (0-5/HPF) (units unknown) (unknown) (unknown) (no date) (unknown) (unknown) Ur Transition Epith Cell 1-5/hpf (0-5/HPF) (units unknown) (unknown) (unknown) (no date) (unknown) (unknown) Urine Bacteria (None) (units unknown) (unknown) (unknown) (no date) (unknown) (unknown) Urine Bacteria Few (2-10) H (None) (units unknown) (unknown) (unknown) (no date) (unknown) (unknown) Urine Dip (units unknown) (unknown) (unknown) (no date) (unknown) (unknown) Urine Microscopic Stat (units unknown) (unknown) (unknown) (no date) (unknown) (unknown) Urine Mucus (Negative) (units unknown) (unknown) (unknown) (no date) (unknown) (unknown) Urine Mucus 1+ H (Negative) (units unknown) (unknown) (unknown) (no date) (unknown) (unknown) Urine RBC (0-5/HPF) (units unknown) (unknown) (unknown) (no date) (unknown) (unknown) Urine RBC 10-30/hpf H (0-5/HPF) (units unknown) (unknown) (unknown) (no date) (unknown) (unknown) Urine Specific Jackson 1.030 (units unknown) (unknown) (unknown) (no date) (unknown) (unknown) Urine WBC (0-5/HPF) (units unknown) (unknown) (unknown) (no date) (unknown) (unknown) Urine WBC 1-5/hpf (0-5/HPF) (units unknown) (unknown) (unknown) (no date) (unknown) (unknown) Ventral Wall: ? No hernia.? (units unknown) (unknown) (unknown) (no date) (unknown) (unknown) Vessels:? Aorta and inferior vena cava are normal in size.? (units unknown) (unknown) (unknown) (no date) (unknown) (unknown) Vital Signs - 8 hr (units unknown) (unknown) (unknown) (no date) (unknown) (unknown) Vital Signs (units unknown) (unknown) (unknown) (no date) (unknown) (unknown) Vital signs: (units unknown) (unknown) (unknown) (no date) (unknown) (unknown) WBC (4.5-11.0) X103/uL (units unknown) (unknown) (unknown) (no date) (unknown) (unknown) WBC 8.4 (4.5-11.0) X103/uL (units unknown) (unknown) (unknown) (no date) (unknown) (unknown) Walker: Front Wheel ##1 10/30/16 (units unknown) (unknown) (unknown) (no date) (unknown) (unknown) Walker: Front Wheel (units unknown) (unknown) (unknown) (no date) (unknown) (unknown) [CRANBERRY] 1 tab PO QDAY ##0 09/27/16 10/04/19 (units unknown) (unknown) (unknown) (no date) (unknown) (unknown) [CRANBERRY] (units unknown) (unknown) (unknown) (no date) (unknown) (unknown) [Embedded Image Not Available] (units unknown) (unknown) (unknown) (no date) (unknown) (unknown) [NITROFURANTOIN] REACTION (units unknown) (unknown) (unknown) (no date) (unknown) (unknown) [RED RICE YEAST] 600 mg PO BID ##0 03/12/10 10/04/19 (units unknown) (unknown) (unknown) (no date) (unknown) (unknown) [RED RICE YEAST] (units unknown) (unknown) (unknown) (no date) (unknown) (unknown) [SULFA (SULFONAMIDE (units unknown) (unknown) (unknown) (no date) (unknown) (unknown) abdominal pain, diarrhea, constipation. (units unknown) (unknown) (unknown) (no date) (unknown) (unknown) acetaminophen 300 mg-codeine 30 mg 1 tab PO Q4-6H PRN pain #14 tabs 09/21/17 (units unknown) (unknown) (unknown) (no date) (unknown) (unknown) acetaminophen-codei ne [Tylenol-Codeine #3] 300-30 mg tablet (units unknown) (unknown) (unknown) (no date) (unknown) (unknown) adhesive tape [ADHESIVE TAPE] Allergy Severe 'I GOT Verified 04/14/22 11:41 (units unknown) (unknown) (unknown) (no date) (unknown) (unknown) adjustment (units unknown) (unknown) (unknown) (no date) (unknown) (unknown) aerosol inhaler (Proventil HFA) (units unknown) (unknown) (unknown) (no date) (unknown) (unknown) albuterol sulfate 90 mcg/actuation 2 puff INH PRN PRN Dyspnea ##0 03/12/10 (units unknown) (unknown) (unknown) (no date) (unknown) (unknown) albuterol sulfate [Proventil HFA] 90 MCG/PUFF HFA aerosol inhaler (units unknown) (unknown) (unknown) (no date) (unknown) (unknown) alcohol intake frequency: 0-2 drinks per day (units unknown) (unknown) (unknown) (no date) (unknown) (unknown) alcohol intake: never (units unknown) (unknown) (unknown) (no date) (unknown) (unknown) and no evidence of any kind anemia. Patient will be treated for internal (units unknown) (unknown) (unknown) (no date) (unknown) (unknown) aspirin [ASPIRIN] Allergy Unknown UNKNOWN Verified 04/14/22 11:41 (units unknown) (unknown) (unknown) (no date) (unknown) (unknown) bilaterally ranging from 1-3 mm.? No interval change. (units unknown) (unknown) (unknown) (no date) (unknown) (unknown) blister (units unknown) (unknown) (unknown) (no date) (unknown) (unknown) blood surrounding the rectum, positive stool guaiac test (units unknown) (unknown) (unknown) (no date) (unknown) (unknown) cholecalciferol (vitamin D3) 250 5,000 unit PO QDAY ##0 03/12/10 10/04/19 (units unknown) (unknown) (unknown) (no date) (unknown) (unknown) cholecalciferol (vitamin D3) 250 mcg (10,000 unit) Tablet (units unknown) (unknown) (unknown) (no date) (unknown) (unknown) consider purchasing an [id number] fiber supplement as this may help with (units unknown) (unknown) (unknown) (no date) (unknown) (unknown) diclofenac sodium 3 % gel (units unknown) (unknown) (unknown) (no date) (unknown) (unknown) diclofenac sodium 3 % topical gel 1 applic topical BID PRN knee 08/14/21 (units unknown) (unknown) (unknown) (no date) (unknown) (unknown) discussed your CT abdomen and pelvis showed no concerning findings. I suspect (units unknown) (unknown) (unknown) (no date) (unknown) (unknown) dizziness. (units unknown) (unknown) (unknown) (no date) (unknown) (unknown) docusate sodium 250 mg capsule 500 mg PO PRN PRN Constipation ##0 03/12/10 (units unknown) (unknown) (unknown) (no date) (unknown) (unknown) docusate sodium [DOK] 250 MG capsule (units unknown) (unknown) (unknown) (no date) (unknown) (unknown) due to suspected lower GI bleed due to suspected internal hemorrhoids. On exam (units unknown) (unknown) (unknown) (no date) (unknown) (unknown) dysuria, urinary frequency, or urgency. (units unknown) (unknown) (unknown) (no date) (unknown) (unknown) findings that would explain the cause of the rectal bleeding. CBC unremarkable (units unknown) (unknown) (unknown) (no date) (unknown) (unknown) fluticasone propionate 50 2 spray intranasal DAILY PRN 09/17/19 10/04/19 (units unknown) (unknown) (unknown) (no date) (unknown) (unknown) fluticasone propionate [Flonase Allergy Relief] 50 mcg/actuation (units unknown) (unknown) (unknown) (no date) (unknown) (unknown) for further evaluation and possible colonoscopy. (units unknown) (unknown) (unknown) (no date) (unknown) (unknown) from the (units unknown) (unknown) (unknown) (no date) (unknown) (unknown) gabapentin 400 mg capsule 3,200 mg PO QDAY ##0 09/27/16 10/04/19 (units unknown) (unknown) (unknown) (no date) (unknown) (unknown) gabapentin [Neurontin] 400 MG capsule (units unknown) (unknown) (unknown) (no date) (unknown) (unknown) guaiac test. CT abdomen and pelvis ordered with contrast which showed no acute (units unknown) (unknown) (unknown) (no date) (unknown) (unknown) hemorrhoids as well as recommendations to follow up with the primary care (units unknown) (unknown) (unknown) (no date) (unknown) (unknown) hemorrhoids, upper GI bleed, lower GI bleed, external hemorrhoids (units unknown) (unknown) (unknown) (no date) (unknown) (unknown) her abdomen or rectum but she states that she ?always does not feel pain down (units unknown) (unknown) (unknown) (no date) (unknown) (unknown) history of NSAID use. Also reports a foul-smelling urine but denies any (units unknown) (unknown) (unknown) (no date) (unknown) (unknown) household members: caregiver and none (units unknown) (unknown) (unknown) (no date) (unknown) (unknown) hydrocodone 5 mg-acetaminophen 325 1 tab PO BID PRN pain #14 tabs 08/14/21 (units unknown) (unknown) (unknown) (no date) (unknown) (unknown) hydrocodone-acetami nophen 5-325 mg tablet (units unknown) (unknown) (unknown) (no date) (unknown) (unknown) ibuprofen 200 MG capsule (units unknown) (unknown) (unknown) (no date) (unknown) (unknown) ibuprofen 200 mg capsule 400 mg PO PRN PRN Pain (Scale 09/27/16 10/04/19 (units unknown) (unknown) (unknown) (no date) (unknown) (unknown) icterus. No injection or drainage. (units unknown) (unknown) (unknown) (no date) (unknown) (unknown) loratadine 10 MG tablet (units unknown) (unknown) (unknown) (no date) (unknown) (unknown) loratadine 10 mg tablet 10 mg PO QDAYP PRN Allergy 09/27/16 10/04/19 (units unknown) (unknown) (unknown) (no date) (unknown) (unknown) lung bases to the pubic symphysis.? Coronal and sagittal reformats were (units unknown) (unknown) (unknown) (no date) (unknown) (unknown) marital status: unknown (units unknown) (unknown) (unknown) (no date) (unknown) (unknown) mcg (10,000 unit) tablet (units unknown) (unknown) (unknown) (no date) (unknown) (unknown) mcg/actuation nasal Allergic Symptoms (units unknown) (unknown) (unknown) (no date) (unknown) (unknown) mg tablet (units unknown) (unknown) (unknown) (no date) (unknown) (unknown) nitrofurantoin Allergy Unknown UNKNOWN Verified 04/14/22 11:41 (units unknown) (unknown) (unknown) (no date) (unknown) (unknown) noted (units unknown) (unknown) (unknown) (no date) (unknown) (unknown) of mA and/or kV according to patient size. (units unknown) (unknown) (unknown) (no date) (unknown) (unknown) omeprazole 20 mg capsule,delayed 20 mg PO DAILY #30 caps 10/04/19 (units unknown) (unknown) (unknown) (no date) (unknown) (unknown) omeprazole 20 mg capsule,delayed release(DR/EC) (units unknown) (unknown) (unknown) (no date) (unknown) (unknown) or from her urine. Patient states that she is not experienced any pain around (units unknown) (unknown) (unknown) (no date) (unknown) (unknown) oxycodone 5 MG tablet (units unknown) (unknown) (unknown) (no date) (unknown) (unknown) oxycodone 5 mg tablet 1 - 2 tab PO Q3HP PRN Pain (Scale 09/17/19 10/04/19 (units unknown) (unknown) (unknown) (no date) (unknown) (unknown) oxycodone 5 mg tablet 5 mg PO Q8H PRN pain #7 tabs 04/04/20 (units unknown) (unknown) (unknown) (no date) (unknown) (unknown) oxycodone 5 mg tablet (units unknown) (unknown) (unknown) (no date) (unknown) (unknown) pain, acute shortness of breath, or any other concerning signs or symptoms. (units unknown) (unknown) (unknown) (no date) (unknown) (unknown) pain, ankle pain #100 grams (units unknown) (unknown) (unknown) (no date) (unknown) (unknown) patient had bright red blood surrounding the rectum as well as a positive stool (units unknown) (unknown) (unknown) (no date) (unknown) (unknown) peg 400-propylene glycol (PF) 0.4 2 drp OPHTH QDAY ##0 09/27/16 10/04/19 (units unknown) (unknown) (unknown) (no date) (unknown) (unknown) performed.? For (units unknown) (unknown) (unknown) (no date) (unknown) (unknown) provider for further evaluation. (units unknown) (unknown) (unknown) (no date) (unknown) (unknown) provider for possible colonoscopy. (units unknown) (unknown) (unknown) (no date) (unknown) (unknown) radiation dose reduction, the following was used:? automated exposure control, (units unknown) (unknown) (unknown) (no date) (unknown) (unknown) rales, or rhonchi. (units unknown) (unknown) (unknown) (no date) (unknown) (unknown) release (units unknown) (unknown) (unknown) (no date) (unknown) (unknown) removal of previous anterior mass.? Previous fat containing lesions bilaterally (units unknown) (unknown) (unknown) (no date) (unknown) (unknown) reported blood in her stool onset this morning while taking a shower. She (units unknown) (unknown) (unknown) (no date) (unknown) (unknown) seizures, incoordination. 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 Nonobstructing stones are (units unknown) (unknown) (unknown) (no date) (unknown) (unknown) tablet (Tylenol-Codeine #3) (units unknown) (unknown) (unknown) (no date) (unknown) (unknown) the cause of your rectal bleeding is due to internal hemorrhoids. Please (units unknown) (unknown) (unknown) (no date) (unknown) (unknown) the hemorrhoids. I also recommended follow up with your primary care provider (units unknown) (unknown) (unknown) (no date) (unknown) (unknown) the past (units unknown) (unknown) (unknown) (no date) (unknown) (unknown) there?. Patient denies any significant abdominal pain, nausea, vomiting, chest (units unknown) (unknown) (unknown) (no date) (unknown) (unknown) tonsillar hypertrophy or exudate. Airway patent. (units unknown) (unknown) (unknown) (no date) (unknown) (unknown) topiramate 50 mg tablet (Topamax) 200 mg PO BID 09/17/19 10/04/19 (units unknown) (unknown) (unknown) (no date) (unknown) (unknown) topiramate [Topamax] 50 MG tablet (units unknown) (unknown) (unknown) (no date) (unknown) (unknown) unremarkable. BUN/Creatinine ration WNL, noncerning for upper GI bleed. (units unknown) (unknown) (unknown) (no date) (unknown) (unknown) with (units unknown) (unknown) Result panel 90 (unknown) (no date) (unknown) (unknown) (no value) (units unknown) (unknown) (unknown) (no date) (unknown) (unknown) %-0.3 % eye drops in a dropperette (units unknown) (unknown) (unknown) (no date) (unknown) (unknown) (DOK) (units unknown) (unknown) (unknown) (no date) (unknown) (unknown) (Neurontin) (units unknown) (unknown) (unknown) (no date) (unknown) (unknown) (Systane (PF)) (units unknown) (unknown) (unknown) (no date) (unknown) (unknown) * Clinical Decision Rules/Scores evaluated: None (units unknown) (unknown) (unknown) (no date) (unknown) (unknown) * Independent discussions with: None (units unknown) (unknown) (unknown) (no date) (unknown) (unknown) * My imgaing interpretation: CT results as above. No acute processes found. (units unknown) (unknown) (unknown) (no date) (unknown) (unknown) * My lab interpretation: CBC unremarkable. No evidence of anemia. CMP (units unknown) (unknown) (unknown) (no date) (unknown) (unknown) * Prior records reviewed: Patient has not been here for similar complaints in (units unknown) (unknown) (unknown) (no date) (unknown) (unknown) * differential diagnosis includes but not limited to diverticulosis, internal (units unknown) (unknown) (unknown) (no date) (unknown) (unknown) [id number] (units unknown) (unknown) (unknown) (no date) (unknown) (unknown) 04/14/22 04/14/22 04/14/22 Range/Units (units unknown) (unknown) (unknown) (no date) (unknown) (unknown) 04/14/22 04/14/22 Range/Units (units unknown) (unknown) (unknown) (no date) (unknown) (unknown) 04/14/22 12:10 (units unknown) (unknown) (unknown) (no date) (unknown) (unknown) 04/14/22 12:25 (units unknown) (unknown) (unknown) (no date) (unknown) (unknown) 04/14/22 13:04 (units unknown) (unknown) (unknown) (no date) (unknown) (unknown) 04/14/22 13:10 (units unknown) (unknown) (unknown) (no date) (unknown) (unknown) 04/14/22 (units unknown) (unknown) (unknown) (no date) (unknown) (unknown) 10/04/19 (units unknown) (unknown) (unknown) (no date) (unknown) (unknown) 1 - 2 tab PO Q3HP PRN (Reason: Pain (Scale Score 1-3)) (units unknown) (unknown) (unknown) (no date) (unknown) (unknown) 1 applic topical BID PRN (Reason: knee pain, ankle pain) Qty: 100 0RF (units unknown) (unknown) (unknown) (no date) (unknown) (unknown) 1 tab PO BID PRN (Reason: pain) Qty: 14 0RF (units unknown) (unknown) (unknown) (no date) (unknown) (unknown) 1 tab PO Q4-6H PRN (Reason: pain) Qty: 14 0RF (units unknown) (unknown) (unknown) (no date) (unknown) (unknown) 1 tab PO QDAY Qty: 0 (units unknown) (unknown) (unknown) (no date) (unknown) (unknown) 10 mg PO QDAYP PRN (Reason: Allergy Symptoms) Qty: 0 (units unknown) (unknown) (unknown) (no date) (unknown) (unknown) 11:41 04/14/22 (units unknown) (unknown) (unknown) (no date) (unknown) (unknown) 12 point review of systems is negative except for those stated above (units unknown) (unknown) (unknown) (no date) (unknown) (unknown) [address] [place] [address] (units unknown) (unknown) (unknown) (no date) (unknown) (unknown) 12:01 04/14/22 (units unknown) (unknown) (unknown) (no date) (unknown) (unknown) 12:10 12:25 12:25 (units unknown) (unknown) (unknown) (no date) (unknown) (unknown) 12:25 12:25 (units unknown) (unknown) (unknown) (no date) (unknown) (unknown) 12:30 (units unknown) (unknown) (unknown) (no date) (unknown) (unknown) 12:31 04/14/22 (units unknown) (unknown) (unknown) (no date) (unknown) (unknown) 1304: EKG is normal sinus rhythm rate 63 and free of any signs of ischemia or (units unknown) (unknown) (unknown) (no date) (unknown) (unknown) 13:00 04/14/22 (units unknown) (unknown) (unknown) (no date) (unknown) (unknown) 13:00 (units unknown) (unknown) (unknown) (no date) (unknown) (unknown) 13:30 (units unknown) (unknown) (unknown) (no date) (unknown) (unknown) 2 drp OPHTH QDAY Qty: 0 (units unknown) (unknown) (unknown) (no date) (unknown) (unknown) 2 puff INH PRN PRN (Reason: Dyspnea) Qty: 0 (units unknown) (unknown) (unknown) (no date) (unknown) (unknown) 2 spray INTRANASAL DAILY PRN (Reason: Allergic Symptoms) (units unknown) (unknown) (unknown) (no date) (unknown) (unknown) 2 tabs in am, 3 tams at noon, 2 tabs evening (units unknown) (unknown) (unknown) (no date) (unknown) (unknown) 20 mg PO DAILY Qty: 30 0RF (units unknown) (unknown) (unknown) (no date) (unknown) (unknown) 200 mg PO BID (units unknown) (unknown) (unknown) (no date) (unknown) (unknown) 3,200 mg PO QDAY Qty: 0 (units unknown) (unknown) (unknown) (no date) (unknown) (unknown) 400 mg PO PRN PRN (Reason: Pain (Scale Score 1-3)) Qty: 0 (units unknown) (unknown) (unknown) (no date) (unknown) (unknown) 5 mg PO Q8H PRN (Reason: pain) Qty: 7 0RF (units unknown) (unknown) (unknown) (no date) (unknown) (unknown) 5,000 unit PO QDAY Qty: 0 (units unknown) (unknown) (unknown) (no date) (unknown) (unknown) 500 mg PO PRN PRN (Reason: Constipation) Qty: 0 (units unknown) (unknown) (unknown) (no date) (unknown) (unknown) 600 mg PO BID Qty: 0 (units unknown) (unknown) (unknown) (no date) (unknown) (unknown) ? (units unknown) (unknown) (unknown) (no date) (unknown) (unknown) ABDOMEN: (units unknown) (unknown) (unknown) (no date) (unknown) (unknown) ALLERGY (units unknown) (unknown) (unknown) (no date) (unknown) (unknown) [id number] SE Allergy Unknown PT NOT Uncoded 04/14/22 11:41 (units unknown) (unknown) (unknown) (no date) (unknown) (unknown) ALT (<35) IU/L (units unknown) (unknown) (unknown) (no date) (unknown) (unknown) ALT 24 (<35) IU/L (units unknown) (unknown) (unknown) (no date) (unknown) (unknown) ANTIBIOTICS)] (units unknown) (unknown) (unknown) (no date) (unknown) (unknown) APTT (26-36) SECONDS (units unknown) (unknown) (unknown) (no date) (unknown) (unknown) APTT 33 (26-36) SECONDS (units unknown) (unknown) (unknown) (no date) (unknown) (unknown) AST (14-36) IU/L (units unknown) (unknown) (unknown) (no date) (unknown) (unknown) AST 20 (14-36) IU/L (units unknown) (unknown) (unknown) (no date) (unknown) (unknown) AWARE OF (units unknown) (unknown) (unknown) (no date) (unknown) (unknown) Abdominal Nodes:? No retroperitoneal or mesenteric adenopathy by size criteria.? (units unknown) (unknown) (unknown) (no date) (unknown) (unknown) Accession Number: [id number] ?? (units unknown) (unknown) (unknown) (no date) (unknown) (unknown) Acct:[id number] (units unknown) (unknown) (unknown) (no date) (unknown) (unknown) Activity Restrictions/Additi onal Instructions: (units unknown) (unknown) (unknown) (no date) (unknown) (unknown) Adrenal Glands:? Unremarkable.? ? (units unknown) (unknown) (unknown) (no date) (unknown) (unknown) After the administration of oral and IV contrast, axial sections were acquired (units unknown) (unknown) (unknown) (no date) (unknown) (unknown) Age/Sex: 61 / F (units unknown) (unknown) (unknown) (no date) (unknown) (unknown) Albumin (3.5-5.0) g/dL (units unknown) (unknown) (unknown) (no date) (unknown) (unknown) Albumin 4.1 (3.5-5.0) g/dL (units unknown) (unknown) (unknown) (no date) (unknown) (unknown) Albumin/Globulin Ratio (1.0-2.8) (units unknown) (unknown) (unknown) (no date) (unknown) (unknown) Albumin/Globulin Ratio 1.2 (1.0-2.8) (units unknown) (unknown) (unknown) (no date) (unknown) (unknown) Alkaline Phosphatase (38-126) U/L (units unknown) (unknown) (unknown) (no date) (unknown) (unknown) Alkaline Phosphatase 95 (38-126) U/L (units unknown) (unknown) (unknown) (no date) (unknown) (unknown) Allergies (units unknown) (unknown) (unknown) (no date) (unknown) (unknown) Allergy/AdvReac Type Severity Reaction Status Date / Time (units unknown) (unknown) (unknown) (no date) (unknown) (unknown) [place] [address] (units unknown) (unknown) (unknown) (no date) (unknown) (unknown) Antibiotics) PER PT (units unknown) (unknown) (unknown) (no date) (unknown) (unknown) Antibody Screen Negative (units unknown) (unknown) (unknown) (no date) (unknown) (unknown) Antibody Screen (units unknown) (unknown) (unknown) (no date) (unknown) (unknown) Approved by: Jasmin Zhao M.D. on 04/14/2022 at 14:35 ? (units unknown) (unknown) (unknown) (no date) (unknown) (unknown) Asthma (units unknown) (unknown) (unknown) (no date) (unknown) (unknown) BACK: Nontender without deformity or crepitance. No flank tenderness. (units unknown) (unknown) (unknown) (no date) (unknown) (unknown) BUN (7-17) mg/dL (units unknown) (unknown) (unknown) (no date) (unknown) (unknown) BUN 13 (7-17) mg/dL (units unknown) (unknown) (unknown) (no date) (unknown) (unknown) BUN/Creatinine Ratio (6-22) (units unknown) (unknown) (unknown) (no date) (unknown) (unknown) BUN/Creatinine Ratio 12.7 (6-22) (units unknown) (unknown) (unknown) (no date) (unknown) (unknown) Baso # (Auto) (0-100) /uL (units unknown) (unknown) (unknown) (no date) (unknown) (unknown) Baso # (Auto) 100 (0-100) /uL (units unknown) (unknown) (unknown) (no date) (unknown) (unknown) Baso % (Auto) (0-2) % (units unknown) (unknown) (unknown) (no date) (unknown) (unknown) Baso % (Auto) 0.7 (0-2) % (units unknown) (unknown) (unknown) (no date) (unknown) (unknown) Bedside Urine Bilirubin - Negative (units unknown) (unknown) (unknown) (no date) (unknown) (unknown) Bedside Urine Glucose Negative (units unknown) (unknown) (unknown) (no date) (unknown) (unknown) Bedside Urine Ketone - Negative (units unknown) (unknown) (unknown) (no date) (unknown) (unknown) Bedside Urine Leukocytes - Negative (units unknown) (unknown) (unknown) (no date) (unknown) (unknown) Bedside Urine Nitrite - Negative (units unknown) (unknown) (unknown) (no date) (unknown) (unknown) Bedside Urine Occult Blood (units unknown) (unknown) (unknown) (no date) (unknown) (unknown) Bedside Urine Protein ++ 100 (units unknown) (unknown) (unknown) (no date) (unknown) (unknown) Bedside Urine Urobilinogen - Negative (units unknown) (unknown) (unknown) (no date) (unknown) (unknown) Bedside Urine pH 6.0 (units unknown) (unknown) (unknown) (no date) (unknown) (unknown) Biliary ducts:? Unremarkable.? ? (units unknown) (unknown) (unknown) (no date) (unknown) (unknown) Bladder:? Unremarkable.? ? (units unknown) (unknown) (unknown) (no date) (unknown) (unknown) Bleeding internal hemorrhoids (units unknown) (unknown) (unknown) (no date) (unknown) (unknown) Blood Pressure 128/87 04/14/22 11:41 (units unknown) (unknown) (unknown) (no date) (unknown) (unknown) Blood Pressure 128/87 (units unknown) (unknown) (unknown) (no date) (unknown) (unknown) Blood Pressure 175/107 H 157/84 H (units unknown) (unknown) (unknown) (no date) (unknown) (unknown) Blood Pressure (units unknown) (unknown) (unknown) (no date) (unknown) (unknown) Blood Type A Positive (units unknown) (unknown) (unknown) (no date) (unknown) (unknown) Blood Type (units unknown) (unknown) (unknown) (no date) (unknown) (unknown) Bones:? Unremarkable.? ? (units unknown) (unknown) (unknown) (no date) (unknown) (unknown) CARDIOVASCULAR: Denies chest pain, palpitations, orthopnea, edema, (units unknown) (unknown) (unknown) (no date) (unknown) (unknown) CARDIOVASCULAR: Regular rate and rhythm without murmurs, gallops, or rubs. (units unknown) (unknown) (unknown) (no date) (unknown) (unknown) COMPARISON:[facility], CT, CT ABDOMEN WO/W CON, 09/11/2021, 13:13.? [place] (units unknown) (unknown) (unknown) (no date) (unknown) (unknown) CT Scan Report (units unknown) (unknown) (unknown) (no date) (unknown) (unknown) CT abdomen pelvis w con Stat (units unknown) (unknown) (unknown) (no date) (unknown) (unknown) CT scan - abdomen/pelvis: (units unknown) (unknown) (unknown) (no date) (unknown) (unknown) Calcium (8.4-10.2) mg/dL (units unknown) (unknown) (unknown) (no date) (unknown) (unknown) Calcium 8.7 (8.4-10.2) mg/dL (units unknown) (unknown) (unknown) (no date) (unknown) (unknown) Carbon Dioxide (22-32) mmol/L (units unknown) (unknown) (unknown) (no date) (unknown) (unknown) Carbon Dioxide 21 L (22-32) mmol/L (units unknown) (unknown) (unknown) (no date) (unknown) (unknown) Chief complaint: GI Bleed (units unknown) (unknown) (unknown) (no date) (unknown) (unknown) Chloride (98-107) mmol/L (units unknown) (unknown) (unknown) (no date) (unknown) (unknown) Chloride 109 H (98-107) mmol/L (units unknown) (unknown) (unknown) (no date) (unknown) (unknown) Clinical Impression: (units unknown) (unknown) (unknown) (no date) (unknown) (unknown) Colon cancer (units unknown) (unknown) (unknown) (no date) (unknown) (unknown) Complete Blood Count AUTO DIFF Stat (units unknown) (unknown) (unknown) (no date) (unknown) (unknown) Comprehensive Metabolic Panel Stat (units unknown) (unknown) (unknown) (no date) (unknown) (unknown) Course (units unknown) (unknown) (unknown) (no date) (unknown) (unknown) Creatinine (0.52-1.04) mg/dL (units unknown) (unknown) (unknown) (no date) (unknown) (unknown) Creatinine 1.02 (0.52-1.04) mg/dL (units unknown) (unknown) (unknown) (no date) (unknown) (unknown) : 1960 Acct:[id number] (units unknown) (unknown) (unknown) (no date) (unknown) (unknown) : 1960 (units unknown) (unknown) (unknown) (no date) (unknown) (unknown) DOES NOT (units unknown) (unknown) (unknown) (no date) (unknown) (unknown) Date of Service: 04/14/22 (units unknown) (unknown) (unknown) (no date) (unknown) (unknown) Departure (units unknown) (unknown) (unknown) (no date) (unknown) (unknown) Diabetes mellitus (units unknown) (unknown) (unknown) (no date) (unknown) (unknown) Diabetes (units unknown) (unknown) (unknown) (no date) (unknown) (unknown) Dictated by: Jasmin Zhao M.D. on 04/14/2022 at 14:22 ? ? (units unknown) (unknown) (unknown) (no date) (unknown) (unknown) Discharge Plan (units unknown) (unknown) (unknown) (no date) (unknown) (unknown) Discontinued Medications (units unknown) (unknown) (unknown) (no date) (unknown) (unknown) Disposition: Discharged to home (units unknown) (unknown) (unknown) (no date) (unknown) (unknown) Documented By: RLS (units unknown) (unknown) (unknown) (no date) (unknown) (unknown) ECG Data (units unknown) (unknown) (unknown) (no date) (unknown) (unknown) ED Course: This is a 61-year-old female presents to the emergency department (units unknown) (unknown) (unknown) (no date) (unknown) (unknown) ED Orders (units unknown) (unknown) (unknown) (no date) (unknown) (unknown) EKG-12 Lead Stat (units unknown) (unknown) (unknown) (no date) (unknown) (unknown) ENT: Nose without bleeding, purulent drainage. Throat without erythema, (units unknown) (unknown) (unknown) (no date) (unknown) (unknown) ER Physician: Joel Francois P.A-C (units unknown) (unknown) (unknown) (no date) (unknown) (unknown) EXTREMITIES: No edema or joint tenderness. (units unknown) (unknown) (unknown) (no date) (unknown) (unknown) EYES: Pupils equal round and reactive. Extraocular motions intact. No scleral (units unknown) (unknown) (unknown) (no date) (unknown) (unknown) Emergency Report (units unknown) (unknown) (unknown) (no date) (unknown) (unknown) Eos # (Auto) (0-450) /uL (units unknown) (unknown) (unknown) (no date) (unknown) (unknown) Eos # (Auto) 100 (0-450) /uL (units unknown) (unknown) (unknown) (no date) (unknown) (unknown) Eos % (Auto) (2-4) % (units unknown) (unknown) (unknown) (no date) (unknown) (unknown) Eos % (Auto) 1.6 L (2-4) % (units unknown) (unknown) (unknown) (no date) (unknown) (unknown) Esterase (units unknown) (unknown) (unknown) (no date) (unknown) (unknown) Estimated GFR > 60 (>60) mL/min (units unknown) (unknown) (unknown) (no date) (unknown) (unknown) Estimated GFR (>60) mL/min (units unknown) (unknown) (unknown) (no date) (unknown) (unknown) Exam Narrative: (units unknown) (unknown) (unknown) (no date) (unknown) (unknown) Exam (units unknown) (unknown) (unknown) (no date) (unknown) (unknown) FINDINGS:? (units unknown) (unknown) (unknown) (no date) (unknown) (unknown) Family History (units unknown) (unknown) (unknown) (no date) (unknown) (unknown) Father Diabetes mellitus (units unknown) (unknown) (unknown) (no date) (unknown) (unknown) Edison Jones MD [Primary Care Provider] (units unknown) (unknown) (unknown) (no date) (unknown) (unknown) GASTROINTESTINAL: Reports bright red blood in stool, Denies nausea, vomiting, (units unknown) (unknown) (unknown) (no date) (unknown) (unknown) GASTROINTESTINAL: Suprapubic abdominal tenderness to palpation. Bright red (units unknown) (unknown) (unknown) (no date) (unknown) (unknown) GENERAL: Denies chills, fatigue, malaise, fever, sweats. (units unknown) (unknown) (unknown) (no date) (unknown) (unknown) GENERAL: Well-developed patient, in mild distress. (units unknown) (unknown) (unknown) (no date) (unknown) (unknown) : Denies dysuria, frequency, incontinence, hematuria, urinary retention. (units unknown) (unknown) (unknown) (no date) (unknown) (unknown) Gallbladder:? Removed. (units unknown) (unknown) (unknown) (no date) (unknown) (unknown) Gallstones (units unknown) (unknown) (unknown) (no date) (unknown) (unknown) General (units unknown) (unknown) (unknown) (no date) (unknown) (unknown) Globulin (1.7-4.1) g/dL (units unknown) (unknown) (unknown) (no date) (unknown) (unknown) Globulin 3.4 (1.7-4.1) g/dL (units unknown) (unknown) (unknown) (no date) (unknown) (unknown) Glucose (70-100) mg/dL (units unknown) (unknown) (unknown) (no date) (unknown) (unknown) Glucose 120 H (70-100) mg/dL (units unknown) (unknown) (unknown) (no date) (unknown) (unknown) HEAD: Atraumatic. Normocephalic. (units unknown) (unknown) (unknown) (no date) (unknown) (unknown) HEENT: Denies sinus pain, ear pain, sore throat, difficulty swallowing, (units unknown) (unknown) (unknown) (no date) (unknown) (unknown) HPI - GI Bleed (units unknown) (unknown) (unknown) (no date) (unknown) (unknown) HPI Narrative: (units unknown) (unknown) (unknown) (no date) (unknown) (unknown) Hct (36-46) % (units unknown) (unknown) (unknown) (no date) (unknown) (unknown) Hct 40.4 (36-46) % (units unknown) (unknown) (unknown) (no date) (unknown) (unknown) Heart disease (units unknown) (unknown) (unknown) (no date) (unknown) (unknown) Heart:? No significant findings. (units unknown) (unknown) (unknown) (no date) (unknown) (unknown) Hepatomegaly with steatosis. (units unknown) (unknown) (unknown) (no date) (unknown) (unknown) Hgb (12.0-16.0) g/dL (units unknown) (unknown) (unknown) (no date) (unknown) (unknown) Hgb 13.7 (12.0-16.0) g/dL (units unknown) (unknown) (unknown) (no date) (unknown) (unknown) History of Present Illness (units unknown) (unknown) (unknown) (no date) (unknown) (unknown) History of back surgery (units unknown) (unknown) (unknown) (no date) (unknown) (unknown) History of total knee arthroplasty (units unknown) (unknown) (unknown) (no date) (unknown) (unknown) Home Medications (units unknown) (unknown) (unknown) (no date) (unknown) (unknown) Hospital, CT, CT ABDOMEN PELVIS W CON, 04/04/2020, 11:35. (units unknown) (unknown) (unknown) (no date) (unknown) (unknown) Hx of cholecystectomy (units unknown) (unknown) (unknown) (no date) (unknown) (unknown) Hx of knee surgery (units unknown) (unknown) (unknown) (no date) (unknown) (unknown) Hx of neck surgery (units unknown) (unknown) (unknown) (no date) (unknown) (unknown) Hx of shoulder surgery (units unknown) (unknown) (unknown) (no date) (unknown) (unknown) Hyaline Casts (None) (units unknown) (unknown) (unknown) (no date) (unknown) (unknown) Hyaline Casts 1-5/lpf (None) (units unknown) (unknown) (unknown) (no date) (unknown) (unknown) I hope you feel better soon. (units unknown) (unknown) (unknown) (no date) (unknown) (unknown) IMPRESSION:? (units unknown) (unknown) (unknown) (no date) (unknown) (unknown) INDICATIONS:? Hematochezia and suprapubic TTP (units unknown) (unknown) (unknown) (no date) (unknown) (unknown) INR (0.9-1.3) (units unknown) (unknown) (unknown) (no date) (unknown) (unknown) INR 1.1 (0.9-1.3) (units unknown) (unknown) (unknown) (no date) (unknown) (unknown) Image quality:? Excellent.? (units unknown) (unknown) (unknown) (no date) (unknown) (unknown) Imaging Data (units unknown) (unknown) (unknown) (no date) (unknown) (unknown) Initial Vital Signs (units unknown) (unknown) (unknown) (no date) (unknown) (unknown) Initial Vital Signs: (units unknown) (unknown) (unknown) (no date) (unknown) (unknown) Instructions: DI for Hemorrhoids (units unknown) (unknown) (unknown) (no date) (unknown) (unknown) Interpretation: (units unknown) (unknown) (unknown) (no date) (unknown) (unknown) [address] [address] (units unknown) (unknown) (unknown) (no date) (unknown) (unknown) [facility] (units unknown) (unknown) (unknown) (no date) (unknown) (unknown) Kidney malignancy (units unknown) (unknown) (unknown) (no date) (unknown) (unknown) Kidneys and Ureters:? Postsurgical changes are present within the left kidney (units unknown) (unknown) (unknown) (no date) (unknown) (unknown) Lab Data (units unknown) (unknown) (unknown) (no date) (unknown) (unknown) Lab Results (units unknown) (unknown) (unknown) (no date) (unknown) (unknown) Labs: (units unknown) (unknown) (unknown) (no date) (unknown) (unknown) Last Admin: 04/14/22 12:51 Dose: Not Given (units unknown) (unknown) (unknown) (no date) (unknown) (unknown) Liver:? Liver is enlarged measuring 20.4 cm with steatosis..? ? (units unknown) (unknown) (unknown) (no date) (unknown) (unknown) Loc: ED (units unknown) (unknown) (unknown) (no date) (unknown) (unknown) Lung bases:? Unremarkable.? ? (units unknown) (unknown) (unknown) (no date) (unknown) (unknown) Lymph # (Auto) (9411-0875) /uL (units unknown) (unknown) (unknown) (no date) (unknown) (unknown) Lymph # (Auto) 1900 (8086-5713) /uL (units unknown) (unknown) (unknown) (no date) (unknown) (unknown) Lymph % (Auto) (25-40) % (units unknown) (unknown) (unknown) (no date) (unknown) (unknown) Lymph % (Auto) 22.7 L (25-40) % (units unknown) (unknown) (unknown) (no date) (unknown) (unknown) MCH (26-34) PG (units unknown) (unknown) (unknown) (no date) (unknown) (unknown) MCH 31.8 (26-34) PG (units unknown) (unknown) (unknown) (no date) (unknown) (unknown) MCHC (30-36) % (units unknown) (unknown) (unknown) (no date) (unknown) (unknown) MCHC 33.9 (30-36) % (units unknown) (unknown) (unknown) (no date) (unknown) (unknown) MCV (80-100) fL (units unknown) (unknown) (unknown) (no date) (unknown) (unknown) MCV 93.9 (80-100) fL (units unknown) (unknown) (unknown) (no date) (unknown) (unknown) MDM - GI Bleed (units unknown) (unknown) (unknown) (no date) (unknown) (unknown) MDM Narrative (units unknown) (unknown) (unknown) (no date) (unknown) (unknown) MDM (units unknown) (unknown) (unknown) (no date) (unknown) (unknown) MR#: [id number] (units unknown) (unknown) (unknown) (no date) (unknown) (unknown) MUSCULOSKELETAL: denies weakness, joint pain, or bony pain (units unknown) (unknown) (unknown) (no date) (unknown) (unknown) Medical History (Updated 04/14/22 @ 15:12 by Joel Francois PA-C) (units unknown) (unknown) (unknown) (no date) (unknown) (unknown) Medical decision making narrative: (units unknown) (unknown) (unknown) (no date) (unknown) (unknown) Medication Instructions Recorded Confirmed (units unknown) (unknown) (unknown) (no date) (unknown) (unknown) Medication Instructions Recorded (units unknown) (unknown) (unknown) (no date) (unknown) (unknown) Miscellaneous: No inguinal hernias are seen. ? ? (units unknown) (unknown) (unknown) (no date) (unknown) (unknown) Mode of arrival: Ambulatory (units unknown) (unknown) (unknown) (no date) (unknown) (unknown) [place] # (Auto) (0-900) /uL (units unknown) (unknown) (unknown) (no date) (unknown) (unknown) [place] # (Auto) 500 (0-900) /uL (units unknown) (unknown) (unknown) (no date) (unknown) (unknown) [place] % (Auto) (3-14) % (units unknown) (unknown) (unknown) (no date) (unknown) (unknown) [place] % (Auto) 6.3 (3-14) % (units unknown) (unknown) (unknown) (no date) (unknown) (unknown) Mother Hypertension (units unknown) (unknown) (unknown) (no date) (unknown) (unknown) NECK: Trachea midline. Non tender (units unknown) (unknown) (unknown) (no date) (unknown) (unknown) NEURO: AOx3. (units unknown) (unknown) (unknown) (no date) (unknown) (unknown) NEUROLOGIC: Denies weakness, headache, numbness, change in speech, confusion, (units unknown) (unknown) (unknown) (no date) (unknown) (unknown) Narrative (units unknown) (unknown) (unknown) (no date) (unknown) (unknown) Narrative: (units unknown) (unknown) (unknown) (no date) (unknown) (unknown) Neut # (Auto) (7822-4040) /uL (units unknown) (unknown) (unknown) (no date) (unknown) (unknown) Neut # (Auto) 5800 (3737-5517) /uL (units unknown) (unknown) (unknown) (no date) (unknown) (unknown) Neut % (Auto) (50-75) % (units unknown) (unknown) (unknown) (no date) (unknown) (unknown) Neut % (Auto) 68.7 (50-75) % (units unknown) (unknown) (unknown) (no date) (unknown) (unknown) No Action (units unknown) (unknown) (unknown) (no date) (unknown) (unknown) No acute intra-abdominal or pelvic process. (units unknown) (unknown) (unknown) (no date) (unknown) (unknown) No evidence of diverticulosis. Recommend she follow up with primary care (units unknown) (unknown) (unknown) (no date) (unknown) (unknown) Obesity (units unknown) (unknown) (unknown) (no date) (unknown) (unknown) Ondansetron HCl (Ondansetron 4 Mg Odt) 4 mg SL NOW PRN (units unknown) (unknown) (unknown) (no date) (unknown) (unknown) Ondansetron HCl (Ondansetron 4 Mg/2 Ml Inj) 4 mg IV NOW PRN (units unknown) (unknown) (unknown) (no date) (unknown) (unknown) Ordered: (units unknown) (unknown) (unknown) (no date) (unknown) (unknown) Ordering Provider: Joel Francois P.A-C (units unknown) (unknown) (unknown) (no date) (unknown) (unknown) Orders (units unknown) (unknown) (unknown) (no date) (unknown) (unknown) Oxygen Delivery Method Room Air 04/14/22 11:41 (units unknown) (unknown) (unknown) (no date) (unknown) (unknown) Oxygen Delivery Method Room Air (units unknown) (unknown) (unknown) (no date) (unknown) (unknown) Oxygen Delivery Method (units unknown) (unknown) (unknown) (no date) (unknown) (unknown) PELVIS: (units unknown) (unknown) (unknown) (no date) (unknown) (unknown) PER PT (units unknown) (unknown) (unknown) (no date) (unknown) (unknown) PRN Reason: Nausea And Vomiting (units unknown) (unknown) (unknown) (no date) (unknown) (unknown) PROCEDURE:? CT ABDOMEN PELVIS W CON (units unknown) (unknown) (unknown) (no date) (unknown) (unknown) PSYCHIATRIC: No concerning psychosocial issues. (units unknown) (unknown) (unknown) (no date) (unknown) (unknown) PT (10.1-12.7) SECONDS (units unknown) (unknown) (unknown) (no date) (unknown) (unknown) PT 12.1 (10.1-12.7) SECONDS (units unknown) (unknown) (unknown) (no date) (unknown) (unknown) Pancreas:? Unremarkable.? ? (units unknown) (unknown) (unknown) (no date) (unknown) (unknown) Pantoprazole Sodium (Pantoprazole 40 Mg Vial) 80 mg IV NOW ONE (units unknown) (unknown) (unknown) (no date) (unknown) (unknown) Partial Thromboplastin Time Stat (units unknown) (unknown) (unknown) (no date) (unknown) (unknown) Partial left nephrectomy.? No evidence of recurrent disease. (units unknown) (unknown) (unknown) (no date) (unknown) (unknown) Patient Disposition: Home (units unknown) (unknown) (unknown) (no date) (unknown) (unknown) Patient History (units unknown) (unknown) (unknown) (no date) (unknown) (unknown) Patient's daughter describes the blood as bright red in color. No significant (units unknown) (unknown) (unknown) (no date) (unknown) (unknown) Patient: Logan Desir MR#: M (units unknown) (unknown) (unknown) (no date) (unknown) (unknown) Patient: Logan Desir (units unknown) (unknown) (unknown) (no date) (unknown) (unknown) Pelvic Nodes: No enlarged lymph nodes.? (units unknown) (unknown) (unknown) (no date) (unknown) (unknown) Pelvic Organs:? Unremarkable.? ? (units unknown) (unknown) (unknown) (no date) (unknown) (unknown) Penicillins [PENICILLINS] Allergy Unknown ITCHING-PT Verified 04/14/22 11:41 (units unknown) (unknown) (unknown) (no date) (unknown) (unknown) Peritoneum:? No abnormal intraperitoneal fluid.? No free air.? (units unknown) (unknown) (unknown) (no date) (unknown) (unknown) Plt Count (150-400) X103/uL (units unknown) (unknown) (unknown) (no date) (unknown) (unknown) Plt Count 278 (150-400) X103/uL (units unknown) (unknown) (unknown) (no date) (unknown) (unknown) Point of Care Testing (units unknown) (unknown) (unknown) (no date) (unknown) (unknown) Potassium (3.4-5.1) mmol/L (units unknown) (unknown) (unknown) (no date) (unknown) (unknown) Potassium 3.9 (3.4-5.1) mmol/L (units unknown) (unknown) (unknown) (no date) (unknown) (unknown) Prescriptions: (units unknown) (unknown) (unknown) (no date) (unknown) (unknown) Previous Rx's (units unknown) (unknown) (unknown) (no date) (unknown) (unknown) Procedure: CT abdomen pelvis w con (units unknown) (unknown) (unknown) (no date) (unknown) (unknown) Prothrombin Time INR Stat (units unknown) (unknown) (unknown) (no date) (unknown) (unknown) Pulse Oximetry 97 96 (units unknown) (unknown) (unknown) (no date) (unknown) (unknown) Pulse Oximetry 99 04/14/22 11:41 (units unknown) (unknown) (unknown) (no date) (unknown) (unknown) Pulse Oximetry 99 99 99 (units unknown) (unknown) (unknown) (no date) (unknown) (unknown) Pulse Oximetry 99 (units unknown) (unknown) (unknown) (no date) (unknown) (unknown) Pulse Rate 65 65 (units unknown) (unknown) (unknown) (no date) (unknown) (unknown) Pulse Rate 70 (units unknown) (unknown) (unknown) (no date) (unknown) (unknown) Pulse Rate 80 04/14/22 11:41 (units unknown) (unknown) (unknown) (no date) (unknown) (unknown) Pulse Rate 80 72 68 (units unknown) (unknown) (unknown) (no date) (unknown) (unknown) Qty: 1 0RF (units unknown) (unknown) (unknown) (no date) (unknown) (unknown) RBC (4.0-5.2) X106/uL (units unknown) (unknown) (unknown) (no date) (unknown) (unknown) RBC 4.30 (4.0-5.2) X106/uL (units unknown) (unknown) (unknown) (no date) (unknown) (unknown) RDW (11.6-14.8) % (units unknown) (unknown) (unknown) (no date) (unknown) (unknown) RDW 13.7 (11.6-14.8) % (units unknown) (unknown) (unknown) (no date) (unknown) (unknown) REACTION (units unknown) (unknown) (unknown) (no date) (unknown) (unknown) RED' (units unknown) (unknown) (unknown) (no date) (unknown) (unknown) REMEMBER (units unknown) (unknown) (unknown) (no date) (unknown) (unknown) RESPIRATORY: Clear to auscultation. Breath sounds equal bilaterally. No wheezes, (units unknown) (unknown) (unknown) (no date) (unknown) (unknown) RESPIRATORY: Denies dyspnea, cough, wheezing, hemoptysis, sputum. (units unknown) (unknown) (unknown) (no date) (unknown) (unknown) Radiologist's Impression: (units unknown) (unknown) (unknown) (no date) (unknown) (unknown) Referrals: (units unknown) (unknown) (unknown) (no date) (unknown) (unknown) Related Data (units unknown) (unknown) (unknown) (no date) (unknown) (unknown) Relief) (units unknown) (unknown) (unknown) (no date) (unknown) (unknown) Respiratory Rate 16 04/14/22 11:41 (units unknown) (unknown) (unknown) (no date) (unknown) (unknown) Respiratory Rate 16 26 H (units unknown) (unknown) (unknown) (no date) (unknown) (unknown) Respiratory Rate 19 20 (units unknown) (unknown) (unknown) (no date) (unknown) (unknown) Respiratory Rate 24 (units unknown) (unknown) (unknown) (no date) (unknown) (unknown) Review of Systems (units unknown) (unknown) (unknown) (no date) (unknown) (unknown) Rx Instructions: (units unknown) (unknown) (unknown) (no date) (unknown) (unknown) SEVERITY (units unknown) (unknown) (unknown) (no date) (unknown) (unknown) SKIN: Denies rash, skin lesions, or other (units unknown) (unknown) (unknown) (no date) (unknown) (unknown) SKIN: No rash or erythema of visible areas (units unknown) (unknown) (unknown) (no date) (unknown) (unknown) 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 (units unknown) (unknown) (unknown) (no date) (unknown) (unknown) Score 1-3) ##0 (units unknown) (unknown) (unknown) (no date) (unknown) (unknown) Score 1-3) (units unknown) (unknown) (unknown) (no date) (unknown) (unknown) Seizure-like activity (units unknown) (unknown) (unknown) (no date) (unknown) (unknown) Shared Decision Making: Discussed plan patient is comfortable with plan (units unknown) (unknown) (unknown) (no date) (unknown) (unknown) Signed By: (units unknown) (unknown) (unknown) (no date) (unknown) (unknown) Signed (units unknown) (unknown) (unknown) (no date) (unknown) (unknown) Smoking Status: Never smoker (units unknown) (unknown) (unknown) (no date) (unknown) (unknown) Social Considerations: None (units unknown) (unknown) (unknown) (no date) (unknown) (unknown) Social History (units unknown) (unknown) (unknown) (no date) (unknown) (unknown) Sodium (137-145) mmol/L (units unknown) (unknown) (unknown) (no date) (unknown) (unknown) Sodium 142 (137-145) mmol/L (units unknown) (unknown) (unknown) (no date) (unknown) (unknown) Source: patient (units unknown) (unknown) (unknown) (no date) (unknown) (unknown) Spleen:? Unremarkable.? ? (units unknown) (unknown) (unknown) (no date) (unknown) (unknown) [place],Suspension (units unknown) (unknown) (unknown) (no date) (unknown) (unknown) Stand Alone Forms: Patient Portal/API (units unknown) (unknown) (unknown) (no date) (unknown) (unknown) Stated complaint: bleeding in stool (units unknown) (unknown) (unknown) (no date) (unknown) (unknown) Stomach and Bowel:? Stomach, small bowel loops, and colon are unremarkable.? (units unknown) (unknown) (unknown) (no date) (unknown) (unknown) Stool Occult Blood Positive (units unknown) (unknown) (unknown) (no date) (unknown) (unknown) Stop: 04/14/22 12:07 (units unknown) (unknown) (unknown) (no date) (unknown) (unknown) Stroke (units unknown) (unknown) (unknown) (no date) (unknown) (unknown) Substance Use Type: does not use (units unknown) (unknown) (unknown) (no date) (unknown) (unknown) Sulfa (Sulfonamide Allergy Unknown UNKNOWN Verified 04/14/22 11:41 (units unknown) (unknown) (unknown) (no date) (unknown) (unknown) Surgical History (units unknown) (unknown) (unknown) (no date) (unknown) (unknown) Symptoms ##0 (units unknown) (unknown) (unknown) (no date) (unknown) (unknown) Systane (PF) 1 EACH dropperette (units unknown) (unknown) (unknown) (no date) (unknown) (unknown) TECHNIQUE:? (units unknown) (unknown) (unknown) (no date) (unknown) (unknown) THIS (units unknown) (unknown) (unknown) (no date) (unknown) (unknown) Temperature 97.4 F L 04/14/22 11:41 (units unknown) (unknown) (unknown) (no date) (unknown) (unknown) Temperature 97.4 F L (units unknown) (unknown) (unknown) (no date) (unknown) (unknown) Temperature (units unknown) (unknown) (unknown) (no date) (unknown) (unknown) Thank you for coming to the [facility] Emergency Department today. As (units unknown) (unknown) (unknown) (no date) (unknown) (unknown) This is a 61-year-old female presents to the emergency department due to (units unknown) (unknown) (unknown) (no date) (unknown) (unknown) Time Seen by Provider: 04/14/22 12:07 (units unknown) (unknown) (unknown) (no date) (unknown) (unknown) Total Bilirubin (0.2-1.3) mg/dL (units unknown) (unknown) (unknown) (no date) (unknown) (unknown) Total Bilirubin 0.4 (0.2-1.3) mg/dL (units unknown) (unknown) (unknown) (no date) (unknown) (unknown) Total Protein (6.3-8.2) g/dL (units unknown) (unknown) (unknown) (no date) (unknown) (unknown) Total Protein 7.5 (6.3-8.2) g/dL (units unknown) (unknown) (unknown) (no date) (unknown) (unknown) Type and Screen Stat (units unknown) (unknown) (unknown) (no date) (unknown) (unknown) Ur Culture Indicated? Cult not indicated (units unknown) (unknown) (unknown) (no date) (unknown) (unknown) Ur Culture Indicated? (units unknown) (unknown) (unknown) (no date) (unknown) (unknown) Ur Squamous Epith Cells (0-5/HPF) (units unknown) (unknown) (unknown) (no date) (unknown) (unknown) Ur Squamous Epith Cells 5-10 /hpf H (0-5/HPF) (units unknown) (unknown) (unknown) (no date) (unknown) (unknown) Ur Transition Epith Cell (0-5/HPF) (units unknown) (unknown) (unknown) (no date) (unknown) (unknown) Ur Transition Epith Cell 1-5/hpf (0-5/HPF) (units unknown) (unknown) (unknown) (no date) (unknown) (unknown) Urine Bacteria (None) (units unknown) (unknown) (unknown) (no date) (unknown) (unknown) Urine Bacteria Few (2-10) H (None) (units unknown) (unknown) (unknown) (no date) (unknown) (unknown) Urine Dip (units unknown) (unknown) (unknown) (no date) (unknown) (unknown) Urine Microscopic Stat (units unknown) (unknown) (unknown) (no date) (unknown) (unknown) Urine Mucus (Negative) (units unknown) (unknown) (unknown) (no date) (unknown) (unknown) Urine Mucus 1+ H (Negative) (units unknown) (unknown) (unknown) (no date) (unknown) (unknown) Urine RBC (0-5/HPF) (units unknown) (unknown) (unknown) (no date) (unknown) (unknown) Urine RBC 10-30/hpf H (0-5/HPF) (units unknown) (unknown) (unknown) (no date) (unknown) (unknown) Urine Specific Jackson 1.030 (units unknown) (unknown) (unknown) (no date) (unknown) (unknown) Urine WBC (0-5/HPF) (units unknown) (unknown) (unknown) (no date) (unknown) (unknown) Urine WBC 1-5/hpf (0-5/HPF) (units unknown) (unknown) (unknown) (no date) (unknown) (unknown) Ventral Wall: ? No hernia.? (units unknown) (unknown) (unknown) (no date) (unknown) (unknown) Vessels:? Aorta and inferior vena cava are normal in size.? (units unknown) (unknown) (unknown) (no date) (unknown) (unknown) Vital Signs - 8 hr (units unknown) (unknown) (unknown) (no date) (unknown) (unknown) Vital Signs (units unknown) (unknown) (unknown) (no date) (unknown) (unknown) Vital signs: (units unknown) (unknown) (unknown) (no date) (unknown) (unknown) WBC (4.5-11.0) X103/uL (units unknown) (unknown) (unknown) (no date) (unknown) (unknown) WBC 8.4 (4.5-11.0) X103/uL (units unknown) (unknown) (unknown) (no date) (unknown) (unknown) Walker: Front Wheel ##1 10/30/16 (units unknown) (unknown) (unknown) (no date) (unknown) (unknown) Walker: Front Wheel (units unknown) (unknown) (unknown) (no date) (unknown) (unknown) [CRANBERRY] 1 tab PO QDAY ##0 09/27/16 10/04/19 (units unknown) (unknown) (unknown) (no date) (unknown) (unknown) [CRANBERRY] (units unknown) (unknown) (unknown) (no date) (unknown) (unknown) [Embedded Image Not Available] (units unknown) (unknown) (unknown) (no date) (unknown) (unknown) [NITROFURANTOIN] REACTION (units unknown) (unknown) (unknown) (no date) (unknown) (unknown) [RED RICE YEAST] 600 mg PO BID ##0 03/12/10 10/04/19 (units unknown) (unknown) (unknown) (no date) (unknown) (unknown) [RED RICE YEAST] (units unknown) (unknown) (unknown) (no date) (unknown) (unknown) [SULFA (SULFONAMIDE (units unknown) (unknown) (unknown) (no date) (unknown) (unknown) abdominal pain, diarrhea, constipation. (units unknown) (unknown) (unknown) (no date) (unknown) (unknown) acetaminophen 300 mg-codeine 30 mg 1 tab PO Q4-6H PRN pain #14 tabs 09/21/17 (units unknown) (unknown) (unknown) (no date) (unknown) (unknown) acetaminophen-codei ne [Tylenol-Codeine #3] 300-30 mg tablet (units unknown) (unknown) (unknown) (no date) (unknown) (unknown) adhesive tape [ADHESIVE TAPE] Allergy Severe 'I GOT Verified 04/14/22 11:41 (units unknown) (unknown) (unknown) (no date) (unknown) (unknown) adjustment (units unknown) (unknown) (unknown) (no date) (unknown) (unknown) aerosol inhaler (Proventil HFA) (units unknown) (unknown) (unknown) (no date) (unknown) (unknown) albuterol sulfate 90 mcg/actuation 2 puff INH PRN PRN Dyspnea ##0 03/12/10 (units unknown) (unknown) (unknown) (no date) (unknown) (unknown) albuterol sulfate [Proventil HFA] 90 MCG/PUFF HFA aerosol inhaler (units unknown) (unknown) (unknown) (no date) (unknown) (unknown) alcohol intake frequency: 0-2 drinks per day (units unknown) (unknown) (unknown) (no date) (unknown) (unknown) alcohol intake: never (units unknown) (unknown) (unknown) (no date) (unknown) (unknown) and no evidence of any kind anemia. Patient will be treated for internal (units unknown) (unknown) (unknown) (no date) (unknown) (unknown) aspirin [ASPIRIN] Allergy Unknown UNKNOWN Verified 04/14/22 11:41 (units unknown) (unknown) (unknown) (no date) (unknown) (unknown) bilaterally ranging from 1-3 mm.? No interval change. (units unknown) (unknown) (unknown) (no date) (unknown) (unknown) blister (units unknown) (unknown) (unknown) (no date) (unknown) (unknown) blood surrounding the rectum, positive stool guaiac test (units unknown) (unknown) (unknown) (no date) (unknown) (unknown) cholecalciferol (vitamin D3) 250 5,000 unit PO QDAY ##0 03/12/10 10/04/19 (units unknown) (unknown) (unknown) (no date) (unknown) (unknown) cholecalciferol (vitamin D3) 250 mcg (10,000 unit) Tablet (units unknown) (unknown) (unknown) (no date) (unknown) (unknown) consider purchasing an [id number] fiber supplement as this may help with (units unknown) (unknown) (unknown) (no date) (unknown) (unknown) diclofenac sodium 3 % gel (units unknown) (unknown) (unknown) (no date) (unknown) (unknown) diclofenac sodium 3 % topical gel 1 applic topical BID PRN knee 08/14/21 (units unknown) (unknown) (unknown) (no date) (unknown) (unknown) discussed your CT abdomen and pelvis showed no concerning findings. I suspect (units unknown) (unknown) (unknown) (no date) (unknown) (unknown) dizziness. (units unknown) (unknown) (unknown) (no date) (unknown) (unknown) docusate sodium 250 mg capsule 500 mg PO PRN PRN Constipation ##0 03/12/10 (units unknown) (unknown) (unknown) (no date) (unknown) (unknown) docusate sodium [DOK] 250 MG capsule (units unknown) (unknown) (unknown) (no date) (unknown) (unknown) due to suspected lower GI bleed due to suspected internal hemorrhoids. On exam (units unknown) (unknown) (unknown) (no date) (unknown) (unknown) dysuria, urinary frequency, or urgency. (units unknown) (unknown) (unknown) (no date) (unknown) (unknown) ectopy. No ST segmental elevation or depression. No T wave inversions (units unknown) (unknown) (unknown) (no date) (unknown) (unknown) findings that would explain the cause of the rectal bleeding. CBC unremarkable (units unknown) (unknown) (unknown) (no date) (unknown) (unknown) fluticasone propionate 50 2 spray intranasal DAILY PRN 09/17/19 10/04/19 (units unknown) (unknown) (unknown) (no date) (unknown) (unknown) fluticasone propionate [Flonase Allergy Relief] 50 mcg/actuation (units unknown) (unknown) (unknown) (no date) (unknown) (unknown) for further evaluation and possible colonoscopy. (units unknown) (unknown) (unknown) (no date) (unknown) (unknown) from the (units unknown) (unknown) (unknown) (no date) (unknown) (unknown) gabapentin 400 mg capsule 3,200 mg PO QDAY ##0 09/27/16 10/04/19 (units unknown) (unknown) (unknown) (no date) (unknown) (unknown) gabapentin [Neurontin] 400 MG capsule (units unknown) (unknown) (unknown) (no date) (unknown) (unknown) guaiac test. CT abdomen and pelvis ordered with contrast which showed no acute (units unknown) (unknown) (unknown) (no date) (unknown) (unknown) hemorrhoids as well as recommendations to follow up with the primary care (units unknown) (unknown) (unknown) (no date) (unknown) (unknown) hemorrhoids, upper GI bleed, lower GI bleed, external hemorrhoids (units unknown) (unknown) (unknown) (no date) (unknown) (unknown) her abdomen or rectum but she states that she ?always does not feel pain down (units unknown) (unknown) (unknown) (no date) (unknown) (unknown) history of NSAID use. Also reports a foul-smelling urine but denies any (units unknown) (unknown) (unknown) (no date) (unknown) (unknown) household members: caregiver and none (units unknown) (unknown) (unknown) (no date) (unknown) (unknown) hydrocodone 5 mg-acetaminophen 325 1 tab PO BID PRN pain #14 tabs 08/14/21 (units unknown) (unknown) (unknown) (no date) (unknown) (unknown) hydrocodone-acetami nophen 5-325 mg tablet (units unknown) (unknown) (unknown) (no date) (unknown) (unknown) ibuprofen 200 MG capsule (units unknown) (unknown) (unknown) (no date) (unknown) (unknown) ibuprofen 200 mg capsule 400 mg PO PRN PRN Pain (Scale 09/27/16 10/04/19 (units unknown) (unknown) (unknown) (no date) (unknown) (unknown) icterus. No injection or drainage. (units unknown) (unknown) (unknown) (no date) (unknown) (unknown) loratadine 10 MG tablet (units unknown) (unknown) (unknown) (no date) (unknown) (unknown) loratadine 10 mg tablet 10 mg PO QDAYP PRN Allergy 09/27/16 10/04/19 (units unknown) (unknown) (unknown) (no date) (unknown) (unknown) lung bases to the pubic symphysis.? Coronal and sagittal reformats were (units unknown) (unknown) (unknown) (no date) (unknown) (unknown) marital status: unknown (units unknown) (unknown) (unknown) (no date) (unknown) (unknown) mcg (10,000 unit) tablet (units unknown) (unknown) (unknown) (no date) (unknown) (unknown) mcg/actuation nasal Allergic Symptoms (units unknown) (unknown) (unknown) (no date) (unknown) (unknown) mg tablet (units unknown) (unknown) (unknown) (no date) (unknown) (unknown) nitrofurantoin Allergy Unknown UNKNOWN Verified 04/14/22 11:41 (units unknown) (unknown) (unknown) (no date) (unknown) (unknown) noted (units unknown) (unknown) (unknown) (no date) (unknown) (unknown) of mA and/or kV according to patient size. (units unknown) (unknown) (unknown) (no date) (unknown) (unknown) omeprazole 20 mg capsule,delayed 20 mg PO DAILY #30 caps 10/04/19 (units unknown) (unknown) (unknown) (no date) (unknown) (unknown) omeprazole 20 mg capsule,delayed release(DR/EC) (units unknown) (unknown) (unknown) (no date) (unknown) (unknown) or from her urine. Patient states that she is not experienced any pain around (units unknown) (unknown) (unknown) (no date) (unknown) (unknown) oxycodone 5 MG tablet (units unknown) (unknown) (unknown) (no date) (unknown) (unknown) oxycodone 5 mg tablet 1 - 2 tab PO Q3HP PRN Pain (Scale 09/17/19 10/04/19 (units unknown) (unknown) (unknown) (no date) (unknown) (unknown) oxycodone 5 mg tablet 5 mg PO Q8H PRN pain #7 tabs 04/04/20 (units unknown) (unknown) (unknown) (no date) (unknown) (unknown) oxycodone 5 mg tablet (units unknown) (unknown) (unknown) (no date) (unknown) (unknown) pain, acute shortness of breath, or any other concerning signs or symptoms. (units unknown) (unknown) (unknown) (no date) (unknown) (unknown) pain, ankle pain #100 grams (units unknown) (unknown) (unknown) (no date) (unknown) (unknown) patient had bright red blood surrounding the rectum as well as a positive stool (units unknown) (unknown) (unknown) (no date) (unknown) (unknown) peg 400-propylene glycol (PF) 0.4 2 drp OPHTH QDAY ##0 09/27/16 10/04/19 (units unknown) (unknown) (unknown) (no date) (unknown) (unknown) performed.? For (units unknown) (unknown) (unknown) (no date) (unknown) (unknown) provider for further evaluation. (units unknown) (unknown) (unknown) (no date) (unknown) (unknown) provider for possible colonoscopy. (units unknown) (unknown) (unknown) (no date) (unknown) (unknown) radiation dose reduction, the following was used:? automated exposure control, (units unknown) (unknown) (unknown) (no date) (unknown) (unknown) rales, or rhonchi. (units unknown) (unknown) (unknown) (no date) (unknown) (unknown) release (units unknown) (unknown) (unknown) (no date) (unknown) (unknown) removal of previous anterior mass.? Previous fat containing lesions bilaterally (units unknown) (unknown) (unknown) (no date) (unknown) (unknown) reported blood in her stool onset this morning while taking a shower. She (units unknown) (unknown) (unknown) (no date) (unknown) (unknown) seizures, incoordination. 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 Nonobstructing stones are (units unknown) (unknown) (unknown) (no date) (unknown) (unknown) tablet (Tylenol-Codeine #3) (units unknown) (unknown) (unknown) (no date) (unknown) (unknown) the cause of your rectal bleeding is due to internal hemorrhoids. Please (units unknown) (unknown) (unknown) (no date) (unknown) (unknown) the hemorrhoids. I also recommended follow up with your primary care provider (units unknown) (unknown) (unknown) (no date) (unknown) (unknown) the past (units unknown) (unknown) (unknown) (no date) (unknown) (unknown) there?. Patient denies any significant abdominal pain, nausea, vomiting, chest (units unknown) (unknown) (unknown) (no date) (unknown) (unknown) tonsillar hypertrophy or exudate. Airway patent. (units unknown) (unknown) (unknown) (no date) (unknown) (unknown) topiramate 50 mg tablet (Topamax) 200 mg PO BID 09/17/19 10/04/19 (units unknown) (unknown) (unknown) (no date) (unknown) (unknown) topiramate [Topamax] 50 MG tablet (units unknown) (unknown) (unknown) (no date) (unknown) (unknown) unremarkable. BUN/Creatinine ration WNL, noncerning for upper GI bleed. (units unknown) (unknown) (unknown) (no date) (unknown) (unknown) with (units unknown) (unknown) Result panel 91 (unknown) (no date) (unknown) (unknown) (no value) (units unknown) (unknown) (unknown) (no date) (unknown) (unknown) %-0.3 % eye drops in a dropperette (units unknown) (unknown) (unknown) (no date) (unknown) (unknown) <Electronically signed by Joel Francois> (units unknown) (unknown) (unknown) (no date) (unknown) (unknown) (DOK) (units unknown) (unknown) (unknown) (no date) (unknown) (unknown) (Neurontin) (units unknown) (unknown) (unknown) (no date) (unknown) (unknown) (Systane (PF)) (units unknown) (unknown) (unknown) (no date) (unknown) (unknown) * Clinical Decision Rules/Scores evaluated: None (units unknown) (unknown) (unknown) (no date) (unknown) (unknown) * Independent discussions with: None (units unknown) (unknown) (unknown) (no date) (unknown) (unknown) * My imgaing interpretation: CT results as above. No acute processes found. (units unknown) (unknown) (unknown) (no date) (unknown) (unknown) * My lab interpretation: CBC unremarkable. No evidence of anemia. CMP (units unknown) (unknown) (unknown) (no date) (unknown) (unknown) * Prior records reviewed: Patient has not been here for similar complaints in (units unknown) (unknown) (unknown) (no date) (unknown) (unknown) * differential diagnosis includes but not limited to diverticulosis, internal (units unknown) (unknown) (unknown) (no date) (unknown) (unknown) [id number] (units unknown) (unknown) (unknown) (no date) (unknown) (unknown) 04/14/22 04/14/22 04/14/22 Range/Units (units unknown) (unknown) (unknown) (no date) (unknown) (unknown) 04/14/22 04/14/22 Range/Units (units unknown) (unknown) (unknown) (no date) (unknown) (unknown) 04/14/22 12:10 (units unknown) (unknown) (unknown) (no date) (unknown) (unknown) 04/14/22 12:25 (units unknown) (unknown) (unknown) (no date) (unknown) (unknown) 04/14/22 13:04 (units unknown) (unknown) (unknown) (no date) (unknown) (unknown) 04/14/22 13:10 (units unknown) (unknown) (unknown) (no date) (unknown) (unknown) 04/14/221954 (units unknown) (unknown) (unknown) (no date) (unknown) (unknown) 04/14/22 (units unknown) (unknown) (unknown) (no date) (unknown) (unknown) 10/04/19 (units unknown) (unknown) (unknown) (no date) (unknown) (unknown) 1 - 2 tab PO Q3HP PRN (Reason: Pain (Scale Score 1-3)) (units unknown) (unknown) (unknown) (no date) (unknown) (unknown) 1 applic topical BID PRN (Reason: knee pain, ankle pain) Qty: 100 0RF (units unknown) (unknown) (unknown) (no date) (unknown) (unknown) 1 tab PO BID PRN (Reason: pain) Qty: 14 0RF (units unknown) (unknown) (unknown) (no date) (unknown) (unknown) 1 tab PO Q4-6H PRN (Reason: pain) Qty: 14 0RF (units unknown) (unknown) (unknown) (no date) (unknown) (unknown) 1 tab PO QDAY Qty: 0 (units unknown) (unknown) (unknown) (no date) (unknown) (unknown) 10 mg PO QDAYP PRN (Reason: Allergy Symptoms) Qty: 0 (units unknown) (unknown) (unknown) (no date) (unknown) (unknown) 12 point review of systems is negative except for those stated above (units unknown) (unknown) (unknown) (no date) (unknown) (unknown) [address] [place] [address] (units unknown) (unknown) (unknown) (no date) (unknown) (unknown) 12:01 04/14/22 (units unknown) (unknown) (unknown) (no date) (unknown) (unknown) 12:10 12:25 12:25 (units unknown) (unknown) (unknown) (no date) (unknown) (unknown) 12:25 12:25 (units unknown) (unknown) (unknown) (no date) (unknown) (unknown) 12:30 04/14/22 (units unknown) (unknown) (unknown) (no date) (unknown) (unknown) 12:31 04/14/22 (units unknown) (unknown) (unknown) (no date) (unknown) (unknown) 12:31 (units unknown) (unknown) (unknown) (no date) (unknown) (unknown) 1304: EKG is normal sinus rhythm rate 63 and free of any signs of ischemia or (units unknown) (unknown) (unknown) (no date) (unknown) (unknown) 13:00 04/14/22 (units unknown) (unknown) (unknown) (no date) (unknown) (unknown) 13:00 (units unknown) (unknown) (unknown) (no date) (unknown) (unknown) 13:30 (units unknown) (unknown) (unknown) (no date) (unknown) (unknown) 2 drp OPHTH QDAY Qty: 0 (units unknown) (unknown) (unknown) (no date) (unknown) (unknown) 2 puff INH PRN PRN (Reason: Dyspnea) Qty: 0 (units unknown) (unknown) (unknown) (no date) (unknown) (unknown) 2 spray INTRANASAL DAILY PRN (Reason: Allergic Symptoms) (units unknown) (unknown) (unknown) (no date) (unknown) (unknown) 2 tabs in am, 3 tams at noon, 2 tabs evening (units unknown) (unknown) (unknown) (no date) (unknown) (unknown) 20 mg PO DAILY Qty: 30 0RF (units unknown) (unknown) (unknown) (no date) (unknown) (unknown) 200 mg PO BID (units unknown) (unknown) (unknown) (no date) (unknown) (unknown) 3,200 mg PO QDAY Qty: 0 (units unknown) (unknown) (unknown) (no date) (unknown) (unknown) 400 mg PO PRN PRN (Reason: Pain (Scale Score 1-3)) Qty: 0 (units unknown) (unknown) (unknown) (no date) (unknown) (unknown) 5 mg PO Q8H PRN (Reason: pain) Qty: 7 0RF (units unknown) (unknown) (unknown) (no date) (unknown) (unknown) 5,000 unit PO QDAY Qty: 0 (units unknown) (unknown) (unknown) (no date) (unknown) (unknown) 500 mg PO PRN PRN (Reason: Constipation) Qty: 0 (units unknown) (unknown) (unknown) (no date) (unknown) (unknown) 600 mg PO BID Qty: 0 (units unknown) (unknown) (unknown) (no date) (unknown) (unknown) ? (units unknown) (unknown) (unknown) (no date) (unknown) (unknown) ABDOMEN: (units unknown) (unknown) (unknown) (no date) (unknown) (unknown) ALLERGY (units unknown) (unknown) (unknown) (no date) (unknown) (unknown) [id number] SE Allergy Unknown PT NOT Uncoded 04/14/22 11:41 (units unknown) (unknown) (unknown) (no date) (unknown) (unknown) ALT (<35) IU/L (units unknown) (unknown) (unknown) (no date) (unknown) (unknown) ALT 24 (<35) IU/L (units unknown) (unknown) (unknown) (no date) (unknown) (unknown) ANTIBIOTICS)] (units unknown) (unknown) (unknown) (no date) (unknown) (unknown) APTT (26-36) SECONDS (units unknown) (unknown) (unknown) (no date) (unknown) (unknown) APTT 33 (26-36) SECONDS (units unknown) (unknown) (unknown) (no date) (unknown) (unknown) AST (14-36) IU/L (units unknown) (unknown) (unknown) (no date) (unknown) (unknown) AST 20 (14-36) IU/L (units unknown) (unknown) (unknown) (no date) (unknown) (unknown) AWARE OF (units unknown) (unknown) (unknown) (no date) (unknown) (unknown) Abdominal Nodes:? No retroperitoneal or mesenteric adenopathy by size criteria.? (units unknown) (unknown) (unknown) (no date) (unknown) (unknown) Accession Number: [id number] ?? (units unknown) (unknown) (unknown) (no date) (unknown) (unknown) Acct:[id number] (units unknown) (unknown) (unknown) (no date) (unknown) (unknown) Activity Restrictions/Additi onal Instructions: (units unknown) (unknown) (unknown) (no date) (unknown) (unknown) Adrenal Glands:? Unremarkable.? ? (units unknown) (unknown) (unknown) (no date) (unknown) (unknown) After the administration of oral and IV contrast, axial sections were acquired (units unknown) (unknown) (unknown) (no date) (unknown) (unknown) Age/Sex: 61 / F (units unknown) (unknown) (unknown) (no date) (unknown) (unknown) Albumin (3.5-5.0) g/dL (units unknown) (unknown) (unknown) (no date) (unknown) (unknown) Albumin 4.1 (3.5-5.0) g/dL (units unknown) (unknown) (unknown) (no date) (unknown) (unknown) Albumin/Globulin Ratio (1.0-2.8) (units unknown) (unknown) (unknown) (no date) (unknown) (unknown) Albumin/Globulin Ratio 1.2 (1.0-2.8) (units unknown) (unknown) (unknown) (no date) (unknown) (unknown) Alkaline Phosphatase (38-126) U/L (units unknown) (unknown) (unknown) (no date) (unknown) (unknown) Alkaline Phosphatase 95 (38-126) U/L (units unknown) (unknown) (unknown) (no date) (unknown) (unknown) Allergies (units unknown) (unknown) (unknown) (no date) (unknown) (unknown) Allergy/AdvReac Type Severity Reaction Status Date / Time (units unknown) (unknown) (unknown) (no date) (unknown) (unknown) [place] [address] (units unknown) (unknown) (unknown) (no date) (unknown) (unknown) Antibiotics) PER PT (units unknown) (unknown) (unknown) (no date) (unknown) (unknown) Antibody Screen Negative (units unknown) (unknown) (unknown) (no date) (unknown) (unknown) Antibody Screen (units unknown) (unknown) (unknown) (no date) (unknown) (unknown) Approved by: Jasmin Zhao M.D. on 04/14/2022 at 14:35 ? (units unknown) (unknown) (unknown) (no date) (unknown) (unknown) Asthma (units unknown) (unknown) (unknown) (no date) (unknown) (unknown) BACK: Nontender without deformity or crepitance. No flank tenderness. (units unknown) (unknown) (unknown) (no date) (unknown) (unknown) BUN (7-17) mg/dL (units unknown) (unknown) (unknown) (no date) (unknown) (unknown) BUN 13 (7-17) mg/dL (units unknown) (unknown) (unknown) (no date) (unknown) (unknown) BUN/Creatinine Ratio (6-22) (units unknown) (unknown) (unknown) (no date) (unknown) (unknown) BUN/Creatinine Ratio 12.7 (6-22) (units unknown) (unknown) (unknown) (no date) (unknown) (unknown) Baso # (Auto) (0-100) /uL (units unknown) (unknown) (unknown) (no date) (unknown) (unknown) Baso # (Auto) 100 (0-100) /uL (units unknown) (unknown) (unknown) (no date) (unknown) (unknown) Baso % (Auto) (0-2) % (units unknown) (unknown) (unknown) (no date) (unknown) (unknown) Baso % (Auto) 0.7 (0-2) % (units unknown) (unknown) (unknown) (no date) (unknown) (unknown) Bedside Urine Bilirubin - Negative (units unknown) (unknown) (unknown) (no date) (unknown) (unknown) Bedside Urine Glucose Negative (units unknown) (unknown) (unknown) (no date) (unknown) (unknown) Bedside Urine Ketone - Negative (units unknown) (unknown) (unknown) (no date) (unknown) (unknown) Bedside Urine Leukocytes - Negative (units unknown) (unknown) (unknown) (no date) (unknown) (unknown) Bedside Urine Nitrite - Negative (units unknown) (unknown) (unknown) (no date) (unknown) (unknown) Bedside Urine Occult Blood (units unknown) (unknown) (unknown) (no date) (unknown) (unknown) Bedside Urine Protein ++ 100 (units unknown) (unknown) (unknown) (no date) (unknown) (unknown) Bedside Urine Urobilinogen - Negative (units unknown) (unknown) (unknown) (no date) (unknown) (unknown) Bedside Urine pH 6.0 (units unknown) (unknown) (unknown) (no date) (unknown) (unknown) Biliary ducts:? Unremarkable.? ? (units unknown) (unknown) (unknown) (no date) (unknown) (unknown) Bladder:? Unremarkable.? ? (units unknown) (unknown) (unknown) (no date) (unknown) (unknown) Bleeding internal hemorrhoids (units unknown) (unknown) (unknown) (no date) (unknown) (unknown) Blood Pressure 128/87 04/14/22 11:41 (units unknown) (unknown) (unknown) (no date) (unknown) (unknown) Blood Pressure 157/84 H (units unknown) (unknown) (unknown) (no date) (unknown) (unknown) Blood Pressure 175/107 H (units unknown) (unknown) (unknown) (no date) (unknown) (unknown) Blood Pressure (units unknown) (unknown) (unknown) (no date) (unknown) (unknown) Blood Type A Positive (units unknown) (unknown) (unknown) (no date) (unknown) (unknown) Blood Type (units unknown) (unknown) (unknown) (no date) (unknown) (unknown) Bones:? Unremarkable.? ? (units unknown) (unknown) (unknown) (no date) (unknown) (unknown) CARDIOVASCULAR: Denies chest pain, palpitations, orthopnea, edema, (units unknown) (unknown) (unknown) (no date) (unknown) (unknown) CARDIOVASCULAR: Regular rate and rhythm without murmurs, gallops, or rubs. (units unknown) (unknown) (unknown) (no date) (unknown) (unknown) COMPARISON:? [facility], CT, CT ABDOMEN WO/W CON, 09/11/2021, 13:13.? [place] (units unknown) (unknown) (unknown) (no date) (unknown) (unknown) CT Scan Report (units unknown) (unknown) (unknown) (no date) (unknown) (unknown) CT abdomen pelvis w con Stat (units unknown) (unknown) (unknown) (no date) (unknown) (unknown) CT scan - abdomen/pelvis: (units unknown) (unknown) (unknown) (no date) (unknown) (unknown) Calcium (8.4-10.2) mg/dL (units unknown) (unknown) (unknown) (no date) (unknown) (unknown) Calcium 8.7 (8.4-10.2) mg/dL (units unknown) (unknown) (unknown) (no date) (unknown) (unknown) Carbon Dioxide (22-32) mmol/L (units unknown) (unknown) (unknown) (no date) (unknown) (unknown) Carbon Dioxide 21 L (22-32) mmol/L (units unknown) (unknown) (unknown) (no date) (unknown) (unknown) Chief complaint: GI Bleed (units unknown) (unknown) (unknown) (no date) (unknown) (unknown) Chloride (98-107) mmol/L (units unknown) (unknown) (unknown) (no date) (unknown) (unknown) Chloride 109 H (98-107) mmol/L (units unknown) (unknown) (unknown) (no date) (unknown) (unknown) Clinical Impression: (units unknown) (unknown) (unknown) (no date) (unknown) (unknown) Colon cancer (units unknown) (unknown) (unknown) (no date) (unknown) (unknown) Complete Blood Count AUTO DIFF Stat (units unknown) (unknown) (unknown) (no date) (unknown) (unknown) Comprehensive Metabolic Panel Stat (units unknown) (unknown) (unknown) (no date) (unknown) (unknown) Course (units unknown) (unknown) (unknown) (no date) (unknown) (unknown) Creatinine (0.52-1.04) mg/dL (units unknown) (unknown) (unknown) (no date) (unknown) (unknown) Creatinine 1.02 (0.52-1.04) mg/dL (units unknown) (unknown) (unknown) (no date) (unknown) (unknown) : 1960 Acct:[id number] (units unknown) (unknown) (unknown) (no date) (unknown) (unknown) : 1960 (units unknown) (unknown) (unknown) (no date) (unknown) (unknown) DOES NOT (units unknown) (unknown) (unknown) (no date) (unknown) (unknown) Date of Service: 04/14/22 (units unknown) (unknown) (unknown) (no date) (unknown) (unknown) Departure (units unknown) (unknown) (unknown) (no date) (unknown) (unknown) Diabetes mellitus (units unknown) (unknown) (unknown) (no date) (unknown) (unknown) Diabetes (units unknown) (unknown) (unknown) (no date) (unknown) (unknown) Dictated by: Jasmin Zhao M.D. on 04/14/2022 at 14:22 ? ? (units unknown) (unknown) (unknown) (no date) (unknown) (unknown) Discharge Plan (units unknown) (unknown) (unknown) (no date) (unknown) (unknown) Discontinued Medications (units unknown) (unknown) (unknown) (no date) (unknown) (unknown) Disposition: Discharged to home (units unknown) (unknown) (unknown) (no date) (unknown) (unknown) Documented By: RLS (units unknown) (unknown) (unknown) (no date) (unknown) (unknown) ECG Data (units unknown) (unknown) (unknown) (no date) (unknown) (unknown) ED Course: This is a 61-year-old female presents to the emergency department (units unknown) (unknown) (unknown) (no date) (unknown) (unknown) ED Orders (units unknown) (unknown) (unknown) (no date) (unknown) (unknown) EKG-12 Lead Stat (units unknown) (unknown) (unknown) (no date) (unknown) (unknown) ENT: Nose without bleeding, purulent drainage. Throat without erythema, (units unknown) (unknown) (unknown) (no date) (unknown) (unknown) ER Physician: Joel Francois P.A-C (units unknown) (unknown) (unknown) (no date) (unknown) (unknown) EXTREMITIES: No edema or joint tenderness. (units unknown) (unknown) (unknown) (no date) (unknown) (unknown) EYES: Pupils equal round and reactive. Extraocular motions intact. No scleral (units unknown) (unknown) (unknown) (no date) (unknown) (unknown) Emergency Report (units unknown) (unknown) (unknown) (no date) (unknown) (unknown) Eos # (Auto) (0-450) /uL (units unknown) (unknown) (unknown) (no date) (unknown) (unknown) Eos # (Auto) 100 (0-450) /uL (units unknown) (unknown) (unknown) (no date) (unknown) (unknown) Eos % (Auto) (2-4) % (units unknown) (unknown) (unknown) (no date) (unknown) (unknown) Eos % (Auto) 1.6 L (2-4) % (units unknown) (unknown) (unknown) (no date) (unknown) (unknown) Esterase (units unknown) (unknown) (unknown) (no date) (unknown) (unknown) Estimated GFR > 60 (>60) mL/min (units unknown) (unknown) (unknown) (no date) (unknown) (unknown) Estimated GFR (>60) mL/min (units unknown) (unknown) (unknown) (no date) (unknown) (unknown) Exam Narrative: (units unknown) (unknown) (unknown) (no date) (unknown) (unknown) Exam (units unknown) (unknown) (unknown) (no date) (unknown) (unknown) FINDINGS:? (units unknown) (unknown) (unknown) (no date) (unknown) (unknown) Family History (units unknown) (unknown) (unknown) (no date) (unknown) (unknown) Father Diabetes mellitus (units unknown) (unknown) (unknown) (no date) (unknown) (unknown) Edison Jones MD [Primary Care Provider] (units unknown) (unknown) (unknown) (no date) (unknown) (unknown) GASTROINTESTINAL: Reports bright red blood in stool, Denies nausea, vomiting, (units unknown) (unknown) (unknown) (no date) (unknown) (unknown) GASTROINTESTINAL: Suprapubic abdominal tenderness to palpation. Bright red (units unknown) (unknown) (unknown) (no date) (unknown) (unknown) GENERAL: Denies chills, fatigue, malaise, fever, sweats. (units unknown) (unknown) (unknown) (no date) (unknown) (unknown) GENERAL: Well-developed patient, in mild distress. (units unknown) (unknown) (unknown) (no date) (unknown) (unknown) : Denies dysuria, frequency, incontinence, hematuria, urinary retention. (units unknown) (unknown) (unknown) (no date) (unknown) (unknown) Gallbladder:? Removed. (units unknown) (unknown) (unknown) (no date) (unknown) (unknown) Gallstones (units unknown) (unknown) (unknown) (no date) (unknown) (unknown) General (units unknown) (unknown) (unknown) (no date) (unknown) (unknown) Globulin (1.7-4.1) g/dL (units unknown) (unknown) (unknown) (no date) (unknown) (unknown) Globulin 3.4 (1.7-4.1) g/dL (units unknown) (unknown) (unknown) (no date) (unknown) (unknown) Glucose (70-100) mg/dL (units unknown) (unknown) (unknown) (no date) (unknown) (unknown) Glucose 120 H (70-100) mg/dL (units unknown) (unknown) (unknown) (no date) (unknown) (unknown) HEAD: Atraumatic. Normocephalic. (units unknown) (unknown) (unknown) (no date) (unknown) (unknown) HEENT: Denies sinus pain, ear pain, sore throat, difficulty swallowing, (units unknown) (unknown) (unknown) (no date) (unknown) (unknown) HPI - GI Bleed (units unknown) (unknown) (unknown) (no date) (unknown) (unknown) HPI Narrative: (units unknown) (unknown) (unknown) (no date) (unknown) (unknown) Hct (36-46) % (units unknown) (unknown) (unknown) (no date) (unknown) (unknown) Hct 40.4 (36-46) % (units unknown) (unknown) (unknown) (no date) (unknown) (unknown) Heart disease (units unknown) (unknown) (unknown) (no date) (unknown) (unknown) Heart:? No significant findings. (units unknown) (unknown) (unknown) (no date) (unknown) (unknown) Hepatomegaly with steatosis. (units unknown) (unknown) (unknown) (no date) (unknown) (unknown) Hgb (12.0-16.0) g/dL (units unknown) (unknown) (unknown) (no date) (unknown) (unknown) Hgb 13.7 (12.0-16.0) g/dL (units unknown) (unknown) (unknown) (no date) (unknown) (unknown) History of Present Illness (units unknown) (unknown) (unknown) (no date) (unknown) (unknown) History of back surgery (units unknown) (unknown) (unknown) (no date) (unknown) (unknown) History of total knee arthroplasty (units unknown) (unknown) (unknown) (no date) (unknown) (unknown) Home Medications (units unknown) (unknown) (unknown) (no date) (unknown) (unknown) Hospital, CT, CT ABDOMEN PELVIS W CON, 04/04/2020, 11:35. (units unknown) (unknown) (unknown) (no date) (unknown) (unknown) Hx of cholecystectomy (units unknown) (unknown) (unknown) (no date) (unknown) (unknown) Hx of knee surgery (units unknown) (unknown) (unknown) (no date) (unknown) (unknown) Hx of neck surgery (units unknown) (unknown) (unknown) (no date) (unknown) (unknown) Hx of shoulder surgery (units unknown) (unknown) (unknown) (no date) (unknown) (unknown) Hyaline Casts (None) (units unknown) (unknown) (unknown) (no date) (unknown) (unknown) Hyaline Casts 1-5/lpf (None) (units unknown) (unknown) (unknown) (no date) (unknown) (unknown) I hope you feel better soon. (units unknown) (unknown) (unknown) (no date) (unknown) (unknown) IMPRESSION:? (units unknown) (unknown) (unknown) (no date) (unknown) (unknown) INDICATIONS:? Hematochezia and suprapubic TTP (units unknown) (unknown) (unknown) (no date) (unknown) (unknown) INR (0.9-1.3) (units unknown) (unknown) (unknown) (no date) (unknown) (unknown) INR 1.1 (0.9-1.3) (units unknown) (unknown) (unknown) (no date) (unknown) (unknown) Image quality:? Excellent.? (units unknown) (unknown) (unknown) (no date) (unknown) (unknown) Imaging Data (units unknown) (unknown) (unknown) (no date) (unknown) (unknown) Initial Vital Signs (units unknown) (unknown) (unknown) (no date) (unknown) (unknown) Initial Vital Signs: (units unknown) (unknown) (unknown) (no date) (unknown) (unknown) Instructions: DI for Hemorrhoids (units unknown) (unknown) (unknown) (no date) (unknown) (unknown) Interpretation: (units unknown) (unknown) (unknown) (no date) (unknown) (unknown) [address] [address] (units unknown) (unknown) (unknown) (no date) (unknown) (unknown) [facility] (units unknown) (unknown) (unknown) (no date) (unknown) (unknown) Kidney malignancy (units unknown) (unknown) (unknown) (no date) (unknown) (unknown) Kidneys and Ureters:? Postsurgical changes are present within the left kidney (units unknown) (unknown) (unknown) (no date) (unknown) (unknown) Lab Data (units unknown) (unknown) (unknown) (no date) (unknown) (unknown) Lab Results (units unknown) (unknown) (unknown) (no date) (unknown) (unknown) Labs: (units unknown) (unknown) (unknown) (no date) (unknown) (unknown) Last Admin: 04/14/22 12:51 Dose: Not Given (units unknown) (unknown) (unknown) (no date) (unknown) (unknown) Liver:? Liver is enlarged measuring 20.4 cm with steatosis..? ? (units unknown) (unknown) (unknown) (no date) (unknown) (unknown) Loc: ED (units unknown) (unknown) (unknown) (no date) (unknown) (unknown) Lung bases:? Unremarkable.? ? (units unknown) (unknown) (unknown) (no date) (unknown) (unknown) Lymph # (Auto) (9355-4127) /uL (units unknown) (unknown) (unknown) (no date) (unknown) (unknown) Lymph # (Auto) 1900 (6816-6470) /uL (units unknown) (unknown) (unknown) (no date) (unknown) (unknown) Lymph % (Auto) (25-40) % (units unknown) (unknown) (unknown) (no date) (unknown) (unknown) Lymph % (Auto) 22.7 L (25-40) % (units unknown) (unknown) (unknown) (no date) (unknown) (unknown) MCH (26-34) PG (units unknown) (unknown) (unknown) (no date) (unknown) (unknown) MCH 31.8 (26-34) PG (units unknown) (unknown) (unknown) (no date) (unknown) (unknown) MCHC (30-36) % (units unknown) (unknown) (unknown) (no date) (unknown) (unknown) MCHC 33.9 (30-36) % (units unknown) (unknown) (unknown) (no date) (unknown) (unknown) MCV (80-100) fL (units unknown) (unknown) (unknown) (no date) (unknown) (unknown) MCV 93.9 (80-100) fL (units unknown) (unknown) (unknown) (no date) (unknown) (unknown) MDM - GI Bleed (units unknown) (unknown) (unknown) (no date) (unknown) (unknown) MDM Narrative (units unknown) (unknown) (unknown) (no date) (unknown) (unknown) MDM (units unknown) (unknown) (unknown) (no date) (unknown) (unknown) MR#: [id number] (units unknown) (unknown) (unknown) (no date) (unknown) (unknown) MUSCULOSKELETAL: denies weakness, joint pain, or bony pain (units unknown) (unknown) (unknown) (no date) (unknown) (unknown) Medical History (Updated 04/14/22 @ 15:12 by Joel Francois PA-C) (units unknown) (unknown) (unknown) (no date) (unknown) (unknown) Medical decision making narrative: (units unknown) (unknown) (unknown) (no date) (unknown) (unknown) Medication Instructions Recorded Confirmed (units unknown) (unknown) (unknown) (no date) (unknown) (unknown) Medication Instructions Recorded (units unknown) (unknown) (unknown) (no date) (unknown) (unknown) Miscellaneous: No inguinal hernias are seen. ? ? (units unknown) (unknown) (unknown) (no date) (unknown) (unknown) Mode of arrival: Ambulatory (units unknown) (unknown) (unknown) (no date) (unknown) (unknown) [place] # (Auto) (0-900) /uL (units unknown) (unknown) (unknown) (no date) (unknown) (unknown) [place] # (Auto) 500 (0-900) /uL (units unknown) (unknown) (unknown) (no date) (unknown) (unknown) [place] % (Auto) (3-14) % (units unknown) (unknown) (unknown) (no date) (unknown) (unknown) [place] % (Auto) 6.3 (3-14) % (units unknown) (unknown) (unknown) (no date) (unknown) (unknown) Mother Hypertension (units unknown) (unknown) (unknown) (no date) (unknown) (unknown) NECK: Trachea midline. Non tender (units unknown) (unknown) (unknown) (no date) (unknown) (unknown) NEURO: AOx3. (units unknown) (unknown) (unknown) (no date) (unknown) (unknown) NEUROLOGIC: Denies weakness, headache, numbness, change in speech, confusion, (units unknown) (unknown) (unknown) (no date) (unknown) (unknown) Narrative (units unknown) (unknown) (unknown) (no date) (unknown) (unknown) Narrative: (units unknown) (unknown) (unknown) (no date) (unknown) (unknown) Neut # (Auto) (8583-1108) /uL (units unknown) (unknown) (unknown) (no date) (unknown) (unknown) Neut # (Auto) 5800 (3972-2179) /uL (units unknown) (unknown) (unknown) (no date) (unknown) (unknown) Neut % (Auto) (50-75) % (units unknown) (unknown) (unknown) (no date) (unknown) (unknown) Neut % (Auto) 68.7 (50-75) % (units unknown) (unknown) (unknown) (no date) (unknown) (unknown) No Action (units unknown) (unknown) (unknown) (no date) (unknown) (unknown) No acute intra-abdominal or pelvic process. (units unknown) (unknown) (unknown) (no date) (unknown) (unknown) No evidence of diverticulosis. Recommend she follow up with primary care (units unknown) (unknown) (unknown) (no date) (unknown) (unknown) Obesity (units unknown) (unknown) (unknown) (no date) (unknown) (unknown) Ondansetron HCl (Ondansetron 4 Mg Odt) 4 mg SL NOW PRN (units unknown) (unknown) (unknown) (no date) (unknown) (unknown) Ondansetron HCl (Ondansetron 4 Mg/2 Ml Inj) 4 mg IV NOW PRN (units unknown) (unknown) (unknown) (no date) (unknown) (unknown) Ordered: (units unknown) (unknown) (unknown) (no date) (unknown) (unknown) Ordering Provider: Joel Francois P.A-C (units unknown) (unknown) (unknown) (no date) (unknown) (unknown) Orders (units unknown) (unknown) (unknown) (no date) (unknown) (unknown) Oxygen Delivery Method Room Air 04/14/22 11:41 (units unknown) (unknown) (unknown) (no date) (unknown) (unknown) Oxygen Delivery Method Room Air (units unknown) (unknown) (unknown) (no date) (unknown) (unknown) Oxygen Delivery Method (units unknown) (unknown) (unknown) (no date) (unknown) (unknown) PELVIS: (units unknown) (unknown) (unknown) (no date) (unknown) (unknown) PER PT (units unknown) (unknown) (unknown) (no date) (unknown) (unknown) PRN Reason: Nausea And Vomiting (units unknown) (unknown) (unknown) (no date) (unknown) (unknown) PROCEDURE:? CT ABDOMEN PELVIS W CON (units unknown) (unknown) (unknown) (no date) (unknown) (unknown) PSYCHIATRIC: No concerning psychosocial issues. (units unknown) (unknown) (unknown) (no date) (unknown) (unknown) PT (10.1-12.7) SECONDS (units unknown) (unknown) (unknown) (no date) (unknown) (unknown) PT 12.1 (10.1-12.7) SECONDS (units unknown) (unknown) (unknown) (no date) (unknown) (unknown) Pancreas:? Unremarkable.? ? (units unknown) (unknown) (unknown) (no date) (unknown) (unknown) Pantoprazole Sodium (Pantoprazole 40 Mg Vial) 80 mg IV NOW ONE (units unknown) (unknown) (unknown) (no date) (unknown) (unknown) Partial Thromboplastin Time Stat (units unknown) (unknown) (unknown) (no date) (unknown) (unknown) Partial left nephrectomy.? No evidence of recurrent disease. (units unknown) (unknown) (unknown) (no date) (unknown) (unknown) Patient Disposition: Home (units unknown) (unknown) (unknown) (no date) (unknown) (unknown) Patient History (units unknown) (unknown) (unknown) (no date) (unknown) (unknown) Patient's daughter describes the blood as bright red in color. No significant (units unknown) (unknown) (unknown) (no date) (unknown) (unknown) Patient: Logan Desir MR#: M (units unknown) (unknown) (unknown) (no date) (unknown) (unknown) Patient: Logan Desir (units unknown) (unknown) (unknown) (no date) (unknown) (unknown) Pelvic Nodes: No enlarged lymph nodes.? (units unknown) (unknown) (unknown) (no date) (unknown) (unknown) Pelvic Organs:? Unremarkable.? ? (units unknown) (unknown) (unknown) (no date) (unknown) (unknown) Penicillins [PENICILLINS] Allergy Unknown ITCHING-PT Verified 04/14/22 11:41 (units unknown) (unknown) (unknown) (no date) (unknown) (unknown) Peritoneum:? No abnormal intraperitoneal fluid.? No free air.? (units unknown) (unknown) (unknown) (no date) (unknown) (unknown) Plt Count (150-400) X103/uL (units unknown) (unknown) (unknown) (no date) (unknown) (unknown) Plt Count 278 (150-400) X103/uL (units unknown) (unknown) (unknown) (no date) (unknown) (unknown) Point of Care Testing (units unknown) (unknown) (unknown) (no date) (unknown) (unknown) Potassium (3.4-5.1) mmol/L (units unknown) (unknown) (unknown) (no date) (unknown) (unknown) Potassium 3.9 (3.4-5.1) mmol/L (units unknown) (unknown) (unknown) (no date) (unknown) (unknown) Prescriptions: (units unknown) (unknown) (unknown) (no date) (unknown) (unknown) Previous Rx's (units unknown) (unknown) (unknown) (no date) (unknown) (unknown) Procedure: CT abdomen pelvis w con (units unknown) (unknown) (unknown) (no date) (unknown) (unknown) Prothrombin Time INR Stat (units unknown) (unknown) (unknown) (no date) (unknown) (unknown) Pulse Oximetry 96 (units unknown) (unknown) (unknown) (no date) (unknown) (unknown) Pulse Oximetry 99 04/14/22 11:41 (units unknown) (unknown) (unknown) (no date) (unknown) (unknown) Pulse Oximetry 99 97 (units unknown) (unknown) (unknown) (no date) (unknown) (unknown) Pulse Oximetry 99 99 (units unknown) (unknown) (unknown) (no date) (unknown) (unknown) Pulse Rate 65 (units unknown) (unknown) (unknown) (no date) (unknown) (unknown) Pulse Rate 70 65 (units unknown) (unknown) (unknown) (no date) (unknown) (unknown) Pulse Rate 72 68 (units unknown) (unknown) (unknown) (no date) (unknown) (unknown) Pulse Rate 80 04/14/22 11:41 (units unknown) (unknown) (unknown) (no date) (unknown) (unknown) Qty: 1 0RF (units unknown) (unknown) (unknown) (no date) (unknown) (unknown) RBC (4.0-5.2) X106/uL (units unknown) (unknown) (unknown) (no date) (unknown) (unknown) RBC 4.30 (4.0-5.2) X106/uL (units unknown) (unknown) (unknown) (no date) (unknown) (unknown) RDW (11.6-14.8) % (units unknown) (unknown) (unknown) (no date) (unknown) (unknown) RDW 13.7 (11.6-14.8) % (units unknown) (unknown) (unknown) (no date) (unknown) (unknown) REACTION (units unknown) (unknown) (unknown) (no date) (unknown) (unknown) RED' (units unknown) (unknown) (unknown) (no date) (unknown) (unknown) REMEMBER (units unknown) (unknown) (unknown) (no date) (unknown) (unknown) RESPIRATORY: Clear to auscultation. Breath sounds equal bilaterally. No wheezes, (units unknown) (unknown) (unknown) (no date) (unknown) (unknown) RESPIRATORY: Denies dyspnea, cough, wheezing, hemoptysis, sputum. (units unknown) (unknown) (unknown) (no date) (unknown) (unknown) Radiologist's Impression: (units unknown) (unknown) (unknown) (no date) (unknown) (unknown) Referrals: (units unknown) (unknown) (unknown) (no date) (unknown) (unknown) Related Data (units unknown) (unknown) (unknown) (no date) (unknown) (unknown) Relief) (units unknown) (unknown) (unknown) (no date) (unknown) (unknown) Respiratory Rate 16 04/14/22 11:41 (units unknown) (unknown) (unknown) (no date) (unknown) (unknown) Respiratory Rate 20 (units unknown) (unknown) (unknown) (no date) (unknown) (unknown) Respiratory Rate 24 19 (units unknown) (unknown) (unknown) (no date) (unknown) (unknown) Respiratory Rate 26 H (units unknown) (unknown) (unknown) (no date) (unknown) (unknown) Review of Systems (units unknown) (unknown) (unknown) (no date) (unknown) (unknown) Rx Instructions: (units unknown) (unknown) (unknown) (no date) (unknown) (unknown) SEVERITY (units unknown) (unknown) (unknown) (no date) (unknown) (unknown) SKIN: Denies rash, skin lesions, or other (units unknown) (unknown) (unknown) (no date) (unknown) (unknown) SKIN: No rash or erythema of visible areas (units unknown) (unknown) (unknown) (no date) (unknown) (unknown) 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 (units unknown) (unknown) (unknown) (no date) (unknown) (unknown) Score 1-3) ##0 (units unknown) (unknown) (unknown) (no date) (unknown) (unknown) Score 1-3) (units unknown) (unknown) (unknown) (no date) (unknown) (unknown) Seizure-like activity (units unknown) (unknown) (unknown) (no date) (unknown) (unknown) Shared Decision Making: Discussed plan patient is comfortable with plan (units unknown) (unknown) (unknown) (no date) (unknown) (unknown) Signed By: (units unknown) (unknown) (unknown) (no date) (unknown) (unknown) Signed (units unknown) (unknown) (unknown) (no date) (unknown) (unknown) Smoking Status: Never smoker (units unknown) (unknown) (unknown) (no date) (unknown) (unknown) Social Considerations: None (units unknown) (unknown) (unknown) (no date) (unknown) (unknown) Social History (units unknown) (unknown) (unknown) (no date) (unknown) (unknown) Sodium (137-145) mmol/L (units unknown) (unknown) (unknown) (no date) (unknown) (unknown) Sodium 142 (137-145) mmol/L (units unknown) (unknown) (unknown) (no date) (unknown) (unknown) Source: patient (units unknown) (unknown) (unknown) (no date) (unknown) (unknown) Spleen:? Unremarkable.? ? (units unknown) (unknown) (unknown) (no date) (unknown) (unknown) [place],Suspension (units unknown) (unknown) (unknown) (no date) (unknown) (unknown) Stand Alone Forms: Patient Portal/API (units unknown) (unknown) (unknown) (no date) (unknown) (unknown) Stated complaint: bleeding in stool (units unknown) (unknown) (unknown) (no date) (unknown) (unknown) Stomach and Bowel:? Stomach, small bowel loops, and colon are unremarkable.? (units unknown) (unknown) (unknown) (no date) (unknown) (unknown) Stool Occult Blood Positive (units unknown) (unknown) (unknown) (no date) (unknown) (unknown) Stop: 04/14/22 12:07 (units unknown) (unknown) (unknown) (no date) (unknown) (unknown) Stroke (units unknown) (unknown) (unknown) (no date) (unknown) (unknown) Substance Use Type: does not use (units unknown) (unknown) (unknown) (no date) (unknown) (unknown) Sulfa (Sulfonamide Allergy Unknown UNKNOWN Verified 04/14/22 11:41 (units unknown) (unknown) (unknown) (no date) (unknown) (unknown) Surgical History (units unknown) (unknown) (unknown) (no date) (unknown) (unknown) Symptoms ##0 (units unknown) (unknown) (unknown) (no date) (unknown) (unknown) Systane (PF) 1 EACH dropperette (units unknown) (unknown) (unknown) (no date) (unknown) (unknown) TECHNIQUE:? (units unknown) (unknown) (unknown) (no date) (unknown) (unknown) THIS (units unknown) (unknown) (unknown) (no date) (unknown) (unknown) Temperature 97.4 F L 04/14/22 11:41 (units unknown) (unknown) (unknown) (no date) (unknown) (unknown) Thank you for coming to the [facility] Emergency Department today. As (units unknown) (unknown) (unknown) (no date) (unknown) (unknown) This is a 61-year-old female presents to the emergency department due to (units unknown) (unknown) (unknown) (no date) (unknown) (unknown) Time Seen by Provider: 04/14/22 12:07 (units unknown) (unknown) (unknown) (no date) (unknown) (unknown) Total Bilirubin (0.2-1.3) mg/dL (units unknown) (unknown) (unknown) (no date) (unknown) (unknown) Total Bilirubin 0.4 (0.2-1.3) mg/dL (units unknown) (unknown) (unknown) (no date) (unknown) (unknown) Total Protein (6.3-8.2) g/dL (units unknown) (unknown) (unknown) (no date) (unknown) (unknown) Total Protein 7.5 (6.3-8.2) g/dL (units unknown) (unknown) (unknown) (no date) (unknown) (unknown) Type and Screen Stat (units unknown) (unknown) (unknown) (no date) (unknown) (unknown) Ur Culture Indicated? Cult not indicated (units unknown) (unknown) (unknown) (no date) (unknown) (unknown) Ur Culture Indicated? (units unknown) (unknown) (unknown) (no date) (unknown) (unknown) Ur Squamous Epith Cells (0-5/HPF) (units unknown) (unknown) (unknown) (no date) (unknown) (unknown) Ur Squamous Epith Cells 5-10 /hpf H (0-5/HPF) (units unknown) (unknown) (unknown) (no date) (unknown) (unknown) Ur Transition Epith Cell (0-5/HPF) (units unknown) (unknown) (unknown) (no date) (unknown) (unknown) Ur Transition Epith Cell 1-5/hpf (0-5/HPF) (units unknown) (unknown) (unknown) (no date) (unknown) (unknown) Urine Bacteria (None) (units unknown) (unknown) (unknown) (no date) (unknown) (unknown) Urine Bacteria Few (2-10) H (None) (units unknown) (unknown) (unknown) (no date) (unknown) (unknown) Urine Dip (units unknown) (unknown) (unknown) (no date) (unknown) (unknown) Urine Microscopic Stat (units unknown) (unknown) (unknown) (no date) (unknown) (unknown) Urine Mucus (Negative) (units unknown) (unknown) (unknown) (no date) (unknown) (unknown) Urine Mucus 1+ H (Negative) (units unknown) (unknown) (unknown) (no date) (unknown) (unknown) Urine RBC (0-5/HPF) (units unknown) (unknown) (unknown) (no date) (unknown) (unknown) Urine RBC 10-30/hpf H (0-5/HPF) (units unknown) (unknown) (unknown) (no date) (unknown) (unknown) Urine Specific Jackson 1.030 (units unknown) (unknown) (unknown) (no date) (unknown) (unknown) Urine WBC (0-5/HPF) (units unknown) (unknown) (unknown) (no date) (unknown) (unknown) Urine WBC 1-5/hpf (0-5/HPF) (units unknown) (unknown) (unknown) (no date) (unknown) (unknown) Ventral Wall: ? No hernia.? (units unknown) (unknown) (unknown) (no date) (unknown) (unknown) Vessels:? Aorta and inferior vena cava are normal in size.? (units unknown) (unknown) (unknown) (no date) (unknown) (unknown) Vital Signs - 8 hr (units unknown) (unknown) (unknown) (no date) (unknown) (unknown) Vital Signs (units unknown) (unknown) (unknown) (no date) (unknown) (unknown) Vital signs: (units unknown) (unknown) (unknown) (no date) (unknown) (unknown) WBC (4.5-11.0) X103/uL (units unknown) (unknown) (unknown) (no date) (unknown) (unknown) WBC 8.4 (4.5-11.0) X103/uL (units unknown) (unknown) (unknown) (no date) (unknown) (unknown) Walker: Front Wheel ##1 10/30/16 (units unknown) (unknown) (unknown) (no date) (unknown) (unknown) Walker: Front Wheel (units unknown) (unknown) (unknown) (no date) (unknown) (unknown) [CRANBERRY] 1 tab PO QDAY ##0 09/27/16 10/04/19 (units unknown) (unknown) (unknown) (no date) (unknown) (unknown) [CRANBERRY] (units unknown) (unknown) (unknown) (no date) (unknown) (unknown) [Embedded Image Not Available] (units unknown) (unknown) (unknown) (no date) (unknown) (unknown) [NITROFURANTOIN] REACTION (units unknown) (unknown) (unknown) (no date) (unknown) (unknown) [RED RICE YEAST] 600 mg PO BID ##0 03/12/10 10/04/19 (units unknown) (unknown) (unknown) (no date) (unknown) (unknown) [RED RICE YEAST] (units unknown) (unknown) (unknown) (no date) (unknown) (unknown) [SULFA (SULFONAMIDE (units unknown) (unknown) (unknown) (no date) (unknown) (unknown) abdominal pain, diarrhea, constipation. (units unknown) (unknown) (unknown) (no date) (unknown) (unknown) acetaminophen 300 mg-codeine 30 mg 1 tab PO Q4-6H PRN pain #14 tabs 09/21/17 (units unknown) (unknown) (unknown) (no date) (unknown) (unknown) acetaminophen-codei ne [Tylenol-Codeine #3] 300-30 mg tablet (units unknown) (unknown) (unknown) (no date) (unknown) (unknown) adhesive tape [ADHESIVE TAPE] Allergy Severe 'I GOT Verified 04/14/22 11:41 (units unknown) (unknown) (unknown) (no date) (unknown) (unknown) adjustment (units unknown) (unknown) (unknown) (no date) (unknown) (unknown) aerosol inhaler (Proventil HFA) (units unknown) (unknown) (unknown) (no date) (unknown) (unknown) albuterol sulfate 90 mcg/actuation 2 puff INH PRN PRN Dyspnea ##0 03/12/10 (units unknown) (unknown) (unknown) (no date) (unknown) (unknown) albuterol sulfate [Proventil HFA] 90 MCG/PUFF HFA aerosol inhaler (units unknown) (unknown) (unknown) (no date) (unknown) (unknown) alcohol intake frequency: 0-2 drinks per day (units unknown) (unknown) (unknown) (no date) (unknown) (unknown) alcohol intake: never (units unknown) (unknown) (unknown) (no date) (unknown) (unknown) and no evidence of any kind anemia. Patient will be treated for internal (units unknown) (unknown) (unknown) (no date) (unknown) (unknown) aspirin [ASPIRIN] Allergy Unknown UNKNOWN Verified 04/14/22 11:41 (units unknown) (unknown) (unknown) (no date) (unknown) (unknown) bilaterally ranging from 1-3 mm.? No interval change. (units unknown) (unknown) (unknown) (no date) (unknown) (unknown) blister (units unknown) (unknown) (unknown) (no date) (unknown) (unknown) blood surrounding the rectum, positive stool guaiac test (units unknown) (unknown) (unknown) (no date) (unknown) (unknown) cholecalciferol (vitamin D3) 250 5,000 unit PO QDAY ##0 03/12/10 10/04/19 (units unknown) (unknown) (unknown) (no date) (unknown) (unknown) cholecalciferol (vitamin D3) 250 mcg (10,000 unit) Tablet (units unknown) (unknown) (unknown) (no date) (unknown) (unknown) consider purchasing an azyp-bak-sscrsio fiber supplement as this may help with (units unknown) (unknown) (unknown) (no date) (unknown) (unknown) diclofenac sodium 3 % gel (units unknown) (unknown) (unknown) (no date) (unknown) (unknown) diclofenac sodium 3 % topical gel 1 applic topical BID PRN knee 08/14/21 (units unknown) (unknown) (unknown) (no date) (unknown) (unknown) discussed your CT abdomen and pelvis showed no concerning findings. I suspect (units unknown) (unknown) (unknown) (no date) (unknown) (unknown) dizziness. (units unknown) (unknown) (unknown) (no date) (unknown) (unknown) docusate sodium 250 mg capsule 500 mg PO PRN PRN Constipation ##0 03/12/10 (units unknown) (unknown) (unknown) (no date) (unknown) (unknown) docusate sodium [DOK] 250 MG capsule (units unknown) (unknown) (unknown) (no date) (unknown) (unknown) due to suspected lower GI bleed due to suspected internal hemorrhoids. On exam (units unknown) (unknown) (unknown) (no date) (unknown) (unknown) dysuria, urinary frequency, or urgency. (units unknown) (unknown) (unknown) (no date) (unknown) (unknown) ectopy. No ST segmental elevation or depression. No T wave inversions (units unknown) (unknown) (unknown) (no date) (unknown) (unknown) findings that would explain the cause of the rectal bleeding. CBC unremarkable (units unknown) (unknown) (unknown) (no date) (unknown) (unknown) fluticasone propionate 50 2 spray intranasal DAILY PRN 09/17/19 10/04/19 (units unknown) (unknown) (unknown) (no date) (unknown) (unknown) fluticasone propionate [Flonase Allergy Relief] 50 mcg/actuation (units unknown) (unknown) (unknown) (no date) (unknown) (unknown) for further evaluation and possible colonoscopy. (units unknown) (unknown) (unknown) (no date) (unknown) (unknown) from the (units unknown) (unknown) (unknown) (no date) (unknown) (unknown) gabapentin 400 mg capsule 3,200 mg PO QDAY ##0 09/27/16 10/04/19 (units unknown) (unknown) (unknown) (no date) (unknown) (unknown) gabapentin [Neurontin] 400 MG capsule (units unknown) (unknown) (unknown) (no date) (unknown) (unknown) guaiac test. CT abdomen and pelvis ordered with contrast which showed no acute (units unknown) (unknown) (unknown) (no date) (unknown) (unknown) hemorrhoids as well as recommendations to follow up with the primary care (units unknown) (unknown) (unknown) (no date) (unknown) (unknown) hemorrhoids, upper GI bleed, lower GI bleed, external hemorrhoids (units unknown) (unknown) (unknown) (no date) (unknown) (unknown) her abdomen or rectum but she states that she ?always does not feel pain down (units unknown) (unknown) (unknown) (no date) (unknown) (unknown) history of NSAID use. Also reports a foul-smelling urine but denies any (units unknown) (unknown) (unknown) (no date) (unknown) (unknown) household members: caregiver and none (units unknown) (unknown) (unknown) (no date) (unknown) (unknown) hydrocodone 5 mg-acetaminophen 325 1 tab PO BID PRN pain #14 tabs 08/14/21 (units unknown) (unknown) (unknown) (no date) (unknown) (unknown) hydrocodone-acetami nophen 5-325 mg tablet (units unknown) (unknown) (unknown) (no date) (unknown) (unknown) ibuprofen 200 MG capsule (units unknown) (unknown) (unknown) (no date) (unknown) (unknown) ibuprofen 200 mg capsule 400 mg PO PRN PRN Pain (Scale 09/27/16 10/04/19 (units unknown) (unknown) (unknown) (no date) (unknown) (unknown) icterus. No injection or drainage. (units unknown) (unknown) (unknown) (no date) (unknown) (unknown) loratadine 10 MG tablet (units unknown) (unknown) (unknown) (no date) (unknown) (unknown) loratadine 10 mg tablet 10 mg PO QDAYP PRN Allergy 09/27/16 10/04/19 (units unknown) (unknown) (unknown) (no date) (unknown) (unknown) lung bases to the pubic symphysis.? Coronal and sagittal reformats were (units unknown) (unknown) (unknown) (no date) (unknown) (unknown) marital status: unknown (units unknown) (unknown) (unknown) (no date) (unknown) (unknown) mcg (10,000 unit) tablet (units unknown) (unknown) (unknown) (no date) (unknown) (unknown) mcg/actuation nasal Allergic Symptoms (units unknown) (unknown) (unknown) (no date) (unknown) (unknown) mg tablet (units unknown) (unknown) (unknown) (no date) (unknown) (unknown) nitrofurantoin Allergy Unknown UNKNOWN Verified 04/14/22 11:41 (units unknown) (unknown) (unknown) (no date) (unknown) (unknown) noted (units unknown) (unknown) (unknown) (no date) (unknown) (unknown) of mA and/or kV according to patient size. (units unknown) (unknown) (unknown) (no date) (unknown) (unknown) omeprazole 20 mg capsule,delayed 20 mg PO DAILY #30 caps 10/04/19 (units unknown) (unknown) (unknown) (no date) (unknown) (unknown) omeprazole 20 mg capsule,delayed release(DR/EC) (units unknown) (unknown) (unknown) (no date) (unknown) (unknown) or from her urine. Patient states that she is not experienced any pain around (units unknown) (unknown) (unknown) (no date) (unknown) (unknown) oxycodone 5 MG tablet (units unknown) (unknown) (unknown) (no date) (unknown) (unknown) oxycodone 5 mg tablet 1 - 2 tab PO Q3HP PRN Pain (Scale 09/17/19 10/04/19 (units unknown) (unknown) (unknown) (no date) (unknown) (unknown) oxycodone 5 mg tablet 5 mg PO Q8H PRN pain #7 tabs 04/04/20 (units unknown) (unknown) (unknown) (no date) (unknown) (unknown) oxycodone 5 mg tablet (units unknown) (unknown) (unknown) (no date) (unknown) (unknown) pain, acute shortness of breath, or any other concerning signs or symptoms. (units unknown) (unknown) (unknown) (no date) (unknown) (unknown) pain, ankle pain #100 grams (units unknown) (unknown) (unknown) (no date) (unknown) (unknown) patient had bright red blood surrounding the rectum as well as a positive stool (units unknown) (unknown) (unknown) (no date) (unknown) (unknown) peg 400-propylene glycol (PF) 0.4 2 drp OPHTH QDAY ##0 09/27/16 10/04/19 (units unknown) (unknown) (unknown) (no date) (unknown) (unknown) performed.? For (units unknown) (unknown) (unknown) (no date) (unknown) (unknown) provider for further evaluation. (units unknown) (unknown) (unknown) (no date) (unknown) (unknown) provider for possible colonoscopy. (units unknown) (unknown) (unknown) (no date) (unknown) (unknown) radiation dose reduction, the following was used:? automated exposure control, (units unknown) (unknown) (unknown) (no date) (unknown) (unknown) rales, or rhonchi. (units unknown) (unknown) (unknown) (no date) (unknown) (unknown) release (units unknown) (unknown) (unknown) (no date) (unknown) (unknown) removal of previous anterior mass.? Previous fat containing lesions bilaterally (units unknown) (unknown) (unknown) (no date) (unknown) (unknown) reported blood in her stool onset this morning while taking a shower. She (units unknown) (unknown) (unknown) (no date) (unknown) (unknown) seizures, incoordination. 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 Nonobstructing stones are (units unknown) (unknown) (unknown) (no date) (unknown) (unknown) tablet (Tylenol-Codeine #3) (units unknown) (unknown) (unknown) (no date) (unknown) (unknown) the cause of your rectal bleeding is due to internal hemorrhoids. Please (units unknown) (unknown) (unknown) (no date) (unknown) (unknown) the hemorrhoids. I also recommended follow up with your primary care provider (units unknown) (unknown) (unknown) (no date) (unknown) (unknown) the past (units unknown) (unknown) (unknown) (no date) (unknown) (unknown) there?. Patient denies any significant abdominal pain, nausea, vomiting, chest (units unknown) (unknown) (unknown) (no date) (unknown) (unknown) tonsillar hypertrophy or exudate. Airway patent. (units unknown) (unknown) (unknown) (no date) (unknown) (unknown) topiramate 50 mg tablet (Topamax) 200 mg PO BID 09/17/19 10/04/19 (units unknown) (unknown) (unknown) (no date) (unknown) (unknown) topiramate [Topamax] 50 MG tablet (units unknown) (unknown) (unknown) (no date) (unknown) (unknown) unremarkable. BUN/Creatinine ration WNL, noncerning for upper GI bleed. (units unknown) (unknown) (unknown) (no date) (unknown) (unknown) with (units unknown) (unknown) Result panel 92 (unknown) (no date) (unknown) (unknown) (no value) (units unknown) (unknown) (unknown) (no date) (unknown) (unknown) %-0.3 % eye drops in a dropperette (units unknown) (unknown) (unknown) (no date) (unknown) (unknown) <Electronically signed by Anthony Morrell MD> (units unknown) (unknown) (unknown) (no date) (unknown) (unknown) <Electronically signed by Anthony Morrell MD> (units unknown) (unknown) (unknown) (no date) (unknown) (unknown) <Electronically signed by Joel Francois> (units unknown) (unknown) (unknown) (no date) (unknown) (unknown) <cosigner> (units unknown) (unknown) (unknown) (no date) (unknown) (unknown) (DOK) (units unknown) (unknown) (unknown) (no date) (unknown) (unknown) (Neurontin) (units unknown) (unknown) (unknown) (no date) (unknown) (unknown) (Systane (PF)) (units unknown) (unknown) (unknown) (no date) (unknown) (unknown) * Clinical Decision Rules/Scores evaluated: None (units unknown) (unknown) (unknown) (no date) (unknown) (unknown) * Independent discussions with: None (units unknown) (unknown) (unknown) (no date) (unknown) (unknown) * My imgaing interpretation: CT results as above. No acute processes found. (units unknown) (unknown) (unknown) (no date) (unknown) (unknown) * My lab interpretation: CBC unremarkable. No evidence of anemia. CMP (units unknown) (unknown) (unknown) (no date) (unknown) (unknown) * Prior records reviewed: Patient has not been here for similar complaints in (units unknown) (unknown) (unknown) (no date) (unknown) (unknown) * differential diagnosis includes but not limited to diverticulosis, internal (units unknown) (unknown) (unknown) (no date) (unknown) (unknown) [id number] (units unknown) (unknown) (unknown) (no date) (unknown) (unknown) 04/14/22 04/14/22 04/14/22 Range/Units (units unknown) (unknown) (unknown) (no date) (unknown) (unknown) 04/14/22 04/14/22 Range/Units (units unknown) (unknown) (unknown) (no date) (unknown) (unknown) 04/14/22 12:25 (units unknown) (unknown) (unknown) (no date) (unknown) (unknown) 04/14/221954 (units unknown) (unknown) (unknown) (no date) (unknown) (unknown) 04/14/22 (units unknown) (unknown) (unknown) (no date) (unknown) (unknown) 05/19/22 1947 (units unknown) (unknown) (unknown) (no date) (unknown) (unknown) 10/04/19 (units unknown) (unknown) (unknown) (no date) (unknown) (unknown) 1 - 2 tab PO Q3HP PRN (Reason: Pain (Scale Score 1-3)) (units unknown) (unknown) (unknown) (no date) (unknown) (unknown) 1 applic topical BID PRN (Reason: knee pain, ankle pain) Qty: 100 0RF (units unknown) (unknown) (unknown) (no date) (unknown) (unknown) 1 tab PO BID PRN (Reason: pain) Qty: 14 0RF (units unknown) (unknown) (unknown) (no date) (unknown) (unknown) 1 tab PO Q4-6H PRN (Reason: pain) Qty: 14 0RF (units unknown) (unknown) (unknown) (no date) (unknown) (unknown) 1 tab PO QDAY Qty: 0 (units unknown) (unknown) (unknown) (no date) (unknown) (unknown) 10 mg PO QDAYP PRN (Reason: Allergy Symptoms) Qty: 0 (units unknown) (unknown) (unknown) (no date) (unknown) (unknown) 12 point review of systems is negative except for those stated above (units unknown) (unknown) (unknown) (no date) (unknown) (unknown) [address] [place] [address] (units unknown) (unknown) (unknown) (no date) (unknown) (unknown) 12:01 04/14/22 (units unknown) (unknown) (unknown) (no date) (unknown) (unknown) 12:10 12:25 12:25 (units unknown) (unknown) (unknown) (no date) (unknown) (unknown) 12:25 12:25 (units unknown) (unknown) (unknown) (no date) (unknown) (unknown) 12:30 04/14/22 (units unknown) (unknown) (unknown) (no date) (unknown) (unknown) 12:31 04/14/22 (units unknown) (unknown) (unknown) (no date) (unknown) (unknown) 12:31 (units unknown) (unknown) (unknown) (no date) (unknown) (unknown) 1304: EKG is normal sinus rhythm rate 63 and free of any signs of ischemia or (units unknown) (unknown) (unknown) (no date) (unknown) (unknown) 13:00 04/14/22 (units unknown) (unknown) (unknown) (no date) (unknown) (unknown) 13:00 (units unknown) (unknown) (unknown) (no date) (unknown) (unknown) 13:30 (units unknown) (unknown) (unknown) (no date) (unknown) (unknown) 2 drp OPHTH QDAY Qty: 0 (units unknown) (unknown) (unknown) (no date) (unknown) (unknown) 2 puff INH PRN PRN (Reason: Dyspnea) Qty: 0 (units unknown) (unknown) (unknown) (no date) (unknown) (unknown) 2 spray INTRANASAL DAILY PRN (Reason: Allergic Symptoms) (units unknown) (unknown) (unknown) (no date) (unknown) (unknown) 2 tabs in am, 3 tams at noon, 2 tabs evening (units unknown) (unknown) (unknown) (no date) (unknown) (unknown) 20 mg PO DAILY Qty: 30 0RF (units unknown) (unknown) (unknown) (no date) (unknown) (unknown) 200 mg PO BID (units unknown) (unknown) (unknown) (no date) (unknown) (unknown) 3,200 mg PO QDAY Qty: 0 (units unknown) (unknown) (unknown) (no date) (unknown) (unknown) 400 mg PO PRN PRN (Reason: Pain (Scale Score 1-3)) Qty: 0 (units unknown) (unknown) (unknown) (no date) (unknown) (unknown) 5 mg PO Q8H PRN (Reason: pain) Qty: 7 0RF (units unknown) (unknown) (unknown) (no date) (unknown) (unknown) 5,000 unit PO QDAY Qty: 0 (units unknown) (unknown) (unknown) (no date) (unknown) (unknown) 500 mg PO PRN PRN (Reason: Constipation) Qty: 0 (units unknown) (unknown) (unknown) (no date) (unknown) (unknown) 600 mg PO BID Qty: 0 (units unknown) (unknown) (unknown) (no date) (unknown) (unknown) ? (units unknown) (unknown) (unknown) (no date) (unknown) (unknown) ABDOMEN: (units unknown) (unknown) (unknown) (no date) (unknown) (unknown) ALLERGY (units unknown) (unknown) (unknown) (no date) (unknown) (unknown) [id number] SE Allergy Unknown PT NOT Uncoded 04/14/22 11:41 (units unknown) (unknown) (unknown) (no date) (unknown) (unknown) ALT (<35) IU/L (units unknown) (unknown) (unknown) (no date) (unknown) (unknown) ALT 24 (<35) IU/L (units unknown) (unknown) (unknown) (no date) (unknown) (unknown) ANTIBIOTICS)] (units unknown) (unknown) (unknown) (no date) (unknown) (unknown) APTT (26-36) SECONDS (units unknown) (unknown) (unknown) (no date) (unknown) (unknown) APTT 33 (26-36) SECONDS (units unknown) (unknown) (unknown) (no date) (unknown) (unknown) AST (14-36) IU/L (units unknown) (unknown) (unknown) (no date) (unknown) (unknown) AST 20 (14-36) IU/L (units unknown) (unknown) (unknown) (no date) (unknown) (unknown) AWARE OF (units unknown) (unknown) (unknown) (no date) (unknown) (unknown) Abdominal Nodes:? No retroperitoneal or mesenteric adenopathy by size criteria.? (units unknown) (unknown) (unknown) (no date) (unknown) (unknown) Accession Number: [id number] ?? (units unknown) (unknown) (unknown) (no date) (unknown) (unknown) Acct:[id number] (units unknown) (unknown) (unknown) (no date) (unknown) (unknown) Activity Restrictions/Additi onal Instructions: (units unknown) (unknown) (unknown) (no date) (unknown) (unknown) Adrenal Glands:? Unremarkable.? ? (units unknown) (unknown) (unknown) (no date) (unknown) (unknown) After the administration of oral and IV contrast, axial sections were acquired (units unknown) (unknown) (unknown) (no date) (unknown) (unknown) Age/Sex: 61 / F (units unknown) (unknown) (unknown) (no date) (unknown) (unknown) Albumin (3.5-5.0) g/dL (units unknown) (unknown) (unknown) (no date) (unknown) (unknown) Albumin 4.1 (3.5-5.0) g/dL (units unknown) (unknown) (unknown) (no date) (unknown) (unknown) Albumin/Globulin Ratio (1.0-2.8) (units unknown) (unknown) (unknown) (no date) (unknown) (unknown) Albumin/Globulin Ratio 1.2 (1.0-2.8) (units unknown) (unknown) (unknown) (no date) (unknown) (unknown) Alkaline Phosphatase (38-126) U/L (units unknown) (unknown) (unknown) (no date) (unknown) (unknown) Alkaline Phosphatase 95 (38-126) U/L (units unknown) (unknown) (unknown) (no date) (unknown) (unknown) Allergies (units unknown) (unknown) (unknown) (no date) (unknown) (unknown) Allergy/AdvReac Type Severity Reaction Status Date / Time (units unknown) (unknown) (unknown) (no date) (unknown) (unknown) [place] [address] (units unknown) (unknown) (unknown) (no date) (unknown) (unknown) Antibiotics) PER PT (units unknown) (unknown) (unknown) (no date) (unknown) (unknown) Antibody Screen Negative (units unknown) (unknown) (unknown) (no date) (unknown) (unknown) Antibody Screen (units unknown) (unknown) (unknown) (no date) (unknown) (unknown) Approved by: Jasmin Zhao M.D. on 04/14/2022 at 14:35 ? (units unknown) (unknown) (unknown) (no date) (unknown) (unknown) Asthma (units unknown) (unknown) (unknown) (no date) (unknown) (unknown) BACK: Nontender without deformity or crepitance. No flank tenderness. (units unknown) (unknown) (unknown) (no date) (unknown) (unknown) BUN (7-17) mg/dL (units unknown) (unknown) (unknown) (no date) (unknown) (unknown) BUN 13 (7-17) mg/dL (units unknown) (unknown) (unknown) (no date) (unknown) (unknown) BUN/Creatinine Ratio (6-22) (units unknown) (unknown) (unknown) (no date) (unknown) (unknown) BUN/Creatinine Ratio 12.7 (6-22) (units unknown) (unknown) (unknown) (no date) (unknown) (unknown) Baso # (Auto) (0-100) /uL (units unknown) (unknown) (unknown) (no date) (unknown) (unknown) Baso # (Auto) 100 (0-100) /uL (units unknown) (unknown) (unknown) (no date) (unknown) (unknown) Baso % (Auto) (0-2) % (units unknown) (unknown) (unknown) (no date) (unknown) (unknown) Baso % (Auto) 0.7 (0-2) % (units unknown) (unknown) (unknown) (no date) (unknown) (unknown) Bedside Urine Bilirubin - Negative (units unknown) (unknown) (unknown) (no date) (unknown) (unknown) Bedside Urine Glucose Negative (units unknown) (unknown) (unknown) (no date) (unknown) (unknown) Bedside Urine Ketone - Negative (units unknown) (unknown) (unknown) (no date) (unknown) (unknown) Bedside Urine Leukocytes - Negative (units unknown) (unknown) (unknown) (no date) (unknown) (unknown) Bedside Urine Nitrite - Negative (units unknown) (unknown) (unknown) (no date) (unknown) (unknown) Bedside Urine Occult Blood (units unknown) (unknown) (unknown) (no date) (unknown) (unknown) Bedside Urine Protein ++ 100 (units unknown) (unknown) (unknown) (no date) (unknown) (unknown) Bedside Urine Urobilinogen - Negative (units unknown) (unknown) (unknown) (no date) (unknown) (unknown) Bedside Urine pH 6.0 (units unknown) (unknown) (unknown) (no date) (unknown) (unknown) Biliary ducts:? Unremarkable.? ? (units unknown) (unknown) (unknown) (no date) (unknown) (unknown) Bladder:? Unremarkable.? ? (units unknown) (unknown) (unknown) (no date) (unknown) (unknown) Bleeding internal hemorrhoids (units unknown) (unknown) (unknown) (no date) (unknown) (unknown) Blood Pressure 128/87 04/14/22 11:41 (units unknown) (unknown) (unknown) (no date) (unknown) (unknown) Blood Pressure 157/84 H (units unknown) (unknown) (unknown) (no date) (unknown) (unknown) Blood Pressure 175/107 H (units unknown) (unknown) (unknown) (no date) (unknown) (unknown) Blood Pressure (units unknown) (unknown) (unknown) (no date) (unknown) (unknown) Blood Type A Positive (units unknown) (unknown) (unknown) (no date) (unknown) (unknown) Blood Type (units unknown) (unknown) (unknown) (no date) (unknown) (unknown) Bones:? Unremarkable.? ? (units unknown) (unknown) (unknown) (no date) (unknown) (unknown) CARDIOVASCULAR: Denies chest pain, palpitations, orthopnea, edema, (units unknown) (unknown) (unknown) (no date) (unknown) (unknown) CARDIOVASCULAR: Regular rate and rhythm without murmurs, gallops, or rubs. (units unknown) (unknown) (unknown) (no date) (unknown) (unknown) COMPARISON:[facility], CT, CT ABDOMEN WO/W JOÃO, 09/11/2021, 13:13.? [place] (units unknown) (unknown) (unknown) (no date) (unknown) (unknown) CT Scan Report (units unknown) (unknown) (unknown) (no date) (unknown) (unknown) CT scan - abdomen/pelvis: (units unknown) (unknown) (unknown) (no date) (unknown) (unknown) Calcium (8.4-10.2) mg/dL (units unknown) (unknown) (unknown) (no date) (unknown) (unknown) Calcium 8.7 (8.4-10.2) mg/dL (units unknown) (unknown) (unknown) (no date) (unknown) (unknown) Carbon Dioxide (22-32) mmol/L (units unknown) (unknown) (unknown) (no date) (unknown) (unknown) Carbon Dioxide 21 L (22-32) mmol/L (units unknown) (unknown) (unknown) (no date) (unknown) (unknown) Chief complaint: GI Bleed (units unknown) (unknown) (unknown) (no date) (unknown) (unknown) Chloride (98-107) mmol/L (units unknown) (unknown) (unknown) (no date) (unknown) (unknown) Chloride 109 H (98-107) mmol/L (units unknown) (unknown) (unknown) (no date) (unknown) (unknown) Clinical Impression: (units unknown) (unknown) (unknown) (no date) (unknown) (unknown) Colon cancer (units unknown) (unknown) (unknown) (no date) (unknown) (unknown) Course (units unknown) (unknown) (unknown) (no date) (unknown) (unknown) Creatinine (0.52-1.04) mg/dL (units unknown) (unknown) (unknown) (no date) (unknown) (unknown) Creatinine 1.02 (0.52-1.04) mg/dL (units unknown) (unknown) (unknown) (no date) (unknown) (unknown) : 1960 Acct:[id number] (units unknown) (unknown) (unknown) (no date) (unknown) (unknown) : 1960 (units unknown) (unknown) (unknown) (no date) (unknown) (unknown) DOES NOT (units unknown) (unknown) (unknown) (no date) (unknown) (unknown) Date of Service: 04/14/22 (units unknown) (unknown) (unknown) (no date) (unknown) (unknown) Departure (units unknown) (unknown) (unknown) (no date) (unknown) (unknown) Diabetes mellitus (units unknown) (unknown) (unknown) (no date) (unknown) (unknown) Diabetes (units unknown) (unknown) (unknown) (no date) (unknown) (unknown) Dictated by: Jasmin Zhao M.D. on 04/14/2022 at 14:22 ? ? (units unknown) (unknown) (unknown) (no date) (unknown) (unknown) Discharge Plan (units unknown) (unknown) (unknown) (no date) (unknown) (unknown) Discontinued Medications (units unknown) (unknown) (unknown) (no date) (unknown) (unknown) Disposition: Discharged to home (units unknown) (unknown) (unknown) (no date) (unknown) (unknown) Documented By: RLS (units unknown) (unknown) (unknown) (no date) (unknown) (unknown) ECG Data (units unknown) (unknown) (unknown) (no date) (unknown) (unknown) ED Course: This is a 61-year-old female presents to the emergency department (units unknown) (unknown) (unknown) (no date) (unknown) (unknown) ENT: Nose without bleeding, purulent drainage. Throat without erythema, (units unknown) (unknown) (unknown) (no date) (unknown) (unknown) ER Physician: Joel Francois P.A-C (units unknown) (unknown) (unknown) (no date) (unknown) (unknown) EXTREMITIES: No edema or joint tenderness. (units unknown) (unknown) (unknown) (no date) (unknown) (unknown) EYES: Pupils equal round and reactive. Extraocular motions intact. No scleral (units unknown) (unknown) (unknown) (no date) (unknown) (unknown) Emergency Report (units unknown) (unknown) (unknown) (no date) (unknown) (unknown) Eos # (Auto) (0-450) /uL (units unknown) (unknown) (unknown) (no date) (unknown) (unknown) Eos # (Auto) 100 (0-450) /uL (units unknown) (unknown) (unknown) (no date) (unknown) (unknown) Eos % (Auto) (2-4) % (units unknown) (unknown) (unknown) (no date) (unknown) (unknown) Eos % (Auto) 1.6 L (2-4) % (units unknown) (unknown) (unknown) (no date) (unknown) (unknown) Esterase (units unknown) (unknown) (unknown) (no date) (unknown) (unknown) Estimated GFR > 60 (>60) mL/min (units unknown) (unknown) (unknown) (no date) (unknown) (unknown) Estimated GFR (>60) mL/min (units unknown) (unknown) (unknown) (no date) (unknown) (unknown) Exam Narrative: (units unknown) (unknown) (unknown) (no date) (unknown) (unknown) Exam (units unknown) (unknown) (unknown) (no date) (unknown) (unknown) FINDINGS:? (units unknown) (unknown) (unknown) (no date) (unknown) (unknown) Family History (units unknown) (unknown) (unknown) (no date) (unknown) (unknown) Father Diabetes mellitus (units unknown) (unknown) (unknown) (no date) (unknown) (unknown) Edison Jones MD [Primary Care Provider] (units unknown) (unknown) (unknown) (no date) (unknown) (unknown) GASTROINTESTINAL: Reports bright red blood in stool, Denies nausea, vomiting, (units unknown) (unknown) (unknown) (no date) (unknown) (unknown) GASTROINTESTINAL: Suprapubic abdominal tenderness to palpation. Bright red (units unknown) (unknown) (unknown) (no date) (unknown) (unknown) GENERAL: Denies chills, fatigue, malaise, fever, sweats. (units unknown) (unknown) (unknown) (no date) (unknown) (unknown) GENERAL: Well-developed patient, in mild distress. (units unknown) (unknown) (unknown) (no date) (unknown) (unknown) : Denies dysuria, frequency, incontinence, hematuria, urinary retention. (units unknown) (unknown) (unknown) (no date) (unknown) (unknown) Gallbladder:? Removed. (units unknown) (unknown) (unknown) (no date) (unknown) (unknown) Gallstones (units unknown) (unknown) (unknown) (no date) (unknown) (unknown) General (units unknown) (unknown) (unknown) (no date) (unknown) (unknown) Globulin (1.7-4.1) g/dL (units unknown) (unknown) (unknown) (no date) (unknown) (unknown) Globulin 3.4 (1.7-4.1) g/dL (units unknown) (unknown) (unknown) (no date) (unknown) (unknown) Glucose (70-100) mg/dL (units unknown) (unknown) (unknown) (no date) (unknown) (unknown) Glucose 120 H (70-100) mg/dL (units unknown) (unknown) (unknown) (no date) (unknown) (unknown) HEAD: Atraumatic. Normocephalic. (units unknown) (unknown) (unknown) (no date) (unknown) (unknown) HEENT: Denies sinus pain, ear pain, sore throat, difficulty swallowing, (units unknown) (unknown) (unknown) (no date) (unknown) (unknown) HPI - GI Bleed (units unknown) (unknown) (unknown) (no date) (unknown) (unknown) HPI Narrative: (units unknown) (unknown) (unknown) (no date) (unknown) (unknown) Hct (36-46) % (units unknown) (unknown) (unknown) (no date) (unknown) (unknown) Hct 40.4 (36-46) % (units unknown) (unknown) (unknown) (no date) (unknown) (unknown) Heart disease (units unknown) (unknown) (unknown) (no date) (unknown) (unknown) Heart:? No significant findings. (units unknown) (unknown) (unknown) (no date) (unknown) (unknown) Hepatomegaly with steatosis. (units unknown) (unknown) (unknown) (no date) (unknown) (unknown) Hgb (12.0-16.0) g/dL (units unknown) (unknown) (unknown) (no date) (unknown) (unknown) Hgb 13.7 (12.0-16.0) g/dL (units unknown) (unknown) (unknown) (no date) (unknown) (unknown) History of Present Illness (units unknown) (unknown) (unknown) (no date) (unknown) (unknown) History of back surgery (units unknown) (unknown) (unknown) (no date) (unknown) (unknown) History of total knee arthroplasty (units unknown) (unknown) (unknown) (no date) (unknown) (unknown) Home Medications (units unknown) (unknown) (unknown) (no date) (unknown) (unknown) Hospital, CT, CT ABDOMEN PELVIS W CON, 04/04/2020, 11:35. (units unknown) (unknown) (unknown) (no date) (unknown) (unknown) Hx of cholecystectomy (units unknown) (unknown) (unknown) (no date) (unknown) (unknown) Hx of knee surgery (units unknown) (unknown) (unknown) (no date) (unknown) (unknown) Hx of neck surgery (units unknown) (unknown) (unknown) (no date) (unknown) (unknown) Hx of shoulder surgery (units unknown) (unknown) (unknown) (no date) (unknown) (unknown) Hyaline Casts (None) (units unknown) (unknown) (unknown) (no date) (unknown) (unknown) Hyaline Casts 1-5/lpf (None) (units unknown) (unknown) (unknown) (no date) (unknown) (unknown) I hope you feel better soon. (units unknown) (unknown) (unknown) (no date) (unknown) (unknown) IMPRESSION:? (units unknown) (unknown) (unknown) (no date) (unknown) (unknown) INDICATIONS:? Hematochezia and suprapubic TTP (units unknown) (unknown) (unknown) (no date) (unknown) (unknown) INR (0.9-1.3) (units unknown) (unknown) (unknown) (no date) (unknown) (unknown) INR 1.1 (0.9-1.3) (units unknown) (unknown) (unknown) (no date) (unknown) (unknown) Image quality:? Excellent.? (units unknown) (unknown) (unknown) (no date) (unknown) (unknown) Imaging Data (units unknown) (unknown) (unknown) (no date) (unknown) (unknown) Initial Vital Signs (units unknown) (unknown) (unknown) (no date) (unknown) (unknown) Initial Vital Signs: (units unknown) (unknown) (unknown) (no date) (unknown) (unknown) Instructions: DI for Hemorrhoids (units unknown) (unknown) (unknown) (no date) (unknown) (unknown) Interpretation: (units unknown) (unknown) (unknown) (no date) (unknown) (unknown) [address] [address] (units unknown) (unknown) (unknown) (no date) (unknown) (unknown) [facility] (units unknown) (unknown) (unknown) (no date) (unknown) (unknown) Kidney malignancy (units unknown) (unknown) (unknown) (no date) (unknown) (unknown) Kidneys and Ureters:? Postsurgical changes are present within the left kidney (units unknown) (unknown) (unknown) (no date) (unknown) (unknown) Lab Data (units unknown) (unknown) (unknown) (no date) (unknown) (unknown) Lab Results (units unknown) (unknown) (unknown) (no date) (unknown) (unknown) Labs: (units unknown) (unknown) (unknown) (no date) (unknown) (unknown) Last Admin: 04/14/22 12:51 Dose: Not Given (units unknown) (unknown) (unknown) (no date) (unknown) (unknown) Liver:? Liver is enlarged measuring 20.4 cm with steatosis..? ? (units unknown) (unknown) (unknown) (no date) (unknown) (unknown) Loc: ED (units unknown) (unknown) (unknown) (no date) (unknown) (unknown) Lung bases:? Unremarkable.? ? (units unknown) (unknown) (unknown) (no date) (unknown) (unknown) Lymph # (Auto) (6003-7640) /uL (units unknown) (unknown) (unknown) (no date) (unknown) (unknown) Lymph # (Auto) 1900 (4439-5845) /uL (units unknown) (unknown) (unknown) (no date) (unknown) (unknown) Lymph % (Auto) (25-40) % (units unknown) (unknown) (unknown) (no date) (unknown) (unknown) Lymph % (Auto) 22.7 L (25-40) % (units unknown) (unknown) (unknown) (no date) (unknown) (unknown) MCH (26-34) PG (units unknown) (unknown) (unknown) (no date) (unknown) (unknown) MCH 31.8 (26-34) PG (units unknown) (unknown) (unknown) (no date) (unknown) (unknown) MCHC (30-36) % (units unknown) (unknown) (unknown) (no date) (unknown) (unknown) MCHC 33.9 (30-36) % (units unknown) (unknown) (unknown) (no date) (unknown) (unknown) MCV (80-100) fL (units unknown) (unknown) (unknown) (no date) (unknown) (unknown) MCV 93.9 (80-100) fL (units unknown) (unknown) (unknown) (no date) (unknown) (unknown) MDM - GI Bleed (units unknown) (unknown) (unknown) (no date) (unknown) (unknown) MDM Narrative (units unknown) (unknown) (unknown) (no date) (unknown) (unknown) MDM (units unknown) (unknown) (unknown) (no date) (unknown) (unknown) MR#: [id number] (units unknown) (unknown) (unknown) (no date) (unknown) (unknown) MUSCULOSKELETAL: denies weakness, joint pain, or bony pain (units unknown) (unknown) (unknown) (no date) (unknown) (unknown) Medical History (Updated 04/29/22 @ 00:00 by ) (units unknown) (unknown) (unknown) (no date) (unknown) (unknown) Medical decision making narrative: (units unknown) (unknown) (unknown) (no date) (unknown) (unknown) Medication Instructions Recorded Confirmed (units unknown) (unknown) (unknown) (no date) (unknown) (unknown) Medication Instructions Recorded (units unknown) (unknown) (unknown) (no date) (unknown) (unknown) Miscellaneous: No inguinal hernias are seen. ? ? (units unknown) (unknown) (unknown) (no date) (unknown) (unknown) Mode of arrival: Ambulatory (units unknown) (unknown) (unknown) (no date) (unknown) (unknown) [place] # (Auto) (0-900) /uL (units unknown) (unknown) (unknown) (no date) (unknown) (unknown) [place] # (Auto) 500 (0-900) /uL (units unknown) (unknown) (unknown) (no date) (unknown) (unknown) [place] % (Auto) (3-14) % (units unknown) (unknown) (unknown) (no date) (unknown) (unknown) [place] % (Auto) 6.3 (3-14) % (units unknown) (unknown) (unknown) (no date) (unknown) (unknown) Mother Hypertension (units unknown) (unknown) (unknown) (no date) (unknown) (unknown) NECK: Trachea midline. Non tender (units unknown) (unknown) (unknown) (no date) (unknown) (unknown) NEURO: AOx3. (units unknown) (unknown) (unknown) (no date) (unknown) (unknown) NEUROLOGIC: Denies weakness, headache, numbness, change in speech, confusion, (units unknown) (unknown) (unknown) (no date) (unknown) (unknown) Narrative (units unknown) (unknown) (unknown) (no date) (unknown) (unknown) Narrative: (units unknown) (unknown) (unknown) (no date) (unknown) (unknown) Neut # (Auto) (1366-4703) /uL (units unknown) (unknown) (unknown) (no date) (unknown) (unknown) Neut # (Auto) 5800 (6802-6757) /uL (units unknown) (unknown) (unknown) (no date) (unknown) (unknown) Neut % (Auto) (50-75) % (units unknown) (unknown) (unknown) (no date) (unknown) (unknown) Neut % (Auto) 68.7 (50-75) % (units unknown) (unknown) (unknown) (no date) (unknown) (unknown) No Action (units unknown) (unknown) (unknown) (no date) (unknown) (unknown) No acute intra-abdominal or pelvic process. (units unknown) (unknown) (unknown) (no date) (unknown) (unknown) No evidence of diverticulosis. Recommend she follow up with primary care (units unknown) (unknown) (unknown) (no date) (unknown) (unknown) Obesity (units unknown) (unknown) (unknown) (no date) (unknown) (unknown) Ondansetron HCl (Ondansetron 4 Mg Odt) 4 mg SL NOW PRN (units unknown) (unknown) (unknown) (no date) (unknown) (unknown) Ondansetron HCl (Ondansetron 4 Mg/2 Ml Inj) 4 mg IV NOW PRN (units unknown) (unknown) (unknown) (no date) (unknown) (unknown) Ordered: (units unknown) (unknown) (unknown) (no date) (unknown) (unknown) Ordering Provider: Joel Francois P.A-C (units unknown) (unknown) (unknown) (no date) (unknown) (unknown) Orders (units unknown) (unknown) (unknown) (no date) (unknown) (unknown) Oxygen Delivery Method Room Air 04/14/22 11:41 (units unknown) (unknown) (unknown) (no date) (unknown) (unknown) Oxygen Delivery Method Room Air (units unknown) (unknown) (unknown) (no date) (unknown) (unknown) Oxygen Delivery Method (units unknown) (unknown) (unknown) (no date) (unknown) (unknown) PELVIS: (units unknown) (unknown) (unknown) (no date) (unknown) (unknown) PER PT (units unknown) (unknown) (unknown) (no date) (unknown) (unknown) PRN Reason: Nausea And Vomiting (units unknown) (unknown) (unknown) (no date) (unknown) (unknown) PROCEDURE:? CT ABDOMEN PELVIS W CON (units unknown) (unknown) (unknown) (no date) (unknown) (unknown) PSYCHIATRIC: No concerning psychosocial issues. (units unknown) (unknown) (unknown) (no date) (unknown) (unknown) PT (10.1-12.7) SECONDS (units unknown) (unknown) (unknown) (no date) (unknown) (unknown) PT 12.1 (10.1-12.7) SECONDS (units unknown) (unknown) (unknown) (no date) (unknown) (unknown) Pancreas:? Unremarkable.? ? (units unknown) (unknown) (unknown) (no date) (unknown) (unknown) Pantoprazole Sodium (Pantoprazole 40 Mg Vial) 80 mg IV NOW ONE (units unknown) (unknown) (unknown) (no date) (unknown) (unknown) Partial left nephrectomy.? No evidence of recurrent disease. (units unknown) (unknown) (unknown) (no date) (unknown) (unknown) Patient Disposition: Home (units unknown) (unknown) (unknown) (no date) (unknown) (unknown) Patient History (units unknown) (unknown) (unknown) (no date) (unknown) (unknown) Patient's daughter describes the blood as bright red in color. No significant (units unknown) (unknown) (unknown) (no date) (unknown) (unknown) Patient: Logan Desir MR#: M (units unknown) (unknown) (unknown) (no date) (unknown) (unknown) Patient: Logan Desir (units unknown) (unknown) (unknown) (no date) (unknown) (unknown) Pelvic Nodes: No enlarged lymph nodes.? (units unknown) (unknown) (unknown) (no date) (unknown) (unknown) Pelvic Organs:? Unremarkable.? ? (units unknown) (unknown) (unknown) (no date) (unknown) (unknown) Penicillins [PENICILLINS] Allergy Unknown ITCHING-PT Verified 04/14/22 11:41 (units unknown) (unknown) (unknown) (no date) (unknown) (unknown) Peritoneum:? No abnormal intraperitoneal fluid.? No free air.? (units unknown) (unknown) (unknown) (no date) (unknown) (unknown) Plt Count (150-400) X103/uL (units unknown) (unknown) (unknown) (no date) (unknown) (unknown) Plt Count 278 (150-400) X103/uL (units unknown) (unknown) (unknown) (no date) (unknown) (unknown) Point of Care Testing (units unknown) (unknown) (unknown) (no date) (unknown) (unknown) Potassium (3.4-5.1) mmol/L (units unknown) (unknown) (unknown) (no date) (unknown) (unknown) Potassium 3.9 (3.4-5.1) mmol/L (units unknown) (unknown) (unknown) (no date) (unknown) (unknown) Prescriptions: (units unknown) (unknown) (unknown) (no date) (unknown) (unknown) Previous Rx's (units unknown) (unknown) (unknown) (no date) (unknown) (unknown) Procedure: CT abdomen pelvis w con (units unknown) (unknown) (unknown) (no date) (unknown) (unknown) Pulse Oximetry 96 (units unknown) (unknown) (unknown) (no date) (unknown) (unknown) Pulse Oximetry 99 04/14/22 11:41 (units unknown) (unknown) (unknown) (no date) (unknown) (unknown) Pulse Oximetry 99 97 (units unknown) (unknown) (unknown) (no date) (unknown) (unknown) Pulse Oximetry 99 99 (units unknown) (unknown) (unknown) (no date) (unknown) (unknown) Pulse Rate 65 (units unknown) (unknown) (unknown) (no date) (unknown) (unknown) Pulse Rate 70 65 (units unknown) (unknown) (unknown) (no date) (unknown) (unknown) Pulse Rate 72 68 (units unknown) (unknown) (unknown) (no date) (unknown) (unknown) Pulse Rate 80 04/14/22 11:41 (units unknown) (unknown) (unknown) (no date) (unknown) (unknown) Qty: 1 0RF (units unknown) (unknown) (unknown) (no date) (unknown) (unknown) RBC (4.0-5.2) X106/uL (units unknown) (unknown) (unknown) (no date) (unknown) (unknown) RBC 4.30 (4.0-5.2) X106/uL (units unknown) (unknown) (unknown) (no date) (unknown) (unknown) RDW (11.6-14.8) % (units unknown) (unknown) (unknown) (no date) (unknown) (unknown) RDW 13.7 (11.6-14.8) % (units unknown) (unknown) (unknown) (no date) (unknown) (unknown) REACTION (units unknown) (unknown) (unknown) (no date) (unknown) (unknown) RED' (units unknown) (unknown) (unknown) (no date) (unknown) (unknown) REMEMBER (units unknown) (unknown) (unknown) (no date) (unknown) (unknown) RESPIRATORY: Clear to auscultation. Breath sounds equal bilaterally. No wheezes, (units unknown) (unknown) (unknown) (no date) (unknown) (unknown) RESPIRATORY: Denies dyspnea, cough, wheezing, hemoptysis, sputum. (units unknown) (unknown) (unknown) (no date) (unknown) (unknown) Radiologist's Impression: (units unknown) (unknown) (unknown) (no date) (unknown) (unknown) Referrals: (units unknown) (unknown) (unknown) (no date) (unknown) (unknown) Related Data (units unknown) (unknown) (unknown) (no date) (unknown) (unknown) Relief) (units unknown) (unknown) (unknown) (no date) (unknown) (unknown) Respiratory Rate 16 04/14/22 11:41 (units unknown) (unknown) (unknown) (no date) (unknown) (unknown) Respiratory Rate 20 (units unknown) (unknown) (unknown) (no date) (unknown) (unknown) Respiratory Rate 24 19 (units unknown) (unknown) (unknown) (no date) (unknown) (unknown) Respiratory Rate 26 H (units unknown) (unknown) (unknown) (no date) (unknown) (unknown) Review of Systems (units unknown) (unknown) (unknown) (no date) (unknown) (unknown) Rx Instructions: (units unknown) (unknown) (unknown) (no date) (unknown) (unknown) SEVERITY (units unknown) (unknown) (unknown) (no date) (unknown) (unknown) SKIN: Denies rash, skin lesions, or other (units unknown) (unknown) (unknown) (no date) (unknown) (unknown) SKIN: No rash or erythema of visible areas (units unknown) (unknown) (unknown) (no date) (unknown) (unknown) 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 (units unknown) (unknown) (unknown) (no date) (unknown) (unknown) Score 1-3) ##0 (units unknown) (unknown) (unknown) (no date) (unknown) (unknown) Score 1-3) (units unknown) (unknown) (unknown) (no date) (unknown) (unknown) Seizure-like activity (units unknown) (unknown) (unknown) (no date) (unknown) (unknown) Shared Decision Making: Discussed plan patient is comfortable with plan (units unknown) (unknown) (unknown) (no date) (unknown) (unknown) Signed By: (units unknown) (unknown) (unknown) (no date) (unknown) (unknown) Signed (units unknown) (unknown) (unknown) (no date) (unknown) (unknown) Smoking Status: Never smoker (units unknown) (unknown) (unknown) (no date) (unknown) (unknown) Social Considerations: None (units unknown) (unknown) (unknown) (no date) (unknown) (unknown) Social History (units unknown) (unknown) (unknown) (no date) (unknown) (unknown) Sodium (137-145) mmol/L (units unknown) (unknown) (unknown) (no date) (unknown) (unknown) Sodium 142 (137-145) mmol/L (units unknown) (unknown) (unknown) (no date) (unknown) (unknown) Source: patient (units unknown) (unknown) (unknown) (no date) (unknown) (unknown) Spleen:? Unremarkable.? ? (units unknown) (unknown) (unknown) (no date) (unknown) (unknown) [place],Suspension (units unknown) (unknown) (unknown) (no date) (unknown) (unknown) Stand Alone Forms: Patient Portal/API (units unknown) (unknown) (unknown) (no date) (unknown) (unknown) Stated complaint: bleeding in stool (units unknown) (unknown) (unknown) (no date) (unknown) (unknown) Stomach and Bowel:? Stomach, small bowel loops, and colon are unremarkable.? (units unknown) (unknown) (unknown) (no date) (unknown) (unknown) Stool Occult Blood Positive (units unknown) (unknown) (unknown) (no date) (unknown) (unknown) Stop: 04/14/22 12:07 (units unknown) (unknown) (unknown) (no date) (unknown) (unknown) Stroke (units unknown) (unknown) (unknown) (no date) (unknown) (unknown) Substance Use Type: does not use (units unknown) (unknown) (unknown) (no date) (unknown) (unknown) Sulfa (Sulfonamide Allergy Unknown UNKNOWN Verified 04/14/22 11:41 (units unknown) (unknown) (unknown) (no date) (unknown) (unknown) Surgical History (units unknown) (unknown) (unknown) (no date) (unknown) (unknown) Symptoms ##0 (units unknown) (unknown) (unknown) (no date) (unknown) (unknown) Systane (PF) 1 EACH dropperette (units unknown) (unknown) (unknown) (no date) (unknown) (unknown) TECHNIQUE:? (units unknown) (unknown) (unknown) (no date) (unknown) (unknown) THIS (units unknown) (unknown) (unknown) (no date) (unknown) (unknown) Temperature 97.4 F L 04/14/22 11:41 (units unknown) (unknown) (unknown) (no date) (unknown) (unknown) Thank you for coming to the [facility] Emergency Department today. As (units unknown) (unknown) (unknown) (no date) (unknown) (unknown) This is a 61-year-old female presents to the emergency department due to (units unknown) (unknown) (unknown) (no date) (unknown) (unknown) Time Seen by Provider: 04/14/22 12:07 (units unknown) (unknown) (unknown) (no date) (unknown) (unknown) Total Bilirubin (0.2-1.3) mg/dL (units unknown) (unknown) (unknown) (no date) (unknown) (unknown) Total Bilirubin 0.4 (0.2-1.3) mg/dL (units unknown) (unknown) (unknown) (no date) (unknown) (unknown) Total Protein (6.3-8.2) g/dL (units unknown) (unknown) (unknown) (no date) (unknown) (unknown) Total Protein 7.5 (6.3-8.2) g/dL (units unknown) (unknown) (unknown) (no date) (unknown) (unknown) Ur Culture Indicated? Cult not indicated (units unknown) (unknown) (unknown) (no date) (unknown) (unknown) Ur Culture Indicated? (units unknown) (unknown) (unknown) (no date) (unknown) (unknown) Ur Squamous Epith Cells (0-5/HPF) (units unknown) (unknown) (unknown) (no date) (unknown) (unknown) Ur Squamous Epith Cells 5-10 /hpf H (0-5/HPF) (units unknown) (unknown) (unknown) (no date) (unknown) (unknown) Ur Transition Epith Cell (0-5/HPF) (units unknown) (unknown) (unknown) (no date) (unknown) (unknown) Ur Transition Epith Cell 1-5/hpf (0-5/HPF) (units unknown) (unknown) (unknown) (no date) (unknown) (unknown) Urine Bacteria (None) (units unknown) (unknown) (unknown) (no date) (unknown) (unknown) Urine Bacteria Few (2-10) H (None) (units unknown) (unknown) (unknown) (no date) (unknown) (unknown) Urine Dip (units unknown) (unknown) (unknown) (no date) (unknown) (unknown) Urine Mucus (Negative) (units unknown) (unknown) (unknown) (no date) (unknown) (unknown) Urine Mucus 1+ H (Negative) (units unknown) (unknown) (unknown) (no date) (unknown) (unknown) Urine RBC (0-5/HPF) (units unknown) (unknown) (unknown) (no date) (unknown) (unknown) Urine RBC 10-30/hpf H (0-5/HPF) (units unknown) (unknown) (unknown) (no date) (unknown) (unknown) Urine Specific Jackson 1.030 (units unknown) (unknown) (unknown) (no date) (unknown) (unknown) Urine WBC (0-5/HPF) (units unknown) (unknown) (unknown) (no date) (unknown) (unknown) Urine WBC 1-5/hpf (0-5/HPF) (units unknown) (unknown) (unknown) (no date) (unknown) (unknown) Ventral Wall: ? No hernia.? (units unknown) (unknown) (unknown) (no date) (unknown) (unknown) Vessels:? Aorta and inferior vena cava are normal in size.? (units unknown) (unknown) (unknown) (no date) (unknown) (unknown) Vital Signs - 8 hr (units unknown) (unknown) (unknown) (no date) (unknown) (unknown) Vital Signs (units unknown) (unknown) (unknown) (no date) (unknown) (unknown) Vital signs: (units unknown) (unknown) (unknown) (no date) (unknown) (unknown) WBC (4.5-11.0) X103/uL (units unknown) (unknown) (unknown) (no date) (unknown) (unknown) WBC 8.4 (4.5-11.0) X103/uL (units unknown) (unknown) (unknown) (no date) (unknown) (unknown) Walker: Front Wheel ##1 10/30/16 (units unknown) (unknown) (unknown) (no date) (unknown) (unknown) Walker: Front Wheel (units unknown) (unknown) (unknown) (no date) (unknown) (unknown) [CRANBERRY] 1 tab PO QDAY ##0 09/27/16 10/04/19 (units unknown) (unknown) (unknown) (no date) (unknown) (unknown) [CRANBERRY] (units unknown) (unknown) (unknown) (no date) (unknown) (unknown) [Embedded Image Not Available] (units unknown) (unknown) (unknown) (no date) (unknown) (unknown) [NITROFURANTOIN] REACTION (units unknown) (unknown) (unknown) (no date) (unknown) (unknown) [RED RICE YEAST] 600 mg PO BID ##0 03/12/10 10/04/19 (units unknown) (unknown) (unknown) (no date) (unknown) (unknown) [RED RICE YEAST] (units unknown) (unknown) (unknown) (no date) (unknown) (unknown) [SULFA (SULFONAMIDE (units unknown) (unknown) (unknown) (no date) (unknown) (unknown) abdominal pain, diarrhea, constipation. (units unknown) (unknown) (unknown) (no date) (unknown) (unknown) acetaminophen 300 mg-codeine 30 mg 1 tab PO Q4-6H PRN pain #14 tabs 09/21/17 (units unknown) (unknown) (unknown) (no date) (unknown) (unknown) acetaminophen-codei ne [Tylenol-Codeine #3] 300-30 mg tablet (units unknown) (unknown) (unknown) (no date) (unknown) (unknown) adhesive tape [ADHESIVE TAPE] Allergy Severe 'I GOT Verified 04/14/22 11:41 (units unknown) (unknown) (unknown) (no date) (unknown) (unknown) adjustment (units unknown) (unknown) (unknown) (no date) (unknown) (unknown) aerosol inhaler (Proventil HFA) (units unknown) (unknown) (unknown) (no date) (unknown) (unknown) albuterol sulfate 90 mcg/actuation 2 puff INH PRN PRN Dyspnea ##0 03/12/10 (units unknown) (unknown) (unknown) (no date) (unknown) (unknown) albuterol sulfate [Proventil HFA] 90 MCG/PUFF HFA aerosol inhaler (units unknown) (unknown) (unknown) (no date) (unknown) (unknown) alcohol intake frequency: 0-2 drinks per day (units unknown) (unknown) (unknown) (no date) (unknown) (unknown) alcohol intake: never (units unknown) (unknown) (unknown) (no date) (unknown) (unknown) and no evidence of any kind anemia. Patient will be treated for internal (units unknown) (unknown) (unknown) (no date) (unknown) (unknown) aspirin [ASPIRIN] Allergy Unknown UNKNOWN Verified 04/14/22 11:41 (units unknown) (unknown) (unknown) (no date) (unknown) (unknown) bilaterally ranging from 1-3 mm.? No interval change. (units unknown) (unknown) (unknown) (no date) (unknown) (unknown) blister (units unknown) (unknown) (unknown) (no date) (unknown) (unknown) blood surrounding the rectum, positive stool guaiac test (units unknown) (unknown) (unknown) (no date) (unknown) (unknown) cholecalciferol (vitamin D3) 250 5,000 unit PO QDAY ##0 03/12/10 10/04/19 (units unknown) (unknown) (unknown) (no date) (unknown) (unknown) cholecalciferol (vitamin D3) 250 mcg (10,000 unit) Tablet (units unknown) (unknown) (unknown) (no date) (unknown) (unknown) consider purchasing an [id number] fiber supplement as this may help with (units unknown) (unknown) (unknown) (no date) (unknown) (unknown) diclofenac sodium 3 % gel (units unknown) (unknown) (unknown) (no date) (unknown) (unknown) diclofenac sodium 3 % topical gel 1 applic topical BID PRN knee 08/14/21 (units unknown) (unknown) (unknown) (no date) (unknown) (unknown) discussed your CT abdomen and pelvis showed no concerning findings. I suspect (units unknown) (unknown) (unknown) (no date) (unknown) (unknown) dizziness. (units unknown) (unknown) (unknown) (no date) (unknown) (unknown) docusate sodium 250 mg capsule 500 mg PO PRN PRN Constipation ##0 03/12/10 (units unknown) (unknown) (unknown) (no date) (unknown) (unknown) docusate sodium [DOK] 250 MG capsule (units unknown) (unknown) (unknown) (no date) (unknown) (unknown) due to suspected lower GI bleed due to suspected internal hemorrhoids. On exam (units unknown) (unknown) (unknown) (no date) (unknown) (unknown) dysuria, urinary frequency, or urgency. (units unknown) (unknown) (unknown) (no date) (unknown) (unknown) ectopy. No ST segmental elevation or depression. No T wave inversions (units unknown) (unknown) (unknown) (no date) (unknown) (unknown) findings that would explain the cause of the rectal bleeding. CBC unremarkable (units unknown) (unknown) (unknown) (no date) (unknown) (unknown) fluticasone propionate 50 2 spray intranasal DAILY PRN 09/17/19 10/04/19 (units unknown) (unknown) (unknown) (no date) (unknown) (unknown) fluticasone propionate [Flonase Allergy Relief] 50 mcg/actuation (units unknown) (unknown) (unknown) (no date) (unknown) (unknown) for further evaluation and possible colonoscopy. (units unknown) (unknown) (unknown) (no date) (unknown) (unknown) from the (units unknown) (unknown) (unknown) (no date) (unknown) (unknown) gabapentin 400 mg capsule 3,200 mg PO QDAY ##0 09/27/16 10/04/19 (units unknown) (unknown) (unknown) (no date) (unknown) (unknown) gabapentin [Neurontin] 400 MG capsule (units unknown) (unknown) (unknown) (no date) (unknown) (unknown) guaiac test. CT abdomen and pelvis ordered with contrast which showed no acute (units unknown) (unknown) (unknown) (no date) (unknown) (unknown) hemorrhoids as well as recommendations to follow up with the primary care (units unknown) (unknown) (unknown) (no date) (unknown) (unknown) hemorrhoids, upper GI bleed, lower GI bleed, external hemorrhoids (units unknown) (unknown) (unknown) (no date) (unknown) (unknown) her abdomen or rectum but she states that she ?always does not feel pain down (units unknown) (unknown) (unknown) (no date) (unknown) (unknown) history of NSAID use. Also reports a foul-smelling urine but denies any (units unknown) (unknown) (unknown) (no date) (unknown) (unknown) household members: caregiver and none (units unknown) (unknown) (unknown) (no date) (unknown) (unknown) hydrocodone 5 mg-acetaminophen 325 1 tab PO BID PRN pain #14 tabs 08/14/21 (units unknown) (unknown) (unknown) (no date) (unknown) (unknown) hydrocodone-acetami nophen 5-325 mg tablet (units unknown) (unknown) (unknown) (no date) (unknown) (unknown) ibuprofen 200 MG capsule (units unknown) (unknown) (unknown) (no date) (unknown) (unknown) ibuprofen 200 mg capsule 400 mg PO PRN PRN Pain (Scale 09/27/16 10/04/19 (units unknown) (unknown) (unknown) (no date) (unknown) (unknown) icterus. No injection or drainage. (units unknown) (unknown) (unknown) (no date) (unknown) (unknown) loratadine 10 MG tablet (units unknown) (unknown) (unknown) (no date) (unknown) (unknown) loratadine 10 mg tablet 10 mg PO QDAYP PRN Allergy 09/27/16 10/04/19 (units unknown) (unknown) (unknown) (no date) (unknown) (unknown) lung bases to the pubic symphysis.? Coronal and sagittal reformats were (units unknown) (unknown) (unknown) (no date) (unknown) (unknown) marital status: unknown (units unknown) (unknown) (unknown) (no date) (unknown) (unknown) mcg (10,000 unit) tablet (units unknown) (unknown) (unknown) (no date) (unknown) (unknown) mcg/actuation nasal Allergic Symptoms (units unknown) (unknown) (unknown) (no date) (unknown) (unknown) mg tablet (units unknown) (unknown) (unknown) (no date) (unknown) (unknown) nitrofurantoin Allergy Unknown UNKNOWN Verified 04/14/22 11:41 (units unknown) (unknown) (unknown) (no date) (unknown) (unknown) noted (units unknown) (unknown) (unknown) (no date) (unknown) (unknown) of mA and/or kV according to patient size. (units unknown) (unknown) (unknown) (no date) (unknown) (unknown) omeprazole 20 mg capsule,delayed 20 mg PO DAILY #30 caps 10/04/19 (units unknown) (unknown) (unknown) (no date) (unknown) (unknown) omeprazole 20 mg capsule,delayed release(DR/EC) (units unknown) (unknown) (unknown) (no date) (unknown) (unknown) or from her urine. Patient states that she is not experienced any pain around (units unknown) (unknown) (unknown) (no date) (unknown) (unknown) oxycodone 5 MG tablet (units unknown) (unknown) (unknown) (no date) (unknown) (unknown) oxycodone 5 mg tablet 1 - 2 tab PO Q3HP PRN Pain (Scale 09/17/19 10/04/19 (units unknown) (unknown) (unknown) (no date) (unknown) (unknown) oxycodone 5 mg tablet 5 mg PO Q8H PRN pain #7 tabs 04/04/20 (units unknown) (unknown) (unknown) (no date) (unknown) (unknown) oxycodone 5 mg tablet (units unknown) (unknown) (unknown) (no date) (unknown) (unknown) pain, acute shortness of breath, or any other concerning signs or symptoms. (units unknown) (unknown) (unknown) (no date) (unknown) (unknown) pain, ankle pain #100 grams (units unknown) (unknown) (unknown) (no date) (unknown) (unknown) patient had bright red blood surrounding the rectum as well as a positive stool (units unknown) (unknown) (unknown) (no date) (unknown) (unknown) peg 400-propylene glycol (PF) 0.4 2 drp OPHTH QDAY ##0 09/27/16 10/04/19 (units unknown) (unknown) (unknown) (no date) (unknown) (unknown) performed.? For (units unknown) (unknown) (unknown) (no date) (unknown) (unknown) provider for further evaluation. (units unknown) (unknown) (unknown) (no date) (unknown) (unknown) provider for possible colonoscopy. (units unknown) (unknown) (unknown) (no date) (unknown) (unknown) radiation dose reduction, the following was used:? automated exposure control, (units unknown) (unknown) (unknown) (no date) (unknown) (unknown) rales, or rhonchi. (units unknown) (unknown) (unknown) (no date) (unknown) (unknown) release (units unknown) (unknown) (unknown) (no date) (unknown) (unknown) removal of previous anterior mass.? Previous fat containing lesions bilaterally (units unknown) (unknown) (unknown) (no date) (unknown) (unknown) reported blood in her stool onset this morning while taking a shower. She (units unknown) (unknown) (unknown) (no date) (unknown) (unknown) seizures, incoordination. 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 Nonobstructing stones are (units unknown) (unknown) (unknown) (no date) (unknown) (unknown) tablet (Tylenol-Codeine #3) (units unknown) (unknown) (unknown) (no date) (unknown) (unknown) the cause of your rectal bleeding is due to internal hemorrhoids. Please (units unknown) (unknown) (unknown) (no date) (unknown) (unknown) the hemorrhoids. I also recommended follow up with your primary care provider (units unknown) (unknown) (unknown) (no date) (unknown) (unknown) the past (units unknown) (unknown) (unknown) (no date) (unknown) (unknown) there?. Patient denies any significant abdominal pain, nausea, vomiting, chest (units unknown) (unknown) (unknown) (no date) (unknown) (unknown) tonsillar hypertrophy or exudate. Airway patent. (units unknown) (unknown) (unknown) (no date) (unknown) (unknown) topiramate 50 mg tablet (Topamax) 200 mg PO BID 09/17/19 10/04/19 (units unknown) (unknown) (unknown) (no date) (unknown) (unknown) topiramate [Topamax] 50 MG tablet (units unknown) (unknown) (unknown) (no date) (unknown) (unknown) unremarkable. BUN/Creatinine ration WNL, noncerning for upper GI bleed. (units unknown) (unknown) (unknown) (no date) (unknown) (unknown) with (units unknown) (unknown) Social History date description facility 2022-04-14 00:00 Never smoked tobacco (finding) [facility] Vital Signs date measurement value units 2022-04-14 [...]
--- NOTE | 2022-06-30 17:13 | ED Physician Documentation ---
PD HPI URI - Stated complaint Stated Complaint: COUGH,SOA - Chief complaint Chief Complaint: Resp - History obtained from History obtained from: Patient - History of Present Illness Timing - onset: How many days ago (several days to a week of increasing cough and wheezing despite use of MDI. Having productive cough with sputum. No blood with cough. history of asthma and feels it is flaring.) Timing duration: Days Timing details: Gradual onset, Still present Associated symptoms: Chills, Productive cough, Chest pain. No: Fever, Hemoptysis, NVD, Bilateral edema Contributing factors: COPD / asthma. No: Sick contact, Travel, Immunocompromised Improves by: MDI/nebulizer Worsened by: Activity, Breathing Recently seen: Not recently seen Review of Systems Constitutional: denies: Fever, Chills Nose: denies: Rhinorrhea / runny nose, Congestion Throat: denies: Sore throat Cardiac: reports: Chest pain / pressure (anteriorly right with coughing hard). denies: Palpitations, Pedal edema, Calf pain Respiratory: reports: Dyspnea, Cough, Wheezing PD PAST MEDICAL HISTORY - Past Medical History Cardiovascular: None Respiratory: Asthma Neuro: Seizure disorder Endocrine/Autoimmune: Type 2 diabetes GI: Other : None HEENT: Other Psych: None Musculoskeletal: Osteoarthritis, Chronic back pain Derm: None - Past Surgical History Past Surgical History: Yes General: Cholecystectomy, Colonoscopy Ortho: Knee replacement, Shoulder arthroplasty, Spine surgery HEENT: Cataracts - Present Medications Home Medications: Ambulatory Orders Medication Instructions Recorded Confirmed Fluticasone [Flonase] 2 sprays CECILIA DAILY 02/13/13 06/30/22 Topiramate [Topiragen] 200 mg PO BID 02/13/13 06/30/22 Albuterol Sulfate [Proair Hfa 2 puffs INH Q4H PRN 01/07/14 06/30/22 Inhaler] Cholecalciferol (Vitamin D3) 5,000 unit PO DAILY 01/07/14 06/30/22 [Vitamin D3] Gabapentin 800 mg PO DAILY@1200 12/23/16 06/30/22 Ibuprofen [Motrin] 800 mg PO Q8H PRN tablet 12/23/16 06/30/22 Benzonatate [Tessalon] 100 mg PO TID PRN #20 cap 06/30/22 Doxycycline Hyclate 100 mg PO BID 7 Days #14 cap 06/30/22 dexAMETHasone [Decadron] 4 mg PO DAILY #7 tablet 06/30/22 - Allergies Allergies/Adverse Reactions: Allergies Allergy/AdvReac Type Severity Reaction Status Date / Time aspirin AdvReac Intermediate Itching Verified 06/30/22 14:45 Penicillins AdvReac Intermediate Itching Verified 06/30/22 14:45 Sulfa (Sulfonamide AdvReac Intermediate Itching Verified 06/30/22 14:45 Antibiotics) prednisone AdvReac Dizziness Verified 06/30/22 14:45 nonsting skin prep Allergy Hives Uncoded 05/02/22 15:16 - Social History Does the pt smoke?: No Smoking Status: Never smoker Does the pt drink ETOH?: No Does the pt have substance abuse?: No - Immunizations Immunizations are current?: No - POLST Patient has POLST: No PD ED PE NORMAL - Vitals Vital signs reviewed: Yes - General General: Alert and oriented X 3, Well developed/nourished, Other (coughing spasms with wheezing during exam. ) - HEENT HEENT: Ears normal, Moist mucous membranes, Pharynx benign - Neck Neck: Supple, no meningeal sign, No adenopathy - Cardiac Cardiac: RRR, No murmur - Respiratory Respiratory: No: Clear bilaterally (wheezing diffusely, more with cough of course. No coarse sounds. ) - Abdomen Abdomen: Soft, Non tender - Derm Derm: Normal color, Warm and dry - Extremities Extremities: No edema, No calf tenderness / cord - Neuro Neuro: Alert and oriented X 3, No motor deficit, Normal speech Results - Vitals Vitals: Vital Signs - 24 hr 06/30/22 06/30/22 06/30/22 14:45 17:10 17:53 Temperature 36.5 C Heart Rate 94 85 Respiratory 20 17 18 Rate Blood Pressure 174/104 H 162/85 H O2 Saturation 97 96 Oxygen O2 Source Room air - Rads (name of study) chest xray Relevant Findings:: Prelim report reviewed, EMP independent interpretation of test (no infiltrates), See rad report PD Medical Decision Making - ED course Complexity details: reviewed results (chest xray is clear. ), considered differential (History of asthma with exacerbation of symptoms associated with cough productive of sputum without much upper respiratory symptoms. Seems likely bronchitis. Chest x-ray clear.), d/w patient Departure - Departure Disposition: 01 Home, Self Care Clinical Impression: Exacerbation of asthma, Lower respiratory infection (e.g., bronchitis, pneumonia, pneumonitis, pulmonitis) Condition: Stable Record reviewed to determine appropriate education?: Yes Instructions: ED Bronchitis Asthmatic Follow-Up: Edison Jones MD [Primary Care Provider] - Prescriptions: dexAMETHasone [Decadron] 4 mg PO DAILY #7 tablet Doxycycline Hyclate 100 mg PO BID 7 Days #14 cap Benzonatate [Tessalon] 100 mg PO TID PRN #20 cap PRN Reason: Cough Comments: Your chest x-ray is clear without any signs of pneumonia. Your oxygenation level is good. You do have a lot of wheezing and your description of the cough wheezing and sputum production are concerning for acute bronchitis. This can be a viral illness, however with your description of be concern for bacterial infection and would treat with a combination of your inhaler regularly along with a short course dexamethasone steroid dosing, doxycycline antibiotic and benzonatate if needed for cough. I sent these medications to your preferred pharmacy. You are given an initial dose here in the ER so you are good for the steroid and antibiotic dosing for tonight. Use your inhaler every 3-4 hours as needed. Recheck if not improving well over the next few days and return if worsening. Discharge Date/Time: 06/30/22 17:55
[2022-06-30] MEDS ORDERED: CHERRY SYRUP 10 ML UDC PO ONE (17:25)
[2022-06-30] MEDS ORDERED: BENZONATATE 100 MG CAPSULE PO STA (17:25)
[2022-06-30] MEDS ORDERED: DOXYCYCLINE 100 MG TABLET PO STA (17:25)
[2022-06-30] MEDS ORDERED: IPRATROPIUM/ALBUTEROL 3 ML NEB INH STA (17:25)
[2022-06-30] MEDS ORDERED: DEXAMETHASONE 10 MG/ML VIAL PO STA (17:25)
[2022-06-30 17:56] VITALS: BP 162/85
== END 2022-06-30 17:55 | disposition home or self-care (01) ==
LOC: ED 14:41
DX: J44.1 Chronic obstructive pulmonary disease with (acute) exacerbation (principal); J22 Unspecified acute lower respiratory infection; E11.9 Type 2 diabetes mellitus without complications; Z79.899 Other long term (current) drug therapy
CPT/HCPCS: 71046; 94640; 99283; 99284; A9270

== ENCOUNTER 2022-11-28 15:41 | Outpatient (CLI) | payer MEDICARE, MEDICAID | END 2022-11-28 15:42 | disposition critical access hospital (66) | LOC: EMS 15:41 | DX: R56.9 Unspecified convulsions (principal); G43.909 Migraine, unspecified, not intractable, without status migrainosus | CPT/HCPCS: A0425; A0429 ==

== ENCOUNTER 2022-11-28 16:01 | Emergency (ER) | payer MEDICARE, MEDICAID ==
[2022-11-28] MEDS ORDERED: LORazepam 2 MG/ML VIAL IVP STA (16:12)
[2022-11-28] MEDS ORDERED: KETOROLAC 15 MG/ML VIAL IVP STA (16:13)
--- NOTE | 2022-11-28 16:14 | ED Physician Documentation ---
PD HPI SEIZURE - Stated complaint Stated Complaint: SZ - History obtained from History obtained from: Patient, EMS - Additional information Additional information: 62-year-old with history of hydrocephalus, no shunt, and frequent seizures pr esents with exacerbation of seizures today. States she usually has seizures weekly to monthly. Today she has had several seizures which she describes as shaking of both arms while falling asleep and then having trouble breathing and unable to talk but without actual loss of consciousness, so whether or not today's episodes were seizures is questionable. She also has a headache with it which is atypical for her seizures. She is maintained on Topamax and gabapentin for her seizures and has been compliant. No injuries. PD PAST MEDICAL HISTORY - Past Medical History Cardiovascular: None Respiratory: Asthma Neuro: Seizure disorder Endocrine/Autoimmune: Type 2 diabetes GI: Other : None HEENT: Other Psych: None Musculoskeletal: Osteoarthritis, Chronic back pain Derm: None - Past Surgical History Past Surgical History: Yes General: Cholecystectomy, Colonoscopy Ortho: Knee replacement, Shoulder arthroplasty, Spine surgery HEENT: Cataracts - Present Medications Home Medications: Ambulatory Orders Medication Instructions Recorded Confirmed Fluticasone [Flonase] 2 sprays CECILIA DAILY 02/13/13 06/30/22 Topiramate [Topiragen] 200 mg PO BID 02/13/13 06/30/22 Albuterol Sulfate [Proair Hfa 2 puffs INH Q4H PRN 01/07/14 06/30/22 Inhaler] Cholecalciferol (Vitamin D3) 5,000 unit PO DAILY 01/07/14 06/30/22 [Vitamin D3] Gabapentin 800 mg PO DAILY@1200 12/23/16 06/30/22 Ibuprofen [Motrin] 800 mg PO Q8H PRN tablet 12/23/16 06/30/22 Benzonatate [Tessalon] 100 mg PO TID PRN #20 cap 06/30/22 Doxycycline Hyclate 100 mg PO BID 7 Days #14 cap 06/30/22 dexAMETHasone [Decadron] 4 mg PO DAILY #7 tablet 06/30/22 - Allergies Allergies/Adverse Reactions: Allergies Allergy/AdvReac Type Severity Reaction Status Date / Time aspirin AdvReac Intermediate Itching Verified 06/30/22 14:45 Penicillins AdvReac Intermediate Itching Verified 06/30/22 14:45 Sulfa (Sulfonamide AdvReac Intermediate Itching Verified 06/30/22 14:45 Antibiotics) prednisone AdvReac Dizziness Verified 06/30/22 14:45 nonsting skin prep Allergy Hives Uncoded 05/02/22 15:16 - Social History Does the pt smoke?: No Smoking Status: Never smoker Does the pt drink ETOH?: No Does the pt have substance abuse?: No - Immunizations Immunizations are current?: No - POLST Patient has POLST: No PD ED PE NORMAL - Vitals Vital signs reviewed: Yes - General General: Alert and oriented X 3, No acute distress - HEENT HEENT: PERRL, EOMI, Other (No tongue laceration) - Neck Neck: Supple, no meningeal sign, No bony TTP - Cardiac Cardiac: RRR, No murmur - Respiratory Respiratory: No respiratory distress, Clear bilaterally - Abdomen Abdomen: Non tender - Back Back: No CVA TTP, No spinal TTP - Neuro Neuro: Alert and oriented X 3, wool sampler 2-12 intact, No motor deficit, No sensory deficit, Normal speech Eye Opening: Spontaneous Motor: Obeys Commands Verbal: Oriented GCS Score: 15 Results - Vitals Vitals: Vital Signs - 24 hr 11/28/22 16:21 Temperature 36.8 C Heart Rate 75 Respiratory 18 Rate Blood Pressure 157/74 H O2 Saturation 99 Oxygen O2 Source Room air - Labs Labs: Laboratory Tests 11/28/22 17:07 Sodium 136 Potassium 3.8 Chloride 109 Carbon Dioxide 21 Anion Gap 6.0 BUN 19 Creatinine 1.3 Estimated GFR (MDRD) 42 L Glucose 156 H Calcium 8.9 - Rads (name of study) CT of the head Relevant Findings:: Final report received, EMP independent interpretation of test PD Medical Decision Making - ED course Complexity details: reviewed old records ED course: Description of the "seizures" is questionable for actual seizure activity as she has bilateral symptoms and maintains consciousness. That said we will do a CAT scan given that she has an atypical headache for her associated with the symptoms can medicate with Toradol and Ativan. Feeling better and her headache resolved after Toradol. No seizure activity in the emergency department. CT of the head showed stable left lateral ventricular enlargement Departure - Departure Disposition: 01 Home, Self Care Clinical Impression: Seizures Condition: Good Record reviewed to determine appropriate education?: Yes Instructions: ED Seizure Recurrent Comments: Reasonable to call your neurologist at [facility] tomorrow to let her know about your increasing seizure frequency today. Continue your regular seizure medication. Return for new or worsening symptoms.
[2022-11-28 16:33] VITALS: BP 157/74; O2SAT 99
--- OUTSIDE RECORDS SUMMARY | 2022-11-28 16:53 | EXTERNAL MEDICAL SUMMARY RPT | Continuity of Care Document ---
Author Name Unknown Address [address] [place] [address] Phone Organization [facility] Address [address] [place] [address] Phone Care Team Providers Care Web Site Project Manager Name Role Phone Unavailable Unavailable Unavailable Edison Jones Unavailable Unavailable Allergies and Intolerances date description facility reaction severity 2022-11-05 14:33:46 [facility] (no reactio n) (no severity) 2022-11-05 14:33:46 [facility] (no reactio n) (no severity) 2022-11-05 14:33:46 [facility] (no reactio n) (no severity) 2022-11-05 14:33:46 [facility] (no reactio n) Severe 2022-11-05 14:33:46 [facility] (no reactio n) (no severity) 2022-11-05 14:33:46 [facility] (no reactio n) (no severity) Medications date description facility 2022-09-29 00:00 Fluticasone Propion-Salmeterol [facility] 2022-09-28 00:00 [facility] Problems date description facility 2022-09-09 09:47 Dysphagia, unspecified [facility] 2022-09-29 09:28 Dysphagia, unspecified [facility] 2022-09-29 11:17 Dysphagia, unspecified [facility] 2022-09-29 11:26 Dysphagia, unspecified [facility] 2022-09-29 11:32 Dysphagia, unspecified [facility] 2022-09-29 11:55 Dysphagia, unspecified [facility] 2022-10-06 15:18 Malignant neoplasm o f left kidney, except renal pelvis [facility] 2022-10-06 15:24 Malignant neoplasm o f left kidney, except renal pelvis [facility] 2022-10-06 15:31 Malignant neoplasm o f left kidney, except renal pelvis [facility] 2022-10-06 15:37 Malignant neoplasm o f left kidney, except renal pelvis [facility] 2022-11-05 00:00 Screening for malignant neoplas m of cervix [facility] Procedures date description facility 2022-09-09 00[facility] X-ray of chest, two views [facility] 2022-10-06 00:00 US abdomen complete [facility] 2022-09-29 00:00 Esophagogastroduodenoscopy [facility] Results/Labs test date facility value unit notes Social History date description facility 2022-09-29 00:00 Never smoked tobacco (finding) [facility] 2022-11-05 00:00 Never smoked tobacco (finding) [facility] Vital Signs date measurement value units 2022-09-29 00:00 BMI 34.7 kg/m2 2022-09-29 00:00 BP_diastolic 90 mmHg 2022-09-29 00:00 BP_systolic 166 mmHg 2022-09-29 00:00 heart_rate 65 /min 2022-09-29 00:00 height_metric 175.26 cm 2022-09-29 00:00 height_standard 69 in 2022-09-29 00:00 o2_saturation 98 % 2022-09-29 00:00 respiration_rate 12 /min 2022-09-29 00:00 temperature_metric 36.22 C 2022-09-29 00:00 temperature_standard 97.2 F 2022-09-29 00:00 weight_metric 106.59 kg 2022-09-29 00:00 weight_standard 234.99 lb 2022-11-05 00:00 BMI 34.4 kg/m2 2022-11-05 00:00 BP_diastolic 78 mmHg 2022-11-05 00:00 BP_systolic 140 mmHg 2022-11-05 00:00 height_metric 172.72 cm 2022-11-05 00:00 height_standard 68 in 2022-11-05 00:00 weight_metric 102.96 kg 2022-11-05 00:00 weight_standard 226.99 lb
[2022-11-28 17:30] LABS: CALCIUM 8.9 mg/dL (8.5-10.3); CREATININE 1.3 mg/dL (0.6-1.3); POTASSIUM 3.8 mmol/L (3.5-4.5)
--- NOTE | 2022-11-28 17:54 | CT Report ---
PROCEDURE: HEAD WO INDICATIONS: headaches TECHNIQUE: Noncontrast 4.5 mm thick angled axial sections acquired from the foramen magnum to the vertex. For r adiation dose reduction, the following was used: automated exposure control, adjustment of mA and/or kV according to patient size. COMPARISON: 05/02/2022, 12/22/2016 FINDINGS: Image quality: Excellent. CSF spaces: Basal cisterns are patent. No extra-axial fluid collections. The ventricles are stable , with ex vacuo dilatation of the left lateral ventricle. Brain: Stable volume loss is seen involving the posterior aspect of the left cerebral hemisphere. No midline shift. No intracranial masses or hemorrhage. Ruiz-white matter interface is normal. Skull and face: Calvarium and visualized facial bones are intact, without suspicious lesions. Hyperostosis Sinuses: Visualized sinuses and mastoids are clear. IMPRESSION: No acute intracranial pathology. Stable enlargement of the left lateral ventricle. Reviewed by: Osmin Noland MD on 11/28/2022 4:52 PM AKDT Approved by: Osmin Noland MD on 11/28/2022 4:52 PM AKDT Station ID: [id number]
[2022-11-28] MEDS ORDERED: LORazepam 1 MG TABLET PO STA ×2 (18:09→18:47)
== END 2022-11-28 19:11 | disposition home or self-care (01) ==
LOC: EDUNIT# → ED 16:01
DX: R56.9 Unspecified convulsions (principal); E11.9 Type 2 diabetes mellitus without complications
CPT/HCPCS: 36415; 70450; 80048; 96374; 99284; J2060; J8499